=== PATIENT | female | born 1940 | race Caucasian/White ===

== ENCOUNTER → 2018-12-17 11:56 | Outpatient (CLI) | payer MEDICARE, BC, SELFPAY ==
--- NOTE | 2018-12-17 | DI.ECHO.S_ITS ---
[facility] +---------+ [facility] +---------+ : : [address] : : : : [place], [place] : : : : [id number] : : : : Phone: [phone] Echocardiogram Report + + :Name: OMID NINO Study Date: 12/17/2018 Height: 66 in : :[facility] Weight: 148 lb : : Gender: Female BSA: 1.8 m2 : :: 1940 Age: 78 yrs BP: 164/100 mmHg: :Reason For Study: Mitral Valve- Regurgitation : : Performed By: Eufemia Hobbs : :Referring: NIKOS OLSEN : + + Interpretation Summary The left ventricle is mildly dilated with normal left ventricular wall thickness and appears mildly larger compared to the previous study. Left ventricular systolic function is moderately reduced with the ejection fraction visually estimated to be 35-40% with a significant dyssynchronous contraction pattern due to the paced rhythm with moderate global hypokinesis that is significantly worse in the distal third of the left ventricle with some apical dyskinesis which is much more prominent compared to the previous study. Overall left ventricular systolic function has significantly decreased. The right ventricle grossly appears normal in size with probable normal systolic function and is unchanged compared to the previous study. The right ventricular systolic pressure is estimated to be at least 45 mmHg based on an estimated right atrial pressure of 8 mm Hg, and is likely similar compared to the previous study. Both atria are severely dilated and both atria have significantly increased in size since the prior echo exam. A small secundum type atrial septal defect is present and there is Doppler evidence that suggests a left to right interatrial shunt that is more prominent compared to the previous study. There is moderate, perhaps moderate??severe mitral regurgitation that is slightly more prominent compared to the previous study. There is moderate to severe tricuspid regurgitation that is more prominent compared to the previous study. The ascending aorta is mildly enlarged that measures slightly larger compared to the previous study. The patient has a paced rhythm with probable underlying atrial fibrillation which is new from the previous study Procedure: A two-dimensional transthoracic echocardiogram with color flow and Doppler was performed. The study quality was technically good. Comparison is made with the echocardiogram of 08-03-16. The patient has a paced rhythm. There is probable underlying atrial fibrillation which is new from the previous study. Left Ventricle: The left ventricle is mildly dilated. There is normal left ventricular wall thickness. This is mildly larger compared to the previous study. Left ventricular systolic function is moderately reduced. The ejection fraction is estimated to be 35-40%. There is a significant dyssynchronous contraction pattern due to the paced rhythm. There is moderate global hypokinesis of the left ventricle. That appears to be significantly worse in the distal third of the left ventricle with some apical dyskinesis which is much more prominent compared to the previous study. Overall left ventricular systolic function has significantly decreased. Diastolic function could not be accurately assessed due to paced rhythm. Right Ventricle: The right ventricle grossly appears normal in size with probable normal systolic function. There is a pacemaker lead in the right ventricle. This is unchanged compared to the previous study. Atria: Both atria are severely dilated. Both atria have significantly increased in size since the prior echo exam. There is a catheter/pacemaker lead seen in the right atrium. A secundum type atrial septal defect is present. The atrial septal defect is small. Doppler evidence suggests a left to right interatrial shunt. This is more prominent compared to the previous study. Mitral Valve: The mitral valve leaflets appear mildly thickened, but open well. There is moderate mitral regurgitation. This is slightly more prominent compared to the previous study. Aortic Valve: The aortic valve is trileaflet. The aortic valve is mildly calcified. Leaflet mobility is mildly reduced. There is no aortic valve stenosis. There is trace aortic regurgitation. Tricuspid Valve: The tricuspid valve leaflets are thin and pliable. There is moderate to severe tricuspid regurgitation. This is more prominent compared to the previous study. The right ventricular systolic pressure is estimated to be at least 45 mmHg based on an estimated right atrial pressure of 8 mm Hg. This is unchanged compared to the previous study. Pulmonic Valve: The pulmonic valve is not well seen, but is grossly normal. There is trace pulmonic regurgitation. Great Vessels: The aortic root is normal size. The ascending aorta is mildly enlarged. This is slightly larger compared to the previous study. The aortic arch is normal in size. The IVC is dilated (diameter is greater than 2.1 cm) yet it collapses greater than 50% with a sniff. This suggests a right atrial pressure of 8 mm Hg. Pericardium/ Pleura There is no pericardial effusion. There is no pleural effusion. MMode/2D Measurements & Calculations LVIDd: 5.5 cm Ao root diam: 3.3 cm LVIDs: 4.0 cm Aortic Jxn: 2.7 cm FS: 27.1 % asc Aorta Diam: 3.7 cm EPSS: 1.2 cm Ao Arch Diam (Prox Trans): 2.7 cm IVSd: 1.0 cm LVPWd: 0.89 cm LV isaac. diameter/BSA (cm/m^2): 3.1 LV sys. diameter/BSA (cm/m^2): 2.3 LA dimension: 5.1 cm RA long axis: 6.0 cm LA A2 area: 28.9 cm2 RA area: 28.4 cm2 LA A4 area: 27.9 cm2 RA vol: 113.3 ml LA length (vol): 6.3 cm RA : 64.4 ml/m2 LA vol: 108.5 ml IVC diam: 2.3 cm LA vol index: 61.6 ml/m2 RVDd major: 5.6 cm RVD1 (basal): 3.5 cm RVD2 (mid): 2.8 cm Doppler Measurements & Calculations Ao V2 max: 124.4 cm/sec Med Peak E' Collins: 2.2 cm/sec Ao V2 mean: 71.2 cm/sec Lat Peak E' Collins: 8.6 cm/sec Ao max P.2 mmHg MV P1/2t: 66.1 msec Ao mean P.6 mmHg Ao V2 VTI: 22.5 cm TR max collins: 298.5 cm/sec MV V2 mean: 52.3 cm/sec TR max P.6 mmHg MV mean P.5 mmHg PA V2 max: 63.6 cm/sec MV V2 VTI: 22.0 cm PA V2 mean: 36.9 cm/sec PA mean P.70 mmHg PA Accel Time: 0.11 sec MV P1/2t max collins: 111.4 cm/sec MVA(P1/2t): 3.3 cm2 Reading Physician:PM
== END ==
PROVIDERS: PCP Internal Medicine; Visit Provider Specialist
DX: I08.1 Rheumatic disorders of both mitral and tricuspid valves (principal)
CPT/HCPCS: 93306

== ENCOUNTER 2019-07-10 10:02 | Emergency (ER) | payer MEDICARE, BC, SELFPAY ==
[2019-07-10] VITALS (11 sets, daily range): BP systolic 113–154; BP diastolic 50–74; PULSE 65–73; RESP 16–23; TEMP 36.4–38.6; O2SAT 95–99; BMI 23.3
--- NOTE | 2019-07-10 10:33 | ED_ITS ---
HPI - Abdominal Pain General Chief Complaint: Abdominal Pain Stated Complaint: vomiting/passed out today Time Seen by Provider: 07/10/19 10:10 Source: patient Mode of arrival: Ambulatory Limitations: no limitations History of Present Illness HPI narrative: The patient is an 79-year-old female with history of atrial fibrillation on Coumadin presenting with diarrhea and vomiting. She says that last night she has had numerous episodes of dark red bloody stool and vomiting. She denies hematemesis. She has overall has diffuse abdominal pain. She feels weak and lethargic. She is noted to be febrile here in the ED. Related Data Home Medications Medication Instructions Recorded Confirmed bumetanide 0.5 mg PO DAILY 07/10/19 07/10/19 calcium carbonate [Tums Ultra] 800 mg PO DAILY 07/10/19 07/10/19 carvedilol 12.5 mg PO BID 07/10/19 07/10/19 cholecalciferol (vitamin D3) 1,000 unit PO DAILY 07/10/19 07/10/19 [Vitamin D3] losartan 25 mg PO QPM 07/10/19 07/10/19 warfarin 5 mg PO DAILY 07/10/19 07/10/19 Previous Rx's Medication Instructions Recorded ciprofloxacin HCl [Cipro] 500 mg PO BID #14 tab 07/10/19 metronidazole [Flagyl] 500 mg PO TID #21 tab 07/10/19 Allergies Allergy/AdvReac Type Severity Reaction Status Date / Time erythromycin base Allergy Severe SWELLING Verified 07/10/19 10:47 [ERYTHROMYCIN BASE] Penicillins [PENICILLINS] Allergy Severe SWELLING Verified 07/10/19 10:47 Sulfa (Sulfonamide Allergy Severe SWELLING Verified 07/10/19 10:47 Antibiotics) [SULFA (SULFONAMIDE ANTIBIOTICS)] tetracycline [TETRACYCLINE] Allergy Severe SWELLING Verified 07/10/19 10:47 Tetanus Vaccines and Toxoid Allergy Unknown SWELLING Verified 07/10/19 10:47 [TETANUS VACCINES & TOXOID] Review of Systems Review of Systems Narrative: GENERAL: Denies chills, fatigue, malaise, fever, sweats, travel HEENT: Denies sinus pain, ear pain, sore throat, difficulty swallowing, neck pain RESPIRATORY: Denies dyspnea, cough, wheezing, hemoptysis, sputum. CARDIOVASCULAR: Denies chest pain, palpitations, orthopnea, edema GASTROINTESTINAL: See HPI : Denies dysuria, frequency, incontinence, hematuria, urinary retention, flank pain. MUSCULOSKELETAL: Denies weakness, joint pain, or bony pain SKIN: No rash, no erythema, no pruritus NEUROLOGIC: Denies weakness, dizziness, headache, numbness, change in speech, confusion PSYCHIATRIC: No concerning psychosocial issues. 12 point review of systems is negative except for those stated above and HPI FORMERLY [facility], [facility]–1983 Medical History Hypertension (Acute) Pacemaker (Acute) Social History Smoking Status: Former smoker Social History Smoking Status: Former smoker Exam Initial Vital Signs Initial Vital Signs: Vital Signs Temperature 101.5 F H 07/10/19 10:16 Pulse Rate 68 07/10/19 10:16 Respiratory Rate 18 07/10/19 10:16 Blood Pressure 154/74 H 07/10/19 10:16 Pulse Oximetry 96 07/10/19 10:16 GENERAL: Pale week female and in no acute distress. HEENT: Head atraumatic,EOMI, pupils reactive, face symmetric, dry mucous membranes CARDIOVASCULAR: Regular rate and rhythm without murmurs, rubs or gallops. RESPIRATORY: Breath sounds equal bilaterally, no wheezes rales or rhonchi. ABDOMEN: Soft, diffusely tender nondistended EXTREMITIES: Normal range of motion, no clubbing or edema. Neurovascularly intact NEUROLOGICAL: Alert and oriented x4.Normal gait and speech. Cranial nerves II through XII grossly intact. SKIN: Warm, dry, no laceration, no petechiae, no rashes or lesions. Course Orders Ordered: ED Orders 07/10/19 10:14 EKG-12 Lead Stat 07/10/19 10:25 B Type Natriuretic Peptide Stat Complete Blood Count AUTO DIFF Stat Comprehensive Metabolic Panel Stat Lactate (Lactic Acid) Stat Lipase Stat Partial Thromboplastin Time Stat Procalcitonin Stat Prothrombin Time INR Stat Troponin & CK Cardiac Panel Stat Type and Screen Stat 07/10/19 10:54 Blood Culture Stat 07/10/19 11:06 CT abdomen pelvis w con Stat Discontinued Medications Acetaminophen (Tylenol) 975 mg PO NOW ONE Stop: 07/10/19 10:31 Last Admin: 07/10/19 11:03 Dose: 975 mg Documented by: MARILEE Sodium Chloride (Normal Saline 0.9%) 1,000 mls @ 150 mls/hr IV CONT MARIFER Last Infusion: 07/10/19 14:29 Dose: 0 mls/hr Documented by: Admin: 07/10/19 12:08 Dose: 150 mls/hr Documented by: BHAKTI Levofloxacin (Levaquin) 750 mg PO NOW ONE Stop: 07/10/19 12:50 Last Admin: 07/10/19 13:18 Dose: 750 mg Documented by: MARILEE Metronidazole (Metronidazole) 500 mg PO NOW ONE Stop: 07/10/19 12:50 Last Admin: 07/10/19 13:18 Dose: 500 mg Documented by: MARILEE Ondansetron HCl (Zofran) 4 mg IV NOW ONE Stop: 07/10/19 11:04 Last Admin: 07/10/19 12:08 Dose: 4 mg Documented by: BHAKTI Pantoprazole Sodium (Protonix) 40 mg IV NOW ONE Stop: 07/10/19 10:28 Last Admin: 07/10/19 11:02 Dose: 40 mg Documented by: MARILEE Vital Signs Vital signs: Vital Signs - 8 hr 07/10/19 11:03 07/10/19 11:32 07/10/19 12:00 Temperature 101.5 F H Pulse Rate 70 70 Respiratory Rate 23 20 Blood Pressure Blood Pressure [Left Arm] 131/55 L 113/50 L Pulse Oximetry 95 96 07/10/19 12:09 07/10/19 12:10 07/10/19 12:30 Temperature 98.2 F 98.2 F Pulse Rate 65 Respiratory Rate 16 Blood Pressure Blood Pressure [Left Arm] 116/55 L Pulse Oximetry 98 07/10/19 13:30 07/10/19 14:00 07/10/19 14:22 Temperature Pulse Rate 70 73 70 Respiratory Rate 20 18 18 Blood Pressure Blood Pressure [Left Arm] 113/70 113/55 L Pulse Oximetry 96 95 99 07/10/19 14:26 Temperature 97.6 F Pulse Rate 70 Respiratory Rate 18 Blood Pressure 113/55 L Blood Pressure [Left Arm] Pulse Oximetry 98 MDM - Abdominal Pain Lab Data Attestation: I reviewed the patient's lab results. Result diagrams: 07/10/19 10:25 07/10/19 10:25 Labs: Lab Results 10/01/2307/10/19 07/10/19 Range/Units 10:25 10:25 10:25 WBC 14.9 H (4.5-11.0) X10^3/uL RBC 4.89 (4.0-5.2) X10^6/uL Hgb 14.2 (12.0-16.0) g/dL Hct 44.5 (36-46) % MCV 91.1 (80-100) fL MCH 29.1 (26-34) PG MCHC 31.9 (30-36) % RDW 13.8 (11.6-14.8) % Plt Count 260 (150-400) X10^3/uL Neut % (Auto) 91.2 H (50-75) % Lymph % (Auto) 3.1 L (25-40) % [place] % (Auto) 5.4 (3-14) % Eos % (Auto) 0.1 L (2-4) % Baso % (Auto) 0.2 (0-2) % Neut # (Auto) 33087 H (4605-9809) /uL Lymph # (Auto) 500 L (5148-8059) /uL [place] # (Auto) 800 (0-900) /uL Eos # (Auto) 0 (0-450) /uL Baso # (Auto) 0 (0-100) /uL PT 25.5 H (10.1-12.7) SECONDS INR 2.2 H (0.9-1.3) APTT 41 H (26.4-36.2) SECONDS Sodium 141 (137-145) mmol/L Potassium 4.2 (3.4-5.1) mmol/L Chloride 101 (98-107) mmol/L Carbon Dioxide 29 (22-32) mmol/L BUN 33 H (7-17) mg/dL Creatinine 1.10 H (0.52-1.04) mg/dL Estimated GFR 47.7 L (>60) mL/min BUN/Creatinine Ratio 30.0 H (6-22) Glucose 146 H (80-110) mg/dL Lactate (0.7-2.1) mmol/L Calcium 10.2 (8.4-10.2) mg/dL Total Bilirubin 2.2 H (0.2-1.3) mg/dL AST 33 (14-36) IU/L ALT 18 (9-52) IU/L Alkaline Phosphatase 101 (38-126) U/L Total Creatine Kinase (30-135) U/L CK-MB (CK-2) CK-MB (CK-2) Rel Index Troponin I (0.01-0.034) ng/mL B-Natriuretic Peptide (<100) Total Protein 8.1 (6.3-8.2) g/dL Albumin 4.8 (3.5-5.0) g/dL Globulin 3.3 (1.7-4.1) g/dL Albumin/Globulin Ratio 1.5 (1.0-2.8) Lipase 69 (23-300) U/L Procalcitonin (<0.5) ng/mL Blood Type Antibody Screen 07/10/19 07/10/19 07/10/19 Range/Units 10:25 10:25 10:25 WBC (4.5-11.0) X10^3/uL RBC (4.0-5.2) X10^6/uL Hgb (12.0-16.0) g/dL Hct (36-46) % MCV (80-100) fL MCH (26-34) PG MCHC (30-36) % RDW (11.6-14.8) % Plt Count (150-400) X10^3/uL Neut % (Auto) (50-75) % Lymph % (Auto) (25-40) % [place] % (Auto) (3-14) % Eos % (Auto) (2-4) % Baso % (Auto) (0-2) % Neut # (Auto) (7880-1481) /uL Lymph # (Auto) (8653-0238) /uL [place] # (Auto) (0-900) /uL Eos # (Auto) (0-450) /uL Baso # (Auto) (0-100) /uL PT (10.1-12.7) SECONDS INR (0.9-1.3) APTT (26.4-36.2) SECONDS Sodium (137-145) mmol/L Potassium (3.4-5.1) mmol/L Chloride (98-107) mmol/L Carbon Dioxide (22-32) mmol/L BUN (7-17) mg/dL Creatinine (0.52-1.04) mg/dL Estimated GFR (>60) mL/min BUN/Creatinine Ratio (6-22) Glucose (80-110) mg/dL Lactate 1.7 (0.7-2.1) mmol/L Calcium (8.4-10.2) mg/dL Total Bilirubin (0.2-1.3) mg/dL AST (14-36) IU/L ALT (9-52) IU/L Alkaline Phosphatase (38-126) U/L Total Creatine Kinase 89 (30-135) U/L CK-MB (CK-2) TNP CK-MB (CK-2) Rel Index TNP Troponin I < 0.012 (0.01-0.034) ng/mL B-Natriuretic Peptide (<100) Total Protein (6.3-8.2) g/dL Albumin (3.5-5.0) g/dL Globulin (1.7-4.1) g/dL Albumin/Globulin Ratio (1.0-2.8) Lipase (23-300) U/L Procalcitonin < 0.05 (<0.5) ng/mL Blood Type Antibody Screen 07/10/19 07/10/19 Range/Units 10:25 10:25 WBC (4.5-11.0) X10^3/uL RBC (4.0-5.2) X10^6/uL Hgb (12.0-16.0) g/dL Hct (36-46) % MCV (80-100) fL MCH (26-34) PG MCHC (30-36) % RDW (11.6-14.8) % Plt Count (150-400) X10^3/uL Neut % (Auto) (50-75) % Lymph % (Auto) (25-40) % [place] % (Auto) (3-14) % Eos % (Auto) (2-4) % Baso % (Auto) (0-2) % Neut # (Auto) (4360-0716) /uL Lymph # (Auto) (6817-4790) /uL [place] # (Auto) (0-900) /uL Eos # (Auto) (0-450) /uL Baso # (Auto) (0-100) /uL PT (10.1-12.7) SECONDS INR (0.9-1.3) APTT (26.4-36.2) SECONDS Sodium (137-145) mmol/L Potassium (3.4-5.1) mmol/L Chloride (98-107) mmol/L Carbon Dioxide (22-32) mmol/L BUN (7-17) mg/dL Creatinine (0.52-1.04) mg/dL Estimated GFR (>60) mL/min BUN/Creatinine Ratio (6-22) Glucose (80-110) mg/dL Lactate (0.7-2.1) mmol/L Calcium (8.4-10.2) mg/dL Total Bilirubin (0.2-1.3) mg/dL AST (14-36) IU/L ALT (9-52) IU/L Alkaline Phosphatase (38-126) U/L Total Creatine Kinase (30-135) U/L CK-MB (CK-2) CK-MB (CK-2) Rel Index Troponin I (0.01-0.034) ng/mL B-Natriuretic Peptide 130 H (<100) Total Protein (6.3-8.2) g/dL Albumin (3.5-5.0) g/dL Globulin (1.7-4.1) g/dL Albumin/Globulin Ratio (1.0-2.8) Lipase (23-300) U/L Procalcitonin (<0.5) ng/mL Blood Type O Positive Antibody Screen Negative Imaging Data CT scan - abdomen: Radiologist's impression: PROCEDURE: CT ABDOMEN PELVIS W CON INDICATIONS: pain vomiting TECHNIQUE: After the administration of intravenous contrast, 5 mm thick sections acquired from the diaphragm to the symphysis. 5 mm coronal and sagittal reformats were acquired. For radiation dose reduction, the following was used: automated exposure control, adjustment of mA and/or kV according to patient size. COMPARISON: None. FINDINGS: Image quality: Excellent. ABDOMEN: Lung bases: Focal pneumonia, right middle lobe. Cardiomegaly with enlargement of the left ventricle, left atrium, and right atrium. Pacemaker small hiatal hernia. Solid organs: Liver is normal in size and enhancement. Gallbladder is unremarkable. Biliary system is non dilated. Pancreas enhances normally. Spleen is normal in size and enhancement. No adrenal nodules. Kidneys demonstrate normal size and enhancement, without hydronephrosis. Peritoneum and bowel: There is a lipoma present involving a loop of jejunum measuring 2.1 cm in diameter. It appears to be on a stalk. It does not appear to result in obstruction. Focal wall thickening of the ascending colon near the hepatic flexure. Question mild ileus pattern. No free fluid or air. Nodes and vessels: No retroperitoneal or mesenteric adenopathy by size criteria. Aorta and inferior vena cava are normal in size. Miscellaneous: No ventral hernias. PELVIS: Genitourinary: Bladder wall thickness is normal. Miscellaneous: Small right inguinal hernia containing fat.. Remote hysterectomy. Bones: No suspicious bony lesions. Numerous old compression fractures. No acute compression fractures. Remote percutaneous cement fixation of L3. IMPRESSION: 1. The ascending colon has focal wall thickening near the hepatic flexure. Question infectious versus inflammatory versus ischemic colitis. 2. Question ileus pattern. 3. 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 4. Numerous old compression fractures, status post remote percutaneous cement fixation of L3. 5. Small right inguinal hernia containing fat. 6. Remote hysterectomy. 7. Cardiomegaly. Dictated by: Robe Niño M.D. on 07/10/2019 at 11:32 Approved by: Robe Niño M.D. on 07/10/2019 at 11:42 ECG Data Attestation: I personally reviewed and interpreted this ECG as follows: Prior ECG tracings: available for review Interpretation: Paced rhythm rate 69 similar to previous EKG MDM Narrative Medical decision making narrative: The patient has not had diarrhea or vomiting in the ED. Overall feeling better after IV fluids. Hemoglobin hematocrit stable. CT does show some colitis. White count upon arrival likely infectious will start her on antibiotics. She is allergic to penicillin and is on Coumadin. She is given Levaquin but needs to recheck her INR next week with her PCP. She is tolerating fluids ambulatory without difficulty. At this time no need for admission. I discussed all findings with the patient , Education has been performed r egarding treatment plan, diagnosis, warning signs and symptoms and all concerns have been addressed. Verbally agree with and understood all of the above. Discharge Plan Departure Patient Disposition: Home Clinical Impression: Colitis Discharge Date/Time: 07/10/19 14:26 Instructions: Clear Liquid Diet, DI for Colitis Activity Restrictions/Additional Instructions: *You have been diagnosed with colitis *What to do: Recommend clear liquid diet for the next 24 -48hrs, may increase diet as tolerated THE ANTIBIOTICS WILL INCREASE HER INR AND MAKE HIM MORE PRONE TO BLEEDING. IT IS VERY IMPORTANT YOU GET YOUR INR BE CHECKED NEXT WEEK WITH DR. CHACKO *Continue to take medications as directed Cipro 500 mL 7 days Flagyl 500 mg 3 times a day for 7 days *Follow up with your primary care provider in 2-3 days *Return to ER if you should have increasing abdominal pain, passing out, inability tolerate fluids, worsening bloody stools or any new, worsening or concerning symptoms Prescriptions: New ciprofloxacin HCl [Cipro] 500 mg tablet 500 mg PO BID Qty: 14 RF: 0 metronidazole [Flagyl] 500 mg tablet 500 mg PO TID Qty: 21 RF: 0 No Action carvedilol 12.5 mg Tablet 12.5 mg PO BID RF: 0 bumetanide 0.5 mg Tablet 0.5 mg PO DAILY RF: 0 losartan 25 mg Tablet 25 mg PO QPM RF: 0 calcium carbonate [Tums Ultra] 400 mg calcium (1,000 mg) Tablet,Chewable 800 mg PO DAILY RF: 0 warfarin 5 mg Tablet 5 mg PO DAILY RF: 0 cholecalciferol (vitamin D3) [Vitamin D3] 1,000 unit Capsule 1,000 unit PO DAILY RF: 0 Referrals: Minor Chacko MD [Primary Care Provider] -
[2019-07-10 10:45] LABS: INR 2.2 (0.9-1.3); Prothrombin Time 25.5 SECONDS (10.1-12.7)
[2019-07-10 10:48] LABS: Add Manual Diff / Slide Review NO; Basophils Absolute Auto 0 /uL (0-100); Basophils Percent Auto 0.2 % (0-2); Eosinophils Absolute Auto 0 /uL (0-450); Eosinophils Percent Auto 0.1 % (2-4); Hematocrit 44.5 % (36-46); Hemoglobin 14.2 g/dL (12.0-16.0); Lymphocytes Absolute Auto 500 /uL (1100-4500); Lymphocytes Percent Auto 3.1 % (25-40); Mean Corpuscular HGB Conc 31.9 % (30-36); Mean Corpuscular Hemoglobin 29.1 PG (26-34); Mean Corpuscular Volume 91.1 fL (80-100); Monocytes Absolute Auto 800 /uL (0-900); Monocytes Percent Auto 5.4 % (3-14); Neutrophils Absolute Auto 13500 /uL (1500-7000); Neutrophils Percent Auto 91.2 % (50-75); PTT Partial Thromboplastin Tim 41 SECONDS (26.4-36.2); Platelet Count 260 X10^3/uL (150-400); Red Blood Cell Count 4.89 X10^6/uL (4.0-5.2); Red Cell Distribution Width 13.8 % (11.6-14.8); White Blood Cell Count 14.9 X10^3/uL (4.5-11.0)
[2019-07-10 10:54] LABS: Alanine Aminotransferase 18 IU/L (9-52); Albumin 4.8 g/dL (3.5-5.0); Albumin Globulin Ratio 1.5 (1.0-2.8); Alkaline Phosphatase 101 U/L (38-126); Aspartate Aminotransferase 33 IU/L (14-36); Bilirubin Total 2.2 mg/dL (0.2-1.3); Blood Urea Nitrogen 33 mg/dL (7-17); Calcium 10.2 mg/dL (8.4-10.2); Carbon Dioxide 29 mmol/L (22-32); Chloride 101 mmol/L (98-107); Estimated Glomerular Filt Rate 47.7 mL/min (>60); Globulin 3.3 g/dL (1.7-4.1); Glucose 146 mg/dL (80-110); HEMOLYSIS < 15 (0-50); Lipase 69 U/L (23-300); Potassium 4.2 mmol/L (3.4-5.1); Sodium 141 mmol/L (137-145); Total Protein 8.1 g/dL (6.3-8.2)
[2019-07-10 10:55] LABS: Lactate (Lactic Acid) 1.7 mmol/L (0.7-2.1)
[2019-07-10 10:58] LABS: Creatine Kinase 89 U/L (30-135)
[2019-07-10] MEDS: PANTOPRAZOLE 40 MG VIAL IV (11:02)
[2019-07-10] MEDS: ACETAMINOPHEN 325 MG TABLET 975 MG PO (11:03)
--- NOTE | 2019-07-10 11:06 | DI.CT.S_ITS ---
PROCEDURE: CT ABDOMEN PELVIS W CON INDICATIONS: pain vomiting TECHNIQUE: After the administration of intravenous contrast, 5 mm thick sections acquired from the diaphragm to the symphysis. 5 mm coronal and sagittal reformats were acquired. For radiation dose reduction, the following was used: automated exposure control, adjustment of mA and/or kV according to patient size. COMPARISON: None. FINDINGS: Image quality: Excellent. ABDOMEN: Lung bases: Focal pneumonia, right middle lobe. Cardiomegaly with enlargement of the left ventricle, left atrium, and right atrium. Pacemaker small hiatal hernia. Solid organs: Liver is normal in size and enhancement. Gallbladder is unremarkable. Biliary system is non dilated. Pancreas enhances normally. Spleen is normal in size and enhancement. No adrenal nodules. Kidneys demonstrate normal size and enhancement, without hydronephrosis. Peritoneum and bowel: There is a lipoma present involving a loop of jejunum measuring 2.1 cm in diameter. It appears to be on a stalk. It does not appear to result in obstruction. Focal wall thickening of the ascending colon near the hepatic flexure. Question mild ileus pattern. No free fluid or air. Nodes and vessels: No retroperitoneal or mesenteric adenopathy by size criteria. Aorta and inferior vena cava are normal in size. Miscellaneous: No ventral hernias. PELVIS: Genitourinary: Bladder wall thickness is normal. Miscellaneous: Small right inguinal hernia containing fat.. Remote hysterectomy. Bones: No suspicious bony lesions. Numerous old compression fractures. No acute compression fractures. Remote percutaneous cement fixation of L3. IMPRESSION: 1. The ascending colon has focal wall thickening near the hepatic flexure. Question infectious versus inflammatory versus ischemic colitis. 2. Question ileus pattern. 3. 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 4. Numerous old compression fractures, status post remote percutaneous cement fixation of L3. 5. Small right inguinal hernia containing fat. 6. Remote hysterectomy. 7. Cardiomegaly. Dictated by: Robe Niño M.D. on 07/10/2019 at 11:32 Approved by: Robe Niño M.D. on 07/10/2019 at 11:42
[2019-07-10 11:11] LABS: Troponin I < 0.012 ng/mL (0.01-0.034)
[2019-07-10 11:13] LABS: Procalcitonin < 0.05 ng/mL (<0.5)
[2019-07-10 11:44] LABS: B Type Natriuretic Peptide 130 (<100)
[2019-07-10] MEDS: SODIUM CHLORIDE 0.9% 1,000 ML 150 ML IV (12:08)
[2019-07-10] MEDS: ONDANSETRON 4 MG/2 ML INJ IV (12:08)
[2019-07-10] MEDS: metroNIDAZOLE 250 MG TABLET 500 MG PO (13:18)
[2019-07-10] MEDS: levoFLOXacin 250 MG TABLET 750 MG PO (13:18)
--- NOTE | 2019-07-10 14:23 | PC.NURSE ---
pt ambulated without incidence. steady gait. tolerated po fluid challenge. requesting to go home.
== END 2019-07-10 14:26 | disposition home or self-care (01) ==
PROVIDERS: Emergency Provider Emergency Medicine; PCP Internal Medicine
DX: K52.9 Noninfective gastroenteritis and colitis, unspecified (principal)
CPT/HCPCS: 36415; 74177; 80053; 82550; 83605; 83690; 83880; 84145; 84484; 85025; 85610; 85730; 86850; 86900; 86901; 87040; 93005; 96361; 96374; 96375; 99283; 99285; C9113; J2405; Q9967

== ENCOUNTER → 2019-09-24 09:07 | Outpatient (CLI) | payer MEDICARE, BC, SELFPAY ==
--- NOTE | 2019-09-24 | DI.US.S_ITS ---
PROCEDURE: US ABDOMEN COMPLETE INDICATIONS: ABNORMAL RESULTS OF LIVER FUNCTION STUDIES TECHNIQUE: Real-time scanning was performed of the abdominal and retroperitoneal organs, with image documentation. COMPARISON: [facility], CT, CT ABDOMEN PELVIS W CON, 07/10/2019, 11:06. FINDINGS: Liver: Liver is normal in size and homogeneous in echotexture. Gallbladder: 2 gallbladder polyps, largest measuring 2 mm. Biliary ducts: Intrahepatic bile ducts are non-dilated. Extrahepatic bile duct caliber measures 2.0 mm. Normal is 6-7 mm or less in diameter, or 10 mm or less post-cholecystectomy. Pancreas: Visualized portions of the pancreas are sonographically normal. Spleen: Spleen is normal in size and homogeneous in echotexture. Kidneys: Kidneys are normal in size and echotexture. Right kidney measures 10.3 cm long; left kidney measures 10.6 cm long. No hydronephrosis or nephrolithiasis. No solid masses. Aorta: Visualized aorta is normal in caliber at less than 3 cm. Iliacs: Proximal common iliac arteries are normal in caliber at less than 2.5 cm. IVC: Intrahepatic inferior vena cava is patent. Miscellaneous: No free abdominal fluid. IMPRESSION: 1. 2 small gallbladder polyps; otherwise normal gallbladder. Given the small size, no follow up is warranted. 2. No source for elevated LFTs identified. Dictated by: Jadon BHAT Interpreted: Vincent Arreola MD on 09/24/2019 at 10:28 Approved by: Vincent Arreola M.D. on 09/24/2019 at 10:34
== END ==
PROVIDERS: PCP Internal Medicine; Referring Provider Specialist; Visit Provider Internal Medicine
DX: R94.5 Abnormal results of liver function studies (principal); R10.9 Unspecified abdominal pain; K82.4 Cholesterolosis of gallbladder
CPT/HCPCS: 76700

== ENCOUNTER → 2020-02-15 13:14 | Outpatient (CLI) | payer MEDICARE, BC, SELFPAY ==
--- NOTE | 2020-02-15 | DI.ECHO.S_ITS ---
[place] [facility]---------+ [facility] +---------+ : : [address] : : : : [id number] : : : : Phone: [phone] Echocardiogram Report + + :Name: OMID NINO Study Date: 02/15/2020 Height: 66 in : :[facility] Weight: 143 lb : : Gender: Female BSA: 1.7 m2 : :: 1940 Age: 80 yrs BP: 130/78 mmHg: :Reason For Study: CARDIOMYOPATHY : :Ordering Physician: Vinny : :Ryan Performed By: Krissy Villafana : :Referring: Vinny Davis : + + Interpretation Summary Left ventricular systolic function is now only mildly reduced with an estimated ejection fraction of 45 to 50% with a significant dyssynchronous contraction pattern, particularly at the apex with mild apical hypokinesis extending into the distal inferior wall, likely due to pacemaker activation but the left ventricle appears smaller and more dynamic compared to the previous study, particularly apically. Left ventricular volumes are at the upper limits of normal now with an end-diastolic volume of 83 mL, down from 110 mL. The right ventricle appears normal and unchanged. Pulmonary artery pressure is estimated at 33 mmHg with a CVP of 8 mmHg, and is likely lower compared to the previous exam. There is moderate biatrial enlargement but significantly smaller compared to the previous study. A very small septum secundum type atrial septal defect may be present but is less prominent. There is mild to moderate mitral regurgitation and moderate tricuspid regurgitation, the latter with multiple regurgitant jets, but both appear to be less prominent compared to the previous study. The ascending aorta is mildly enlarged but unchanged. Procedure: A two-dimensional transthoracic echocardiogram with color flow and Doppler was performed. The study quality was technically adequate. Comparison is made with the echocardiogram of 12/17/2018. The patient has a paced rhythm. Left Ventricle: Left ventricular size is at the upper limits of normal. The estimated left ventricular end diastolic volume is 83 ml, down from 110 ml. Left ventricular wall thickness is normal. Left ventricular systolic function is mildly reduced. The ejection fraction is estimated to be 45-50%. There continues to be a significant dyssynchronous contraction pattern, particularly at the apex with mild apical hypokinesis extending into the distal inferior wall, consistent with pacemaker activation. The left ventricle appears smaller and more dynamic compared to the previous study, particularly apically. Diastolic function could not be accurately assessed due to atrial fibrillation. Right Ventricle: There is a pacemaker lead in the right ventricle. The right ventricle is normal in size and function. This is unchanged compared to the previous study. Atria: Both atria are moderately dilated. Both atria have significantly decreased in size since the prior echo exam. A secundum type atrial septal defect is present. A trivial jet is seen at the base of the interatrial septum that could reflect a minuscule atrial septal defect with [id number]-up-kfydp flow but is less apparent compared to the previous study. Mitral Valve: The mitral valve leaflets appear mildly thickened, but open well. There is slight calcification extending into the subvalvular apparatus. There is mild to moderate mitral regurgitation. This is less apparent compared to the previous study. Aortic Valve: The aortic valve is trileaflet. The aortic valve is mildly calcified. There is minimally reduced leaflet mobility. There is no aortic valve stenosis. There is trace aortic regurgitation. Tricuspid Valve: The tricuspid valve leaflets are thin and pliable. There is moderate tricuspid regurgitation. The right ventricular systolic pressure is estimated to be at least 33 mmHg based on an estimated right atrial pressure of 8 mm Hg. This is and is likely lower compared to the previous study. Pulmonic Valve: The pulmonic valve is not well seen, but is grossly normal. There is no pulmonic valvular regurgitation. Great Vessels: The aortic root is normal size. The ascending aorta is mildly enlarged. This is unchanged compared to the previous study. The IVC is dilated (diameter is greater than 2.1 cm) yet it collapses greater than 50% with a sniff. This suggests a right atrial pressure of 8 mm Hg. Pericardium/ Pleura There is no pericardial effusion. There is no pleural effusion. MMode/2D Measurements & Calculations LVIDd: 5.2 cm LVOT diam: 2.0 cm LVIDs: 3.4 cm Ao root diam: 3.1 cm FS: 34.6 % asc Aorta Diam: 3.6 cm EPSS: 0.92 cm Ao Arch Diam (Prox Trans): 2.8 cm IVSd: 0.76 cm LVPWd: 0.74 cm LV isaac. diameter/BSA (cm/m^2): 3.0 LV sys. diameter/BSA (cm/m^2): 2.0 LA A2 area: 24.8 cm2 RA long axis: 5.6 cm LA A4 area: 22.9 cm2 RA area: 21.7 cm2 LA length (vol): 5.9 cm RA vol: 72.2 ml LA vol: 81.6 ml RA : 41.6 ml/m2 LA vol index: 47.0 ml/m2 IVC diam: 2.3 cm RVD1 (basal): 3.2 cm TAPSE: 1.6 cm Doppler Measurements & Calculations Ao V2 max: 126.8 cm/sec LVOT Max Collins: 92.8 cm/sec Ao V2 mean: 92.2 cm/sec LV V1 max P.4 mmHg Ao max P.4 mmHg LV V1 VTI: 17.4 cm Ao mean P.7 mmHg CABRERA(I,D): 2.4 cm2 Ao V2 VTI: 23.2 cm CABRERA(V,D): 2.4 cm2 sev ratio: 0.75 CABRERA indexed to BSA (cm^2/m^2): 1.4 MV E max collins: 97.2 cm/sec TR max collins: 248.0 cm/sec MV A max collins: 1.4 cm/sec TR max P.6 mmHg MV E/A: 68.0 PA V2 max: 66.3 cm/sec Med Peak E' Collins: 6.4 cm/sec PA V2 mean: 46.0 cm/sec E/E' med: 15.2 PA mean P.91 mmHg Lat Peak E' Collins: 8.7 cm/sec E/E' lat: 11.1 E/e' average: 13.2 MV dec time: 0.20 sec SV(LVOT): 56.1 ml Reading Physician:RUDOLPH
== END ==
PROVIDERS: PCP Internal Medicine; Referring Provider Internal Medicine; Visit Provider Specialist
DX: I08.1 Rheumatic disorders of both mitral and tricuspid valves (principal); I42.9 Cardiomyopathy, unspecified; I77.89 Other specified disorders of arteries and arterioles; Z95.0 Presence of cardiac pacemaker
CPT/HCPCS: 93306

== ENCOUNTER → 2020-03-07 12:00 | Outpatient (CLI) | payer MEDICARE, BC, SELFPAY ==
[2020-03-07 13:07] LABS: Prothrombin Time 34.2 SECONDS (10.1-12.7)
== END ==
PROVIDERS: PCP Internal Medicine; Referring Provider Internal Medicine; Visit Provider Internal Medicine
DX: I48.91 Unspecified atrial fibrillation (principal)
CPT/HCPCS: 36415; 85610

== ENCOUNTER 2020-04-04 14:01 | Inpatient (IN) | payer MEDICARE, BC, SELFPAY ==
[2020-04-04] VITALS (27 sets, daily range): BP systolic 113–157; BP diastolic 56–94; PULSE 69–78; RESP 13–37; TEMP 36.2–37.1; O2SAT 83–100; BMI 22.6
--- NOTE | 2020-04-04 | PATH_ITS ---
[facility] Accession Number: [id number] . 01 Material submitted: . small bowel - SMALL BOWEL RESECTION . 02 Diagnosis: Small Bowel, Resection: 1. Intussuscepted small bowel with acute ischemia and vascular congestion. 2. Mature adipose tissue consistent with lipoma within intussuscepted segment. 3. Surgical margins viable. 4. Negative for atypia, epithelial dysplasia, and malignancy. [facility] 04/07/2020 1403 Local . 02 Electronically signed: . Kina Jeronimo MD, Pathologist NPI- [id number] . 01 Gross description: . Specimen A is received in formalin, labeled with patient identification and small bowel resection. It consists of an unoriented segment of small bowel, with a scant amount of attached adipose tissue measuring 20.4 cm in length and 3.6 cm in diameter. Two ends are stapled shut and are randomly designated as margin A and margin B. The serosa is pink to yellow-milan, smooth and glistening with a 0.9 x 0.5 cm transmural defect which is 3.0 cm to margin A and 16.3 cm to margin B. 1.5 cm distal to the transmural defect is an intussusception. Opening the specimen reveals an 8.1 cm in length intussusception which is 4.4 cm to margin A and 6.5 cm to margin B. The mucosa at the intussusception is dusky red and necrotic with diminished foldings. No perforations are grossly identified. A 3.2 x 2.0 x 1.8 cm pedunculated, black to red, necrotic and polypoid lesion is present at the intussusception, 7.2 cm to margin A and 11.0 cm to margin B. Sectioning the polypoid lesion reveals a 2.5 x 1.8 x 1.5 cm homogeneously yellow-milan and smooth compartment which is 80% of the lesion. The 20% of the lesion is a heterogeneously white to brown-milan and necrotic compartment which is covered around the yellow compartment. The uninvolved mucosa is yellow-milan and grossly unremarkable with normal foldings. Clean In Places Operator sections are submitted in eight cassettes. . Summary of sections: A1 - margin A, shave, one piece. A2 - margin B, shave, one piece. A3-A5 - abrasives sales representative sections of polypoid lesion, one piece each. A6 - abrasives sales representative sections of intussusception, two pieces. A7 - abrasives sales representative sections of transmural defect, one piece. A8 - abrasives sales representative uninvolved mucosa, two pieces. ([id number]) /MRV 04/07/2020 1403 Local . 02 Pathologist provided ICD-10: K56.1, D17.5 . 02 CPT . 608552 Performed at: 01 [facility] [address] [address], [place], [place] [id number] MD Calderon Sanders MD Phone: [phone] Performed at: 02 [facility] [place] [address] [place] [id number] MD Kina Jeronimo MD Phone: [phone]
--- NOTE | 2020-04-04 14:11 | ED_ITS ---
HPI - Abdominal Pain General Chief Complaint: Abdominal Pain Stated Complaint: Abd px Time Seen by Provider: 04/04/20 14:06 History of Present Illness HPI narrative: 80-year-old woman with a history of atrial fibrillation on warfarin with a pacemaker presents after 3 days of diarrhea which seems to be slowing this morning and now increasing nausea and upper abdominal pain. She describes no blood or black in the stool. She has not had any episodes of actual emesis. The belly pain she describes as distended but tender enough that she does not even want clothes touching her skin. She states that she has had no fevers, cough, chills, dysuria, chest pain, dyspnea, palpitations, near syncopal episodes. Related Data Home Medications Medication Instructions Recorded Confirmed bumetanide 0.5 mg PO DAILY 07/10/19 07/10/19 calcium carbonate [Tums Ultra] 800 mg PO DAILY 07/10/19 07/10/19 carvedilol 12.5 mg PO BID 07/10/19 07/10/19 cholecalciferol (vitamin D3) 1,000 unit PO DAILY 07/10/19 07/10/19 [Vitamin D3] losartan 25 mg PO QPM 07/10/19 07/10/19 warfarin 5 mg PO DAILY 07/10/19 07/10/19 Previous Rx's Medication Instructions Recorded ciprofloxacin HCl [Cipro] 500 mg PO BID #14 tab 07/10/19 metronidazole [Flagyl] 500 mg PO TID #21 tab 07/10/19 Allergies Allergy/AdvReac Type Severity Reaction Status Date / Time erythromycin base Allergy Severe SWELLING Verified 07/10/19 10:47 [ERYTHROMYCIN BASE] Penicillins [PENICILLINS] Allergy Severe SWELLING Verified 07/10/19 10:47 Sulfa (Sulfonamide Allergy Severe SWELLING Verified 07/10/19 10:47 Antibiotics) [SULFA (SULFONAMIDE ANTIBIOTICS)] tetracycline [TETRACYCLINE] Allergy Severe SWELLING Verified 07/10/19 10:47 Tetanus Vaccines and Toxoid Allergy Unknown SWELLING Verified 07/10/19 10:47 [TETANUS VACCINES & TOXOID] Review of Systems Review of Systems Narrative: Pertinent positive and negative findings as per HPI Remainder of review of systems is otherwise unremarkable for Constitutional: Fevers, chills, weakness ENT: No sore throat, neck pain, ear pain : Dysuria, hematuria, flank pain MS: Muscle weakness, numbness, joint swelling or warmth Skin: Rashes, nonhealing lesions Neuro: Syncope, dizziness, tingling Endocrine: Fatigue, heat or cold intolerance, very dry skin Patient History Medical History Atrial fibrillation (Acute) Hypertension (Acute) Pacemaker (Acute) Social History Smoking Status: Former smoker Smoking Status: Former smoker alcohol intake frequency: 0-2 drinks per day Substance Use Type: does not use Exam Narrative Exam Narrative: General: Healthy appearing, in no acute distress. Able to give a complete and coherent history. Well-nourished well-developed HEENT: Moist mucous membranes, normal sclera with reactive pupils, Neck: No JVD, supple Respiratory: Lungs are clear to auscultation, no wheezing no rales no rhonchi. Full and symmetrical air movement Cardiac: iregular rate and rhythm no murmurs no bruits Abdomen: Soft, epigastric tenderness without rebound or guarding mild diffuse tenderness in all quadrants without rebound or guarding. Good bowel tones, no flank pain Skin: Warm and dry, no rashes Neurologic: Grossly neurologically intact with no obvious asymmetries or abnormalities Extremities: No trauma, well perfused Psych: Cooperative, appropriate insight and affect Initial Vital Signs Initial Vital Signs: Vital Signs Temperature 97.1 F L 04/04/20 14:00 Pulse Rate 69 04/04/20 14:00 Respiratory Rate 18 04/04/20 14:00 Blood Pressure 113/57 L 04/04/20 14:00 Pulse Oximetry 99 04/04/20 14:00 Course Orders Ordered: ED Orders 04/04/20 14:05 EKG-12 Lead Stat 04/04/20 14:35 CT abdomen pelvis w con Stat Complete Blood Count AUTO DIFF Stat Comprehensive Metabolic Panel Stat Lipase Stat Partial Thromboplastin Time Stat Prothrombin Time INR Stat 04/04/20 14:45 Ictotest Urine Stat Urinalysis and Microscopic Stat Vital Signs Vital signs: Vital Signs - 8 hr 04/04/20 14:00 04/04/20 14:19 Temperature 97.1 F L Pulse Rate 69 69 Respiratory Rate 18 13 Blood Pressure 113/57 L 121/56 L Pulse Oximetry 99 97 MDM - Abdominal Pain Medical Records Attestation: I reviewed the patient's medical records. Lab Data Attestation: I reviewed the patient's lab results. Result diagrams: 04/04/20 14:35 04/04/20 14:35 Labs: Lab Results 04/04/20 04/04/20 04/04/20 Range/Units 14:35 14:35 14:35 WBC 12.4 H (4.5-11.0) X10^3/uL RBC 4.75 (4.0-5.2) X10^6/uL Hgb 14.3 (12.0-16.0) g/dL Hct 43.4 (36-46) % MCV 91.3 (80-100) fL MCH 30.2 (26-34) PG MCHC 33.0 (30-36) % RDW 13.6 (11.6-14.8) % Plt Count 237 (150-400) X10^3/uL Neut % (Auto) 84.7 H (50-75) % Lymph % (Auto) 7.3 L (25-40) % [place] % (Auto) 6.9 (3-14) % Eos % (Auto) 0.9 L (2-4) % Baso % (Auto) 0.2 (0-2) % Neut # (Auto) 77846 H (3362-5413) /uL Lymph # (Auto) 900 L (6456-1667) /uL [place] # (Auto) 900 (0-900) /uL Eos # (Auto) 100 (0-450) /uL Baso # (Auto) 0 (0-100) /uL PT 24.0 H (10.1-12.7) SECONDS INR 2.1 H (0.9-1.3) APTT 37 H D (26.4-36.2) SECONDS Sodium 136 L (137-145) mmol/L Potassium 4.7 (3.4-5.1) mmol/L Chloride 101 (98-107) mmol/L Carbon Dioxide 26 (22-32) mmol/L BUN 21 H (7-17) mg/dL Creatinine 1.10 H (0.52-1.04) mg/dL Estimated GFR 47.6 L (>60) mL/min BUN/Creatinine Ratio 19.1 (6-22) Glucose 108 (80-110) mg/dL Calcium 9.7 (8.4-10.2) mg/dL Total Bilirubin 3.2 H (0.2-1.3) mg/dL AST 28 (14-36) IU/L ALT 15 (<35) IU/L Alkaline Phosphatase 98 (38-126) U/L Total Protein 7.4 (6.3-8.2) g/dL Albumin 4.5 (3.5-5.0) g/dL Globulin 2.9 (1.7-4.1) g/dL Albumin/Globulin Ratio 1.6 (1.0-2.8) Lipase 37 (23-300) U/L Urine Color Urine Appearance Urine pH (4.5-8.0) Ur Specific [place] (1.000-1.035) Urine Protein (Negative) Urine Glucose (UA) (Negative) g/dL Urine Ketones (NEGATIVE) Urine Occult Blood (Negative) Urine Nitrate (Negative) Urine Bilirubin (NEGATIVE) Ur Bilirubin Confirm (Negative) Urine Urobilinogen (0.2) E.U./dL Ur Leukocyte Esterase (NEGATIVE) Urine RBC (0-5/HPF) Urine WBC (0-5/HPF) Urine Bacteria (None) Hyaline Casts (None) Ur Culture Indicated? 04/04/20 Range/Units 14:45 WBC (4.5-11.0) X10^3/uL RBC (4.0-5.2) X10^6/uL Hgb (12.0-16.0) g/dL Hct (36-46) % MCV (80-100) fL MCH (26-34) PG MCHC (30-36) % RDW (11.6-14.8) % Plt Count (150-400) X10^3/uL Neut % (Auto) (50-75) % Lymph % (Auto) (25-40) % [place] % (Auto) (3-14) % Eos % (Auto) (2-4) % Baso % (Auto) (0-2) % Neut # (Auto) (0269-4036) /uL Lymph # (Auto) (5464-8753) /uL [place] # (Auto) (0-900) /uL Eos # (Auto) (0-450) /uL Baso # (Auto) (0-100) /uL PT (10.1-12.7) SECONDS INR (0.9-1.3) APTT (26.4-36.2) SECONDS Sodium (137-145) mmol/L Potassium (3.4-5.1) mmol/L Chloride (98-107) mmol/L Carbon Dioxide (22-32) mmol/L BUN (7-17) mg/dL Creatinine (0.52-1.04) mg/dL Estimated GFR (>60) mL/min BUN/Creatinine Ratio (6-22) Glucose (80-110) mg/dL Calcium (8.4-10.2) mg/dL Total Bilirubin (0.2-1.3) mg/dL AST (14-36) IU/L ALT (<35) IU/L Alkaline Phosphatase (38-126) U/L Total Protein (6.3-8.2) g/dL Albumin (3.5-5.0) g/dL Globulin (1.7-4.1) g/dL Albumin/Globulin Ratio (1.0-2.8) Lipase (23-300) U/L Urine Color Yellow Urine Appearance Clear Urine pH 5.0 (4.5-8.0) Ur Specific [place] 1.025 (1.000-1.035) Urine Protein 1+ H (Negative) Urine Glucose (UA) Negative (Negative) g/dL Urine Ketones Trace H (NEGATIVE) Urine Occult Blood Negative (Negative) Urine Nitrate Negative (Negative) Urine Bilirubin 1+ H (NEGATIVE) Ur Bilirubin Confirm Negative (Negative) Urine Urobilinogen 0.2 (0.2) E.U./dL Ur Leukocyte Esterase Trace H (NEGATIVE) Urine RBC None seen (0-5/HPF) Urine WBC None seen (0-5/HPF) Urine Bacteria None seen (None) Hyaline Casts 10-30/lpf (None) Ur Culture Indicated? Cult not indicated MDM Narrative Medical decision making narrative: 80-year-old woman anticoagulated for chronic atrial fibrillation presents with increasing abdominal pain after her diarrhea has stopped. CT scan reveals a small bowel intussusception likely with lipoma as the bleeding point to begin the intussusception. There is no evidence of sepsis or bowel ischemia at this time. She is mildly nauseated and having mild pain. She does describe a fall yesterday with some pain in the low back CT scan does not suggest pelvic fracture nor new lumbar compression fractures Patient will be admitted to the hospitalist service for small-bowel obstruction. Care is reviewed with Dr. Rodgers, surgery, who will consult. Requests NPO after midnight and will hold Coumadin for the time being in case surgery is in fact required. Have reviewed care. Dr Fernandez will be admitting physician. Safe for transfer to the floor Discharge Plan Departure Patient Disposition: Admitted As Inpatient Clinical Impression: Complete small bowel obstruction, Pacemaker Atrial fibrillation Qualifiers: Atrial fibrillation type: longstanding persistent Qualified Code(s): I48.11 - Longstanding persistent atrial fibrillation Referrals: Minor Chacko MD [Primary Care Provider] -
--- NOTE | 2020-04-04 14:35 | DI.CT.S_ITS ---
PROCEDURE: CT ABDOMEN PELVIS W CON INDICATIONS: abdominal pain, leukocytois, elevated bili TECHNIQUE: After the administration of intravenous contrast, 5 mm thick sections acquired from the diaphragm to the symphysis. 5 mm coronal and sagittal reformats were acquired. For radiation dose reduction, the following was used: automated exposure control, adjustment of mA and/or kV according to patient size. COMPARISON: [facility], CR, L-SPINE 2-3 VIEWS, 01/04/2016, 12:46. [facility], CT, CT ABDOMEN PELVIS W CON, 07/10/2019, 11:06. FINDINGS: Image quality: Excellent. ABDOMEN: Lung bases: Lung bases are clear. Heart size is normal. Solid organs: Liver is normal in size and enhancement. Gallbladder is normal. Biliary system is non dilated. Pancreas enhances normally. Spleen is normal in size and enhancement. No adrenal nodules. Kidneys demonstrate normal size and enhancement, without hydronephrosis. Peritoneum and bowel: There is intussusception in a loop of small intestine in the pelvis. The lead point of intussusception may be a 2 cm lipoma. There is thickening of small intestine and in the area. Distally, the small intestine is decompressed. Proximal small intestine measures up to 3.2 cm in diameter. There are multiple air-fluid levels in small intestine. Colon loops are decompressed and demonstrate paucity of colonic gas. The findings are consistent with small bowel obstruction. No free air. There is a small amount of free fluid. There are scattered colonic diverticula. No findings to suggest acute diverticulitis. Nodes and vessels: No retroperitoneal or mesenteric adenopathy by size criteria. Aorta and inferior vena cava are normal in size. Miscellaneous: No ventral hernias. PELVIS: Genitourinary: Bladder wall thickness is normal. Miscellaneous: No inguinal hernias or adenopathy. Bones: No suspicious bony lesions. There is moderate vertebral body compression fracture of L3 with vertebroplasty. Mild non-acute L4 compression fracture. An old right L3 transverse process fracture is also noted. IMPRESSION: 1. Small bowel obstruction caused by intussusception. The lead point for intussusception is likely a 2 cm lipoma. 2. Diverticulosis without acute diverticulitis. 3. There is a small amount of free fluid. No free air. 4. Non-acute L3 and L4 vertebral body compression fractures and right L3 transverse process fracture. The result was discussed with Dr. Gregory. Dictated by: Germán Galvez M.D. on 04/04/2020 at 15:24 Approved by: Germán Galvez M.D. on 04/04/2020 at 15:47
[2020-04-04 14:45] LABS: Add Manual Diff / Slide Review NO; Basophils Absolute Auto 0 /uL (0-100); Basophils Percent Auto 0.2 % (0-2); Eosinophils Absolute Auto 100 /uL (0-450); Eosinophils Percent Auto 0.9 % (2-4); Hematocrit 43.4 % (36-46); Hemoglobin 14.3 g/dL (12.0-16.0); Lymphocytes Absolute Auto 900 /uL (1100-4500); Lymphocytes Percent Auto 7.3 % (25-40); Mean Corpuscular Hemoglobin 30.2 PG (26-34); Mean Corpuscular Volume 91.3 fL (80-100); Monocytes Absolute Auto 900 /uL (0-900); Monocytes Percent Auto 6.9 % (3-14); Neutrophils Absolute Auto 10500 /uL (1500-7000); Neutrophils Percent Auto 84.7 % (50-75); Platelet Count 237 X10^3/uL (150-400); Red Blood Cell Count 4.75 X10^6/uL (4.0-5.2); Red Cell Distribution Width 13.6 % (11.6-14.8); White Blood Cell Count 12.4 X10^3/uL (4.5-11.0)
[2020-04-04 14:50] LABS: INR 2.1 (0.9-1.3)
[2020-04-04 14:51] LABS: Bacteria Urine None Seen; RBC Urine None Seen (0-5/HPF); WBC Urine None Seen (0-5/HPF)
[2020-04-04 14:52] LABS: Appearance Urine UA CLEAR; Bilirubin Urine UA 1+ (NEGATIVE); Color Urine UA YELLOW; Glucose Urine UA NEGATIVE (Negative); Ketones Urine UA TRACE (NEGATIVE); Leukocyte Esterase Urine UA TRACE (NEGATIVE); Nitrite Urine UA NEGATIVE (Negative); Occult Blood Urine UA NEGATIVE (Negative); Protein Urine UA 1+ (Negative); Specific Gravity Urine UA 1.025 (1.000-1.035); Urobilinogen Urine UA 0.2 E.U./dL (0.2)
[2020-04-04 14:53] LABS: PTT Partial Thromboplastin Tim 37 SECONDS (26.4-36.2)
[2020-04-04 14:55] LABS: Alanine Aminotransferase 15 IU/L (<35); Albumin 4.5 g/dL (3.5-5.0); Albumin Globulin Ratio 1.6 (1.0-2.8); Alkaline Phosphatase 98 U/L (38-126); Aspartate Aminotransferase 28 IU/L (14-36); BUN Creatinine Ratio 19.1 (6-22); Bilirubin Total 3.2 mg/dL (0.2-1.3); Blood Urea Nitrogen 21 mg/dL (7-17); Calcium 9.7 mg/dL (8.4-10.2); Carbon Dioxide 26 mmol/L (22-32); Chloride 101 mmol/L (98-107); Estimated Glomerular Filt Rate 47.6 mL/min (>60); Globulin 2.9 g/dL (1.7-4.1); Glucose 108 mg/dL (80-110); HEMOLYSIS 33 (0-50); Lipase 37 U/L (23-300); Potassium 4.7 mmol/L (3.4-5.1); Sodium 136 mmol/L (137-145); Total Protein 7.4 g/dL (6.3-8.2)
[2020-04-04 14:56] LABS: Ictotest Urine Negative (Negative)
[2020-04-04 14:58] LABS: Culture Indicated Urine Cult Not Indicated; Hyaline Casts Urine 10-30/LPF
[2020-04-04] MEDS: PROTHROMBIN CPLX(PCC)4FACT 1,500 UNIT in ISOOSMOTIC VEHICLE 0 ML 457.222 ML IV (16:36)
--- NOTE | 2020-04-04 16:50 | P.HP_ITS ---
History of Present Illness History of Present Illness Date Patient Seen: 04/04/20 Time Patient Seen: 16:50 Chief complaint: Abd px Narrative: This is a 80 year woman presents to the emergency room with a small- bowel obstruction secondary to intussusception. For the past 2 days she has been developing progressive abdominal pain and distention associated with nausea and vomiting. No bloody bowel movements. In the emergency room she underwent a CT abdomen pelvis which demonstrates some intussusception with within the mid jejunum with a likely lipoma lead point. Hemodynamically stable afebrile white count 12. She says that over the past 4 years she has been having numerous episodes of intermittent abdominal pain distension which generally passes spontaneously occurring nearly every other month. No history of prior malignancy. Past medical history significant for atrial fibrillation for which she is anticoagulated on warfarin INR is 2.1 today and has a pacemaker. She has chronic kidney disease. Prior abdominal surgery includes hysterectomy and sherron endectomy. Patient History Medical History (Updated 04/04/20 @ 15:52 by Sujatha Gregory MD) Atrial fibrillation (Acute) Hypertension (Acute) Pacemaker (Acute) Surgical History (Updated 04/04/20 @ 16:56 by Yahir Rodgers MD) H/O: hysterectomy (Acute) History of appendectomy (Acute) Family & Social History Safety & Behavioral: Feels Safe in Current Yes Environment Been Physically Hurt or No Threatened By a Person Tobacco & Substance use: Smoking Status Former smoker alcohol intake frequency 0-2 drinks per day Substance Use Type does not use Meds Home Medications and Allergies Home Medications Medication Instructions Recorded Confirmed Type bumetanide 0.5 mg PO DAILY 07/10/19 07/10/19 History calcium carbonate [Tums Ultra] 800 mg PO DAILY 07/10/19 07/10/19 History carvedilol 12.5 mg PO BID 07/10/19 07/10/19 History cholecalciferol (vitamin D3) 1,000 unit PO DAILY 07/10/19 07/10/19 History [Vitamin D3] ciprofloxacin HCl [Cipro] 500 mg PO BID #14 tab 07/10/19 Rx losartan 25 mg PO QPM 07/10/19 07/10/19 History metronidazole [Flagyl] 500 mg PO TID #21 tab 07/10/19 Rx warfarin 5 mg PO DAILY 10/04/19 10/04/19 History Allergies Allergy/AdvReac Type Severity Reaction Status Date / Time erythromycin base Allergy Severe SWELLING Verified 07/10/19 10:47 [ERYTHROMYCIN BASE] Penicillins [PENICILLINS] Allergy Severe SWELLING Verified 07/10/19 10:47 Sulfa (Sulfonamide Allergy Severe SWELLING Verified 07/10/19 10:47 Antibiotics) [SULFA (SULFONAMIDE ANTIBIOTICS)] tetracycline [TETRACYCLINE] Allergy Severe SWELLING Verified 07/10/19 10:47 Tetanus Vaccines and Toxoid Allergy Unknown SWELLING Verified 07/10/19 10:47 [TETANUS VACCINES & TOXOID] Exam Vital Signs (past 8 hours): - 04/04/20 14:00 04/04/20 14:19 Temperature 97.1 F L Pulse Rate 69 69 Respiratory Rate 18 13 Blood Pressure 113/57 L 121/56 L Pulse Oximetry 99 97 Oxygen Delivery Method Room Air Narrative Exam Narrative: General-alert and female in acute pain, well nourished HEENT-moist mucous membranes, no scleral icterus Neck-supple, no lymphadenopathy Chest- non labored respirations, clear to auscultation bilaterally Cardiac-no peripheral edema Abdomen-diffusely distended and tender no peritonitis Extremities-warm, well perfused Neurological-alert and oriented, no focal deficits Objective Labs Result Diagrams: 04/04/20 14:35 04/04/20 14:35 Labs: Laboratory Results - last 24 hr 04/04/20 04/04/20 04/04/20 14:35 14:35 14:35 WBC 12.4 H RBC 4.75 Hgb 14.3 Hct 43.4 MCV 91.3 MCH 30.2 MCHC 33.0 RDW 13.6 Plt Count 237 Neut % (Auto) 84.7 H Lymph % (Auto) 7.3 L [place] % (Auto) 6.9 Eos % (Auto) 0.9 L Baso % (Auto) 0.2 Neut # (Auto) 95332 H Lymph # (Auto) 900 L [place] # (Auto) 900 Eos # (Auto) 100 Baso # (Auto) 0 PT 24.0 H INR 2.1 H APTT 37 H D Sodium 136 L Potassium 4.7 Chloride 101 Carbon Dioxide 26 BUN 21 H Creatinine 1.10 H Estimated GFR 47.6 L BUN/Creatinine Ratio 19.1 Glucose 108 Calcium 9.7 Total Bilirubin 3.2 H AST 28 ALT 15 Alkaline Phosphatase 98 Total Protein 7.4 Albumin 4.5 Globulin 2.9 Albumin/Globulin Ratio 1.6 Lipase 37 Urine Color Urine Appearance Urine pH Ur Specific [place] Urine Protein Urine Glucose (UA) Urine Ketones Urine Occult Blood Urine Nitrate Urine Bilirubin Ur Bilirubin Confirm Urine Urobilinogen Ur Leukocyte Esterase Urine RBC Urine WBC Urine Bacteria Hyaline Casts Ur Culture Indicated? 04/04/20 14:45 WBC RBC Hgb Hct MCV MCH MCHC RDW Plt Count Neut % (Auto) Lymph % (Auto) [place] % (Auto) Eos % (Auto) Baso % (Auto) Neut # (Auto) Lymph # (Auto) [place] # (Auto) Eos # (Auto) Baso # (Auto) PT INR APTT Sodium Potassium Chloride Carbon Dioxide BUN Creatinine Estimated GFR BUN/Creatinine Ratio Glucose Calcium Total Bilirubin AST ALT Alkaline Phosphatase Total Protein Albumin Globulin Albumin/Globulin Ratio Lipase Urine Color Yellow Urine Appearance Clear Urine pH 5.0 Ur Specific [place] 1.025 Urine Protein 1+ H Urine Glucose (UA) Negative Urine Ketones Trace H Urine Occult Blood Negative Urine Nitrate Negative Urine Bilirubin 1+ H Ur Bilirubin Confirm Negative Urine Urobilinogen 0.2 Ur Leukocyte Esterase Trace H Urine RBC None seen Urine WBC None seen Urine Bacteria None seen Hyaline Casts 10-30/lpf Ur Culture Indicated? Cult not indicated Assessment & Plan Assessment and plan (1) Complete small bowel obstruction: Status: Acute Assessment & Plan narrative: 80-year-old woman with a small-bowel obstruction secondary to intussusception. I reviewed her CT and it demonstrates small-bowel obstruction secondary to intussusception in the mid small bowel without free air. Radiology suspects there is a likely liopma lead point. I discussed with the patient that she needs exploratory laparotomy with resection of the intussusception. INR 2.1 on warfarin for chronic atrial fibrillation and she is receiving Kcentra now for reversal. I told her that the surgical risks include bleeding infection anastomotic leak damage to surrounding structures. Questions have been answered she is in agreement with this plan will proceed to the operating room. COVID-19 COVID-19 status: Result pending Time Spent With Patient Time with patient: 25 - 35 minutes
--- NOTE | 2020-04-04 17:31 | PC.NURSE ---
Anesthesia at bedside.
[2020-04-04 18:00] LABS: COVID19 -Nasal RAPID Negative (Negative)
[2020-04-04] MEDS: levoFLOXacin 500 MG/100 ML PIGGYBACK 100 MG IV (18:16)
[2020-04-04] MEDS: LACTATED RINGERS 1,000 ML 42 ML IV ×3 (18:17→20:43)
--- NOTE | 2020-04-04 18:17 | SUR.HOLD ---
Patient to OR in stable condition. Family with all belongings.
--- NOTE | 2020-04-04 18:43 | SUR.OPER ---
Supine on padded OR bed, head on pillow, arms secured on padded arm boards at <90 degrees abduction, legs uncrossed, safety belt at thigh, tape over blanket over lower legs.
--- NOTE | 2020-04-04 19:47 | P.OP_ITS ---
Operative Date/Time/Diagnoses Date of procedure: 04/04/20 Time of procedure: 19:47 Pre-op diagnosis: Small-bowel obstruction, intussusception Post-op diagnosis: same Procedure & Clinicians Procedure: Exploratory laparotomy, small-bowel resection Same procedure as scheduled: Yes Indications: This 80-year-old woman who presented with small-bowel obstruction secondary to a intussusception. She developed progressive abdominal pain distension CT demonstrates small-bowel obstruction with intussusception in the right lower quadrant. Surgeon: Yahir Rodgers Anesthesia Type: General Operative Notes Findings: 15 cm intussusception of small bowel. For free fluid within the abdomen no feculent peritonitis Specimen(s): other (Small-bowel resection) Procedure in detail: Patient was brought to the operating room placed on the table. Bilateral lower extremity compression devices were applied. General anesthesia was induced intubated with an endotracheal tube. She was prepped and draped in sterile fashion and a Milan catheter was inserted. Time-out was performed. She received 500 mg of Levaquin prior to skin incision. A midline incision was made and subcutaneous tissues were divided with electrocautery. The fascia was grasped elevated sharply incised the abdomen was entered atraumatically. Upon entry to the abdomen there was purulence of fluid but it was not feculent. The small bowel was eviscerated in its entirety. The small bowel was run from the ligament of Treitz towards the terminal ileum. In the distal jejunum/proximal ileum there was an obvious of approximately 15 cm intussusception. It was quite stuck and I did not attempt to forcibly reduce it. I chose a point proximal to the intussusception and made an enterotomy here and under controlled setting evacuated the contents of the small bowel which was extremely dilated. A window within the mesentery proximal and distal to the intussusception was made then the bowel was transected using the Endo-CULLEN stapler with a 75 mm blue load. The mesentery to the resected segment was then taken with the LigaSure. The specimen was passed off the field labeled small- bowel resection. Silk suture 3 0 was used to form a crotch stitch and a [id number] anastomosis was formed. An enterotomy was made on both the limbs of the bowel and then a Endo CULLEN stapler 75 mm blue load was used to create a common channel. The common channel was inspected and it was widely patent as well as hemostatic. Next the opening to the common channel was closed in a running fashion using 3 0 PDS suture and it was closed in a 2nd layer using imbricating 3 0 silk sutures in Lembert fashion. The anastomosis was tested for its integrity and there was no evidence of leak. The mesenteric defect to the anastomosis was closed in a running fashion using 3 0 silk. The anastomosis was returned to the abdomen and the abdomen was copiously irrigated with 3 L of sterile saline and came back clear. The fascia was then closed in a running fashion using 1. PDS suture the subcutaneous tissues reapproximated using 3 0 Vicryl in the skin closed with shelia. Patient emerged from anesthesia was extubated and returned to the recovery room in stable condition. Complications: none Post-operative Condition: stable Disposition: Acute Care
[2020-04-04] MEDS: fentaNYL 100 MCG/2 ML INJ IV ×2 (19:55→20:19)
[2020-04-04] MEDS: ONDANSETRON 4 MG/2 ML INJ IV (20:01)
[2020-04-04] MEDS: LACTATED RINGERS 1,000 ML 100 ML IV (21:05)
[2020-04-04] MEDS: HYDROMORPHONE 1 MG INJ 0.5 MG IV (22:18)
[2020-04-05] VITALS (17 sets, daily range): BP systolic 107–149; BP diastolic 54–83; PULSE 65–75; RESP 17–24; TEMP 36.4–37.4; O2SAT 92–97
[2020-04-05] MEDS: HYDROMORPHONE 1 MG INJ 0.5 MG IV (02:48)
--- NOTE | 2020-04-05 03:56 | PC.NURSE ---
Addendum entered by Shasha Kimble R.N. 04/05/20 06:57: UOP only 150cc so Dr Rodgers contacted and informed. Had 25cc out of NG. Order received for LR fluid bolus. RA sat 94% so oxygen removed. Original Note: Patient seen and assessed at 0300. Is alert and oriented. Breath sounds diminished but CTA; on oxygen at 1L/min per NC with sat of 97%. HRR. Denies nausea. NG to LIS with brown liquid in cannister. BT hypoactive but heard only in upper quadrants. Abdomen is tender and distended; has not passed any flatus. Complains of 4/10 abdominal pain so medicated with Dilaudid. Dressing to midline is CDI. Indwelling catheter is patent; urine is clear yellow. Needing assistance to reposition. HOB is elevated. Wearing bilateral calf SCD's. Reports recent fall; fall risk score is high and bed alarm is activated.
[2020-04-05 06:09] LABS: Add Manual Diff / Slide Review NO; Basophils Absolute Auto 0 /uL (0-100); Basophils Percent Auto 0.1 % (0-2); Eosinophils Absolute Auto 0 /uL (0-450); Hematocrit 40.3 % (36-46); Hemoglobin 13.5 g/dL (12.0-16.0); Lymphocytes Absolute Auto 500 /uL (1100-4500); Lymphocytes Percent Auto 4.9 % (25-40); Mean Corpuscular HGB Conc 33.6 % (30-36); Mean Corpuscular Hemoglobin 30.8 PG (26-34); Mean Corpuscular Volume 91.8 fL (80-100); Monocytes Absolute Auto 500 /uL (0-900); Monocytes Percent Auto 5.6 % (3-14); Neutrophils Absolute Auto 8600 /uL (1500-7000); Neutrophils Percent Auto 89.4 % (50-75); Platelet Count 196 X10^3/uL (150-400); Red Blood Cell Count 4.39 X10^6/uL (4.0-5.2); Red Cell Distribution Width 13.3 % (11.6-14.8); White Blood Cell Count 9.6 X10^3/uL (4.5-11.0)
[2020-04-05 06:15] LABS: BUN Creatinine Ratio 24.1 (6-22); Blood Urea Nitrogen 20 mg/dL (7-17); Calcium 8.8 mg/dL (8.4-10.2); Carbon Dioxide 22 mmol/L (22-32); Chloride 104 mmol/L (98-107); Estimated Glomerular Filt Rate > 60.0 mL/min (>60); Glucose 97 mg/dL (80-110); HEMOLYSIS < 15 (0-50); Magnesium 1.7 mg/dL (1.6-2.3); Phosphorous 4.2 mg/dL (2.8-4.1); Potassium 3.7 mmol/L (3.4-5.1); Sodium 137 mmol/L (137-145)
[2020-04-05] MEDS: LACTATED RINGERS 1,000 ML 100 ML IV ×3 (06:53→23:17)
--- NOTE | 2020-04-05 08:26 | PC.NURSE ---
Addendum entered by Lavinia Sesay R.N. 04/05/20 14:26: Patient feeling like she needs to void, montes catheter patent and draining, deflated montes balloon and readjusted. Bladder scanned for 25cc. Patients Bumex given and NG clamped at 2:15 for PO med. Montes output for this shift 225cc, Dr Rodgers aware, no new orders. Addendum entered by Lavinia Sesay R.N. 04/05/20 13:56: Patient stood at edge of bed and took a few steps in place, patient bathed and assisted back to bed. Alarm on. Original Note: Patient asleep, easily aroused to voice, alert, oriented rates abdominal pain 3/10. Denies nausea. BT hypoactive, NG to LIS with light brown drainage noted. SCD's on, oral care provided, alarm on. Patient repositioned to back.
[2020-04-05] MEDS: PANTOPRAZOLE 40 MG VIAL 20 MG IV (08:45)
[2020-04-05] MEDS: SODIUM CHLORIDE 0.9% FLUSH 10 ML IV (08:46)
--- NOTE | 2020-04-05 09:18 | P.PN_ITS ---
Subjective Subjective Date Patient Seen: 04/05/20 Time Patient Seen: 09:18 Interval history: No acute overnight events. Has incisional abdominal pain. Feels slightly bloated no flatus or bowel movement NG tube is in place. Exam Vital Signs (past 8 hours): - 04/05/20 03:00 04/05/20 06:01 04/05/20 07:50 Temperature 97.8 F 98.2 F Pulse Rate 65 70 Respiratory Rate 20 24 Blood Pressure 149/83 H 125/58 L Pulse Oximetry 97 94 97 04/05/20 08:07 Temperature Pulse Rate Respiratory Rate Blood Pressure Pulse Oximetry 97 Oxygen Delivery Method Room Air Oxygen Flow Rate 0 Narrative Exam Narrative: General elderly female alert following commands and answering questions appropriately Chest nonlabored respirations Abdomen appropriately tender to palpation mildly distended Objective Labs Result Diagrams: 04/05/20 05:46 04/05/20 05:46 Labs: Laboratory Results - last 24 hr 04/04/20 04/04/20 04/04/20 14:35 14:35 14:35 WBC 12.4 H RBC 4.75 Hgb 14.3 Hct 43.4 MCV 91.3 MCH 30.2 MCHC 33.0 RDW 13.6 Plt Count 237 Neut % (Auto) 84.7 H Lymph % (Auto) 7.3 L [place] % (Auto) 6.9 Eos % (Auto) 0.9 L Baso % (Auto) 0.2 Neut # (Auto) 96998 H Lymph # (Auto) 900 L [place] # (Auto) 900 Eos # (Auto) 100 Baso # (Auto) 0 PT 24.0 H INR 2.1 H APTT 37 H D Sodium 136 L Potassium 4.7 Chloride 101 Carbon Dioxide 26 BUN 21 H Creatinine 1.10 H Estimated GFR 47.6 L BUN/Creatinine Ratio 19.1 Glucose 108 Calcium 9.7 Phosphorus Magnesium Total Bilirubin 3.2 H AST 28 ALT 15 Alkaline Phosphatase 98 Total Protein 7.4 Albumin 4.5 Globulin 2.9 Albumin/Globulin Ratio 1.6 Lipase 37 Urine Color Urine Appearance Urine pH Ur Specific [place] Urine Protein Urine Glucose (UA) Urine Ketones Urine Occult Blood Urine Nitrate Urine Bilirubin Ur Bilirubin Confirm Urine Urobilinogen Ur Leukocyte Esterase Urine RBC Urine WBC Urine Bacteria Hyaline Casts Ur Culture Indicated? COVID-19 PCR 04/04/20 04/04/20 04/05/20 14:45 16:24 05:46 WBC 9.6 RBC 4.39 Hgb 13.5 Hct 40.3 MCV 91.8 MCH 30.8 MCHC 33.6 RDW 13.3 Plt Count 196 Neut % (Auto) 89.4 H Lymph % (Auto) 4.9 L [place] % (Auto) 5.6 Eos % (Auto) 0.0 L Baso % (Auto) 0.1 Neut # (Auto) 8600 H Lymph # (Auto) 500 L [place] # (Auto) 500 Eos # (Auto) 0 Baso # (Auto) 0 PT INR APTT Sodium Potassium Chloride Carbon Dioxide BUN Creatinine Estimated GFR BUN/Creatinine Ratio Glucose Calcium Phosphorus Magnesium Total Bilirubin AST ALT Alkaline Phosphatase Total Protein Albumin Globulin Albumin/Globulin Ratio Lipase Urine Color Yellow Urine Appearance Clear Urine pH 5.0 Ur Specific [place] 1.025 Urine Protein 1+ H Urine Glucose (UA) Negative Urine Ketones Trace H Urine Occult Blood Negative Urine Nitrate Negative Urine Bilirubin 1+ H Ur Bilirubin Confirm Negative Urine Urobilinogen 0.2 Ur Leukocyte Esterase Trace H Urine RBC None seen Urine WBC None seen Urine Bacteria None seen Hyaline Casts 10-30/lpf Ur Culture Indicated? Cult not indicated COVID-19 PCR Negative 04/05/20 05:46 WBC RBC Hgb Hct MCV MCH MCHC RDW Plt Count Neut % (Auto) Lymph % (Auto) [place] % (Auto) Eos % (Auto) Baso % (Auto) Neut # (Auto) Lymph # (Auto) [place] # (Auto) Eos # (Auto) Baso # (Auto) PT INR APTT Sodium 137 Potassium 3.7 Chloride 104 Carbon Dioxide 22 BUN 20 H Creatinine 0.83 Estimated GFR > 60.0 BUN/Creatinine Ratio 24.1 H Glucose 97 Calcium 8.8 Phosphorus 4.2 H Magnesium 1.7 Total Bilirubin AST ALT Alkaline Phosphatase Total Protein Albumin Globulin Albumin/Globulin Ratio Lipase Urine Color Urine Appearance Urine pH Ur Specific [place] Urine Protein Urine Glucose (UA) Urine Ketones Urine Occult Blood Urine Nitrate Urine Bilirubin Ur Bilirubin Confirm Urine Urobilinogen Ur Leukocyte Esterase Urine RBC Urine WBC Urine Bacteria Hyaline Casts Ur Culture Indicated? COVID-19 PCR Assessment & Plan Post-op Postoperative Procedures: Procedures Operation Date: 04/04/20 16:40 Actual Procedures Side Surgeon p Exploratory Laparotomy, small bowel resection Yahir Rodgers MD Postoperative plan narrative: 80-year-old female postoperative day 1 after an exploratory laparotomy with small-bowel resection for small-bowel obstruction secondary to intussusception. She is overall doing well and on track. # small-bowel obstruction-continue nasogastric tube to intermittent low wall suction. Okay for ice chips and sips of water p.o. meds await return of bowel function -PT consult -SCDs will restart full anticoagulation tomorrow if blood counts okay -continue Milan catheter until mobility improves Quality VTE Deep Vein Thrombosis/Pulmonary Embolism Present on Admission: No
--- NOTE | 2020-04-05 11:15 | CM.DANOTE ---
DCP: Case received, EMR reviewed and met with patient. Her daughter, Rebecca Jensen, was also at bedside. Was able to obtain information from patient and daughter regarding her baseline activity level prior to surgery, as well as living situation. DCP assessment completed with information currently available. Patient is an 80 year old female who admitted yesterday afternoon to the care of the hospitalist team. PCP: Dr. Minor Chacko. Payer: confirmed: [employer] Out of [facility]. Patient came to the hospital via ambulance secondary to abdominal pain She holds diagnosis of small bowel obstruction, and Dr. Rodgers peformed surgery. She currently has an NG tube. Met with patient in her room. She was laying in bed, alert and oriented. Her daughter, Rebecca Jensen, was at bedside and stated that she lives with patient. Patient indicated that she is independent at baseline, and drives. She lives here in [place]. P: DCP to continue to follow. She has P.T. orders as well. Will see how she does with therapy team as well. Alessia Cornejo RN/Solar Engineer
[2020-04-05] MEDS: TETRACAINE/BENZOCAINE/BUTAMBEN (CETACAINE) BOTTLE 1 SPRAY TOP (11:22)
[2020-04-05] MEDS: BUMETANIDE 1 MG TABLET 0.5 MG PO ×2 (14:14→14:19)
[2020-04-05] MEDS: OXYCODONE IR 5 MG TABLET PO (15:12)
--- NOTE | 2020-04-05 16:28 | PT.IIE ---
Current Diagnoses Unspecified intestinal obstruction, unspecified as to partial versus complete obstruction (04/04/20) Surgery Performed Operation Date: 04/04/20 16:40 Actual Procedures p Exploratory Laparotomy, small bowel resection - Yahir Rodgers MD Surgical History (Last Updated 04/04/20 @ 16:56 by Yahir Rodgers MD) H/O: hysterectomy (Acute) History of appendectomy (Acute) Medical History (Last Reviewed 04/04/20 @ 14:33 by Sujatha Gregory MD) Atrial fibrillation (Acute) Hypertension (Acute) Pacemaker (Acute) Physical Therapy Inpatient Evaluation/Re-Eval M1 PT/OT-IP Prior Functional Status Start: 04/05/20 15:26 Freq: NEEDED Status: Active Protocol: Document 04/05/20 16:05 AW (Rec: 04/05/20 16:28 AW [id number]) Medical Review Prior Functional Status Medical History Reviewed Yes Diet/Fluid Consistency NPO Communication WNL. Pt is able to make needs known. Mobility and Gait Pt is an active and independent community ambulator. 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 Social History Household Members children Living Arrangements House Number of Floors (Floors) Two Floors Number of Stairs To Enter/Railing? Pt lives on the order entry specialist and has no stairs to enter. Home Environment Standard Height Toilet,Walk in Shower,Built-In Shower Seat Home Equipment Front Wheel Walker,Straight Cane,Grab Bars In Shower Employment Status Retired Additional Social History Comment Pt 's daughter, Rebecca, lives upstairs. She volunteers and is active with her mandaeism. M2 PT-IP Current Condition Start: 04/05/20 15:26 Freq: NEEDED Status: Active Protocol: Document 04/05/20 16:05 AW (Rec: 04/05/20 16:28 AW [id number]) Physical Therapy Current Condition Current Condition Evaluation Date 04/05/20 Treatment Diagnosis SBO s/p resection, difficulty in walking Onset Date 04/04/20 Precautions Abdominal Surgery Precautions Log Roll,Lifting Restrictions, Gait Belt above Incisional Area Other Precautions Pacemaker with history of a fib. M3 PT-IP Subjective Start: 04/05/20 15:26 Freq: NEEDED Status: Active Protocol: Document 04/05/20 16:05 AW (Rec: 04/05/20 16:28 AW [id number]) Subjective Physical Therapy Visit Type Type Initial Evaluation Visit Start Time 15:33 Visit Stop Time 16:00 Total Visit Minutes 27 Physical Therapy Visit Comments Patient Comments Pt states she has been up walking in the room already and is tired but willing to work with PT. Patient Goals Pt hopes to return home where her daughter can provide assist as needed. Therapy Pain Assessment Pain When Pain Assessed During Mobility Pain Present Pain Present Pain Reported Location Abdomen Intensity 5 Scale Used 5/10 at rest; 6/10 during mobility Pain Behaviors Facial Grimacing,Guarding, Holding Area,Wincing Pain Management Techniques Re-positioning,Timing of Activity with Medications M4 PT-IP Mobility and Gait Start: 04/05/20 15:26 Freq: NEEDED Status: Active Protocol: Document 04/05/20 16:05 AW (Rec: 04/05/20 16:28 AW [id number]) PT-Bed Mobility Assessment Rolling Type of Rolling Log Rolling,Roll to Left Level of Assist Minimal Assistance,1 Person Assistance Supine to Sit Supine to Sit Minimal Assistance,1 Person Assistance Sit to Supine Sit to Supine Minimal Assistance,1 Person Assistance Scooting Scooting to Edge of Bed Contact Guard Assistance PT-Transfer Assessment Sit to and From Stand Sit to and from Stand Minimal Assistance,1 Person Assistance,Use of Upper Extremities Equipment Transfer Assistive Device Gait Belt,Front Wheeled Walker Orthotic/Prosthetic Devices or Brace: No Transfers Transfer Destination Bed Transfer Technique pt ambulated with FWW Transfer Ability Level of Assist Contact Guard Assistance,1 Person Assistance Comments Mobility Comments Pt willing to practice log roll after instruction. She was able to roll to her left side as she would at home with min A x 1 and verbal/tactile cues for sequencing. She also required min A x 1 for sidelying to sit transition as she used her arms to brace/ splint her abdomen with a folded up blanket. In sitting, she was able to scoot to EOB CGA. She stood using FWW min A x 1 and ambulated around the room with FWW CGA and assist with multiple lines. She ambulated around the foot of the bed and back before requesting return to bed. She completed sit to supine with log roll min A x 1 to guide her legs back to the bed surface. Pt was positioned in the bed with call light in reach, bilateral calf SCD's reapplied. BP remained steady 131/58, 135/66 before and after activity. Gait Assessment Gait Gait Assistance Required: Contact Guard Assist Distance (Feet) 30 Assistive Devices Assistive Device Gait Belt,Front Wheeled Walker Orthotic/Prosthetic Devices or Brace: No Gait Deviations General Gait Pattern Antalgic,Decreased Stride Length,Decreased Feet Clearance,Flexed Trunk Factors Limiting Gait Function Factors Limiting Gait Function Decreased Activity Tolerance, Decreased Strength,Limited Range of Motion,Pain,Poor Balance,Poor Safety Awareness Comments Gait Comments See mobility comments Stair Climbing Assessment Comments Stair Climbing Comments Not assessed. No stairs at home. PT-Balance Assessment Sitting Balance and Reactions Static Sitting Balance Ability Good Dynamic Sitting Balance Ability Good Standing Balance and Reactions Static Standing Balance Ability Good Dynamic Standing Balance Ability Good Device Used FWW M5 PT-IP Objective Assessments Start: 04/05/20 15:26 Freq: NEEDED Status: Active Protocol: Document 04/05/20 16:05 AW (Rec: 04/05/20 16:28 AW [id number]) Orientation Orientation/Cognition Level of Alertness Alert Orientation Name,Day of Week,Place, Situation Language Function Ability Hard of Hearing Safety Awareness Decreased Safety Awareness Memory Description No Deficits Noted Gross Range of Motion Upper Extremity ROM Assessment Within Functional Limits Lower Extremity ROM Assessment Within Functional Limits Strength Upper Extremity Strength Assessment Within Functional Limits Lower Extremity Strength Assessment Bilaterally Impaired Hip 4-/5 Knee 4/5 Ankle 4/5 Sensation Assessment Sensation Gross Sensation WNL Muscle Tone Muscle Tone WNL Yes M6 PT-IP Treatment Start: 04/05/20 15:26 Freq: NEEDED Status: Active Protocol: Document 04/05/20 16:05 AW (Rec: 04/05/20 16:28 AW [id number]) Physical Therapy Treatment Education Education Provided Precautions,Post-Op Packet, Safety Other Treatments Other Treatment Performed Provided education on role of PT, plan of care, safe mobility with FWW, and importance of early and continued mobility following abdominal surgery. M7 PT-IP Assessment and Plan Start: 04/05/20 15:26 Freq: NEEDED Status: Active Protocol: Document 04/05/20 16:05 AW (Rec: 04/05/20 16:28 AW [id number]) PT Summary Assessment and Plan Potential Rehabilitation Potential Good Status of Condition at Evaluation Evolving Summary Impairments Pain,ROM,Strength,Balance,Bed Mobility,Transfers,Gait, Activity Tolerance Assessment Summary Silvano is an 80 yo woman seen for PT evaluation on POD1 following laparotomy with small bowel resection due to small bowel obstruction. At baseline, she is fully independent and lives downstairs from her daughter who is able and available to provide assist at discharge as needed. On evaluation, pt required min assist for bed mobility and CGA for ambulation with FWW. She is unable to tolerate much activity at this time. Depending on pt progress, she will likely be safe to discharge home with family assist and/or with home health services in order to return to prior level of function. Goals Bed Mobility Goal Independent Transfer Goal Independent,Front Wheeled Walker Gait Goal Independent,Front Wheel Walker Gait Distance 200 Days to Meet Goals 5 Frequency of Treatment Frequency Of Treatment Once a Day Treatment Plan Physical Therapy Treatment Plan Bed Mobility Training,Transfer Training,Gait Training, Therapeutic Exercise,Balance Retraining,Post Op Education, Discharge Planning,Hot or Cold Pack Other Recommendations and Next Treatment review bed mob/log roll; Focus progress gait with FWW Recommendations To Nursing Amount of Assist Needed 1 Person Assist Discharge Recommendations PT Discharge Recommendations Home with Assistance,Home Health Transportation Needs at Discharge Private Vehicle
[2020-04-05] MEDS: levoFLOXacin 500 MG/100 ML PIGGYBACK 100 MG IV (17:26)
[2020-04-05] MEDS: LOSARTAN 25 MG TABLET PO (17:29)
[2020-04-05] MEDS: BENZOCAINE/MENTHOL 1 LOZ PKT 1 EACH PO (21:42)
--- NOTE | 2020-04-05 22:49 | PC.NURSE ---
pt feeling very weak and tired today. pt ambulated with PT. montes had 400cc out-clear rhonda. NG 75cc out. NG set to low intermittent suction. call light in reach. bed alarm active.
[2020-04-06] VITALS (8 sets, daily range): BP systolic 124–139; BP diastolic 58–81; PULSE 70–73; RESP 15–20; TEMP 36.4–37.4; O2SAT 94–95
--- NOTE | 2020-04-06 00:22 | PC.NURSE ---
Patient seen and assessed at 2339. Is alert and oriented. Breath sounds diminished but CTA with RA sat of 95%. HRR. Denies nausea. NG to LIS with no drainage since cannister changed on previous shift. BT present but hypoactive. Abdomen is distended and tender to palpation. Dressing to midline abdomen is CDI. Continues with indwelling catheter; patent. Needing assistance to reposition q2h as is still very weak. Denies pain except for sore throat but declines offer of Cepacol lozenge. Remains NPO except for ice chips. Wearing bilateral calf SCD's. Bruising on bilateral UE noted. Fall risk score is high and bed alarm is activated.
[2020-04-06] MEDS: HYDROMORPHONE 1 MG INJ 0.5 MG IV ×2 (03:24→23:22)
[2020-04-06 06:24] LABS: Add Manual Diff / Slide Review NO; Basophils Absolute Auto 0 /uL (0-100); Basophils Percent Auto 0.2 % (0-2); Eosinophils Absolute Auto 0 /uL (0-450); Eosinophils Percent Auto 0.3 % (2-4); Hematocrit 34.8 % (36-46); Hemoglobin 11.7 g/dL (12.0-16.0); Lymphocytes Absolute Auto 700 /uL (1100-4500); Lymphocytes Percent Auto 8.3 % (25-40); Mean Corpuscular HGB Conc 33.7 % (30-36); Mean Corpuscular Hemoglobin 30.8 PG (26-34); Mean Corpuscular Volume 91.3 fL (80-100); Monocytes Absolute Auto 700 /uL (0-900); Monocytes Percent Auto 8.3 % (3-14); Neutrophils Absolute Auto 6800 /uL (1500-7000); Neutrophils Percent Auto 82.9 % (50-75); Platelet Count 194 X10^3/uL (150-400); Red Blood Cell Count 3.81 X10^6/uL (4.0-5.2); Red Cell Distribution Width 13.6 % (11.6-14.8); White Blood Cell Count 8.2 X10^3/uL (4.5-11.0)
[2020-04-06 06:33] LABS: BUN Creatinine Ratio 21.7 (6-22); Blood Urea Nitrogen 23 mg/dL (7-17); Calcium 8.4 mg/dL (8.4-10.2); Carbon Dioxide 27 mmol/L (22-32); Chloride 103 mmol/L (98-107); Estimated Glomerular Filt Rate 49.6 mL/min (>60); Glucose 99 mg/dL (80-110); HEMOLYSIS < 15 (0-50); Magnesium 1.9 mg/dL (1.6-2.3); Phosphorous 2.6 mg/dL (2.8-4.1); Potassium 3.8 mmol/L (3.4-5.1); Sodium 136 mmol/L (137-145)
[2020-04-06] MEDS: OXYCODONE IR 5 MG TABLET PO (08:49)
[2020-04-06] MEDS: PANTOPRAZOLE 40 MG VIAL 20 MG IV (08:55)
[2020-04-06] MEDS: LACTATED RINGERS 1,000 ML 100 ML IV ×2 (08:56→23:26)
--- NOTE | 2020-04-06 10:17 | PC.NURSE ---
Addendum entered by Soniya Mustafa R.N. 04/06/20 14:06: Patient up with 1 person assist to chair with physical therapy. She is comfortable with head up about 45 degrees. NG tube suction on wall changed to new one as it was not working properly. Flushed NG tube and flushing well. Patient has had around 100cc of green bile out of ng tube. She has been sleeping for most of the shift. Oxycodone given this morning for 5/10 pain helpful for discomfort. We will be putting patient back to bed around 1430. Original Note: Patient complained of pain to her back. Given 1 oxycodone and she was able to swallow this with small drink of water. NG putting out small amount of green colored bile, held bp medication per . She is being repositioned every 2 hours and tolerating well. Her midline incision dressing is cdi. Patient is visiting with her daughter now.
--- NOTE | 2020-04-06 10:58 | PT.IPTN ---
Current Diagnoses Unspecified intestinal obstruction, unspecified as to partial versus complete obstruction (04/04/20) Surgery Performed Operation Date: 04/04/20 16:40 Actual Procedures p Exploratory Laparotomy, small bowel resection - Yahir Rodgers MD Physical Therapy Treatment Note M2 PT-IP Current Condition Start: 04/05/20 15:26 Freq: NEEDED Status: Active Protocol: Document 04/05/20 16:05 AW (Rec: 04/05/20 16:28 AW [id number]) Physical Therapy Current Condition Current Condition Evaluation Date 04/05/20 Treatment Diagnosis SBO s/p resection, difficulty in walking Onset Date 04/04/20 Precautions Abdominal Surgery Precautions Log Roll,Lifting Restrictions, Gait Belt above Incisional Area Other Precautions Pacemaker with history of a fib. M3 PT-IP Subjective Start: 04/05/20 15:26 Freq: NEEDED Status: Active Protocol: Document 04/06/20 10:20 SP (Rec: 04/06/20 13:51 SP [id number]) Subjective Physical Therapy Visit Type Type Treatment Note Visit Start Time 10:20 Visit Stop Time 10:58 Total Visit Minutes 38 Notes Daughter in room and completed caregiver training. Number of CELL PLASTERER Visits 1 Physical Therapy Visit Comments Patient Comments Pt agreeable to working with PT on second attempt mid am. Patient Goals Pt hopes to return home where her daughter can provide assist as needed. Therapy Pain Assessment Pain Present Pain Present Denied Pain M4 PT-IP Mobility and Gait Start: 04/05/20 15:26 Freq: NEEDED Status: Active Protocol: Document 04/06/20 10:20 SP (Rec: 04/06/20 13:51 SP [id number]) PT-Bed Mobility Assessment Rolling Type of Rolling Log Rolling,Roll to Left Level of Assist Contact Guard Assistance Supine to Sit Supine to Sit Minimal Assistance,1 Person Assistance Scooting Scooting to Edge of Bed Standby Assistance PT-Transfer Assessment Sit to and From Stand Sit to and from Stand Minimal Assistance,1 Person Assistance,Use of Upper Extremities Equipment Transfer Assistive Device Gait Belt,Front Wheeled Walker Orthotic/Prosthetic Devices or Brace: No Transfers Transfer Destination Bed,Chair Transfer Technique pt ambulated with FWW Transfer Ability Level of Assist Contact Guard Assistance,1 Person Assistance Comments Mobility Comments Pt completed log roll CGA provided by daughter to L with HOB flat. supine>sitting with cuing for pushing up from bed and support pulling from therapist's hand to right trunk, daughter wanted demonstration how to help but allow patient to do what could . Pt scooted to EOB herself SBA. Daughter donned gait belt upper chest/back and provided Min A during sit <> stand using 1 UE pushing from bed and FWW. Pt able to ambulate 15 ft using FWW CGA- Min A by daughter, therapist managed IV pole and tubing and cued for directioning of turns for safety tubing mgt. Pt sat on R side of bed requiring seated rest due to decreased strength and activity tolerance. I feel so weak, tired. Stand pivot transfer bed to chair using FWW, Min A from daughter with cuing from therapist for body positioning and reaching back prior to sitting for slow descent. Pt was reclined in chair with all needs in reach, daughter in room before left. Gait Assessment Gait Gait Assistance Required: Contact Guard Assist Distance (Feet) 15 Able to Maintain Weight Bearing Status Yes During Gait Assistive Devices Assistive Device Gait Belt,Front Wheeled Walker Orthotic/Prosthetic Devices or Brace: No Gait Deviations General Gait Pattern Antalgic,Decreased Stride Length,Decreased Feet Clearance,Flexed Trunk Factors Limiting Gait Function Factors Limiting Gait Function Decreased Activity Tolerance, Decreased Strength,Limited Range of Motion,Pain,Poor Balance,Poor Safety Awareness Comments Gait Comments See mobility comments. Stair Climbing Assessment Comments Stair Climbing Comments Not assessed. No stairs at home needing to do. PT-Balance Assessment Sitting Balance and Reactions Static Sitting Balance Ability Good Dynamic Sitting Balance Ability Good Standing Balance and Reactions Static Standing Balance Ability Good Dynamic Standing Balance Ability Good Device Used FWW M5 PT-IP Objective Assessments Start: 04/05/20 15:26 Freq: NEEDED Status: Active Protocol: Document 04/05/20 16:05 AW (Rec: 04/05/20 16:28 AW [id number]) Orientation Orientation/Cognition Level of Alertness Alert Orientation Name,Day of Week,Place, Situation Language Function Ability Hard of Hearing Safety Awareness Decreased Safety Awareness Memory Description No Deficits Noted Gross Range of Motion Upper Extremity ROM Assessment Within Functional Limits Lower Extremity ROM Assessment Within Functional Limits Strength Upper Extremity Strength Assessment Within Functional Limits Lower Extremity Strength Assessment Bilaterally Impaired Hip 4-/5 Knee 4/5 Ankle 4/5 Sensation Assessment Sensation Gross Sensation WNL Muscle Tone Muscle Tone WNL Yes M6 PT-IP Treatment Start: 04/05/20 15:26 Freq: NEEDED Status: Active Protocol: Document 04/06/20 10:20 SP (Rec: 04/06/20 13:51 SP [id number]) Physical Therapy Treatment Education Education Provided Precautions,Post-Op Packet, Safety Other Treatments Other Treatment Performed Provided education of use of rolled up blanket or throw pillow at home to brace against belly for coughing, sit to stand if not needing UE support, to give abdominal stability. M7 PT-IP Assessment and Plan Start: 04/05/20 15:26 Freq: NEEDED Status: Active Protocol: Document 04/06/20 10:20 SP (Rec: 04/06/20 13:51 SP [id number]) PT Summary Assessment and Plan Potential Rehabilitation Potential Good Status of Condition at Evaluation Evolving Summary Impairments Pain,ROM,Strength,Balance,Bed Mobility,Transfers,Gait, Activity Tolerance Assessment Summary See mobility comments. CGA during bed mobility, Min A sit to stand using FWW, gait GA- Min A using FWW provided by daughter during caregiver training. Pt's daughter stated patient doesn't need to be able to completed stairs at this time is on enterance level of her appt and will be available to assist her at home. She is unable to tolerate much activity at this time due to decreased strength. Pt welcoming and encouraged to stay up in chair even if reclined for about and hour if can to assist with out of bed tolerance. Depending on pt progress, she will likely be safe to discharge home with family assist and/or with home health services in order to return to prior level of function. Goals Bed Mobility Goal Independent Transfer Goal Independent,Front Wheeled Walker Gait Goal Independent,Front Wheel Walker Gait Distance 200 Days to Meet Goals 5 Frequency of Treatment Frequency Of Treatment Once a Day Treatment Plan Physical Therapy Treatment Plan Bed Mobility Training,Transfer Training,Gait Training, Therapeutic Exercise,Balance Retraining,Post Op Education, Discharge Planning,Hot or Cold Pack Other Recommendations and Next Treatment review bed mob/log roll; Focus progress gait with FWW Recommendations To Nursing Amount of Assist Needed 1 Person Assist Discharge Recommendations PT Discharge Recommendations Home with Assistance,Home Health Transportation Needs at Discharge Private Vehicle
[2020-04-06] MEDS: POTASSIUM PHOSPHATE 15 MMOL in DEXTROSE 5% IN WATER 250 ML 63.75 ML IV (12:54)
--- NOTE | 2020-04-06 15:59 | PM.PNPO.1 ---
Subjective Subjective Date Patient Seen: 04/06/20 Time Patient Seen: 15:59 Interval history: No acute overnight events. Pain has been well-controlled. No bowel movement no flatus feels mildly distended. Has complaint of throat pain from the NG and back pain from the hospital bed. Exam Vital Signs (past 8 hours): - 04/06/20 08:00 04/06/20 11:33 04/06/20 15:34 Temperature 98.2 F 99.3 F 98.5 F Pulse Rate 71 73 71 Respiratory Rate 16 15 17 Blood Pressure 135/63 124/61 137/81 Pulse Oximetry 95 94 Oxygen Delivery Method Room Air Oxygen Flow Rate 0 Narrative Exam Narrative: General elderly woman alert oriented no acute distress nasogastric tube in place with bilious output. Abdomen soft appropriately tender to palpation mildly distended. Objective Labs Result Diagrams: 04/06/20 06:06 04/06/20 06:06 Labs: Laboratory Results - last 24 hr 04/06/20 04/06/20 06:06 06:06 WBC 8.2 RBC 3.81 L Hgb 11.7 L Hct 34.8 L MCV 91.3 MCH 30.8 MCHC 33.7 RDW 13.6 Plt Count 194 Neut % (Auto) 82.9 H Lymph % (Auto) 8.3 L [place] % (Auto) 8.3 Eos % (Auto) 0.3 L Baso % (Auto) 0.2 Neut # (Auto) 6800 Lymph # (Auto) 700 L [place] # (Auto) 700 Eos # (Auto) 0 Baso # (Auto) 0 Sodium 136 L Potassium 3.8 Chloride 103 Carbon Dioxide 27 BUN 23 H Creatinine 1.06 H Estimated GFR 49.6 L BUN/Creatinine Ratio 21.7 Glucose 99 Calcium 8.4 Phosphorus 2.6 L D Magnesium 1.9 Assessment & Plan Post-op Postoperative Procedures: Procedures Operation Date: 04/04/20 16:40 Actual Procedures Side Surgeon p Exploratory Laparotomy, small bowel resection Yahir Rodgers MD Postoperative plan narrative: 80-year-old woman postoperative day 2 after an exploratory laparotomy with small-bowel resection for small-bowel obstruction secondary to intussusception. She is doing well and making an appropriate recovery. She has a postoperative ileus/small-bowel obstruction that is improving but not yet resolved. -continue nasogastric tube to intermittent low wall suction. Await return of bowel function -NPO okay for meds ice chips and sips of water. -continue Milan catheter -continue PT -SCDs for VT prophylaxis will likely resume full anticoagulation for her atrial fibrillation tomorrow pending review of her blood counts. Quality VTE Deep Vein Thrombosis/Pulmonary Embolism Present on Admission: No
[2020-04-06] MEDS: LOSARTAN 25 MG TABLET PO (17:20)
[2020-04-06] MEDS: levoFLOXacin 500 MG/100 ML PIGGYBACK 100 MG IV (17:21)
[2020-04-06] MEDS: TETRACAINE/BENZOCAINE/BUTAMBEN (CETACAINE) BOTTLE 1 SPRAY TOP (23:22)
[2020-04-07] VITALS (10 sets, daily range): BP systolic 105–182; BP diastolic 57–81; PULSE 69–74; RESP 15–20; TEMP 36.1–37.7; O2SAT 90–95
[2020-04-07 01:20] LABS: Glucose Urine UA NEGATIVE (Negative); Ketones Urine UA 1+ (NEGATIVE); Leukocyte Esterase Urine UA NEGATIVE (NEGATIVE); Nitrite Urine UA NEGATIVE (Negative); Occult Blood Urine UA 1+ (Negative); Protein Urine UA 1+ (Negative); Specific Gravity Urine UA >=1.030 (1.000-1.035); Urobilinogen Urine UA 0.2 E.U./dL (0.2)
[2020-04-07 01:22] LABS: Color Urine UA Dark Yellow
[2020-04-07 01:23] LABS: Appearance Urine UA Slightly Cloudy; Bilirubin Urine UA Negative (NEGATIVE); RBC Urine 10-30/HPF (0-5/HPF)
[2020-04-07 01:24] LABS: Bacteria Urine Many (>30); Culture Indicated Urine Cult Not Indicated; Granular Casts Urine 0-1/LPF; Hyaline Casts Urine 0-1/LPF; Mucus Urine 2+ (Negative); Squamous Epithelial Cell Urine 0-1 /HPF (0-5/HPF)
--- NOTE | 2020-04-07 01:28 | PC.NURSE ---
Addendum entered by Shasha Kimble R.N. 04/07/20 03:34: Again complaining of back pain severity of 4/10 so medicated with IV Dilaudid (patient request). Cetacaine spray used to sore throat. Original Note: Patient seen and assessed at 2333. Is alert and oriented. Breath sounds diminished in bilateral mid/lower lobes with RA sat of 92%. HRR. BP slightly elevated at 141/61; has not had Coreg in past 2 days. Denies nausea. NG to LIS; patent. BT present in all quadrants but still has not passed flatus. Lower abdomen is distended and is diffusely tender to touch. Midline dressing is CDI. Indwelling catheter is patent; urine is dark yellow and slightly cloudy. Remains weak so needs assistance to reposition q2h. Complaining of back pain not relieved with repositioning so medicated with Dilaudid as did not want to take po pain meds due to sore throat. Medicated with Cetacaine spray for sore throat; declined Cepacol lozenge. Wearing bilateral calf SCD's. Fall risk score is high and bed alarm is activated.
[2020-04-07] MEDS: HYDROMORPHONE 1 MG INJ 0.5 MG IV ×2 (03:29→17:25)
[2020-04-07] MEDS: TETRACAINE/BENZOCAINE/BUTAMBEN (CETACAINE) BOTTLE 1 SPRAY TOP ×3 (03:30→20:00)
[2020-04-07 07:06] LABS: Add Manual Diff / Slide Review NO; Basophils Absolute Auto 0 /uL (0-100); Basophils Percent Auto 0.2 % (0-2); Eosinophils Absolute Auto 100 /uL (0-450); Eosinophils Percent Auto 0.6 % (2-4); Hematocrit 35.6 % (36-46); Hemoglobin 11.9 g/dL (12.0-16.0); Lymphocytes Absolute Auto 600 /uL (1100-4500); Lymphocytes Percent Auto 5.7 % (25-40); Mean Corpuscular HGB Conc 33.5 % (30-36); Mean Corpuscular Hemoglobin 30.5 PG (26-34); Mean Corpuscular Volume 91.2 fL (80-100); Monocytes Absolute Auto 700 /uL (0-900); Monocytes Percent Auto 6.4 % (3-14); Neutrophils Absolute Auto 8900 /uL (1500-7000); Neutrophils Percent Auto 87.1 % (50-75); Platelet Count 221 X10^3/uL (150-400); Red Cell Distribution Width 13.7 % (11.6-14.8); White Blood Cell Count 10.3 X10^3/uL (4.5-11.0)
[2020-04-07 07:23] LABS: BUN Creatinine Ratio 25.3 (6-22); Blood Urea Nitrogen 21 mg/dL (7-17); Calcium 8.7 mg/dL (8.4-10.2); Carbon Dioxide 28 mmol/L (22-32); Chloride 103 mmol/L (98-107); Estimated Glomerular Filt Rate > 60.0 mL/min (>60); Glucose 110 mg/dL (80-110); HEMOLYSIS < 15 (0-50); Magnesium 2.1 mg/dL (1.6-2.3); Phosphorous 2.4 mg/dL (2.8-4.1); Potassium 4.2 mmol/L (3.4-5.1); Sodium 136 mmol/L (137-145)
[2020-04-07] MEDS: BUMETANIDE 1 MG TABLET 0.5 MG PO (08:32)
[2020-04-07] MEDS: PANTOPRAZOLE 40 MG VIAL 20 MG IV (08:32)
[2020-04-07] MEDS: carvediloL 12.5 MG TABLET PO ×2 (08:32→20:02)
--- NOTE | 2020-04-07 09:00 | PC.NURSE ---
Addendum entered by Soniya Mustafa R.N. 04/07/20 14:54: Patient's montes catheter taken out at 1300. No void at this time. Up in chair for about 30 minutes and back to bed, given bed bath by tube bender. Addendum entered by Soniya Mustafa R.N. 04/07/20 12:33: Patient with temp of 100 and then rechecked 30 minutes later and down to 99.0. NG tube taken out by , we will also take out her montes catheter a bit later. Patient is on clear liquids and tolerating well. She is going slowly to prevent nausea. Resting now. Original Note: Assess- Patient is more awake this morning. Attempted to give patient her po medication after giving her some cetacaine spray in her throat. Waited 10 minutes and patient to swallow one of her medications, but not the other. She did some coughing but was able to recover, ML incision is cdi, Montes putting out rhonda colored urine. Will get an order from to see if we can give patients medication down her ng tube and crush this. Her blood pressure is wnl but has started to go up a bit higher. She is having trouble swallowing her carvedilol, which is going to be needed. BT+x3 quadrants. Patient is able to burp but has not passed any gas as of yet.
[2020-04-07] MEDS: LACTATED RINGERS 1,000 ML 100 ML IV (09:09)
--- NOTE | 2020-04-07 10:52 | P.PN_ITS ---
Subjective Subjective Date Patient Seen: 04/07/20 Time Patient Seen: 10:52 Interval history: No acute overnight events. Abdomen less distended today passed flatus. Exam Vital Signs (past 8 hours): - 04/07/20 03:32 04/07/20 07:30 Temperature 97.3 F L 98.6 F Pulse Rate 69 72 Respiratory Rate 20 16 Blood Pressure 142/69 H 140/74 Pulse Oximetry 92 94 Oxygen Delivery Method Room Air Oxygen Flow Rate 0 Narrative Exam Narrative: General elderly female alert oriented no acute distress Abdomen soft nondistended incision clean dry intact with shelia in place Objective Labs Result Diagrams: 04/07/20 06:52 04/07/20 06:52 Labs: Laboratory Results - last 24 hr 04/07/20 04/07/20 04/07/20 01:16 06:52 06:52 WBC 10.3 RBC 3.90 L Hgb 11.9 L Hct 35.6 L MCV 91.2 MCH 30.5 MCHC 33.5 RDW 13.7 Plt Count 221 Neut % (Auto) 87.1 H Lymph % (Auto) 5.7 L [place] % (Auto) 6.4 Eos % (Auto) 0.6 L Baso % (Auto) 0.2 Neut # (Auto) 8900 H Lymph # (Auto) 600 L [place] # (Auto) 700 Eos # (Auto) 100 Baso # (Auto) 0 Sodium 136 L Potassium 4.2 Chloride 103 Carbon Dioxide 28 BUN 21 H Creatinine 0.83 Estimated GFR > 60.0 BUN/Creatinine Ratio 25.3 H Glucose 110 Calcium 8.7 Phosphorus 2.4 L Magnesium 2.1 Urine Color Dark yellow Urine Appearance Slightly cloudy Urine pH 5.0 Ur Specific [place] >=1.030 H Urine Protein 1+ H Urine Glucose (UA) Negative Urine Ketones 1+ H Urine Occult Blood 1+ H Urine Nitrate Negative Urine Bilirubin Negative Urine Urobilinogen 0.2 Ur Leukocyte Esterase Negative Urine RBC 10-30/hpf H Urine WBC Not Reportable Ur Squamous Epith Cells 0-1 /hpf Urine Bacteria Many (>30) H Hyaline Casts 0-1/lpf Granular Casts 0-1/lpf Urine Mucus 2+ H Ur Culture Indicated? Cult not indicated Assessment & Plan Post-op Postoperative Procedures: Procedures Operation Date: 04/04/20 16:40 Actual Procedures Side Surgeon p Exploratory Laparotomy, small bowel resection Yahir Rodgers MD Postoperative plan narrative: 80-year-old woman postoperative day 3 status post exploratory laparotomy small bowel resection for a small-bowel obstruction secon guillermo to intussusception. She is doing well she is recovering appropriately. She has return of bowel function the nasogastric tube is removed this morning. -clear liquid diet -decrease IV fluids to 50 mL/hr and discontinue when tolerating p.o. adequate p.o. -restart warfarin 5 mg daily -remove Milan catheter -SCDs for DVT prophylaxis -continue PT Quality VTE Deep Vein Thrombosis/Pulmonary Embolism Present on Admission: No
--- NOTE | 2020-04-07 16:26 | PT-IP ANOTE ---
Pt refused PT x2 today, reporting high level of fatigue
[2020-04-07] MEDS: LOSARTAN 25 MG TABLET PO (17:26)
[2020-04-07] MEDS: WARFARIN 5 MG TABLET PO (17:26)
--- NOTE | 2020-04-07 17:31 | PC.NURSE ---
Administered PO 1700 medications. per pt request, utilized apple sauce as a carrier. pt tolerated and swallowed well. No coughing. 0.5 Dilaudid IV for 4/10 pain.
[2020-04-07] MEDS: OXYCODONE IR 5 MG TABLET PO (20:04)
[2020-04-08] VITALS (12 sets, daily range): BP systolic 97–135; BP diastolic 56–80; PULSE 70–76; RESP 15–16; TEMP 36.1–36.7; O2SAT 92–96
[2020-04-08 05:52] LABS: INR 2.7 (0.9-1.3); Prothrombin Time 30.5 SECONDS (10.1-12.7)
[2020-04-08 09:21] LABS: Add Manual Diff / Slide Review NO; Basophils Absolute Auto 0 /uL (0-100); Basophils Percent Auto 0.4 % (0-2); Eosinophils Absolute Auto 100 /uL (0-450); Eosinophils Percent Auto 1.7 % (2-4); Hematocrit 38.1 % (36-46); Lymphocytes Absolute Auto 700 /uL (1100-4500); Lymphocytes Percent Auto 8.3 % (25-40); Mean Corpuscular Hemoglobin 30.9 PG (26-34); Mean Corpuscular Volume 90.8 fL (80-100); Monocytes Absolute Auto 900 /uL (0-900); Monocytes Percent Auto 9.9 % (3-14); Neutrophils Absolute Auto 7200 /uL (1500-7000); Neutrophils Percent Auto 79.7 % (50-75); Platelet Count 251 X10^3/uL (150-400); Red Blood Cell Count 4.19 X10^6/uL (4.0-5.2); Red Cell Distribution Width 13.5 % (11.6-14.8)
[2020-04-08 09:35] LABS: Blood Urea Nitrogen 20 mg/dL (7-17); Calcium 8.8 mg/dL (8.4-10.2); Carbon Dioxide 32 mmol/L (22-32); Chloride 101 mmol/L (98-107); Estimated Glomerular Filt Rate > 60.0 mL/min (>60); Glucose 149 mg/dL (80-110); HEMOLYSIS 18 (0-50); Magnesium 2.1 mg/dL (1.6-2.3); Phosphorous 2.6 mg/dL (2.8-4.1); Sodium 136 mmol/L (137-145)
--- NOTE | 2020-04-08 09:35 | PM.PN.1 ---
Subjective Subjective Date Patient Seen: 04/07/20 Time Patient Seen: 10:52 Interval history: No acute overnight events. Pt says she is not passing any more gas since yesterday, she is having some belching, and a bit of nausea. She does not feel like walking around. Exam Vital Signs (past 8 hours): - 04/08/20 02:00 04/08/20 04:50 04/08/20 05:50 Temperature 96.9 F L Pulse Rate 71 Respiratory Rate 16 Blood Pressure 97/56 L Pulse Oximetry 92 95 93 Oxygen Delivery Method Room Air Oxygen Flow Rate 0 Narrative Exam Narrative: GENERAL: Alert, mild distress due to discomfort sitting upright. Appears stated age. Answers questions promptly and appropriately. Vital signs noted. HENT: Normocephalic, atraumatic. Hearing intact. Oral mucosa is pink and moist. EYES: Conjunctiva pink, sclera white, no periorbital swelling. CARDIOVASCULAR: Regular rate. No pedal edema. RESPIRATORY: mildly tachypneic sitting upright, appears uncomfortable due to abdominal pressure sitting upright; re-examined lying down and pt is breathing normally without discomfort, accessory muscle use, or tachypnea GASTROINTESTINAL: Abdomen soft; mildly distended, incision c/d/i GENITALURINARY: No flank tenderness. MUSCULOSKELETAL: Equal tone and mass bilaterally. SKIN: Warm, dry, soft, appropriate color for ethnicity. No other lesions, rashes, or wounds. NEURO: Alert and Oriented X 3. No gross sensory deficits, or cognitive issues. PSYCH: Appropriate affect and mood. Objective Labs Result Diagrams: 04/08/20 09:14 04/07/20 06:52 Labs: Laboratory Results - last 24 hr 04/08/20 04/08/20 05:13 09:14 WBC 9.0 RBC 4.19 Hgb 13.0 Hct 38.1 MCV 90.8 MCH 30.9 MCHC 34.0 RDW 13.5 Plt Count 251 Neut % (Auto) 79.7 H Lymph % (Auto) 8.3 L [place] % (Auto) 9.9 Eos % (Auto) 1.7 L Baso % (Auto) 0.4 Neut # (Auto) 7200 H Lymph # (Auto) 700 L [place] # (Auto) 900 Eos # (Auto) 100 Baso # (Auto) 0 PT 30.5 H D INR 2.7 H Assessment & Plan Assessment and plan (1) Complete small bowel obstruction: Problem details: 80-year-old woman postop day 4 status post laparotomy and bowel resection for intussusception. She reported passing gas yesterday, but says she has not passed any more since then, and feels more distended, and is now belching. She took a little bit of her clears this morning, and has been taking her pills with applesauce. She was started back on her Coumadin yesterday. Some of her labs are still pending this morning, but her CBC looks okay. Plan: P.o. clears as tolerated, avoid advancing diet until she is passing more gas stool and is less distended Ambulate as much as possible, recommend 20 minutes t.i.d. at least Continue meds as ordered Use incentive spirometer Electrolyte repletion as appropriate Status: Acute COVID-19 COVID-19 status: Result pending Time Spent With Patient Time with patient: 25 - 35 minutes Quality VTE Deep Vein Thrombosis/Pulmonary Embolism Present on Admission: No
--- NOTE | 2020-04-08 10:53 | PC.NURSE ---
Addendum entered by Soniya Mustafa R.N. 04/08/20 14:47: Patient is passing gas and had a small stool. She has voided 450+, urine is straw colored encouraged patient to try and drink more. She is back to bed and resting. She really does not want to do anything and has to be encouraged to ambulate with physical therapy. Original Note: Assess- Patient is A&Ox3, she is not keen on ambulating this morning, but understands that she needs to so that she can get her bowels to start moving... She is distended and bt are hypoactive in 3 of the 4 quadrants. Voiding on the commode, she did state to Dr. Rodgers that she passed a small amount of gas yesterday, her NG tube was taken out and she has been started on clear liquids. into see patient and she told this surgeon that she has not passed any gas. She had a talk with the patient and has stressed as well, that she needs to walk. Physical therapy is going to go work with her soon. Patients midline incision is wnl and open to air..
[2020-04-08] MEDS: carvediloL 12.5 MG TABLET PO ×2 (11:31→20:02)
[2020-04-08] MEDS: BUMETANIDE 1 MG TABLET 0.5 MG PO (11:32)
--- NOTE | 2020-04-08 13:06 | PT.IPTN ---
Current Diagnoses Unspecified intestinal obstruction, unspecified as to partial versus complete obstruction (04/04/20) Surgery Performed Operation Date: 04/04/20 16:40 Actual Procedures p Exploratory Laparotomy, small bowel resection - Yahir Rodgers MD Physical Therapy Treatment Note M2 PT-IP Current Condition Start: 04/05/20 15:26 Freq: NEEDED Status: Active Protocol: Document 04/05/20 16:05 AW (Rec: 04/05/20 16:28 AW [id number]) Physical Therapy Current Condition Current Condition Evaluation Date 04/05/20 Treatment Diagnosis SBO s/p resection, difficulty in walking Onset Date 04/04/20 Precautions Abdominal Surgery Precautions Log Roll,Lifting Restrictions, Gait Belt above Incisional Area Other Precautions Pacemaker with history of a fib. M3 PT-IP Subjective Start: 04/05/20 15:26 Freq: NEEDED Status: Active Protocol: Document 04/08/20 12:37 KS (Rec: 04/08/20 13:56 KS [id number]) Subjective Physical Therapy Visit Type Type Treatment Note Visit Start Time 12:37 Visit Stop Time 13:06 Total Visit Minutes 29 Notes Daughter in room. Number of EHS MANAGER Visits 2 Physical Therapy Visit Comments Patient Goals Pt hopes to return home where her daughter can provide assist as needed. Therapy Pain Assessment Pain When Pain Assessed During Mobility Pain Present Pain Present Pain Reported Location Back Scale Used no number given Pain Behaviors Guarding,Holding Area,Moaning Pain Management Techniques Distraction,Modification of Treatment,Re-positioning M4 PT-IP Mobility and Gait Start: 04/05/20 15:26 Freq: NEEDED Status: Active Protocol: Document 04/08/20 12:37 KS (Rec: 04/08/20 13:56 KS [id number]) PT-Bed Mobility Assessment Rolling Type of Rolling Log Rolling,Roll to Left Level of Assist Minimal Assistance,1 Person Assistance Supine to Sit Supine to Sit Minimal Assistance,1 Person Assistance Sit to Supine Sit to Supine Minimal Assistance,1 Person Assistance Scooting Scooting to Edge of Bed Standby Assistance PT-Transfer Assessment Sit to and From Stand Sit to and from Stand Minimal Assistance,1 Person Assistance,Use of Upper Extremities Equipment Transfer Assistive Device Gait Belt,Front Wheeled Walker Orthotic/Prosthetic Devices or Brace: No Transfers Transfer Destination Bed,Toilet Transfer Technique pt ambulated with FWW Transfer Ability Level of Assist Minimal Assistance,1 Person Assistance Comments Mobility Comments Pt on toilet upon arrival from therapy. Pts daughter provided Min A and cues for pt sit<>stand and assistance w/ brief. Pt then ambulated to opposite side of bed ~20 ft from toilet w/ FWW and Min A ambulation provided by pts daughter/caregiver. Frequent verbal and tactile cues for FWW management. Upon returning to bed, pt sit<>sidelying 3 min rest break and then sidelying<>sit Min A from daughter. Pt then requested to go back to bathroom, she ambulated additional 20 ft to bathroom w/ FWW and Min A by daughter. Pt CGA stand<>sit on toilet, Min A sit<>stand from toilet and then ambulated Min Ax2 back to bed w/ max verbal and tactile cues for upright posture and FWW management. Pt returned to bed, Min A for logroll back into bed and repositioning provided by pts daughter. Gait Assessment Gait Gait Assistance Required: Contact Guard Assist Distance (Feet) 60 Able to Maintain Weight Bearing Status Yes During Gait Assistive Devices Assistive Device Gait Belt,Front Wheeled Walker Orthotic/Prosthetic Devices or Brace: No Gait Deviations General Gait Pattern Antalgic,Decreased Stride Length,Decreased Feet Clearance,Flexed Trunk Factors Limiting Gait Function Factors Limiting Gait Function Decreased Activity Tolerance, Decreased Strength,Limited Range of Motion,Pain,Poor Balance,Poor Safety Awareness Comments Gait Comments See mobility comments. Stair Climbing Assessment Comments Stair Climbing Comments Not assessed. No stairs at home needing to do. PT-Balance Assessment Sitting Balance and Reactions Static Sitting Balance Ability Good Dynamic Sitting Balance Ability Good Standing Balance and Reactions Static Standing Balance Ability Good Dynamic Standing Balance Ability Good Device Used FWW M5 PT-IP Objective Assessments Start: 04/05/20 15:26 Freq: NEEDED Status: Active Protocol: Document 04/05/20 16:05 AW (Rec: 04/05/20 16:28 AW [id number]) Orientation Orientation/Cognition Level of Alertness Alert Orientation Name,Day of Week,Place, Situation Language Function Ability Hard of Hearing Safety Awareness Decreased Safety Awareness Memory Description No Deficits Noted Gross Range of Motion Upper Extremity ROM Assessment Within Functional Limits Lower Extremity ROM Assessment Within Functional Limits Strength Upper Extremity Strength Assessment Within Functional Limits Lower Extremity Strength Assessment Bilaterally Impaired Hip 4-/5 Knee 4/5 Ankle 4/5 Sensation Assessment Sensation Gross Sensation WNL Muscle Tone Muscle Tone WNL Yes M6 PT-IP Treatment Start: 04/05/20 15:26 Freq: NEEDED Status: Active Protocol: Document 04/08/20 12:37 KS (Rec: 04/08/20 13:56 KS [id number]) Physical Therapy Treatment Education Education Provided Precautions,Post-Op Packet, Safety Other Treatments Other Treatment Performed Reviewed safe use of FWW and LE strengthening exercises, assessed daugthers carryover of caregiver training. M7 PT-IP Assessment and Plan Start: 04/05/20 15:26 Freq: NEEDED Status: Active Protocol: Document 04/08/20 12:37 KS (Rec: 04/08/20 13:56 KS [id number]) PT Summary Assessment and Plan Potential Rehabilitation Potential Good Status of Condition at Evaluation Evolving Summary Impairments Pain,ROM,Strength,Balance,Bed Mobility,Transfers,Gait, Activity Tolerance Assessment Summary Pt requires Min A x1-2 for bed mobility and ambulation and Max cues throughout ambulation for upright posture and FWW management. Pt also requiring lots of encouragement to work w/ therapy. Pts daughter demonstrated good carryover of caregiver training including gait belt application, assist in and out of bed and for transfers and ambulation. Pt still c/o weakness and nausea and has low tolerance for activity. Depending on if pt progresses, she may require SNF to improve tolerance for activity and functional mobility prior to returning home w/ daughter. Goals Bed Mobility Goal Independent Transfer Goal Independent,Front Wheeled Walker Gait Goal Independent,Front Wheel Walker Gait Distance 200 Days to Meet Goals 5 Frequency of Treatment Frequency Of Treatment Once a Day Treatment Plan Physical Therapy Treatment Plan Bed Mobility Training,Transfer Training,Gait Training, Therapeutic Exercise,Balance Retraining,Post Op Education, Discharge Planning,Hot or Cold Pack Other Recommendations and Next Treatment review bed mob/log roll; Focus progress gait with FWW Recommendations To Nursing Amount of Assist Needed 1 Person Assist Discharge Recommendations PT Discharge Recommendations Home with Assistance,Home Health,SNF Rehab Transportation Needs at Discharge Private Vehicle
--- NOTE | 2020-04-08 14:01 | CM.DPC ---
Addendum entered by Taylor Julio LPN 04/08/20 16:14: Rebecca just arrived in room. Her contact number is provided by the [employer]: [phone] Original Note: DCP: continued: Case received and discussed in Team Rounds. Pt is recovering from emergent exploratory laparotomy with bowel resection: 04/04: Dr. Rodgers: surgeon Pt is slow to progress. NGT is out today and pt is on clears. She is encouraged to walk by the surgeons but has been reluctant to do so. Midline incision is open to air and doing well, per WILNER Byrnes. PT has worked a bit with pt when she will allow it and also done some caregiver training with her daughter. They are requesting OT to help in the overall mobilization of pt/order is now obtained. Note that the plan at d/c was identified as home with her daughter Rebecca who lives now with pt. INPT admission status: as of 04/04. Medicare and BCBS out of [facility]. Met now with pt and found her lying in bed, dozing and very limited in her desire for conversation. Introduced self and role. Encouraged her to work with the therapists and to mobilize as much as she could in order to hasten healing. Said one option for her recovery would be a short detention home/rehab stay to help her recover if that would be needed but she did not react much to this. Did ask her if it would be best to discuss all this with Rebecca and she agrees. Spoke with WILNER Byrnes who reports Rebecca was here earlier and is frustrated by pt's lack of willingness to follow the surgeon's suggestions. Rebecca is expected back later today. Attempted then to call Rebecca at the numbers listed in the EMR. (WILNER Byrnes stated she did not have an updated numbers.) Called the 2 #s listed for pt: one says the vm is full and the one listed as home: [phone]: has generic vm only. Did leave a brief message on this asking for a call back. The contact number listed specifically for Rebecca: [phone] is not in service. Asked that WILNER Byrnes get a correct contact number for Rebecca once she arrives back at the hospital. P: at this point: would seem to be home with Rebecca and likely HH services vs a snf stay. DCP team will need to continue to follow.
[2020-04-08] MEDS: LOSARTAN 25 MG TABLET PO (18:21)
[2020-04-08] MEDS: WARFARIN 5 MG TABLET PO (18:21)
[2020-04-08] MEDS: ACETAMINOPHEN 325 MG TABLET 650 MG PO (20:02)
[2020-04-09] VITALS (11 sets, daily range): BP systolic 105–145; BP diastolic 59–82; PULSE 69–74; RESP 17–20; TEMP 36.3–36.6; O2SAT 94–96
[2020-04-09] MEDS: LACTATED RINGERS 1,000 ML 50 ML IV (00:24)
[2020-04-09 05:46] LABS: Add Manual Diff / Slide Review NO; Basophils Absolute Auto 0 /uL (0-100); Basophils Percent Auto 0.4 % (0-2); Eosinophils Absolute Auto 300 /uL (0-450); Eosinophils Percent Auto 3.6 % (2-4); Hematocrit 33.4 % (36-46); Lymphocytes Absolute Auto 800 /uL (1100-4500); Lymphocytes Percent Auto 11.2 % (25-40); Mean Corpuscular HGB Conc 32.9 % (30-36); Mean Corpuscular Volume 91.1 fL (80-100); Monocytes Absolute Auto 800 /uL (0-900); Monocytes Percent Auto 11.3 % (3-14); Neutrophils Absolute Auto 5200 /uL (1500-7000); Neutrophils Percent Auto 73.5 % (50-75); Platelet Count 234 X10^3/uL (150-400); Red Blood Cell Count 3.67 X10^6/uL (4.0-5.2); Red Cell Distribution Width 13.5 % (11.6-14.8)
[2020-04-09 05:49] LABS: INR 3.9 (0.9-1.3); Prothrombin Time 45.1 SECONDS (10.1-12.7)
[2020-04-09 05:54] LABS: BUN Creatinine Ratio 29.7 (6-22); Blood Urea Nitrogen 22 mg/dL (7-17); Calcium 8.2 mg/dL (8.4-10.2); Carbon Dioxide 34 mmol/L (22-32); Chloride 100 mmol/L (98-107); Estimated Glomerular Filt Rate > 60.0 mL/min (>60); Glucose 124 mg/dL (80-110); HEMOLYSIS < 15 (0-50); Magnesium 1.8 mg/dL (1.6-2.3); Phosphorous 2.6 mg/dL (2.8-4.1); Potassium 3.6 mmol/L (3.4-5.1); Sodium 136 mmol/L (137-145)
[2020-04-09] MEDS: BENZOCAINE/MENTHOL 1 LOZ PKT 1 EACH PO (06:39)
[2020-04-09] MEDS: MAGNESIUM SULFATE 2 GM/50 ML PIGGYBACK IV (06:39)
--- NOTE | 2020-04-09 08:07 | OT.IP.EVAL ---
Current Diagnoses Essential (primary) hypertension (04/04/20) Longstanding persistent atrial fibrillation (04/04/20) Unspecified intestinal obstruction, unspecified as to partial versus complete obstruction (04/04/20) Presence of cardiac pacemaker (04/04/20) Surgery Performed Operation Date: 04/04/20 16:40 Actual Procedures p Exploratory Laparotomy, small bowel resection - Yahir Rodgers MD Past Medical History (Last Reviewed 04/04/20 @ 14:33 by Sujatha Gregory MD) Atrial fibrillation (Acute) Hypertension (Acute) Pacemaker (Acute) Surgical History (Last Updated 04/04/20 @ 16:56 by Yahir Rodgers MD) H/O: hysterectomy (Acute) History of appendectomy (Acute) Occupational Therapy Inpatient Evaluation/Re-Eval M1 PT/OT-IP Prior Functional Status Start: 04/05/20 15:26 Freq: NEEDED Status: Active Protocol: Document 04/09/20 10:52 CGR (Rec: 04/09/20 11:05 CGR [id number]) Medical Review Prior Functional Status Medical History Reviewed Yes Diet/Fluid Consistency NPO Communication WNL. Pt is able to make needs known. Mobility and Gait Pt is an active and independent community ambulator. 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 Social History Household Members children Living Arrangements House Number of Floors (Floors) Two Floors Number of Stairs To Enter/Railing? 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 Home Environment Standard Height Toilet,Walk in Shower,Built-In Shower Seat Home Equipment Front Wheel Walker,Straight Cane,Grab Bars In Shower Employment Status Retired Additional Social History Comment Pt 's daughter, Rebecca, lives upstairs. She volunteers and is active with her druze. M2 OT-IP Current Condition Start: 04/09/20 10:52 Freq: Status: Active Protocol: Document 04/09/20 10:52 CGR (Rec: 04/09/20 11:05 CGR [email or web address]) Occupational Therapy Current Condition Current Condition Evaluation Date 04/09/20 Treatment Diagnosis SBO s/p exlap and small bowel resection. Diagnosis Onset Date 04/04/20 Post Operative Precautions Abdominal Surgery Precautions Log Roll,Lifting Restrictions, Gait Belt above Incisional Area M3 OT- IP Subjective and Pain Start: 04/09/20 10:52 Freq: Status: Active Protocol: Document 04/09/20 10:52 CGR (Rec: 04/09/20 11:05 CGR [email or web address]) OT- Subjective Occupational Therapy Visit Type Type Initial Evaluation Visit Start Time 07:48 Visit Stop Time 08:07 Total Visit Minutes 19 Occupational Therapy Visit Comments Patient Comments I just feel so tired and weak. OT Pain Assessment Pain When Pain Assessed At Rest Pain Present Pain Present Pain Reported Location Abdomen Intensity 4 Scale Used Numeric (0 - 10) Pain Behaviors Guarding,Holding Area Management Techniques Modification of Treatment,Re- positioning M4 OT- IP ADL's Start: 04/09/20 10:52 Freq: Status: Active Protocol: Document 04/09/20 10:52 CGR (Rec: 04/09/20 11:05 CGR [email or web address]) OT [id number] General Evaluation Self-Feeding Ability Independent Comments OT Self-Feeding Comments Pt was able to drink from cups . She is currently on a clear liquid diet. OT ADL-Grooming General Evaluation Grooming Ability Standby Assistance Areas Needing Assistance Face Washing Comments OT Grooming Comments standing at sink OT ADL-Oral Care General Eval Oral Care Ability Standby Assistance Areas of Assistance Brushing Teeth Comments Oral Care Comments standing at sink OT ADL-Dressing General Eval Lower Body Dressing Ability Independent Areas Needing Assistance Socks Comments OT Dressing Comments pt able to bring feet to knee for doffing and donning socks OT ADL-Toileting General Evaluation Toileting Ability Standby Assistance Devices Toileting Assistive Devices Grab Bars Comments OT Toileting Comments pt able to manage clothing and urinate seated OT ADL-Bathing Comments OT Bathing Comments not performed M5 OT- IP IADL's Start: 04/09/20 10:52 Freq: Status: Active Protocol: Document 04/09/20 10:52 CGR (Rec: 04/09/20 11:05 CGR [email or web address]) OT-Instrumental Activities of Daily Living Deficits IADL Deficits Identified No Deficits Home Safety Awareness Awareness of Need for Assistance at Home Good Awareness Ability to Problem Solve Emergency Able to Problem Solve Situations M6 OT- IP Functional Cognition Start: 04/09/20 10:52 Freq: Status: Active Protocol: Document 07/04/20 10:52 CGR (Rec: 04/09/20 11:05 CGR [email or web address]) Cognitive Factors Limiting Selfcare Function Cognitive Ability Level of Alertness Alert Patient Orientation Name,Age,Birthday,Month,Date, Year,Day of Week,Place, Situation Attention Span Ability Capable of Focused Attention, Capable of Sustained Attention Ability to Follow Commands Able to Follow Multi-Step Commands Memory Description No Deficits Noted OT- Vision and Hearing OT- Hearing Assessment OT- Hearing Assessment Hearing Impaired OT- Vision Assessment Visual Acuity Glasses All The Time Visual Attentiveness WFL Occular Pursuits Impaired Horizontal Visual Convergence WFL Vision Assessment Comments 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 Pt's R eye will track with the L eye to the pts L but does not track past midline to the R. M7 OT- IP Mobility and Balance Start: 04/09/20 10:52 Freq: Status: Active Protocol: Document 04/09/20 10:52 CGR (Rec: 04/09/20 11:05 R [email or web address]) OT-Transfer Assessment Sit to and From Stand Sit to and from Stand Contact Guard Assistance Transfers Transfer Ability Contact Guard Assistance, Minimal Assistance Technique Transfer Destination Chair,Toilet Transfer Technique Stand Step Pivot Devices Transfer Assistive Devices Gait Belt,4 Wheeled Walker Comments Mobility Comments Pt mobilized in the room to the bathroom and to the sink before returning to the chair for breakfast. Pt needs reminders for safety with walker. OT- Balance Assessment Sitting Balance and Reactions Static Sitting Balance Ability Good Dynamic Sitting Balance Ability Fair M8 OT- IP Objective Assessments Start: 04/09/20 10:52 Freq: Status: Active Protocol: Document 04/09/20 10:52 CGR (Rec: 04/09/20 11:05 R [email or web address]) OT Gross Range of Motion Upper Extremity Range of Motion Assessment Within Functional Limits OT Strength Upper Extremity Strength Assessment Within Functional Limits Comments Strength Comments 4/5 OT- Coordination Assessment Upper Extremity Finger to Nose Test Within Functional Limits Finger Tapping Test Within Functional Limits OT-Muscle Tone Assessment Muscle Tone WNL Yes OT Sensation Assessment Edema Edema Absent M9 OT- IP Assessment and Plan Start: 04/09/20 10:52 Freq: Status: Active Protocol: Document 04/09/20 10:52 CGR (Rec: 04/09/20 11:05 R [email or web address]) OT Summary Assessment and Plan Potential Rehabilitation Potential Good Analytic Complexity at Evaluation Low Summary OT Impairments Pain,Balance,Functional Mobility,Bathing,Shower Transfers,Activity Tolerance Progress Towards Goals Slow Progress due to Pain,Slow Progress due to Activity Tolerance Assessment Summary Pt presents as a low complexity evalution s/p SBO and small bowel resection. Pt is progressing slowly. Pt states extreme fatigue and states she is looking forward to eating real food. Encouraged pt to try to drink juice, etc for nutrients as pt feels that her poor energy level has to do with limited intake. Pt's mobility and ADLs are currently limited by her poor activity tolerance. Pt may benefit from OT serices for limited sessions to address activity tolerance and ADLs. Goals Dressing Goal Independent Bathing Goal Independent Shower Transfer Goal Independent Days to Meet Goals 3 Frequency of Treatment Frequency Of Treatment Once a Day Treatment Plan OT Treatment Plan ADL Training,Functional Mobility,Patient/Family Education,Discharge Planning Other Treatment Recommendations and Next shower and activity tolerance Treatment Focus education Discharge Recommendations OT Discharge Recommendations Home with Assistance Home Equipment Needs TBD Transportation Needs at Discharge Private Vehicle
[2020-04-09] MEDS: ACETAMINOPHEN 325 MG TABLET 650 MG PO (10:07)
[2020-04-09] MEDS: carvediloL 12.5 MG TABLET PO ×2 (10:07→21:18)
[2020-04-09] MEDS: BUMETANIDE 1 MG TABLET 0.5 MG PO (10:10)
--- NOTE | 2020-04-09 10:17 | CM.DPC ---
DCP Cont: Spoke to patient's daughter, Rebecca. Inquired with her if she felt that patient could go home, versus going to retirement. Daughter stated that she wants to see how her mom does with therapy this afternoon, for she seems to do better in the afternoon. Let daughter know that this patient case coordinator can reach out to her this afternoon. P: DCP to continue to follow. Patient's daughter is hopeful that she can go home with her. Can also look into home health, as well. Alessia Cornejo RN/Repair Mechanic
--- NOTE | 2020-04-09 10:24 | PM.PN.1 ---
Subjective Subjective Date Patient Seen: 04/09/20 Time Patient Seen: 10:24 Interval history: No acute events overnight. Pt passing gas and stool. Ambulating a little bit in the room. Exam Vital Signs (past 8 hours): - 04/09/20 05:30 04/09/20 06:00 Temperature 97.4 F L Pulse Rate 70 Respiratory Rate 18 Blood Pressure 137/69 Pulse Oximetry 95 95 Oxygen Delivery Method Room Air Oxygen Flow Rate 0 Narrative Exam Narrative: GENERAL: Alert, lying on right side. Appears stated age. Answers questions promptly and appropriately. Vital signs noted. HENT: Normocephalic, atraumatic. Hearing intact. Oral mucosa is pink and moist. EYES: Conjunctiva pink, sclera white, no periorbital swelling. CARDIOVASCULAR: Regular rate. No pedal edema. RESPIRATORY: non tachypneic; breathing comfortably on room air GASTROINTESTINAL: Abdomen soft; mildly distended, incision c/d/i GENITALURINARY: No flank tenderness. MUSCULOSKELETAL: Equal tone and mass bilaterally. SKIN: Warm, dry, soft, appropriate color for ethnicity. No other lesions, rashes, or wounds. NEURO: Alert and Oriented X 3. No gross sensory deficits, or cognitive issues. PSYCH: Appropriate affect and mood. Objective Labs Result Diagrams: 04/09/20 05:25 04/09/20 05:25 Labs: Laboratory Results - last 24 hr 04/09/20 04/09/20 04/09/20 05:25 05:25 05:25 WBC 7.0 RBC 3.67 L Hgb 11.0 L Hct 33.4 L MCV 91.1 MCH 30.0 MCHC 32.9 RDW 13.5 Plt Count 234 Neut % (Auto) 73.5 Lymph % (Auto) 11.2 L [place] % (Auto) 11.3 Eos % (Auto) 3.6 Baso % (Auto) 0.4 Neut # (Auto) 5200 Lymph # (Auto) 800 L [place] # (Auto) 800 Eos # (Auto) 300 Baso # (Auto) 0 PT 45.1 H D INR 3.9 H Sodium 136 L Potassium 3.6 Chloride 100 Carbon Dioxide 34 H BUN 22 H Creatinine 0.74 Estimated GFR > 60.0 BUN/Creatinine Ratio 29.7 H Glucose 124 H Calcium 8.2 L Phosphorus 2.6 L Magnesium 1.8 Assessment & Plan Assessment and plan (1) Complete small bowel obstruction: Problem details: 80-year-old woman postop day 5 status post laparotomy and bowel resection for intussusception. She reports passing gas and stool. Has been taking very little PO, but would like to try full liquid diet. Her INR is 3.9, likely due to poor nutritional intake. Holding Warfarin tonight, rechecking tomorrow. She has ambulated very little. Will need to ambulate well to be independent at home. Plan: Advance to full liquid diet Ambulate as much as possible, recommend 20 minutes t.i.d. at least Continue meds as ordered Use incentive spirometer Electrolyte repletion as appropriate Hold Warfarin tonight, recheck INR tomorrow Status: Acute (2) Atrial fibrillation: Problem details: Chronic, on warfarin Qualifiers: Atrial fibrillation type: longstanding persistent Qualified Code(s): I48.11 - Longstanding persistent atrial fibrillation Status: Acute (3) Pacemaker: Status: Acute (4) Hypertension: Status: Acute COVID-19 COVID-19 status: Result pending Time Spent With Patient Time with patient: 25 - 35 minutes Quality VTE Deep Vein Thrombosis/Pulmonary Embolism Present on Admission: No
--- NOTE | 2020-04-09 10:44 | PC.NURSE ---
Addendum entered by Antwon Turner R.N. 04/09/20 12:15: Patient ambulated again in [place] prior to lunch w/ physical therapy. She is sitting in her recliner eating lunch. Her grandtr is at bedside. Patient able to reach 900cc's x 3 w/ I.S. Original Note: Patient up to recliner for breakfast poor po intake. Then wanted back to bed to rest. Agreed to amb after she rested. After rest, Patient had intermitt cough prior to am med pass. She states it started during the night. Encouraged mobility to prevent pneumonia, expand her lungs and promote her bowels. At 1030 patient up to amb in [place], 1p sba w/ fww. Ambulated from her room 209 to rm 207 then turned back, passed her room to rm 211 and then reluctantly back to her recliner. She states she feels in general terribly. She appears glassy eyed and fatigued. Her sat is 94-96% on ra. Lungs are clear, but shallow. Provided I.S. with instructions for use. Patient needs re-inforcement. Poor quality, nearly reaches 500cc's, unable to float indicator. Able to perform 3 breaths then needed to rest.
--- NOTE | 2020-04-09 11:58 | PT.IPTN ---
Current Diagnoses Essential (primary) hypertension (04/04/20) Longstanding persistent atrial fibrillation (04/04/20) Unspecified intestinal obstruction, unspecified as to partial versus complete obstruction (04/04/20) Presence of cardiac pacemaker (04/04/20) Surgery Performed Operation Date: 04/04/20 16:40 Actual Procedures p Exploratory Laparotomy, small bowel resection - Yahir Rodgers MD Physical Therapy Treatment Note M2 PT-IP Current Condition Start: 04/05/20 15:26 Freq: NEEDED Status: Active Protocol: Document 04/05/20 16:05 AW (Rec: 04/05/20 16:28 AW [id number]) Physical Therapy Current Condition Current Condition Evaluation Date 04/05/20 Treatment Diagnosis SBO s/p resection, difficulty in walking Onset Date 04/04/20 Precautions Abdominal Surgery Precautions Log Roll,Lifting Restrictions, Gait Belt above Incisional Area Other Precautions Pacemaker with history of a fib. M3 PT-IP Subjective Start: 04/05/20 15:26 Freq: NEEDED Status: Active Protocol: Document 04/09/20 10:55 MB (Rec: 04/09/20 11:57 MB [id number]) Subjective Physical Therapy Visit Type Type Treatment Note Visit Start Time 10:55 Visit Stop Time 11:23 Total Visit Minutes 28 Number of LOAN ANALYST Visits 3 Physical Therapy Visit Comments Patient Comments Pt is agreeable to work with PT. Nsg reports that pt has been up with nsg today, O2 sats, HR and BP have been good . Therapy Pain Assessment Pain When Pain Assessed During Mobility Pain Present Pain Present Pain Reported Location Back Scale Used no number given Pain Behaviors Facial Grimacing Pain Management Techniques Re-positioning M4 PT-IP Mobility and Gait Start: 04/05/20 15:26 Freq: NEEDED Status: Active Protocol: Document 04/09/20 10:55 MB (Rec: 04/09/20 11:57 MB [id number]) PT-Bed Mobility Assessment Sit to Supine Sit to Supine Minimal Assistance,1 Person Assistance PT-Transfer Assessment Sit to and From Stand Sit to and from Stand Standby Assistance,1 Person Assistance,Use of Upper Extremities Equipment Transfer Assistive Device Gait Belt,Front Wheeled Walker Orthotic/Prosthetic Devices or Brace: No Comments Mobility Comments Pt requests gait belt under her arms d/t abdominal surgery . Pt improves with transfers today and gait. Gait Assessment Gait Gait Assistance Required: Contact Guard Assist Distance (Feet) 60 Assistive Devices Assistive Device Gait Belt,Front Wheeled Walker Orthotic/Prosthetic Devices or Brace: No Gait Deviations General Gait Pattern Decreased Stride Length, Decreased Feet Clearance, Flexed Trunk Factors Limiting Gait Function Factors Limiting Gait Function Decreased Activity Tolerance, Decreased Strength,Limited Range of Motion,Poor Balance, Poor Safety Awareness Comments Gait Comments 60'x2, pt gait training out into the [place] today with PT PT-Balance Assessment Sitting Balance and Reactions Static Sitting Balance Ability Good Dynamic Sitting Balance Ability Good Standing Balance and Reactions Static Standing Balance Ability Good Dynamic Standing Balance Ability Good Device Used FWW M5 PT-IP Objective Assessments Start: 04/05/20 15:26 Freq: NEEDED Status: Active Protocol: Document 04/05/20 16:05 AW (Rec: 04/05/20 16:28 AW [id number]) Orientation Orientation/Cognition Level of Alertness Alert Orientation Name,Day of Week,Place, Situation Language Function Ability Hard of Hearing Safety Awareness Decreased Safety Awareness Memory Description No Deficits Noted Gross Range of Motion Upper Extremity ROM Assessment Within Functional Limits Lower Extremity ROM Assessment Within Functional Limits Strength Upper Extremity Strength Assessment Within Functional Limits Lower Extremity Strength Assessment Bilaterally Impaired Hip 4-/5 Knee 4/5 Ankle 4/5 Sensation Assessment Sensation Gross Sensation WNL Muscle Tone Muscle Tone WNL Yes M6 PT-IP Treatment Start: 04/05/20 15:26 Freq: NEEDED Status: Active Protocol: Document 04/09/20 10:55 MB (Rec: 04/09/20 11:57 MB [id number]) Physical Therapy Treatment Education Education Provided Precautions,Safety Other Treatments Other Treatment Performed Education/self-care: Use of pillow to protect abdomen with coughing, Use of incentive spirometer, benefits of getting up to gait for lungs, abdomen, strength, benefits of gait, sitting up Ther-ex: incentive spirometer use M7 PT-IP Assessment and Plan Start: 04/05/20 15:26 Freq: NEEDED Status: Active Protocol: Document 04/09/20 10:55 MB (Rec: 04/09/20 11:57 MB [id number]) PT Summary Assessment and Plan Potential Rehabilitation Potential Good Status of Condition at Evaluation Evolving Summary Impairments Pain,ROM,Strength,Balance,Bed Mobility,Transfers,Gait, Activity Tolerance Progress Towards Goals Progressing Toward Goals Assessment Summary Pt improves with transfers and gait this date. Con't towards PT goals. Pain does not limit mobility today, though pt does guard with coughing. Goals Bed Mobility Goal Independent Transfer Goal Independent,Front Wheeled Walker Gait Goal Independent,Front Wheel Walker Gait Distance 200 Days to Meet Goals 10 Frequency of Treatment Frequency Of Treatment Once a Day Treatment Plan Physical Therapy Treatment Plan Bed Mobility Training,Transfer Training,Gait Training, Therapeutic Exercise,Balance Retraining,Neuromuscular Re-ed Other Recommendations and Next Treatment Progress gait, transfers, Focus balance, consider sit to stands Recommendations To Nursing Amount of Assist Needed 1 Person Assist Discharge Recommendations PT Discharge Recommendations Home,Home with Assistance Transportation Needs at Discharge Private Vehicle
--- NOTE | 2020-04-09 12:45 | CM.DPC ---
DCP Cont: Checked in with patient. Daughter, Rebecca, was in room with patient. She has improved with her mobility, according to nurse, Antwon, and P.T. Daughter stated that they have lived in their home in [place] for approximately 7 weeks. Prior, daughter had been living in [place], and patient in [place]. Patient and daughter are hopeful for home. Mentioned home health, daughter stated, will see if she needs it. She is on a full liquid diet today. She has had some encouragement to mobilize today, which she has done, more so than yesterday. Patient stated that she has her room down stairs of the home, but would need to come up for meals. P.T. will continue to work with her. P: DCP to continue to follow. At this time, plan is for home, possibly with home health. Alessia Cornejo RN/Tobacco Grower
[2020-04-09] MEDS: OXYCODONE IR 5 MG TABLET PO (13:09)
[2020-04-09] MEDS: LOSARTAN 25 MG TABLET PO (17:43)
--- NOTE | 2020-04-09 18:31 | PC.NURSE ---
PATIENT AMBULATED AROUND NURSES STATION SBA WITH WALKER AND HER DAUGHTER. STEADY ON FEET.BACK TO BED WITH WARM BLANKETS
[2020-04-09] MEDS: SODIUM CHLORIDE 0.9% FLUSH 10 ML IV (21:13)
[2020-04-10] VITALS (12 sets, daily range): BP systolic 143–155; BP diastolic 71–88; PULSE 69–88; RESP 17–18; TEMP 36.2–37.1; O2SAT 94–98
[2020-04-10] MEDS: LACTATED RINGERS 1,000 ML 50 ML IV ×2 (01:13→17:32)
[2020-04-10 05:12] LABS: Add Manual Diff / Slide Review NO; Basophils Absolute Auto 0 /uL (0-100); Basophils Percent Auto 0.3 % (0-2); Eosinophils Absolute Auto 200 /uL (0-450); Eosinophils Percent Auto 2.8 % (2-4); Hematocrit 33.9 % (36-46); Hemoglobin 11.1 g/dL (12.0-16.0); Lymphocytes Absolute Auto 800 /uL (1100-4500); Lymphocytes Percent Auto 9.6 % (25-40); Mean Corpuscular HGB Conc 32.9 % (30-36); Mean Corpuscular Hemoglobin 29.7 PG (26-34); Mean Corpuscular Volume 90.5 fL (80-100); Monocytes Absolute Auto 900 /uL (0-900); Monocytes Percent Auto 11.1 % (3-14); Neutrophils Absolute Auto 6000 /uL (1500-7000); Neutrophils Percent Auto 76.2 % (50-75); Platelet Count 258 X10^3/uL (150-400); Red Blood Cell Count 3.75 X10^6/uL (4.0-5.2); Red Cell Distribution Width 13.7 % (11.6-14.8); White Blood Cell Count 7.8 X10^3/uL (4.5-11.0)
[2020-04-10 05:15] LABS: INR 3.8 (0.9-1.3)
[2020-04-10 05:22] LABS: BUN Creatinine Ratio 23.2 (6-22); Blood Urea Nitrogen 16 mg/dL (7-17); Calcium 8.4 mg/dL (8.4-10.2); Carbon Dioxide 34 mmol/L (22-32); Chloride 99 mmol/L (98-107); Estimated Glomerular Filt Rate > 60.0 mL/min (>60); Glucose 123 mg/dL (80-110); HEMOLYSIS < 15 (0-50); Magnesium 1.8 mg/dL (1.6-2.3); Phosphorous 3.8 mg/dL (2.8-4.1); Potassium 3.7 mmol/L (3.4-5.1); Sodium 136 mmol/L (137-145)
[2020-04-10] MEDS: MAGNESIUM SULFATE 2 GM/50 ML PIGGYBACK IV (08:26)
[2020-04-10] MEDS: carvediloL 12.5 MG TABLET PO ×2 (08:27→20:24)
[2020-04-10] MEDS: BUMETANIDE 1 MG TABLET 0.5 MG PO (09:08)
--- NOTE | 2020-04-10 10:46 | PT.IPTN ---
Current Diagnoses Essential (primary) hypertension (04/04/20) Longstanding persistent atrial fibrillation (04/04/20) Unspecified intestinal obstruction, unspecified as to partial versus complete obstruction (04/04/20) Presence of cardiac pacemaker (04/04/20) Surgery Performed Operation Date: 04/04/20 16:40 Actual Procedures p Exploratory Laparotomy, small bowel resection - Yahir Rodgers MD Physical Therapy Treatment Note M2 PT-IP Current Condition Start: 04/05/20 15:26 Freq: NEEDED Status: Active Protocol: Document 04/05/20 16:05 AW (Rec: 04/05/20 16:28 AW [id number]) Physical Therapy Current Condition Current Condition Evaluation Date 04/05/20 Treatment Diagnosis SBO s/p resection, difficulty in walking Onset Date 04/04/20 Precautions Abdominal Surgery Precautions Log Roll,Lifting Restrictions, Gait Belt above Incisional Area Other Precautions Pacemaker with history of a fib. M3 PT-IP Subjective Start: 04/05/20 15:26 Freq: NEEDED Status: Active Protocol: Document 04/10/20 10:33 AW (Rec: 04/10/20 10:46 AW [id number]) Subjective Physical Therapy Visit Type Type Treatment Note Visit Start Time 09:49 Visit Stop Time 10:08 Total Visit Minutes 19 Number of OVERHEAD CLEANER MAINTAINER Visits 0 Physical Therapy Visit Comments Patient Comments Pt willing to participate with PT Therapy Pain Assessment Pain When Pain Assessed During Mobility Pain Present Pain Present Allowed to Sleep Location Back Scale Used no number given Pain Behaviors Facial Grimacing Pain Management Techniques Distraction,Re-positioning M4 PT-IP Mobility and Gait Start: 04/05/20 15:26 Freq: NEEDED Status: Active Protocol: Document 04/10/20 10:33 AW (Rec: 04/10/20 10:46 AW [id number]) PT-Bed Mobility Assessment Rolling Type of Rolling Log Rolling,Roll to Left Level of Assist Standby Assistance Supine to Sit Supine to Sit Standby Assistance Scooting Scooting to Edge of Bed Standby Assistance PT-Transfer Assessment Sit to and From Stand Sit to and from Stand Standby Assistance,1 Person Assistance,Use of Upper Extremities Equipment Transfer Assistive Device Gait Belt,Front Wheeled Walker Orthotic/Prosthetic Devices or Brace: No Transfers Transfer Destination Bed,Toilet Transfer Technique pt ambulated with FWW Transfer Ability Level of Assist Standby Assistance,Use of Upper Extremities Comments Mobility Comments Pt completed all bed mobility, transfers, and ambulation using FWW with SBA. She demonstrated good technique with log roll. She used the grab bar minimally for toilet transfer and states she has a similarly-positioned grab bar at home. She was able to stand and manage her clothing during toilet transfer with SBA. After she ambulated in the halls, she transferred to the chair SBA where she was positioned with call light and all needs in reach. Gait Assessment Gait Gait Assistance Required: Standby Assistance,Contact Guard Assist Distance (Feet) 220 Assistive Devices Assistive Device Gait Belt,Front Wheeled Walker Orthotic/Prosthetic Devices or Brace: No Gait Deviations General Gait Pattern Decreased Stride Length, Decreased Feet Clearance, Flexed Trunk Factors Limiting Gait Function Factors Limiting Gait Function Decreased Activity Tolerance, Decreased Strength,Limited Range of Motion,Poor Balance, Poor Safety Awareness Comments Gait Comments Pt participated in gait training for 220 feet in the halls with FWW. Gait speed was slow but steady and pt did not require a rest break. Stair Climbing Assessment Comments Stair Climbing Comments Pt states she will not need to manage the stairs at home. She has no kitchen on her living level, but her daughter will bring her meals so that she does not need to use the stairs. PT-Balance Assessment Sitting Balance and Reactions Static Sitting Balance Ability Good Dynamic Sitting Balance Ability Good Standing Balance and Reactions Static Standing Balance Ability Good Dynamic Standing Balance Ability Good Device Used FWW M5 PT-IP Objective Assessments Start: 04/05/20 15:26 Freq: NEEDED Status: Active Protocol: Document 04/05/20 16:05 AW (Rec: 04/05/20 16:28 AW [id number]) Orientation Orientation/Cognition Level of Alertness Alert Orientation Name,Day of Week,Place, Situation Language Function Ability Hard of Hearing Safety Awareness Decreased Safety Awareness Memory Description No Deficits Noted Gross Range of Motion Upper Extremity ROM Assessment Within Functional Limits Lower Extremity ROM Assessment Within Functional Limits Strength Upper Extremity Strength Assessment Within Functional Limits Lower Extremity Strength Assessment Bilaterally Impaired Hip 4-/5 Knee 4/5 Ankle 4/5 Sensation Assessment Sensation Gross Sensation WNL Muscle Tone Muscle Tone WNL Yes M6 PT-IP Treatment Start: 04/05/20 15:26 Freq: NEEDED Status: Active Protocol: Document 04/10/20 10:33 AW (Rec: 04/10/20 10:46 AW [id number]) Physical Therapy Treatment Education Education Provided Precautions,Safety Other Treatments Other Treatment Performed Provided education on role of HH PT and rationale for assessment and treatment at home. Pt has engaged HH before for her mother and had a good experience in that instance. M7 PT-IP Assessment and Plan Start: 04/05/20 15:26 Freq: NEEDED Status: Active Protocol: Document 04/10/20 10:33 AW (Rec: 04/10/20 10:46 AW [id number]) PT Summary Assessment and Plan Potential Rehabilitation Potential Good Status of Condition at Evaluation Stable Summary Impairments Pain,ROM,Strength,Balance,Bed Mobility,Transfers,Gait, Activity Tolerance Progress Towards Goals Progressing Toward Goals Assessment Summary Pt improved again with transfers, gait with FWW, and overall activity tolerance. She shows good effort with all activity but does acknowledge she is not at baseline strength nor does she have her regular capacity. Pt will benefit from HH therapy at discharge. Goals Bed Mobility Goal Independent Transfer Goal Independent,Front Wheeled Walker Gait Goal Independent,Front Wheel Walker Gait Distance 200 Days to Meet Goals 10 Frequency of Treatment Frequency Of Treatment Once a Day Treatment Plan Physical Therapy Treatment Plan Bed Mobility Training,Transfer Training,Gait Training, Therapeutic Exercise,Balance Retraining,Neuromuscular Re-ed Other Recommendations and Next Treatment Progress gait, transfers, Focus balance, consider sit to stands Recommendations To Nursing Amount of Assist Needed Standby Assistance Discharge Recommendations PT Discharge Recommendations Home,Home with Assistance Transportation Needs at Discharge Private Vehicle
--- NOTE | 2020-04-10 11:29 | P.PN_ITS ---
Subjective Subjective Date Patient Seen: 04/09/20 Time Patient Seen: 10:24 Interval history: No acute events overnight. Pt passing lots of gas and small amount of stool. Ambulating outside the room with a walker. Eating very little. Still on IV fluids bc not taking adequate PO. Exam Vital Signs (past 8 hours): - 04/10/20 04:30 04/10/20 05:00 04/10/20 07:30 Temperature 97.6 F Pulse Rate 70 Respiratory Rate 18 Blood Pressure 143/73 H Pulse Oximetry 95 95 96 04/10/20 08:12 Temperature 98.8 F Pulse Rate 88 Respiratory Rate 18 Blood Pressure 148/74 H Pulse Oximetry 95 Oxygen Delivery Method Room Air Oxygen Flow Rate 0 Narrative Exam Narrative: GENERAL: Alert, comfortable. Appears stated age. Answers questions promptly and appropriately. Vital signs noted. HENT: Normocephalic, atraumatic. Hearing intact. Oral mucosa is pink and moist. EYES: Conjunctiva pink, sclera white, no periorbital swelling. CARDIOVASCULAR: Regular rate. No pedal edema. RESPIRATORY: non tachypneic; breathing comfortably on room air GASTROINTESTINAL: Abdomen soft; moderately distended, nontender, incision c/d/i GENITALURINARY: No flank tenderness. MUSCULOSKELETAL: Equal tone and mass bilaterally. SKIN: Warm, dry, soft, appropriate color for ethnicity. No other lesions, rashes, or wounds. NEURO: Alert and Oriented X 3. No gross sensory deficits, or cognitive issues. PSYCH: Appropriate affect and mood. Objective Labs Result Diagrams: 04/10/20 04:55 04/10/20 04:55 Labs: Laboratory Results - last 24 hr 04/10/20 04/10/20 04/10/20 04:55 04:55 04:55 WBC 7.8 RBC 3.75 L Hgb 11.1 L Hct 33.9 L MCV 90.5 MCH 29.7 MCHC 32.9 RDW 13.7 Plt Count 258 Neut % (Auto) 76.2 H Lymph % (Auto) 9.6 L [place] % (Auto) 11.1 Eos % (Auto) 2.8 Baso % (Auto) 0.3 Neut # (Auto) 6000 Lymph # (Auto) 800 L [place] # (Auto) 900 Eos # (Auto) 200 Baso # (Auto) 0 PT 44.0 H INR 3.8 H Sodium 136 L Potassium 3.7 Chloride 99 Carbon Dioxide 34 H BUN 16 Creatinine 0.69 Estimated GFR > 60.0 BUN/Creatinine Ratio 23.2 H Glucose 123 H Calcium 8.4 Phosphorus 3.8 D Magnesium 1.8 Assessment & Plan Assessment and plan (1) Complete small bowel obstruction: Problem details: 80-year-old woman postop day 6 status post laparotomy and bowel resection for intussusception. She reports passing gas and stool. She is still taking very little PO. Her INR is 3.8, after holding last night's dose. We will hold jyoti ght's dose as well. She is ambulating fairly well. She is still on IV fluids because of poor PO intake. Plan: Advance to regular diet Ambulate as much as possible, recommend 20 minutes t.i.d. at least Continue meds as ordered Use incentive spirometer Electrolyte repletion as appropriate Hold Warfarin tonight, recheck INR tomorrow Dietitian to see Dispo pending taking adequate PO food and fluid Status: Acute (2) Atrial fibrillation: Problem details: Chronic, on warfarin Qualifiers: Atrial fibrillation type: longstanding persistent Qualified Code(s): I48.11 - Longstanding persistent atrial fibrillation Status: Acute (3) Pacemaker: Status: Acute (4) Hypertension: Status: Acute COVID-19 COVID-19 status: Result pending Time Spent With Patient Time with patient: 25 - 35 minutes Quality VTE Deep Vein Thrombosis/Pulmonary Embolism Present on Admission: No
[2020-04-10] MEDS: LOSARTAN 25 MG TABLET PO (17:01)
[2020-04-10] MEDS: OXYCODONE IR 5 MG TABLET PO (20:24)
[2020-04-11 00:06] VITALS: BP 131/94; PULSE 72; RESP 16; TEMP 36.7; O2SAT 94
--- NOTE | 2020-04-11 00:11 | PC.NURSE ---
Patient is alert and oriented; very soft spoken. Breath sounds diminished throughout but CTA with RA sat of 94%. HRR. Denies nausea. BT tympanic sounding; passing flatus. Abdomen still appears distended in lower quads. 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 States she has urinary urgency and dribbles/incontinent if she doesn't get to bathroom quickly. Able to turn herself in bed. Up with walker and 1 assist. Denies pain. Declines SCD's; instructed on prevention of DVT and reminded to ankle wave. Fall risk score is high and bed alarm is activated.
[2020-04-11 05:49] LABS: INR 2.6 (0.9-1.3); Prothrombin Time 29.3 SECONDS (10.1-12.7)
[2020-04-11 05:52] VITALS: BP 139/77; PULSE 70; RESP 16; TEMP 36.2; O2SAT 95
[2020-04-11 08:00] VITALS: BP 161/83; PULSE 78; RESP 18; TEMP 36.4; O2SAT 96
[2020-04-11] MEDS: carvediloL 12.5 MG TABLET PO (08:56)
[2020-04-11] MEDS: BUMETANIDE 1 MG TABLET 0.5 MG PO (08:56)
[2020-04-11] MEDS: MEGESTROL 20 MG TABLET PO (08:57)
--- NOTE | 2020-04-11 09:30 | OT.IP.TRT ---
Current Diagnoses Essential (primary) hypertension (04/04/20) Longstanding persistent atrial fibrillation (04/04/20) Unspecified intestinal obstruction, unspecified as to partial versus complete obstruction (04/04/20) Presence of cardiac pacemaker (04/04/20) Surgery Performed Operation Date: 04/04/20 16:40 Actual Procedures p Exploratory Laparotomy, small bowel resection - Yahir Rodgers MD Occupational Therapy Treatment Note M2 OT-IP Current Condition Start: 04/09/20 10:52 Freq: Status: Active Protocol: Document 04/09/20 10:52 CGR (Rec: 04/09/20 11:05 CGR [id number]) Occupational Therapy Current Condition Current Condition Evaluation Date 04/09/20 Treatment Diagnosis SBO s/p exlap and small bowel resection. Diagnosis Onset Date 04/04/20 Post Operative Precautions Abdominal Surgery Precautions Log Roll,Lifting Restrictions, Gait Belt above Incisional Area M3 OT- IP Subjective and Pain Start: 04/09/20 10:52 Freq: Status: Active Protocol: Document 04/11/20 11:53 CGR (Rec: 04/11/20 11:53 CGR [id number]) OT- Subjective Occupational Therapy Visit Type Type Administrative Note Notes Pt declined activity at this time. Pt states planned for d/ c home today and just wants to get home. No OT services rendered.
--- NOTE | 2020-04-11 10:38 | CM.DPC ---
DCP Discharge Home Per Surgeon, pt is medically stable to d/c home with Dtr today and no identified barriers to discharge. Per PT, recommending safe d/c home with Dtr assist and could benefit from HH. SW met bedside with pt and adult Dtr Rebecca ([phone]) while RN was getting pt ready for discharge and explained role and inquired about the HH option at d/c. Dtr and pt decline HH at this time but took HH brochure and acknowledge understanding that after d/c they can access HH through PCP Dr. Chacko. Pt and Dtr appreciative and agreeable with d/c home today. Plan: Patient to d/c home via Dtr POV and decline HH at this time. No further SW needs at this time. ROBINSON Short
--- NOTE | 2020-04-11 10:59 | DIET.PN ---
Dietary Progress Note Assessment: Ms. Merrill is an 80-year-old woman postop day 7 status post laparotomy and bowel resection for intussusception. Reports abdominal pain, distention, and N/V. She continues to take very little PO. HT: 167.64cm WT: 63.5kg BMI: 22.6 Labs: Na: 136 CO2: 34 MNA: 10 Kali: 18 Nutrition Diagnosis: Acute non-severe PCM r/t GI complications aeb energy intake <50% >5d, GI symptoms (abd pain, distention, N/V > 1 wk), mild/mod abdominal distention. Interventions: 1. Provided education on Fiber restricted (13g) MNT, small frequent meals, Ensure enlive BID w/ coupons. Diet Order: general (fiber restrict) EER: 2602-5230 (25-30cal/kg); Pro 75-88g (1.2-1.4) non-severe malnutrition Monitoring/Evaluations: PO's, weight
--- NOTE | 2020-04-11 13:05 | P.DS_ITS ---
History of Present Illness History of Present Illness Chief complaint: Abd px Narrative: This is a 80 year woman presents to the emergency room with a small- bowel obstruction secondary to intussusception. For the past 2 days she has been developing progressive abdominal pain and distention associated with nausea and vomiting. No bloody bowel movements. In the emergency room she underwent a CT abdomen pelvis which demonstrates some intussusception with within the mid jejunum with a likely lipoma lead point. Hemodynamically stable afebrile white count 12. She says that over the past 4 years she has been having numerous episodes of intermittent abdominal pain distension which generally passes spontaneously occurring nearly every other month. No history of prior malignancy. Past medical history significant for atrial fibrillation for which she is anticoagulated on warfarin INR is 2.1 today and has a pacemaker. She has chronic kidney disease. Prior abdominal surgery includes hysterectomy and appe ndectomy. Discharge Providers Provider Date of admission: 04/04/20 15:54 Discharge Date: 04/11/20 Primary care physician: Minor Chacko MD Consults: 04/05/20 09:16 Consult to Physical Therapy Evaluate & Treat Comment: Physician Instructions: Evaluate and Treat 04/06/20 17:10 Consult to COLOR MAKING SUPERVISOR - Therapeutic Recreation Assistant Routine Comment: discuss Home PT after discharge. 04/08/20 13:34 Consult to Occupational Therapy Evaluate & Treat Comment: Per PT recommendation Physician Instructions: Evaluate and treat 04/10/20 11:33 Consult to Dietitian, Adult Urgent Comment: Reason For Exam: pt not taking adequate PO for discharge home Discharge provider: Yahir Rodgers MD Summary Hospital Course Discharge Diagnosis: Small-bowel obstruction Intussusception Hospital Course: She underwent an exploratory laparotomy that demonstrated a small-bowel small-bowel intussusception. Resection of the intussusception was performed with a [id number] small bowel anastomosis for reconstruction. Nasogastric tube remained in place for several days and then upon return of bowel function her diet was gradually resumed. The remainder of her postoperative course was unremarkable. On the date of discharge 7 6 1020 patient is doing well she is tolerating a regular diet without nausea or vomiting having bowel movements and passing flatus. Her pain is well controlled on Tylenol without narcotic she is ambulatory and safe for discharge home at this time. Status at Discharge Cognitive/behavioral status at discharge: oriented Time Spent with Patient Time spent: Greater than 30 minutes Exam Vital Signs (past 8 hours): - 04/11/20 05:52 04/11/20 08:00 Temperature 97.2 F L 97.6 F Pulse Rate 70 78 Respiratory Rate 16 18 Blood Pressure 139/77 161/83 H Pulse Oximetry 95 96 Oxygen Delivery Method Room Air Oxygen Flow Rate 0 Narrative Exam Narrative: General elderly woman alert oriented no acute distress Chest nonlabored respirations Abdomen soft nontender midline incision clean dry intact with shelia place. Objective Labs Result Diagrams: 04/10/20 04:55 04/10/20 04:55 Labs: Laboratory Results - last 24 hr 04/11/20 05:15 PT 29.3 H D INR 2.6 H Discharge Plan Discharge Plan Patient Disposition: Home Discharge orders & Medications Prescriptions: New acetaminophen [Tylenol] 325 mg capsule 650 mg PO QID PRN (Reason: pain) Qty: 60 RF: 0 Continued carvedilol 12.5 mg Tablet 12.5 mg PO BID RF: 0 bumetanide 0.5 mg Tablet 0.5 mg PO DAILY RF: 0 losartan 25 mg Tablet 25 mg PO QPM RF: 0 calcium carbonate [Tums Ultra] 400 mg calcium (1,000 mg) Tablet,Chewable 800 mg PO DAILY RF: 0 warfarin 5 mg Tablet 5 mg PO DAILY RF: 0 cholecalciferol (vitamin D3) [Vitamin D3] 1,000 unit Capsule 1,000 unit PO DAILY RF: 0 Follow up/Referrals: Minor Chacko MD [Primary Care Provider] - Yahir Rodgers MD [Emergency Provider] - (Please call to make a follow up appointment to be seen one week after discharge from the hospital. ) Diet/Activity/Treatments Diet: Regular Activity: Avoid lifting, pushing, pulling more than 10 lbs. Avoid strenuous activity. Keep mobile with frequent walks and light activity around home. Skin/Wound/Dressing Care Report to your healthcare provider any signs of infection, such as:: chills, fever, night sweats, increased pain, unusual drainage and unusual redness Visit Report/Discharge Packet Instructions: Low-Fiber/Low-Residue Diet, DI Following Your Exploratory Laparotomy, DI for Small Bowel Resection, [facility]: Wound Care Stand Alone Forms: Surgery Discharge Visit Report Forms: Patient Portal/API, Stroke Signs & Symptoms Discharge Data Primary Care Provider: Minor Chacko Discharges patient from system. Discharge Date/Time: 04/11/20 11:00 Quality VTE Deep Vein Thrombosis/Pulmonary Embolism Present on Admission: No
== END 2020-04-11 11:00 | disposition home or self-care (01) | DRG 330 ==
LOC: ED 15:52 → AC 15:55
PROVIDERS: Emergency Medicine; Specialist; Surgery; Admitting Provider Surgery; Emergency Provider Surgery; PCP Internal Medicine; Referring Provider Surgery; Visit Provider Surgery
PROC: 0DBB0ZZ Excision of Ileum, Open Approach (ICD-10-PCS; CPT 49000; principal; 2020-04-04 16:40)
DX: K56.1 Intussusception (principal); I48.11 Longstanding persistent atrial fibrillation; Z79.01 Long term (current) use of anticoagulants; K56.7 Ileus, unspecified; I10 Essential (primary) hypertension; Z95.0 Presence of cardiac pacemaker; Z87.891 Personal history of nicotine dependence; Z11.59 Encounter for screening for other viral diseases
CPT/HCPCS: 36415; 74177; 80048; 80053; 81001; 83690; 83735; 84100; 85025; 85610; 85730; 87635; 93005; 96365; 97116; 97161; 97165; 97530; 97535; 99284; C9113; C9132; J0330; J1170; J1956; J2405; J2704; J3010; Q9967

== ENCOUNTER 2020-04-17 18:42 | Emergency (ER) | payer MEDICARE, BC, SELFPAY ==
[2020-04-04 21:13] VITALS: BMI 22.6
[2020-04-17] VITALS (11 sets, daily range): BP systolic 163–189; BP diastolic 76–88; PULSE 67–71; RESP 18–21; TEMP 36.4–36.7; O2SAT 95–100; BMI 22.7
--- NOTE | 2020-04-17 19:01 | ED.GENADULT ---
HPI - General Adult General Chief complaint: Abdominal Pain Stated complaint: abdominal surgery, lots of pain now and drainage Time Seen by Provider: 04/17/20 18:54 Source: patient and family Mode of arrival: Wheelchair Limitations: no limitations History of Present Illness HPI narrative: 80-year-old female who 2 weeks ago underwent a exploratory laparotomy with a small-bowel excision secondary to an obstruction most likely secondary to intussusception. Patient states she was doing well postoperative until approximately 24 hours ago when she started to have left-sided abdominal pain and then drainage from the abdominal wound. No fevers. No vomiting. Is having normal bowel movements. No urinary symptoms. Not currently on antibiotics per has not tried anything for the symptoms prior to arrival. Does have a follow-up with her operative surgeon later this week. Related Data Home Medications Medication Instructions Recorded Confirmed bumetanide 0.5 mg PO DAILY 07/10/19 04/05/20 calcium carbonate [Tums Ultra] 800 mg PO DAILY 07/10/19 04/05/20 carvedilol 12.5 mg PO BID 07/10/19 04/05/20 cholecalciferol (vitamin D3) 1,000 unit PO DAILY 07/10/19 04/05/20 [Vitamin D3] losartan 25 mg PO QPM 07/10/19 04/05/20 warfarin 5 mg PO DAILY 07/10/19 04/05/20 Previous Rx's Medication Instructions Recorded acetaminophen [Tylenol] 650 mg PO QID PRN #60 cap 04/11/20 clindamycin HCl 300 mg PO QID 7 Days #28 cap 04/17/20 Allergies Allergy/AdvReac Type Severity Reaction Status Date / Time erythromycin base Allergy Severe SWELLING Verified 04/17/20 19:00 [ERYTHROMYCIN BASE] Penicillins [PENICILLINS] Allergy Severe SWELLING Verified 04/17/20 19:00 Sulfa (Sulfonamide Allergy Severe SWELLING Verified 04/17/20 19:00 Antibiotics) [SULFA (SULFONAMIDE ANTIBIOTICS)] tetracycline [TETRACYCLINE] Allergy Severe SWELLING Verified 04/17/20 19:00 Tetanus Vaccines and Toxoid Allergy Unknown SWELLING Verified 04/17/20 19:00 [TETANUS VACCINES & TOXOID] zoledronic acid Allergy Unknown Verified 04/17/20 19:00 Review of Systems Constitutional Constitutional: Denies fever(s) Cardiovascular Cardiovascular: Denies chest pain and Denies dyspnea Respiratory Respiratory: Denies dyspnea Gastrointestinal Gastrointestinal: Reports abdominal pain, Denies change in bowel habits, Denies nausea and Denies vomiting Genitourinary Genitourinary: Denies dysuria Genitourinary: Denies dysuria Musculoskeletal Musculoskeletal: Denies arthralgias and Denies myalgias Integumentary/Breasts Comments: Drainage from the surgical incision with some surrounding erythema Neurologic Neurologic: Denies behavioral changes Psychiatric Psychiatric: Denies behavioral changes Hematologic/Lymphatic Comments: On Coumadin Allergic/Immunologic Allergic/Immunologic: Denies urticaria Patient History Medical History Atrial fibrillation (Acute) Hypertension (Acute) Pacemaker (Acute) Surgical History (Updated 04/04/20 @ 16:56 by Yahir Rodgers MD) H/O: hysterectomy (Acute) History of appendectomy (Acute) Social History household members: children Smoking Status: Former smoker Smoking Status: Former smoker alcohol intake frequency: holidays/special occasions only Substance Use Type: does not use Exam Initial Vital Signs Initial Vital Signs: Vital Signs Temperature 97.5 F L 04/17/20 18:50 Pulse Rate 70 04/17/20 18:50 Respiratory Rate 21 04/17/20 18:50 Blood Pressure 186/88 H 04/17/20 18:50 Pulse Oximetry 95 04/17/20 18:50 Const General: comfortable HENMT Head: normal to inspection and normocephalic Resp Effort & Inspection: normal respiratory effort Auscultation: clear to auscultation bilaterally Cardio Rate: regular rate Rhythm: regular rhythm GI Inspection: non-distended Palpation: soft and tender (Around the inferior portion of the surgical incision) Skin Other: Patient with a midline surgical incision consistent with her stated history of the surgery. The shelia are still in place. There is a area of erythema around the inferior half of this incision with induration that extends several inches past the incision site. There is a small amount of drainage from the most inferior portion of the wound. Neuro General: patient alert and patient awake Cognition: normal cognition Speech: speech normal Extrem General: normal to inspection and capillary refill normal Psych Appearance: grossly normal and well kempt Course Orders Ordered: ED Orders 04/17/20 19:02 CT abdomen pelvis w con Stat 04/17/20 19:20 Complete Blood Count AUTO DIFF Stat Lactate (Lactic Acid) Stat Lipase Stat 04/17/20 19:45 Prothrombin Time INR Stat 04/17/20 19:50 Blood Culture Stat 04/17/20 20:50 Wound Culture and Gram Stain Stat Discontinued Medications Hydrocodone Bitart/Acetaminophen (Vicodin 5/325 Prepack) 1 bottle MISC SEEINSTR ONE Stop: 04/17/20 20:51 Last Admin: 04/17/20 20:56 Dose: 1 bottle Documented by: DENNIS Ceftriaxone Sodium/Dextrose (Rocephin) 2 gm in 50 mls @ 100 mls/hr IV NOW ONE Stop: 04/17/20 21:07 Last Admin: 04/17/20 20:55 Dose: 100 mls/hr Documented by: DENNIS Morphine Sulfate (Morphine) 2 mg IV NOW ONE Stop: 04/17/20 19:53 Last Admin: 04/17/20 20:03 Dose: 2 mg Documented by: DENNIS Vital Signs Vital signs: Vital Signs - 8 hr 04/17/20 18:50 04/17/20 19:40 04/17/20 20:00 Temperature 97.5 F L Pulse Rate 70 69 70 Respiratory Rate 21 Blood Pressure 186/88 H Pulse Oximetry 95 100 98 04/17/20 20:10 04/17/20 20:11 04/17/20 20:30 Temperature Pulse Rate 70 70 70 Respiratory Rate 18 Blood Pressure 164/76 H 164/76 H 166/77 H Pulse Oximetry 98 96 97 04/17/20 21:00 04/17/20 21:01 04/17/20 21:25 Temperature Pulse Rate 71 67 70 Respiratory Rate Blood Pressure 189/85 H 189/85 H Pulse Oximetry 97 96 96 04/17/20 21:26 04/17/20 21:44 Temperature 98.1 F Pulse Rate Respiratory Rate Blood Pressure 163/79 H Pulse Oximetry Medical Decision Making Lab Data Result diagrams: 04/17/20 19:20 Labs: Lab Results 04/17/20 04/17/20 04/17/20 Range/Units 19:20 19:20 19:20 WBC 8.5 (4.5-11.0) X10^3/uL RBC 3.75 L (4.0-5.2) X10^6/uL Hgb 11.2 L (12.0-16.0) g/dL Hct 33.7 L (36-46) % MCV 90.0 (80-100) fL MCH 29.7 (26-34) PG MCHC 33.1 (30-36) % RDW 13.4 (11.6-14.8) % Plt Count 224 (150-400) X10^3/uL Neut % (Auto) 70.5 (50-75) % Lymph % (Auto) 16.8 L (25-40) % [place] % (Auto) 9.5 (3-14) % Eos % (Auto) 2.5 (2-4) % Baso % (Auto) 0.7 (0-2) % Neut # (Auto) 6000 (1770-5347) /uL Lymph # (Auto) 1400 (9891-5240) /uL [place] # (Auto) 800 (0-900) /uL Eos # (Auto) 200 (0-450) /uL Baso # (Auto) 100 (0-100) /uL Total Counted Cancelled Seg Neutrophils % Cancelled Band Neutrophils % Cancelled Lymphocytes % (Manual) Cancelled Atypical Lymphs % Cancelled Monocytes % (Manual) Cancelled Eosinophils % (Manual) Cancelled Basophils % (Manual) Cancelled Metamyelocytes % Cancelled Myelocytes % Cancelled Promyelocytes % Cancelled Blast Cells % Cancelled Neutrophils # (Manual) Cancelled Nucleated RBCs Cancelled Differential Comment Cancelled Hypersegmented Neuts Cancelled Hypogranular Neuts Cancelled Reactive Lymphocytes Cancelled Plasma Cells Cancelled Smudge Cells Cancelled Other Cell Type Cancelled Toxic Granulation Cancelled Toxic Vacuolation Cancelled Dohle Bodies Cancelled Billy Rods Cancelled WBC Morphology Comment Cancelled Platelet Estimate Cancelled Clumped Platelets Cancelled Plt Morphology Comment Cancelled RBC Morphology Cancelled Dimorphic RBCs Cancelled Polychromasia Cancelled Hypochromasia Cancelled Poikilocytosis Cancelled Basophilic Stippling Cancelled Anisocytosis Cancelled Microcytosis Cancelled Macrocytosis Cancelled Spherocytes Cancelled Pappenheimer Bodies Cancelled Sickle Cells Cancelled Target Cells Cancelled Tear Drop Cells Cancelled Ovalocytes Cancelled Stomatocytes Cancelled Helmet Cells Cancelled [place] Bodies Cancelled [place] Rings Cancelled Cee Cells Cancelled Acanthocytes (Spur) Cancelled Rouleaux Cancelled Schistocytes Cancelled PT (10.1-12.7) SECONDS INR (0.9-1.3) Lactate 1.0 (0.7-2.1) mmol/L Lipase 479 H (23-300) U/L 04/17/20 Range/Units 19:45 WBC (4.5-11.0) X10^3/uL RBC (4.0-5.2) X10^6/uL Hgb (12.0-16.0) g/dL Hct (36-46) % MCV (80-100) fL MCH (26-34) PG MCHC (30-36) % RDW (11.6-14.8) % Plt Count (150-400) X10^3/uL Neut % (Auto) (50-75) % Lymph % (Auto) (25-40) % [place] % (Auto) (3-14) % Eos % (Auto) (2-4) % Baso % (Auto) (0-2) % Neut # (Auto) (9019-0439) /uL Lymph # (Auto) (5282-7869) /uL [place] # (Auto) (0-900) /uL Eos # (Auto) (0-450) /uL Baso # (Auto) (0-100) /uL Total Counted Seg Neutrophils % Band Neutrophils % Lymphocytes % (Manual) Atypical Lymphs % Monocytes % (Manual) Eosinophils % (Manual) Basophils % (Manual) Metamyelocytes % Myelocytes % Promyelocytes % Blast Cells % Neutrophils # (Manual) Nucleated RBCs Differential Comment Hypersegmented Neuts Hypogranular Neuts Reactive Lymphocytes Plasma Cells Smudge Cells Other Cell Type Toxic Granulation Toxic Vacuolation Dohle Bodies Billy Rods WBC Morphology Comment Platelet Estimate Clumped Platelets Plt Morphology Comment RBC Morphology Dimorphic RBCs Polychromasia Hypochromasia Poikilocytosis Basophilic Stippling Anisocytosis Microcytosis Macrocytosis Spherocytes Pappenheimer Bodies Sickle Cells Target Cells Tear Drop Cells Ovalocytes Stomatocytes Helmet Cells [place] Bodies [place] Rings [place] Cells Acanthocytes (Spur) Rouleaux Schistocytes PT 20.7 H D (10.1-12.7) SECONDS INR 1.8 H (0.9-1.3) Lactate (0.7-2.1) mmol/L Lipase (23-300) U/L Imaging Data CT scan - abdomen/pelvis: Radiologist's Impression: Silvano Merrill 80 F [address] [address] [address] Scan Report Signed Patient: Silvano Merrill [facility]#: [id number] : 8Acct:[id number] Age/Sex: 80 / FDate of Service: 04/17/20 Loc: ED Accession Number: [id number] Procedure: CT abdomen pelvis w con Ordering Provider: Parvez Saavedra D.O. PROCEDURE: CT ABDOMEN PELVIS W CON INDICATIONS: Postop, pain, incision drainage, concern for abscess/obstruc TECHNIQUE: After the administration of intravenous contrast, 5 mm thick sections acquired from the diaphragm to the symphysis. 5 mm coronal and sagittal reformats were acquired. For radiation dose reduction, the following was used: automated exposure control, adjustment of mA and/or kV according to patient size. COMPARISON: [facility], CT, CT ABDOMEN PELVIS W CON, 04/04/2020, 14:53. FINDINGS: Image quality: Portions of the lower pelvis are suboptimally evaluated secondary to metallic streak artifact from hip arthroplasty. ABDOMEN: Lung bases: Minimal bilateral pleural effusions, right greater than left. Heart is enlarged. Solid organs: Liver is mildly enlarged with steatosis. Gallbladder is contracted and grossly unremarkable. . Biliary system is non dilated. Pancreas enhances normally. Spleen is normal in size and enhancement. No adrenal nodules. Kidneys demonstrate normal size and enhancement, without hydronephrosis. Peritoneum and bowel: Bowel loops demonstrate normal wall thickness and caliber. No free fluid or air. Nodes and vessels: No retroperitoneal or mesenteric adenopathy by size criteria. Aorta and inferior vena cava are normal in size. Miscellaneous: Ventral wall incision site is noted. There is a 3.4 centimeter AP x 3.8 centimeter transverse focus of fluid and air at the incision site within the subcutaneous fat. PELVIS: Genitourinary: Bladder wall thickness is normal. Miscellaneous: Fat containing right inguinal hernia is present. Bones: No suspicious bony lesions. Lumbar compression fractures without interval changes are noted at L3 with kypho/vertebroplasty as well as mild height loss at L4. IMPRESSION: 1. Fluid and air at the incision site of the ventral subcutaneous wall suggestive of abscess/phlegmon. 2. No intestinal obstruction. Dictated by: Juliet Chavez M.D. on 04/17/2020 at 20:24 Approved by: Juliet Chavez M.D. on 04/17/2020 at 20:28 [facility] Narrative Medical decision making narrative: Patient is afebrile. Does not have leukocytosis. The CT scan does show what appears to be a subcutaneous wound infection. There is no intra-abdominal pathology noted on the CT scan. There is a small amount of drainage from the most inferior portion of the wound. I did discuss the case with with general surgery who after discussion of the case and the CT scan recommended that the patient be given IV antibiotics here in the ER. She was given 2 g of Rocephin. Will send home with oral antibiotics. He also recommended that several of the shelia be removed to allow for drainage. This was performed. The wound did not dehisce during this time and did appear to be well. There was some drainage from several of the staple sites. Patient does have a follow-up later this week with her general surgeon however I did inform her that she needed to contact the surgeon's office tomorrow to discuss this to see if they would like to see her sooner than her scheduled appointment. Patient expressed understanding and agreement. Discharge Plan Departure Patient Disposition: Home Clinical Impression: Postoperative wound infection Discharge Date/Time: 04/17/20 21:44 Activity Restrictions/Additional Instructions: Use the pain medication as needed. Consider the medicine that you were given here a regular strength Tylenol and factor that in to the Tylenol that you are currently taking. Recommend that tomorrow you contact Dr. Rodgers's office to see if they want to see you sooner than Saturday. Expect some drainage from the surgical wound. Start taking the antibiotics tomorrow morning. Return to the emergency department for any new or worsening symptoms Prescriptions: New clindamycin HCl 300 mg capsule 300 mg PO QID 7 Days Qty: 28 RF: 0 No Action acetaminophen [Tylenol] 325 mg capsule 650 mg PO QID PRN (Reason: pain) Qty: 60 RF: 0 carvedilol 12.5 mg Tablet 12.5 mg PO BID RF: 0 bumetanide 0.5 mg Tablet 0.5 mg PO DAILY RF: 0 losartan 25 mg Tablet 25 mg PO QPM RF: 0 calcium carbonate [Tums Ultra] 400 mg calcium (1,000 mg) Tablet,Chewable 800 mg PO DAILY RF: 0 warfarin 5 mg Tablet 5 mg PO DAILY RF: 0 cholecalciferol (vitamin D3) [Vitamin D3] 1,000 unit Capsule 1,000 unit PO DAILY RF: 0 Referrals: Minor Chacko MD [Primary Care Provider] -
[2020-04-17 19:31] LABS: Add Manual Diff / Slide Review NO; Basophils Absolute Auto 100 /uL (0-100); Basophils Percent Auto 0.7 % (0-2); Eosinophils Absolute Auto 200 /uL (0-450); Eosinophils Percent Auto 2.5 % (2-4); Hematocrit 33.7 % (36-46); Hemoglobin 11.2 g/dL (12.0-16.0); Lymphocytes Absolute Auto 1400 /uL (1100-4500); Lymphocytes Percent Auto 16.8 % (25-40); Mean Corpuscular HGB Conc 33.1 % (30-36); Mean Corpuscular Hemoglobin 29.7 PG (26-34); Monocytes Absolute Auto 800 /uL (0-900); Monocytes Percent Auto 9.5 % (3-14); Neutrophils Absolute Auto 6000 /uL (1500-7000); Neutrophils Percent Auto 70.5 % (50-75); Platelet Count 224 X10^3/uL (150-400); Red Blood Cell Count 3.75 X10^6/uL (4.0-5.2); Red Cell Distribution Width 13.4 % (11.6-14.8); White Blood Cell Count 8.5 X10^3/uL (4.5-11.0)
[2020-04-17 19:43] LABS: Lipase 479 U/L (23-300)
[2020-04-17] MEDS: MORPHINE 2 MG/ML INJ IV (20:03)
[2020-04-17 20:04] LABS: INR 1.8 (0.9-1.3); Prothrombin Time 20.7 SECONDS (10.1-12.7)
[2020-04-17] MEDS: CEFTRIAXONE 2 GM/50 ML FROZ.PIGGY IV (20:55)
[2020-04-17] MEDS: HYDROCODONE/ACET 5/325 PREPACK 1 BOTTLE MISC (20:56)
--- NOTE | 2020-05-24 00:15 | PC.NURSE ---
Rocephin 2gm in 50ml D\C'ed at 2140.
== END 2020-04-17 21:44 | disposition home or self-care (01) ==
PROVIDERS: Emergency Provider Emergency Medicine; PCP Internal Medicine; Referring Provider Surgery
DX: T81.49XA Infection following a procedure, other surgical site, initial encounter (principal); I48.91 Unspecified atrial fibrillation; Z79.01 Long term (current) use of anticoagulants; Z95.0 Presence of cardiac pacemaker
CPT/HCPCS: 36415; 74177; 83605; 83690; 85025; 85610; 87040; 87070; 87075; 87147; 87205; 96365; 96375; 99284; J0696; J2270; Q9967

== ENCOUNTER → 2020-09-15 07:59 | Outpatient (CLI) | payer MEDICARE, BC, SELFPAY ==
[2020-04-04 21:13] VITALS: BMI 22.6
[2020-09-15 08:34] LABS: Add Manual Diff / Slide Review NO; Basophils Absolute Auto 0 /uL (0-100); Basophils Percent Auto 0.9 % (0-2); Eosinophils Absolute Auto 200 /uL (0-450); Eosinophils Percent Auto 3.3 % (2-4); Hematocrit 42.9 % (36-46); Hemoglobin 13.9 g/dL (12.0-16.0); Lymphocytes Absolute Auto 1600 /uL (1100-4500); Lymphocytes Percent Auto 30.5 % (25-40); Mean Corpuscular HGB Conc 32.5 % (30-36); Mean Corpuscular Hemoglobin 29.1 PG (26-34); Mean Corpuscular Volume 89.6 fL (80-100); Monocytes Absolute Auto 400 /uL (0-900); Monocytes Percent Auto 8.4 % (3-14); Neutrophils Absolute Auto 2900 /uL (1500-7000); Neutrophils Percent Auto 56.9 % (50-75); Platelet Count 211 X10^3/uL (150-400); Red Blood Cell Count 4.79 X10^6/uL (4.0-5.2); Red Cell Distribution Width 14.1 % (11.6-14.8); White Blood Cell Count 5.1 X10^3/uL (4.5-11.0)
[2020-09-15 09:03] LABS: Alanine Aminotransferase 20 IU/L (<35); Albumin 4.3 g/dL (3.5-5.0); Albumin Globulin Ratio 1.4 (1.0-2.8); Alkaline Phosphatase 80 U/L (38-126); Aspartate Aminotransferase 29 IU/L (14-36); BUN Creatinine Ratio 22.9 (6-22); Bilirubin Total 2.4 mg/dL (0.2-1.3); Blood Urea Nitrogen 19 mg/dL (7-17); Calcium 9.6 mg/dL (8.4-10.2); Carbon Dioxide 35 mmol/L (22-32); Chloride 102 mmol/L (98-107); Cholesterol 200 mg/dL (140-199); Estimated Glomerular Filt Rate > 60.0 mL/min (>60); Glucose 107 mg/dL (80-110); HDL Cholesterol 78 mg/dL (40-60); HEMOLYSIS < 15 (0-50); LDL Cholesterol Calculated 105 mg/dL (<100); Potassium 4.3 mmol/L (3.4-5.1); Sodium 139 mmol/L (137-145); Total Protein 7.3 g/dL (6.3-8.2); Triglycerides 83 mg/dL (35-150)
== END ==
PROVIDERS: PCP Family Medicine; Referring Provider Specialist; Visit Provider Specialist
DX: I42.8 Other cardiomyopathies (principal); I10 Essential (primary) hypertension; I48.11 Longstanding persistent atrial fibrillation
CPT/HCPCS: 36415; 80053; 80061; 83735; 85025

== ENCOUNTER → 2020-10-12 07:28 | Outpatient (CLI) | payer MEDICARE, BC, SELFPAY ==
[2020-04-04 21:13] VITALS: BMI 22.6
[2020-10-12 09:03] LABS: Alanine Aminotransferase 15 IU/L (<35); Albumin 4.2 g/dL (3.5-5.0); Albumin Globulin Ratio 1.4 (1.0-2.8); Alkaline Phosphatase 78 U/L (38-126); Aspartate Aminotransferase 29 IU/L (14-36); BUN Creatinine Ratio 21.1 (6-22); Bilirubin Total 2.2 mg/dL (0.2-1.3); Blood Urea Nitrogen 19 mg/dL (7-17); Calcium 9.4 mg/dL (8.4-10.2); Carbon Dioxide 34 mmol/L (22-32); Chloride 103 mmol/L (98-107); Estimated Glomerular Filt Rate 59.9 mL/min (>60); Globulin 2.9 g/dL (1.7-4.1); Glucose 103 mg/dL (80-110); HEMOLYSIS < 15 (0-50); Magnesium 1.9 mg/dL (1.6-2.3); Potassium 4.9 mmol/L (3.4-5.1); Sodium 138 mmol/L (137-145); Total Protein 7.1 g/dL (6.3-8.2)
== END ==
PROVIDERS: PCP Family Medicine; Referring Provider Family Medicine; Visit Provider Specialist
DX: I48.19 Other persistent atrial fibrillation (principal); E78.00 Pure hypercholesterolemia, unspecified
CPT/HCPCS: 36415; 80053; 80061; 83704; 83735

== ENCOUNTER → 2020-12-06 13:20 | Outpatient (CLI) | payer MEDICARE, BC, SELFPAY ==
[2020-04-04 21:13] VITALS: BMI 22.6
--- NOTE | 2020-12-06 13:21 | DI.ECHO.S_ITS ---
[place] +---------+ Hospital +---------+ : : [address] : : : : [id number] : : : : Phone: [phone]+ Echocardiogram Report + + :Name: OMID NINO Study Date: 12/06/2020 Height: 65 in : :[facility] ReadingLocation: Weight: 145 lb : : Gender: Female BSA: 1.7 m2 : :: 1940 Age: 80 yrs BP: 168/99 mmHg: :Reason For Study: DYSPNEA : :Ordering Physician: ARIA, : :BRENDA Kincaid Performed By: Krissy Villafana : :Referring: BRENDA KNAPP : + + Interpretation Summary 1) Normal left ventricular size with mildly to moderately reduced systolic function (EF 40-45%). 2) The right ventricle is normal size. Right ventricular systolic function is mildly reduced. There is a pacemaker lead in the right ventricle. 3) The left atrium is severely dilated. The right atrium is moderately dilated. 4) There is mild to moderate mitral regurgitation. 5) There is mild to moderate tricuspid regurgitation. 6) The right ventricular systolic pressure is estimated to be at least 57 mmHg based on an estimated right atrial pressure of 15 mm Hg. 7) Compared to the Echo done 02/15/2020, right sided hypervolemia and worse pulmonary hypertension are present on this study. Procedure: A two-dimensional transthoracic echocardiogram with color flow and Doppler was performed. The study quality was technically adequate. Comparison is made with the echocardiogram of 02/15/2020. The patient has a paced rhythm. The heart rate ranged between 70-71 bpm during the study. Left Ventricle: The left ventricle is normal in size and wall thickness. The ejection fraction is estimated to be 40-45%. Diastolic function could not be accurately assessed due to paced rhythm. Right Ventricle: The right ventricle is normal size. There is a pacemaker lead in the right ventricle. Right ventricular systolic function is mildly reduced. Atria: The left atrium is severely dilated. The right atrium is moderately dilated. Doppler evidence suggests a left to right interatrial shunt. Mitral Valve: The mitral valve leaflets appear mildly thickened, but open well. There is slight calcification extending into the subvalvular apparatus. There is mild to moderate mitral regurgitation. Aortic Valve: The aortic valve is trileaflet. The aortic valve is mildly calcified. There is minimally reduced leaflet mobility. There is no aortic valve stenosis. There is mild aortic regurgitation. Tricuspid Valve: The tricuspid valve leaflets are thin and pliable. The right ventricular systolic pressure is estimated to be at least 57 mmHg based on an estimated right atrial pressure of 15 mm Hg. There is mild to moderate tricuspid regurgitation. Pulmonic Valve: The pulmonic valve leaflets are thin and pliable; valve motion is normal. There is no pulmonic valvular regurgitation. Great Vessels: The aortic root is normal size. The ascending aorta is at the upper limits of normal in size. The IVC is dilated (diameter is greater than 2.1 cm) and it collapses less than 50% with a sniff. This suggests a high right atrial pressure of 15 mm Hg. Pericardium/ Pleura There is no pericardial effusion. There is no pleural effusion. MMode/2D Measurements & Calculations LVIDd: 5.2 cm LVOT diam: 1.9 cm LVIDs: 3.4 cm Ao root diam: 3.1 cm FS: 34.0 % asc Aorta Diam: 3.4 cm EPSS: 0.98 cm Ao Arch Diam (Prox Trans): 2.4 cm IVSd: 0.88 cm LVPWd: 0.88 cm LV isaac. diameter/BSA (cm/m^2): 3.0 LV sys. diameter/BSA (cm/m^2): 2.0 LA A2 area: 28.3 cm2 RA long axis: 6.0 cm LA A4 area: 23.5 cm2 RA area: 22.4 cm2 LA length (vol): 5.7 cm RA vol: 71.6 ml LA vol: 98.2 ml RA : 41.5 ml/m2 LA vol index: 56.9 ml/m2 IVC diam: 2.2 cm RVD1 (basal): 2.2 cm TAPSE: 1.5 cm Doppler Measurements & Calculations Ao V2 max: 114.4 cm/sec LVOT Max Collins: 84.4 cm/sec Ao V2 mean: 81.0 cm/sec LV V1 max P.9 mmHg Ao max P.2 mmHg LV V1 VTI: 15.4 cm Ao mean P.9 mmHg CABRERA(I,D): 2.3 cm2 Ao V2 VTI: 20.0 cm CABRERA(V,D): 2.2 cm2 sev ratio: 0.77 CABRERA indexed to BSA (cm^2/m^2): 1.3 MV E max collins: 101.3 cm/sec TR max collins: 326.5 cm/sec MV A max collins: 1.1 cm/sec TR max P.6 mmHg MV E/A: 89.5 PA V2 max: 42.8 cm/sec Med Peak E' Collins: 5.0 cm/sec PA V2 mean: 26.2 cm/sec E/E' med: 20.4 PA mean P.33 mmHg Lat Peak E' Collins: 9.4 cm/sec PA pr(Accel): 27.6 mmHg E/E' lat: 10.7 E/e' average: 15.6 MV dec time: 0.22 sec MR ERO: 0.28 cm2 MR PISA: 3.6 cm2 SV(LVOT): 45.8 ml MR flow rate: 154.9 cm3/sec MR PISA radius: 0.76 cm Reading Physician:05:33 PM
== END ==
PROVIDERS: PCP Family Medicine; Referring Provider Nurse Practitioner; Visit Provider Nurse Practitioner
DX: R06.00 Dyspnea, unspecified (principal); I08.3 Combined rheumatic disorders of mitral, aortic and tricuspid valves; Z95.0 Presence of cardiac pacemaker
CPT/HCPCS: 93306

== ENCOUNTER → 2020-12-16 09:33 | Outpatient (CLI) | payer MEDICARE, BC, SELFPAY ==
[2020-04-04 21:13] VITALS: BMI 22.6
--- NOTE | 2020-12-16 10:42 | DIET.PN ---
Dietary Progress Note Assessment: 80y F referred to nutrition for help c complications after her small bowel resection 03/2020. Pt reports pain that comes and goes especially before a bowel movement, has gas and burping, has gained weight, especially around abdomen, and wants clarity on the SBO and its side effects nutritionally. Pt had small bowel intessuption c removal of 20cm proximal jejunum and terminal ileum. After pts she sold her house and belongings and moved into a house c son and daughter in law. She lives downstairs and their relationship is extremely strained so much so that they are likely to part ways in the near future. Pt has microwave, refrigerator, very small sink, and coffee pot downstairs, daughter inlaw and son do cooking but intermittently invite pt. Pt doesn't get along very well c them so often eats cuppa noodles or cheap fast foods Her pots and pans got donated and the all-clad upstairs are too heavy Pt food hx includes cooking large elaborate meals c her spouse in the [employer] club. She now buys bulk ultraprocessed foods to eat in her basement. Pt was doing yoga class precovid but stopped due to restrictions and difficulty c weight bearing on arms secondary to pacemaker placement. Usual Day: Breakfast 1.5 c coffee c creamers, granola bar, banana, sometimes oatmeal Lunch: leftover pizza, cuppa noodles, sandwich-turkey and cheese Dinners: rice, salmon, salad; whatever is in cabinet sn: potato chips, mixed nuts, apple sauce, cottage cheese feels she doesn't drink enough water (1 or 2c/d) BM every other day, sometimes 3-4x/d Interventions: 1. Using handout, discussed pts small bowel surgery, amount of and location removed c nutrition implications. Pt has 97% of small intestine remaining and has absorptive capacity in all segments remaining. Encouraged pt to avoid eating simple sugars by themselves as they often move quickly through the GI system and with her resection could lead to malabsorption causing bloating in lower tract. Enouraged pt to eat them in conjunction c healthy fats and protein to slow transit time. 2. Encouraged pt to focus on increasing fluid needs to ensure healthy BMs with less pain. 3. Collaborated c pt on problem solving meal prep c supplies she currently can manage. Discussed balanced plate encouraging pt to stock up on cottage cheese, yogurt, steamer bag veggies, canned tuna. 4. Printed [facility] Newsletter and encouraged her to sign up for chair yoga class. Pt is currently attending [employer] virtually and has good ability to navigate the computer. Pt is very excited for this opportunity to exercise safely and socialize with others. Monitoring/Evaluations: pt has RD card for further assistance as needed.
== END ==
PROVIDERS: PCP Family Medicine; Referring Provider Family Medicine; Visit Provider Family Medicine
DX: R06.00 Dyspnea, unspecified (principal); Z90.49 Acquired absence of other specified parts of digestive tract; Z71.3 Dietary counseling and surveillance
CPT/HCPCS: 97802

== ENCOUNTER → 2020-12-16 12:37 | Outpatient (CLI) | payer MEDICARE, BC, SELFPAY ==
[2020-04-04 21:13] VITALS: BMI 22.6
[2020-12-16 10:19] LABS: Add Manual Diff / Slide Review NO; Basophils Absolute Auto 0 /uL (0-100); Basophils Percent Auto 0.7 % (0-2); Eosinophils Absolute Auto 200 /uL (0-450); Eosinophils Percent Auto 3.6 % (2-4); Hematocrit 41.6 % (36-46); Hemoglobin 13.3 g/dL (12.0-16.0); Lymphocytes Absolute Auto 1100 /uL (1100-4500); Lymphocytes Percent Auto 21.4 % (25-40); Mean Corpuscular Hemoglobin 29.4 PG (26-34); Monocytes Absolute Auto 400 /uL (0-900); Monocytes Percent Auto 8.2 % (3-14); Neutrophils Absolute Auto 3300 /uL (1500-7000); Neutrophils Percent Auto 66.1 % (50-75); Platelet Count 211 X10^3/uL (150-400); Red Blood Cell Count 4.52 X10^6/uL (4.0-5.2); Red Cell Distribution Width 13.9 % (11.6-14.8); White Blood Cell Count 5.1 X10^3/uL (4.5-11.0)
[2020-12-16 10:31] LABS: Alanine Aminotransferase 23 IU/L (<35); Albumin 4.6 g/dL (3.5-5.0); Albumin Globulin Ratio 1.6 (1.0-2.8); Alkaline Phosphatase 77 U/L (38-126); Aspartate Aminotransferase 30 IU/L (14-36); BUN Creatinine Ratio 18.1 (6-22); Bilirubin Total 3.1 mg/dL (0.2-1.3); Blood Urea Nitrogen 15 mg/dL (7-17); Calcium 9.4 mg/dL (8.4-10.2); Carbon Dioxide 32 mmol/L (22-32); Chloride 103 mmol/L (98-107); Estimated Glomerular Filt Rate > 60.0 mL/min (>60); Globulin 2.9 g/dL (1.7-4.1); Glucose 96 mg/dL (80-110); HEMOLYSIS < 15 (0-50); Potassium 4.1 mmol/L (3.4-5.1); Sodium 139 mmol/L (137-145); Total Protein 7.5 g/dL (6.3-8.2)
[2020-12-16 11:05] LABS: Free T4, Direct Thyroxine 1.27 ng/dL (0.78-2.19); T4 Total Thyroxine 7.99 ug/dL (5.5-11.0)
[2020-12-16 11:18] LABS: Thyroid Stimulating Hormone 1.91 uIU/mL (0.47-4.68)
== END ==
PROVIDERS: PCP Family Medicine; Referring Provider Nurse Practitioner; Visit Provider Nurse Practitioner
DX: R06.00 Dyspnea, unspecified (principal)
CPT/HCPCS: 36415; 80053; 84436; 84439; 84443; 85025

== ENCOUNTER → 2021-04-25 10:56 | Outpatient (CLI) | payer MEDICARE, BC, SELFPAY ==
[2020-04-04 21:13] VITALS: BMI 22.6
[2021-04-25 13:00] LABS: Add Manual Diff / Slide Review NO; Basophils Absolute Auto 0 /uL (0-100); Basophils Percent Auto 1.1 % (0-2); Eosinophils Absolute Auto 100 /uL (0-450); Eosinophils Percent Auto 3.3 % (2-4); Hematocrit 39.2 % (36-46); Hemoglobin 12.9 g/dL (12.0-16.0); Lymphocytes Absolute Auto 1100 /uL (1100-4500); Lymphocytes Percent Auto 25.4 % (25-40); Mean Corpuscular HGB Conc 32.9 % (30-36); Mean Corpuscular Hemoglobin 29.7 PG (26-34); Mean Corpuscular Volume 90.3 fL (80-100); Monocytes Absolute Auto 400 /uL (0-900); Monocytes Percent Auto 9.1 % (3-14); Neutrophils Absolute Auto 2600 /uL (1500-7000); Neutrophils Percent Auto 61.1 % (50-75); Platelet Count 198 X10^3/uL (150-400); Red Blood Cell Count 4.35 X10^6/uL (4.0-5.2); Red Cell Distribution Width 13.8 % (11.6-14.8); White Blood Cell Count 4.3 X10^3/uL (4.5-11.0)
[2021-04-25 14:23] LABS: Alanine Aminotransferase 20 IU/L (<35); Albumin 4.2 g/dL (3.5-5.0); Albumin Globulin Ratio 1.5 (1.0-2.8); Alkaline Phosphatase 82 U/L (38-126); Aspartate Aminotransferase 31 IU/L (14-36); BUN Creatinine Ratio 21.9 (6-22); Blood Urea Nitrogen 16 mg/dL (7-17); Calcium 9.5 mg/dL (8.4-10.2); Carbon Dioxide 29 mmol/L (22-32); Chloride 105 mmol/L (98-107); Estimated Glomerular Filt Rate > 60.0 mL/min (>60); Globulin 2.8 g/dL (1.7-4.1); Glucose 76 mg/dL (80-110); HEMOLYSIS < 15 (0-50); Lipase 79 U/L (23-300); Potassium 4.7 mmol/L (3.4-5.1); Sodium 140 mmol/L (137-145)
== END ==
PROVIDERS: PCP Family Medicine; Referring Provider Registered Nurse; Visit Provider Registered Nurse
DX: R10.9 Unspecified abdominal pain (principal)
CPT/HCPCS: 36415; 80053; 83690; 85025

== ENCOUNTER → 2021-04-27 12:07 | Outpatient (CLI) | payer MEDICARE, BC, SELFPAY ==
[2020-04-04 21:13] VITALS: BMI 22.6
--- NOTE | 2021-04-27 12:08 | DI.US.S_ITS ---
PROCEDURE: US ABDOMEN COMPLETE INDICATIONS: ABDOMINAL PAIN TECHNIQUE: Real-time scanning was performed of the abdominal and retroperitoneal organs, with image documentation. COMPARISON: [facility], US, US ABDOMEN COMPLETE, 09/24/2019, 9:37. [facility], CT, CT ABDOMEN PELVIS W CON, 04/17/2020, 19:16. FINDINGS: Liver: Liver is normal in size and homogeneous in echotexture. Gallbladder: 3 mm gallbladder polyp; otherwise normal gallbladder. Biliary ducts: Intrahepatic bile ducts are non-dilated. Extrahepatic bile duct caliber measures 3.7 mm. Normal is 6-7 mm or less in diameter, or 10 mm or less post-cholecystectomy. Pancreas: Visualized portions of the pancreas are sonographically normal. Spleen: Spleen is normal in size and homogeneous in echotexture. Kidneys: Kidneys are normal in size and echotexture. Right kidney measures 11.5 cm long; left kidney measures 11 cm long. No hydronephrosis or nephrolithiasis. No solid masses. Aorta: Visualized aorta is normal in caliber at less than 3 cm. Iliacs: Proximal common iliac arteries are normal in caliber at less than 2.5 cm. IVC: Intrahepatic inferior vena cava is patent. Miscellaneous: No free abdominal fluid. IMPRESSION: 1. 3 mm gallbladder polyp. Given the small size, no additional follow-up is warranted. 2. No source for abdominal pain identified. Dictated by: Jadon BHAT Interpreted: Juliet Chavez MD on 04/27/2021 at 13:45 Transcribed by: RAFIQ on 04/27/2021 at 13:46 Approved by: Juliet Chavez M.D. on 04/27/2021 at 18:58
== END ==
PROVIDERS: PCP Family Medicine; Referring Provider Registered Nurse; Visit Provider Registered Nurse
DX: R10.9 Unspecified abdominal pain (principal); K82.4 Cholesterolosis of gallbladder
CPT/HCPCS: 76700

== ENCOUNTER → 2021-05-16 09:30 | Outpatient (CLI) | payer MEDICARE, BC, SELFPAY ==
[2020-04-04 21:13] VITALS: BMI 22.6
[2021-05-17 08:57] LABS: Fecal Immunochemical Test Negative (Negative)
== END ==
PROVIDERS: PCP Family Medicine; Referring Provider Registered Nurse; Visit Provider Registered Nurse
DX: Z12.11 Encounter for screening for malignant neoplasm of colon (principal)
CPT/HCPCS: 82274

== ENCOUNTER → 2021-05-18 11:08 | Outpatient (CLI) | payer MEDICARE, BC, SELFPAY ==
[2020-04-04 21:13] VITALS: BMI 22.6
--- NOTE | 2021-05-18 11:11 | DI.CT.S_ITS ---
PROCEDURE: CT ABDOMEN PELVIS W CON INDICATIONS: abdominal pain TECHNIQUE: After the administration of oral and intravenous contrast, axial sections were acquired from the lung bases to the pubic symphysis. Coronal and sagittal reformats were performed. For radiation dose reduction, the following was used: automated exposure control, adjustment of mA and/or kV according to patient size. COMPARISON:[facility], CT, CT ABDOMEN PELVIS W CON, 04/17/2020, 19:16. [facility], CT, CT ABDOMEN PELVIS W CON, 04/04/2020, 14:53. FINDINGS: Image quality: Excellent. Lung bases: Trace bilateral pleural effusions and bibasilar atelectasis. Heart: The heart is moderately enlarged. ABDOMEN: Liver: Diffusely attenuating liver is compatible with fatty infiltration. Reflux of contrast material is seen into the hepatic veins. Gallbladder: Unremarkable. Biliary ducts: Unremarkable. Pancreas: Unremarkable. Spleen: Unremarkable. Adrenal Glands: Unremarkable. Kidneys and Ureters: Unremarkable. Stomach and Bowel: Small hiatal hernia. Postsurgical changes are seen with colonic anastomosis in the left lower quadrant. Multiple diverticula are seen without signs of acute diverticulitis. A large amount of stool is seen in the transverse colon. There is thickening and pericolonic fat stranding at the cecum and terminal ileum. Peritoneum: No abnormal intraperitoneal fluid. No free air. Ventral Wall: The previously seen subcutaneous edema and incisional fluid has resolved.. Abdominal Nodes: No retroperitoneal or mesenteric adenopathy by size criteria. Vessels: Aorta and inferior vena cava are normal in size. Aortic atherosclerotic calcifications are present. PELVIS: Pelvic Organs: Unremarkable. Bladder: Unremarkable. Pelvic Nodes: No enlarged lymph nodes. Miscellaneous: No inguinal hernias are seen. Bones: Postsurgical changes from left hip arthroplasty with associated metallic artifact. Degenerative changes are seen in the pubic symphysis and included spine. Chronic L3 compression fracture with vertebroplasty changes again seen and unchanged mild L4 compression fracture. IMPRESSION: 1. Bowel wall thickening in the cecum and distal ileum with mild pericolonic fat stranding is suspicious for a nonspecific colitis. 2. Colonic diverticulosis without signs of acute diverticulitis. Small hiatal hernia. 3. Cardiomegaly. Trace bilateral pleural effusions. 4. Diffuse hepatic steatosis. Dictated by: Avery Mark M.D. on 05/18/2021 at 15:57 Approved by: Avery Mark M.D. on 05/18/2021 at 16:05
[2021-05-18 11:40] LABS: BUN Creatinine Ratio 19.2 (6-22); Blood Urea Nitrogen 15 mg/dL (7-17); Calcium 9.6 mg/dL (8.4-10.2); Carbon Dioxide 30 mmol/L (22-32); Chloride 105 mmol/L (98-107); Estimated Glomerular Filt Rate > 60.0 mL/min (>60); Glucose 99 mg/dL (80-110); HEMOLYSIS < 15 (0-50); Potassium 4.5 mmol/L (3.4-5.1); Sodium 140 mmol/L (137-145)
== END ==
PROVIDERS: PCP Family Medicine; Referring Provider Registered Nurse; Visit Provider Registered Nurse
DX: R10.9 Unspecified abdominal pain (principal); K57.90 Diverticulosis of intestine, part unspecified, without perforation or abscess without bleeding; K44.9 Diaphragmatic hernia without obstruction or gangrene; K76.0 Fatty (change of) liver, not elsewhere classified; I51.7 Cardiomegaly; Z98.0 Intestinal bypass and anastomosis status
CPT/HCPCS: 36415; 74177; 80048; Q9967

== ENCOUNTER → 2021-06-13 11:49 | Outpatient (CLI) | payer MEDICARE, BC, SELFPAY ==
[2020-04-04 21:13] VITALS: BMI 22.6
[2021-06-13 13:09] LABS: Alanine Aminotransferase 18 IU/L (<35); Albumin 4.5 g/dL (3.5-5.0); Albumin Globulin Ratio 1.7 (1.0-2.8); Alkaline Phosphatase 80 U/L (38-126); Aspartate Aminotransferase 30 IU/L (14-36); BUN Creatinine Ratio 26.3 (6-22); Blood Urea Nitrogen 20 mg/dL (7-17); Calcium 9.6 mg/dL (8.4-10.2); Carbon Dioxide 30 mmol/L (22-32); Chloride 106 mmol/L (98-107); Estimated Glomerular Filt Rate > 60.0 mL/min (>60); Globulin 2.6 g/dL (1.7-4.1); Glucose 86 mg/dL (80-110); HEMOLYSIS < 15 (0-50); Potassium 4.9 mmol/L (3.4-5.1); Sodium 141 mmol/L (137-145); Total Protein 7.1 g/dL (6.3-8.2)
[2021-06-15 09:34] LABS: Cholesterol, Total 198 mg/dL (100-199); HDL-Cholesterol 67 mg/dL (>39); HDL-Particle (Total) 31.6 umol/L (>=30.5); LDL Particle 1098 nmol/L (<1000); LDL Size 21.3 nm (>20.5); LDL-Cholsterol 112 mg/dL (0-99); LP-IR Score <25 (<=45); Small LDL- Particle <90 nmol/L (<=527); Triglycerides 109 mg/dL (0-149)
== END ==
PROVIDERS: PCP Family Medicine; Referring Provider Specialist; Visit Provider Specialist
DX: E78.00 Pure hypercholesterolemia, unspecified (principal); I48.19 Other persistent atrial fibrillation
CPT/HCPCS: 36415; 80053; 80061; 83704; 83735

== ENCOUNTER → 2021-08-23 09:04 | Outpatient (CLI) | payer MEDICARE, BC, SELFPAY ==
[2020-04-04 21:13] VITALS: BMI 22.6
--- NOTE | 2021-08-23 09:06 | DI.ECHO.S_ITS ---
[place] +---------+ Hospital +---------+ : : [address] : [address] : : : : [id number] : : : : Phone: [phone]+ Echocardiogram Report + + :Name: OMID NINO Study Date: 08/23/2021 Height: 65 in : :[facility] ReadingLocation: Weight: 145 lb : : Gender: Female BSA: 1.7 m2 : :: 1940 Age: 81 yrs BP: 152/92 mmHg: :Reason For Study: PULMONARY HYPERTENSION : :Ordering Physician: RAÚL, : :NIKOS Performed By: Krissy Villafana : :Referring: NIKOS OLSEN : + + Interpretation Summary Left ventricular systolic function remains moderately reduced with an estimated ejection fraction of 35 to 40% with mild to moderate global hypokinesis and a significant dyssynchronous contraction pattern due to the paced rhythm and appears worse apically but is unchanged from the previous exam. Diastolic function could not be accurately assessed but is likely similar to the previous study. The right ventricle appears normal in size with borderline reduced systolic function but appears unchanged from the previous exam. Right ventricular systolic pressure is estimated at 49 mmHg with a CVP of 15 mmHg, and is likely slightly lower compared to the previous study. There is severe biatrial enlargement with slight progression in size of both atria. There is moderate mitral and moderate tricuspid regurgitation that appears unchanged from the previous exam. There continues to be mild aortic valve sclerosis without stenosis. The ascending aorta is mildly enlarged and measures slightly larger compared to the previous study. Procedure: A two-dimensional transthoracic echocardiogram with color flow and Doppler was performed. The study quality was technically adequate. Comparison is made with the echocardiogram of 12/06/2020. The patient has a paced rhythm. The heart rate ranged between 70-76 bpm during the study. Left Ventricle: The left ventricle is normal in size and wall thickness. The estimated left ventricular end diastolic volume is 98 ml. Left ventricular systolic function is moderately reduced. The ejection fraction is estimated to be 35-40%. There is mild to moderate global hypokinesis of the left ventricle. There is a significant dyssynchronous contraction pattern due to the paced rhythm. This is worse apically. This is unchanged compared to the previous study. Diastolic function could not be accurately assessed due to paced rhythm. Right Ventricle: There is a pacemaker lead in the right ventricle. The right ventricle is normal size. Right ventricular systolic function is borderline reduced. This is unchanged compared to the previous study. Atria: Both atria are severely dilated. Both atria have mildly increased in size since the prior echo exam. A patent foramen ovale is suspected. Doppler evidence suggests a left to right interatrial shunt. Mitral Valve: The mitral valve leaflets are slightly calcified. The mitral valve leaflets appear mildly thickened, but open well. There is moderate mitral regurgitation. This is unchanged compared to the previous study. Aortic Valve: The aortic valve is trileaflet. The aortic valve is mildly calcified. There is discrete nodular thickening of the non- coronary cusp. There is minimally reduced leaflet mobility. There is no aortic valve stenosis. There is trace aortic regurgitation. Tricuspid Valve: The tricuspid valve leaflets are thin and pliable. There is moderate tricuspid regurgitation. Multiple jets. The right ventricular systolic pressure is estimated to be at least 49 mmHg based on an estimated right atrial pressure of 15 mm Hg. This is slightly lower compared to the previous study. Pulmonic Valve: The pulmonic valve leaflets are thin and pliable; valve motion is normal. There is no pulmonic valvular regurgitation. Great Vessels: The aortic root is normal size. The ascending aorta is mildly enlarged. This is slightly larger compared to the previous study. The IVC is dilated (diameter is greater than 2.1 cm) and it collapses less than 50% with a sniff. This suggests a high right atrial pressure of 15 mm Hg. Pericardium/ Pleura There is no pericardial effusion. There is no pleural effusion. MMode/2D Measurements & Calculations LVIDd: 5.0 cm LVOT diam: 2.0 cm LVIDs: 3.9 cm Ao root diam: 3.0 cm FS: 22.4 % asc Aorta Diam: 3.6 cm IVSd: 0.80 cm Ao Arch Diam (Prox Trans): 2.5 cm LVPWd: 0.77 cm LV isaac. diameter/BSA (cm/m^2): 2.9 LV sys. diameter/BSA (cm/m^2): 2.3 LA A2 area: 30.4 cm2 RA long axis: 6.7 cm LA A4 area: 28.7 cm2 RA area: 29.5 cm2 LA length (vol): 6.6 cm RA vol: 110.1 ml LA vol: 112.1 ml RA : 63.8 ml/m2 LA vol index: 64.9 ml/m2 IVC diam: 2.5 cm RVD1 (basal): 3.9 cm TAPSE: 1.7 cm Doppler Measurements & Calculations Ao V2 max: 103.3 cm/sec LVOT Max Collins: 76.7 cm/sec Ao V2 mean: 67.9 cm/sec LV V1 max P.4 mmHg Ao max P.3 mmHg LV V1 VTI: 13.5 cm Ao mean P.1 mmHg CABRERA(I,D): 2.3 cm2 Ao V2 VTI: 18.1 cm CABRERA(V,D): 2.3 cm2 sev ratio: 0.75 CABRERA indexed to BSA (cm^2/m^2): 1.3 MV E max collins: 100.5 cm/sec TR max ocllins: 293.1 cm/sec MV A max collins: 1.8 cm/sec TR max P.4 mmHg MV E/A: 55.4 PA pr(Accel): 46.5 mmHg Med Peak E' Collins: 3.3 cm/sec E/E' med: 30.5 Lat Peak E' Collins: 9.3 cm/sec E/E' lat: 10.8 E/e' average: 20.7 MV dec time: 0.24 sec MR ERO: 0.21 cm2 MR PISA: 3.1 cm2 SV(LVOT): 41.8 ml MR flow rate: 112.6 cm3/sec MR PISA radius: 0.70 cm Reading Physician:12:40 PM
== END ==
PROVIDERS: PCP Family Medicine; Referring Provider Specialist; Visit Provider Physician Assistant Medical
DX: I08.3 Combined rheumatic disorders of mitral, aortic and tricuspid valves (principal); I27.20 Pulmonary hypertension, unspecified; I77.89 Other specified disorders of arteries and arterioles
CPT/HCPCS: 93306

== ENCOUNTER 2021-09-06 12:06 | Emergency (ER) | payer MEDICARE, BC, SELFPAY ==
[2020-04-04 21:13] VITALS: BMI 22.6
[2021-09-06 12:16] VITALS: BP 183/99; PULSE 79; RESP 15; TEMP 36.3; O2SAT 98; BMI 25.0
--- NOTE | 2021-09-06 15:52 | ED_ITS ---
HPI - Skin/Abscess/Foreign Bdy General Chief complaint: Skin/Abscess/Foreign Body Stated complaint: Left foot pain x4 days Time Seen by Provider: 09/06/21 15:52 Source: patient Mode of arrival: Ambulatory Limitations: no limitations History of Present Illness HPI narrative: This is an 81-year-old female comes to the emergency department with complaint of left foot pain she has redness and pain in her left 5th toe. Patient states it has been there for 4 days. It has become increasingly painful she is adamant she did not have any trauma or injuries. Patient very politely refuses an x- ray. Patient states that it is very localized. She does not recall any cuts or injuries. She is on warfarin for atrial fibrillation. Patient states she had her INR checked yesterday and was 2.4. She does not wish to have rechecked again today. Patient has taking clindamycin the past and tolerates it well. She takes it for dental prophylaxis. She states it has not affected her warfarin level in the past. She denies any other symptoms. Related Data Home Medications Medication Instructions Recorded Confirmed bumetanide 0.5 mg tablet 0.5 mg PO DAILY 07/10/19 06/07/21 calcium carbonate 400 mg calcium 800 mg PO DAILY 07/10/19 06/07/21 (1,000 mg) chewable tablet (Tums Ultra) carvedilol 12.5 mg tablet 12.5 mg PO BID 07/10/19 06/07/21 cholecalciferol (vitamin D3) 25 1,000 unit PO DAILY 07/10/19 06/07/21 mcg (1,000 unit) capsule (Vitamin D3) losartan 25 mg tablet 25 mg PO BID tab 10/26/20 06/07/21 tadalafil (pulm. hypertension) 20 10 mg PO tab 06/07/21 06/07/21 mg tablet (pulmonary hypertension) Previous Rx's Medication Instructions Recorded acetaminophen 325 mg capsule 650 mg PO QID PRN #60 cap 04/11/20 (Tylenol) warfarin 5 mg tablet 5 mg PO DAILY #90 tab 06/07/21 clindamycin HCl 300 mg capsule 300 mg PO QID #20 cap 09/06/21 Allergies Allergy/AdvReac Type Severity Reaction Status Date / Time erythromycin base Allergy Severe SWELLING Verified 09/06/21 12:18 [ERYTHROMYCIN BASE] Penicillins [PENICILLINS] Allergy Severe SWELLING Verified 09/06/21 12:18 Sulfa (Sulfonamide Allergy Severe SWELLING Verified 09/06/21 12:18 Antibiotics) [SULFA (SULFONAMIDE ANTIBIOTICS)] tetracycline [TETRACYCLINE] Allergy Severe SWELLING Verified 09/06/21 12:18 Tetanus Vaccines and Toxoid Allergy Unknown SWELLING Verified 09/06/21 12:18 [TETANUS VACCINES & TOXOID] zoledronic acid Allergy Unknown Verified 09/06/21 12:18 tadalafil AdvReac Severe extreme Verified 09/06/21 12:18 pain, stomach problems Review of Systems Review of Systems ROS Unobtainable: All systems reviewed & are unremarkable except as noted in HPI and below Patient History Medical History Abdominal pain Atrial fibrillation (~2005) Change in stool Chicken pox (~194) Chronic generalized abdominal pain Chronic intermittent post-traumatic headache Diverticular disease (~2007) Hearing loss Hypertension (~2003) Left temporomandibular joint disorder, unspecified Osteoporosis (~2004) Pacemaker (~2005) Partial blindness (~1982) Rheumatic fever (~1939) Screening for malignant neoplasm of colon Varicose vein of leg Vision disorder Surgical History Anesthesia H/O: hysterectomy (~1997) History of appendectomy (~1949) History of back surgery (~2015) History of eye surgery (~1982) History of pacemaker S/P small bowel resection Status post small bowel resection Family History Father Hypertension Stroke Mother History of heart disease Grandmother Stroke Social History household members: children Smoking Status: Former smoker Smoking Status: Former smoker alcohol intake frequency: 0-2 drinks per day Substance Use Type: does not use Exam Narrative Exam Narrative: GENERAL: Alert and oriented x three, female in mild distress. HEENT: Head normocephalic, atraumatic, EOMI, pupils reactive, face symmetric, moist mucous membranes EXTREMITIES: Normal range of motion, no clubbing. Patient has some erythema of the 5th digit on her left foot, some mild tenderness. No obvious deformity. She has some mild swelling. There is no obvious cuts or lesions. Her toenail does not appear to be ingrown. Neurovascularly intact. Cap refill less than 2 seconds. There is some slight warmth. She has 2+ dorsalis pedis. NEUROLOGICAL: Cranial nerves II through XII grossly intact. Moving all extremities SKIN: Warm, dry, no petechiae, no rashes or lesions otherwise noted. Initial Vital Signs Initial Vital Signs: Vital Signs Temperature 97.3 F L 09/06/21 12:16 Pulse Rate 79 09/06/21 12:16 Respiratory Rate 15 09/06/21 12:16 Blood Pressure 183/99 H 09/06/21 12:16 Pulse Oximetry 98 09/06/21 12:16 Course Vital Signs Vital signs: Vital Signs - 8 hr 09/06/21 12:16 09/06/21 16:09 Temperature 97.3 F L Pulse Rate 79 85 Respiratory Rate 15 17 Blood Pressure 183/99 H 170/90 H Pulse Oximetry 98 97 MDM - Skin/Abscess/Foreign Bdy MDM Narrative Medical decision making narrative: This is an 81-year-old female comes emergency department with complaint of pain her pinky toe on her left foot for 4 days. She denies any injury. She is adamant she is not broken it or had any dislocation or fracture and defers x-ray imaging. She also defers INR evaluation she had 1 yesterday and was 2.4. I suspect she has some cellulitis there is no obvious ingrown toenail. She has some dry skin but no obvious injury or source of infection but does appear to have a localized cellulitis. Plan for antibiotics. Patient has tolerated clindamycin while in the past in terms of her warfarin and her multiple antibiotic allergies. Discharge Plan Departure Patient Disposition: Home Clinical Impression: Cellulitis of fifth toe Instructions: DI for Cellulitis -- Adult Activity Restrictions/Additional Instructions: You appear to have a cellulitis on toe. Take clindamycin as prescribed until gone. This medication is less likely to cause major changes to your warfarin but it should be rechecked. [facility] [place] Return for new or worsening redness, swelling, increasing pain, color such as blueness, pallor or other new or concerning symptoms. Prescriptions: New clindamycin HCl 300 mg capsule 300 mg PO QID Qty: 20 0RF No Action tadalafil (pulm. hypertension) 20 mg tablet 10 mg PO 0RF warfarin 5 mg tablet 5 mg PO DAILY Qty: 90 3RF acetaminophen [Tylenol] 325 mg capsule 650 mg PO QID PRN (Reason: pain) Qty: 60 0RF carvedilol 12.5 mg Tablet 12.5 mg PO BID 0RF bumetanide 0.5 mg Tablet 0.5 mg PO DAILY 0RF calcium carbonate [Tums Ultra] 400 mg calcium (1,000 mg) Tablet,Chewable 800 mg PO DAILY 0RF cholecalciferol (vitamin D3) [Vitamin D3] 1,000 unit Capsule 1,000 unit PO DAILY 0RF losartan 25 mg tablet 25 mg PO BID 0RF Referrals: Mark Story DO [Primary Care Provider] -
[2021-09-06 16:09] VITALS: BP 170/90; PULSE 85; RESP 17; O2SAT 97
== END 2021-09-06 16:09 | disposition home or self-care (01) ==
PROVIDERS: Emergency Provider Emergency Medicine; PCP Family Medicine
DX: L03.032 Cellulitis of left toe (principal); Z79.01 Long term (current) use of anticoagulants; Z87.891 Personal history of nicotine dependence; Z88.0 Allergy status to penicillin; Z88.2 Allergy status to sulfonamides; Z88.1 Allergy status to other antibiotic agents
CPT/HCPCS: 99281

== ENCOUNTER → 2021-09-21 10:09 | Outpatient (CLI) | payer MEDICARE, BC, SELFPAY ==
[2020-04-04 21:13] VITALS: BMI 22.6
--- NOTE | 2021-09-21 | DI.RAD.S_ITS ---
PROCEDURE: XR FOOT LT MIN 3V INDICATIONS: LEFT FOOT PAIN TECHNIQUE: 3 views of the foot were acquired. COMPARISON: None. FINDINGS: Bones: No acute fractures or dislocations. Benign appearing periosteal reaction involving the 2nd, 3rd and 4th metatarsal shaft, likely secondary to old stress fracture. No suspicious bony lesions. Gdrm-ay-vjwbqhfo joint disease at the tailor navicular joint, tarsometatarsal joint, 1st metatarsophalangeal joint and multiple interphalangeal joints. Soft tissues: No tibiotalar joint effusion. Achilles tendon appears normal. IMPRESSION: 1. Old stress fracture of the 2nd, 3rd, and 4th metatarsals. No acute fracture. 2. Sfzq-qe-vxkbzegx degenerative joint disease. Dictated by: Germán Galvez M.D. on 09/21/2021 at 12:47 Approved by: Germán Galvez M.D. on 09/21/2021 at 12:50
== END ==
PROVIDERS: PCP Family Medicine; Referring Provider Family Medicine; Visit Provider Family Medicine
DX: M19.072 Primary osteoarthritis, left ankle and foot (principal); M84.375S Stress fracture, left foot, sequela; M79.672 Pain in left foot
CPT/HCPCS: 73630

== ENCOUNTER → 2021-10-16 11:28 | Outpatient (CLI) | payer MEDICARE, BC, SELFPAY ==
[2020-04-04 21:13] VITALS: BMI 22.6
[2021-10-16 14:07] LABS: BUN Creatinine Ratio 18.8 (6-22); Blood Urea Nitrogen 16 mg/dL (7-17); Calcium 9.3 mg/dL (8.4-10.2); Carbon Dioxide 32 mmol/L (22-32); Chloride 104 mmol/L (98-107); Estimated Glomerular Filt Rate > 60.0 mL/min (>60); Glucose 89 mg/dL (80-110); HEMOLYSIS < 15 (0-50); Magnesium 2.2 mg/dL (1.6-2.3); Potassium 4.5 mmol/L (3.4-5.1); Sodium 140 mmol/L (137-145)
== END ==
PROVIDERS: PCP Family Medicine; Visit Provider Specialist
DX: I10 Essential (primary) hypertension (principal); I27.20 Pulmonary hypertension, unspecified
CPT/HCPCS: 36415; 80048; 83735

== ENCOUNTER → 2021-12-29 09:48 | Outpatient (CLI) | payer MEDICARE, BC, SELFPAY ==
[2020-04-04 21:13] VITALS: BMI 22.6
[2021-12-29 11:14] LABS: COVID19 -Nasal RAPID Negative (Negative)
== END ==
PROVIDERS: PCP Family Medicine; Visit Provider Family Medicine Sleep Medicine
DX: Z20.822 Contact with and (suspected) exposure to COVID-19 (principal)
CPT/HCPCS: 87635; C9803

== ENCOUNTER 2022-01-01 08:36 | Day surgery (SDC) | payer MEDICARE, BC, SELFPAY ==
[2020-04-04 21:13] VITALS: BMI 22.6
[2022-01-01] VITALS (7 sets, daily range): BP systolic 97–157; BP diastolic 52–95; PULSE 70–80; RESP 13–20; TEMP 36.4–36.8; O2SAT 97–98; BMI 23.3
--- NOTE | 2022-01-01 | PATH_ITS ---
[facility] Accession Number: [id number] . 01 Material submitted: . PART A: ileum - TERMINAL ILEUM PART B: colon - RANDOM COLON BIOPSIES . 02 Diagnosis: A. Terminal Ileum: Active ileitis. No granulomas, regions of dysplasia, or malignancy identified. . B. Random Colon Biopsies: Colonic mucosa with no diagnostic abnormality. Negative for active, chronic, and microscopic colitis. Negative for dysplasia and malignancy. MRV 01/03/2022 1000 Local . 02 Electronically signed: . Donita Shipman MD, Pathologist NPI- [id number] . 01 Gross description: . Part A: TERMINAL ILEUM: Received in formalin are 3 fragment(s) of milan, soft tissue measuring 0.1 x 0.1 x 0.1 cm to 0.3 x 0.2 x 0.2 cm submitted entirely in 1 cassette(s) Part B: RANDOM COLON BIOPSIES: Received in formalin is 1 fragment(s) of milan, soft tissue measuring 0.5 x 0.2 x 0.2 cm submitted entirely in 1 cassette(s) /SHERLYN 01/02/2022 2246 Local . 02 Pathologist provided ICD-10: Z86.010, R14.0, R19.4, R93.9 . 02 CPT . 258265, 078182 Specimen Comment: A courtesy copy of this report has been sent to [phone], [phone] Specimen Comment: 2055 Performed at: 01 [facility] [address] [id number] MD Calderon Sanders MD Phone: [phone] Performed at: 02 [facility] [place] [address] [place], [place] [id number] MD Kina Jeronimo MD Phone: [phone]
[2022-01-01] MEDS: SODIUM CHLORIDE 0.9% 1,000 ML 84 ML IV (09:12)
--- NOTE | 2022-01-01 09:48 | P.HP_ITS ---
History of Present Illness History of Present Illness Date Patient Seen: 01/01/22 Time Patient Seen: 09:48 Chief complaint: DX COLONOSCOPY Narrative: I reviewed my recent office note from October 16, 2021. No significant changes. Patient is still struggling with both diarrhea and constipation but more so on the diarrhea side of the spectrum. She had an abnormal CT scan historically. She is off her Coumadin for 5 days. Patient History Medical History Abdominal pain Atrial fibrillation (~2005) Change in stool Chicken pox (~194) Chronic generalized abdominal pain Chronic intermittent post-traumatic headache Diverticular disease (~2007) Hearing loss Hypertension (~2003) Left temporomandibular joint disorder, unspecified Osteoporosis (~2004) Pacemaker (~2005) Partial blindness (~1982) Rheumatic fever (~1939) Screening for malignant neoplasm of colon Swelling of knee joint, left Toe pain, left Varicose vein of leg Vision disorder Surgical History Anesthesia H/O: hysterectomy (~1997) History of appendectomy (~1949) History of back surgery (~2015) History of eye surgery (~1982) History of pacemaker S/P small bowel resection Status post small bowel resection Family & Social History Family History Father Hypertension Stroke Mother History of heart disease Grandmother Stroke Social History: household members none,other Tobacco & Substance use: Smoking Status Former smoker alcohol intake frequency 0-2 drinks per day Substance Use Type does not use Meds Home Medications and Allergies Home Medications Medication Instructions Recorded Confirmed Type bumetanide 0.5 mg tablet 0.5 mg PO DAILY 07/10/19 01/01/22 History calcium carbonate 400 mg calcium 800 mg PO DAILY 07/10/19 11/09/21 History (1,000 mg) chewable tablet (Tums Ultra) carvedilol 12.5 mg tablet 12.5 mg PO BID 07/10/19 01/01/22 History cholecalciferol (vitamin D3) 25 1,000 unit PO DAILY 07/10/19 11/09/21 History mcg (1,000 unit) capsule (Vitamin D3) acetaminophen 325 mg capsule 650 mg PO QID PRN #60 cap 04/11/20 11/09/21 Rx (Tylenol) losartan 25 mg tablet 25 mg PO BID tab 10/26/20 01/01/22 History tadalafil (pulm. hypertension) 20 10 mg PO tab 06/07/21 11/09/21 History mg tablet (pulmonary hypertension) warfarin 5 mg tablet 5 mg PO DAILY #90 tab 06/07/21 11/09/21 Rx clindamycin HCl 300 mg capsule 300 mg PO QID #20 cap 09/06/21 11/09/21 Rx bumetanide 0.5 mg tablet mg 01/01/22 History Allergies Allergy/AdvReac Type Severity Reaction Status Date / Time erythromycin base Allergy Severe SWELLING Verified 01/01/22 08:19 [ERYTHROMYCIN BASE] Penicillins [PENICILLINS] Allergy Severe SWELLING Verified 01/01/22 08:19 Sulfa (Sulfonamide Allergy Severe SWELLING Verified 01/01/22 08:19 Antibiotics) [SULFA (SULFONAMIDE ANTIBIOTICS)] tetracycline [TETRACYCLINE] Allergy Severe SWELLING Verified 01/01/22 08:19 Tetanus Vaccines and Toxoid Allergy Unknown SWELLING Verified 01/01/22 08:19 [TETANUS VACCINES & TOXOID] zoledronic acid Allergy Unknown Verified 01/01/22 08:19 tadalafil AdvReac Severe extreme Verified 01/01/22 08:19 pain, stomach problems Review of Systems Review of Systems ROS: Yes All systems reviewed with the patient and are negative except as otherwise documented Exam Vital Signs (past 8 hours): - 01/01/22 08:56 Temperature 98.2 F Pulse Rate 80 Respiratory Rate 16 Blood Pressure 157/91 H Pulse Oximetry 98 Oxygen Delivery Method Room Air Const General: cooperative and comfortable Orientation: alert [facility] Head: normocephalic Ears: external ears normal Nose: external nose normal Face and sinus: normal facial exam Mouth: oral mucosae normal Eyes General: appearance normal, both eyes and all related structures Neck Neck: normal visual inspection Chest Chest: normal inspection of the chest Resp Effort & Inspection: normal respiratory effort Cardio Rate: regular rate GI Inspection: normal to inspection Skin General: no rashes or lesions noted and No jaundice Neuro General: patient alert and moves all extremities Cognition: normal cognition Speech: speech normal Extrem General: no pedal edema Psych Appearance: grossly normal Assessment & Plan Assessment & Plan narrative: 81-year-old female with abnormal imaging altered bowel habit. Colonoscopy is pursued today. Time Spent With Patient Critical Care time: I spent a total of [] minutes of critical care time on this patient's care today; this time is exclusive of procedural time.
--- NOTE | 2022-01-01 09:50 | PM.PREOP ---
Pre-operative Note COVID-19 COVID-19 status: Negative Result date/Date tested (Pos, Neg/Pending): 12/29/21 Criteria for continued procedure: Possibility delay results in more complex future surgery or treatment Interval Note History & Physical reviewed/Exam performed by Physician: Yes Changes to H&P: No ASA Class (for procedural sedation): III
--- NOTE | 2022-01-01 10:50 | PM.OP.COLON ---
Operative Date/Time/Diagnoses Date of procedure: 01/01/22 Time of procedure: 10:50 Pre-op diagnosis: Abnormal CT imaging and altered bowel habits Post-op diagnosis: same Procedure & Clinicians Study performed: Colonoscopy with biopsies Same procedure as scheduled: Yes Indications: Abnormal CT imaging with altered bowel habit Surgeon: Jaspreet Nieto Procedure Notes SCOAP/Timeout: Done Procedure in detail: After the risks and benefits were explained, written and verbal informed consent was obtained. The patient was brought into the procedure room and placed into the left lateral decubitus position. Please see nurse coal tower operator notes for sedation details. Digital rectal examination was accomplished. The scope was introduced into the patient and advanced under direct visualization to the cecum as identified by the appendiceal orifice and ileocecal valve. The scope was slowly withdrawn to carefully examine the mucosa for any defects or lesions. Comprehensive imaging was accomplished throughout the rectum including the dentate line. The colon was decompressed, the scope was then removed from the patient who tolerated the procedure well. Scope withdrawal time: 15 minutes Sedation minutes: 23 Complications: none Impression: Patient had moderate diverticulosis in the left colon. There were some smaller tics that even extended into the right colon. No macroscopic colitis was identified throughout. Random colon biopsies were taken for exclusion of microscopic disease. No significant polyps or mass lesions throughout. Patient had grade 3 and grade 4 nonthrombosed nonbleeding hemorrhoids and an element of rectal prolapse that was evident during the case. The terminal ileum was interrogated and demonstrated some scattered superficial punctate ulcerations. These were targeted for biopsy and submitted for histopathology. Endoscopic diagnosis 1. Mild terminal ileitis 2. Diverticulosis 3. Grade 3 and grade 4 hemorrhoids 4. Rectal prolapse Post-procedure Plan for aftercare: 1. Await histopathology. 2. Consider a course of budesonide if diarrhea symptoms persist. 3. Follow up GI clinic. Disposition: PACU
== END 2022-01-01 11:40 | disposition home or self-care (01) ==
PROVIDERS: PCP Family Medicine; Referring Provider Internal Medicine Gastroenterology; Visit Provider Internal Medicine Gastroenterology
PROC: 0DJD8ZZ Inspection of Lower Intestinal Tract, Via Natural or Artificial Opening Endoscopic (ICD-10-PCS; CPT 45378; principal; 2022-01-01 10:00)
DX: K52.9 Noninfective gastroenteritis and colitis, unspecified (principal); K64.2 Third degree hemorrhoids; K64.3 Fourth degree hemorrhoids; K62.3 Rectal prolapse; K57.30 Diverticulosis of large intestine without perforation or abscess without bleeding
CPT/HCPCS: 45380; 85610; J2704

== ENCOUNTER → 2022-02-09 12:15 | Outpatient (CLI) | payer MEDICARE, BC, SELFPAY ==
[2020-04-04 21:13] VITALS: BMI 22.6
[2022-02-09 13:20] LABS: Alanine Aminotransferase 19 IU/L (<35); Albumin 4.4 g/dL (3.5-5.0); Albumin Globulin Ratio 1.5 (1.0-2.8); Alkaline Phosphatase 87 U/L (38-126); Aspartate Aminotransferase 34 IU/L (14-36); BUN Creatinine Ratio 20.7 (6-22); Blood Urea Nitrogen 18 mg/dL (7-17); Calcium 9.1 mg/dL (8.4-10.2); Carbon Dioxide 31 mmol/L (22-32); Chloride 105 mmol/L (98-107); Estimated Glomerular Filt Rate > 60 mL/min (>60); Globulin 2.9 g/dL (1.7-4.1); Glucose 100 mg/dL (80-110); HEMOLYSIS < 15 (0-50); Magnesium 2.1 mg/dL (1.6-2.3); Potassium 4.5 mmol/L (3.4-5.1); Sodium 140 mmol/L (137-145); Total Protein 7.3 g/dL (6.3-8.2)
== END ==
PROVIDERS: PCP Family Medicine; Referring Provider Specialist; Visit Provider Specialist
DX: I48.19 Other persistent atrial fibrillation (principal); I42.0 Dilated cardiomyopathy
CPT/HCPCS: 36415; 80053; 83735

== ENCOUNTER → 2022-03-19 13:17 | Outpatient (CLI) | payer MEDICARE, BC, SELFPAY ==
[2020-04-04 21:13] VITALS: BMI 22.6
--- NOTE | 2022-03-19 | DI.ECHO.S_ITS ---
[facility] +[facility]+ : : [address] : : : : [id number] : : : : Phone: [phone] Echocardiogram Report + + :Name: OMID NINO Study Date: 03/19/2022 Height: 56 in : :[facility] ReadingLocation: Weight: 141 lb : : Gender: Female BSA: 1.5 m2 : :: 1940 Age: 82 yrs BP: 169/109 mmHg: :Reason For Study: Cardiomyopathy : :Ordering Physician: RAÚL, : :NIKOS Performed By: Zak Anguiano : :Referring: NIKOS OLSEN : + + Interpretation Summary Left ventricular systolic function is moderate to severely reduced with an estimated ejection fraction of 30 to 35% with a significant dyssynchronous contraction pattern and moderate global hypokinesis that is worse in the inferior wall, inferior septum, and apex, likely due to pacemaker activation, but is more prominent compared to the previous study. Global contractility has mildly reduced from the previous exam. Diastolic function could not be accurately assessed. Left ventricular size and wall thickness remain normal. The right ventricle remains normal and unchanged compared to the previous study. Right ventricular systolic pressure is estimated at 57 mmHg with a CVP of 15 mmHg, and is likely slightly higher compared to the previous study. There is severe biatrial enlargement with both atria measuring slightly larger compared to the previous study. A small patent foramen ovale is again suspected. There is moderate mitral and moderate tricuspid regurgitation that grossly appear unchanged from the previous exam. There is aortic valve sclerosis without stenosis. The ascending aorta is borderline enlarged but unchanged from the previous study. Procedure: A two-dimensional transthoracic echocardiogram with color flow and Doppler was performed. The study quality was technically adequate. Comparison is made with the echocardiogram of 08/23/2021. Left Ventricle: The left ventricle is normal in size and wall thickness. The estimated left ventricular end diastolic volume is 86 ml. Left ventricular systolic function is moderate to severely reduced. The ejection fraction is estimated to be 30-35%. There is a significant dyssynchronous contraction pattern with moderate global hypokinesis that is worse in the inferior wall, inferior septum, and apex, likely consistent with pacemaker activation but is more prominent compared to the previous study. Global contractility appears to be mildly reduced from the previous exam. Diastolic function could not be accurately assessed due to paced rhythm. Right Ventricle: There is a pacemaker lead in the right ventricle. The right ventricle is normal in size and function. This is unchanged compared to the previous study. Atria: Both atria are severely dilated. Right atrial volume index is 71 mL/mA?. Both atria measure mildly larger compared to the previous study. A patent foramen ovale is suspected. This is unchanged compared to the previous study. Mitral Valve: There is mild mitral annular calcification. There is moderate mitral regurgitation. This is unchanged compared to the previous study. Aortic Valve: The aortic valve is trileaflet. There is mild aortic valve sclerosis. The aortic valve is mildly calcified. The aortic valve opens well. There is trace aortic regurgitation. Tricuspid Valve: The tricuspid valve leaflets are thin and pliable. There is moderate tricuspid regurgitation. This is unchanged compared to the previous study. The right ventricular systolic pressure is estimated to be at least 57 mmHg based on an estimated right atrial pressure of 15 mm Hg. This is slightly higher compared to the previous study. Pulmonic Valve: The pulmonic valve is normal in structure and function. There is no pulmonic valvular regurgitation. Great Vessels: The aortic root is normal size. The ascending aorta is at the upper limits of normal in size. This is unchanged compared to the previous study. The IVC is dilated (diameter is greater than 2.1 cm) and it collapses less than 50% with a sniff. This suggests a high right atrial pressure of 15 mm Hg. Pericardium/ Pleura There is no pericardial effusion. There is no pleural effusion. MMode/2D Measurements & Calculations LVIDd: 5.2 cm LVOT diam: 2.1 cm LVIDs: 4.2 cm Ao root diam: 2.9 cm FS: 19.2 % asc Aorta Diam: 3.4 cm IVSd: 1.0 cm LVPWd: 0.90 cm LV isaac. diameter/BSA (cm/m^2): 3.4 LV sys. diameter/BSA (cm/m^2): 2.7 LA dimension: 4.1 cm RA long axis: 6.2 cm LA A2 area: 31.5 cm2 LA A4 area: 29.0 cm2 LA length (vol): 6.6 cm LA vol: 117.3 ml LA vol index: 76.7 ml/m2 LVLs ap4: 7.6 cm LVLd ap2: 8.3 cm LVLs ap2: 8.3 cm TAPSE_phl: 1.6 cm Doppler Measurements & Calculations Ao V2 max: 132.0 cm/sec LVOT Max Collins: 79.0 cm/sec Ao V2 mean: 88.9 cm/sec LV V1 max P.5 mmHg Ao max P.0 mmHg LV V1 VTI: 15.2 cm Ao mean P.0 mmHg CABRERA(I,D): 2.1 cm2 Ao V2 VTI: 25.3 cm CABRERA(V,D): 2.1 cm2 sev ratio: 0.60 CABRERA indexed to BSA (cm^2/m^2): 1.4 TR max collins: 324.0 cm/sec MR VTI: 205.0 cm TR max P.0 mmHg SV(LVOT): 52.6 ml AV VR_phl: 0.60 Reading Physician:08:08 AM
== END ==
PROVIDERS: PCP Family Medicine; Visit Provider Specialist
DX: I42.8 Other cardiomyopathies (principal); Q21.1 Atrial septal defect; I08.3 Combined rheumatic disorders of mitral, aortic and tricuspid valves
CPT/HCPCS: 93306

== ENCOUNTER → 2022-04-20 12:23 | Outpatient (CLI) | payer MEDICARE, BC, SELFPAY ==
[2020-04-04 21:13] VITALS: BMI 22.6
[2022-04-20 13:46] LABS: BUN Creatinine Ratio 26.4 (6-22); Blood Urea Nitrogen 24 mg/dL (7-17); Calcium 8.9 mg/dL (8.4-10.2); Carbon Dioxide 33 mmol/L (22-32); Chloride 102 mmol/L (98-107); Estimated Glomerular Filt Rate > 60 mL/min (>60); Glucose 95 mg/dL (80-110); HEMOLYSIS < 15 (0-50); Magnesium 2.1 mg/dL (1.6-2.3); Potassium 4.2 mmol/L (3.4-5.1); Sodium 138 mmol/L (137-145)
== END ==
PROVIDERS: PCP Family Medicine; Referring Provider Specialist; Visit Provider Specialist
DX: I11.0 Hypertensive heart disease with heart failure (principal); I50.22 Chronic systolic (congestive) heart failure; I48.19 Other persistent atrial fibrillation
CPT/HCPCS: 36415; 80048; 83735

== ENCOUNTER 2022-05-03 12:53 | Emergency (ER) | payer MEDICARE, BC, SELFPAY ==
[2020-04-04 21:13] VITALS: BMI 22.6
--- NOTE | 2022-05-03 13:04 | DI.RAD.S_ITS ---
PROCEDURE: XR CHEST 1V INDICATIONS: chest pain TECHNIQUE: One view of the chest was acquired. COMPARISON: None. FINDINGS: Surgical changes and devices: Left-sided pacer. Lungs and pleura: Lungs are clear. No pleural effusions or pneumothorax. Mediastinum: Mediastinal contours appear normal. Heart size is normal. Bones and chest wall: No suspicious bony lesions. Overlying soft tissues appear unremarkable. IMPRESSION: No acute process. Dictated by: Raul Lyon M.D. on 05/03/2022 at 14:57 Approved by: Raul Lyon M.D. on 05/03/2022 at 14:57
[2022-05-03 13:05] VITALS: BP 158/76; PULSE 71; RESP 17; TEMP 36.7; O2SAT 99; BMI 23.6
[2022-05-03 13:28] LABS: Add Manual Diff / Slide Review NO; Basophils Absolute Auto 0 /uL (0-100); Basophils Percent Auto 0.8 % (0-2); Eosinophils Absolute Auto 200 /uL (0-450); Eosinophils Percent Auto 4.5 % (2-4); Hematocrit 35.8 % (36-46); Hemoglobin 12.1 g/dL (12.0-16.0); Lymphocytes Absolute Auto 900 /uL (1100-4500); Lymphocytes Percent Auto 26.6 % (25-40); Mean Corpuscular HGB Conc 33.9 % (30-36); Mean Corpuscular Hemoglobin 30.2 PG (26-34); Mean Corpuscular Volume 89.1 fL (80-100); Monocytes Absolute Auto 600 /uL (0-900); Monocytes Percent Auto 17.4 % (3-14); Neutrophils Absolute Auto 1700 /uL (1500-7000); Neutrophils Percent Auto 50.7 % (50-75); Platelet Count 160 X10^3/uL (150-400); Red Blood Cell Count 4.02 X10^6/uL (4.0-5.2); Red Cell Distribution Width 12.9 % (11.6-14.8); White Blood Cell Count 3.4 X10^3/uL (4.5-11.0)
[2022-05-03 13:33] LABS: INR 2.3 (0.9-1.3); Prothrombin Time 26.1 SECONDS (10.1-12.7)
[2022-05-03 13:36] LABS: PTT Partial Thromboplastin Tim 43 SECONDS (26.4-36.2)
[2022-05-03 13:40] LABS: Alanine Aminotransferase 17 IU/L (<35); Albumin 4.1 g/dL (3.5-5.0); Albumin Globulin Ratio 1.5 (1.0-2.8); Alkaline Phosphatase 79 U/L (38-126); Aspartate Aminotransferase 36 IU/L (14-36); BUN Creatinine Ratio 14.5 (6-22); Bilirubin Total 2.1 mg/dL (0.2-1.3); Blood Urea Nitrogen 11 mg/dL (7-17); Calcium 8.6 mg/dL (8.4-10.2); Carbon Dioxide 27 mmol/L (22-32); Chloride 103 mmol/L (98-107); Creatine Kinase 111 U/L (30-135); Estimated Glomerular Filt Rate > 60 mL/min (>60); Globulin 2.7 g/dL (1.7-4.1); Glucose 120 mg/dL (80-110); HEMOLYSIS < 15 (0-50); Lipase 79 U/L (23-300); Magnesium 1.9 mg/dL (1.6-2.3); Potassium 3.9 mmol/L (3.4-5.1); Sodium 137 mmol/L (137-145); Total Protein 6.8 g/dL (6.3-8.2)
[2022-05-03 13:50] LABS: Troponin I < 0.012 ng/mL (0.01-0.034)
[2022-05-03 13:55] LABS: Creatine Kinase MB 1.11 ng/mL (<2.37)
--- NOTE | 2022-05-03 14:10 | ED.CHESTPAIN ---
HPI - Chest Pain <ADILENE Luna - Last Filed: 05/03/22 15:25> General Chief Complaint: Chest Pain Stated Complaint: Covid Positive, Low 02, Sent by [facility] Time Seen by Provider: 05/03/22 13:58 Source: patient Mode of arrival: Ambulatory Limitations: no limitations History of Present Illness HPI narrative: This is an 82-year-old female presents to the emergency department being sent over from the walk-in clinic for O2 sats on pulse oximetry at 93% while waiting to be seen for known COVID illness. She is a history of atrial fibrillation and chronic anticoagulation on warfarin. She states that her symptoms started five days ago, states that she feels exertional shortness of breath, denies any nausea vomiting, denies any significant shortness of breath or extreme fatigue. She denies having headaches, fever, diarrhea, chest pain, abdominal pain, states that she feels fatigued after going upstairs but otherwise has been staying hydrated and tolerating her illness. Patient reports that her son is living with her in offering support, she denies any significant symptom but was sent over from the walk-in clinic, she is COVID vaccinated, she denies being on any statin medications, denies any history of asthma, COPD, she is not a smoker. Related Data Home Medications Medication Instructions Recorded Confirmed bumetanide 0.5 mg tablet 0.5 mg PO DAILY 07/10/19 01/01/22 calcium carbonate 400 mg calcium 800 mg PO DAILY 07/10/19 11/09/21 (1,000 mg) chewable tablet (Tums Ultra) carvedilol 12.5 mg tablet 12.5 mg PO BID 07/10/19 01/01/22 cholecalciferol (vitamin D3) 25 1,000 unit PO DAILY 07/10/19 11/09/21 mcg (1,000 unit) capsule (Vitamin D3) losartan 25 mg tablet 25 mg PO BID 10/26/20 01/01/22 tadalafil (pulm. hypertension) 20 10 mg PO 06/07/21 11/09/21 mg tablet (pulmonary hypertension) bumetanide 0.5 mg tablet mg 01/01/22 Previous Rx's Medication Instructions Recorded acetaminophen 325 mg capsule 650 mg PO QID PRN pain #60 caps 04/11/20 (Tylenol) clindamycin HCl 300 mg capsule 300 mg PO QID #20 caps 09/06/21 warfarin 5 mg tablet 5 mg PO DAILY #90 tabs 04/19/22 guaifenesin 600 mg tablet, 600 mg PO BID PRN congestion #14 05/03/22 extended release 12 hr (Mucinex) tabs nirmatrelvir 300 mg (150 mg x See Rx Instructions PO .COMPLEX 05/03/22 2)-ritonavir 100 mg tablet (EUA) #30 tabs (Paxlovid 300 mg () Allergies Allergy/AdvReac Type Severity Reaction Status Date / Time erythromycin base Allergy Severe SWELLING Verified 05/03/22 13:05 [ERYTHROMYCIN BASE] Penicillins [PENICILLINS] Allergy Severe SWELLING Verified 05/03/22 13:05 Sulfa (Sulfonamide Allergy Severe SWELLING Verified 05/03/22 13:05 Antibiotics) [SULFA (SULFONAMIDE ANTIBIOTICS)] tetracycline [TETRACYCLINE] Allergy Severe SWELLING Verified 05/03/22 13:05 Tetanus Vaccines and Toxoid Allergy Unknown SWELLING Verified 05/03/22 13:05 [TETANUS VACCINES & TOXOID] zoledronic acid Allergy Unknown Verified 05/03/22 13:05 tadalafil AdvReac Severe extreme Verified 05/03/22 13:05 pain, stomach problems Review of Systems <ADILENE Luna - Last Filed: 05/03/22 15:25> Review of Systems Narrative: General: denies fever, chills, malaise, sweats, fatigue Head/Neck: denies headache, neck pain, dizziness Eyes: denies visual changes, eye pain Cardio: denies chest pain, palpitations, edema Respiratory: denies dyspnea, + cough, states exertional dyspnea after going upstairs, denies orthopnea GI: denies abdominal pain, nausea, vomiting, or diarrhea : denies dysuria, hematuria, urinary retention, frequency or incontinence MSK: denies joint pain, muscle weakness Skin: denies rash, itching, skin lesions or other Neuro: denies numbness, tingling Patient History <ADILENE Luna - Last Filed: 05/03/22 15:25> Medical History Abdominal pain Atrial fibrillation (~2005) Change in stool Chicken pox (~1945) Chronic generalized abdominal pain Chronic intermittent post-traumatic headache Diverticular disease (~2007) Hearing loss Hypertension (~2003) Left temporomandibular joint disorder, unspecified Osteoporosis (~2004) Pacemaker (~2005) Partial blindness (~1982) Rheumatic fever (~1939) Screening for malignant neoplasm of colon Swelling of knee joint, left Toe pain, left Varicose vein of leg Vision disorder Surgical History Anesthesia H/O: hysterectomy (~1997) History of appendectomy (~1949) History of back surgery (~2015) History of eye surgery (~1982) History of pacemaker S/P small bowel resection Status post small bowel resection Family History Father Hypertension Stroke Mother History of heart disease Grandmother Stroke Social History household members: none and other Smoking Status: Former smoker Smoking Status: Former smoker alcohol intake frequency: 0-2 drinks per day Substance Use Type: does not use Exam <ADILENE Luna - Last Filed: 05/03/22 15:25> Narrative Exam Narrative: Independently reviewed vitals signs and nursing notes. General: cooperative, comfortable, in no acute distress, well groomed Head: atraumatic, symmetrical facial expressions Neck: supple Eyes: equal round and reactive, EOMI, conjunctiva normal Nose: nares patent, no rhinorrhea Mouth/Throat: moist mucus membranes Cardiovascular: regular ventricular rate and rhythm, no peripheral edema, warm extremities Respiratory: normal effort, able to speak in complete sentences, no audible wheezing, stridor, or rales. No retractions, tachypnea, or hypoxia.. Breath sounds are mildly diminished in bases without rhonchi, without hypoxia patient's O2 sat while on monitor in the emergency department has ranged from 94% to 99% on room air while wearing a mask. GI: abdomen soft, nontender to palpation, nondistended, no masses, no exquisite tenderness with exam, without guarding or rebound. MSK: moves all extremities, neurovascularly intact, no weakness, normal tone Skin: brisk capillary refill, no rash, no erythema, without pallor Neuro: normal speech and cognition, A&O x3 Psych: mental status is grossly normal, congruent mood, normal affect, pleasant and cooperative Initial Vital Signs Initial Vital Signs: Vital Signs Temperature 98.0 F 05/03/22 13:05 Pulse Rate 71 05/03/22 13:05 Respiratory Rate 17 05/03/22 13:05 Blood Pressure 158/76 H 05/03/22 13:05 Pulse Oximetry 99 05/03/22 13:05 Oxygen Delivery Method 05/03/22 13:05 <Maite Alfaro DO - Last Filed: 05/10/22 21:26> Initial Vital Signs Initial Vital Signs: Vital Signs Temperature 98.0 F 05/03/22 13:05 Pulse Rate 71 05/03/22 13:05 Respiratory Rate 17 05/03/22 13:05 Blood Pressure 158/76 H 05/03/22 13:05 Pulse Oximetry 99 05/03/22 13:05 Oxygen Delivery Method 05/03/22 13:05 Course <ADILENE Luna - Last Filed: 05/03/22 15:25> Orders Ordered: Discontinued Medications Acetaminophen (Acetaminophen 325 Mg Tablet) 650 mg PO NOW ONE Stop: 05/03/22 14:11 Last Admin: 05/03/22 14:47 Dose: 650 mg Documented By: AT Guaifenesin (Guaifenesin Er 600 Mg Tab) 600 mg PO NOW ONE Stop: 05/03/22 14:11 Last Admin: 05/03/22 14:47 Dose: 600 mg Documented By: AT Vital Signs Vital signs: Vital Signs - 8 hr 05/03/22 13:05 05/03/22 14:47 Temperature 98.0 F Pulse Rate 71 69 Respiratory Rate 17 16 Blood Pressure 158/76 H 147/70 H Pulse Oximetry 99 96 Oxygen Delivery Method Room Air Room Air <Maite Alfaro DO - Last Filed: 05/10/22 21:26> Orders Ordered: Discontinued Medications Acetaminophen (Acetaminophen 325 Mg Tablet) 650 mg PO NOW ONE Stop: 05/03/22 14:11 Last Admin: 05/03/22 14:47 Dose: 650 mg Documented By: AT Guaifenesin (Guaifenesin Er 600 Mg Tab) 600 mg PO NOW ONE Stop: 05/03/22 14:11 Last Admin: 07/28/22 14:47 Dose: 600 mg Documented By: AT Vital Signs Vital signs: Vital Signs - 8 hr 05/03/22 13:05 05/03/22 14:47 Temperature 98.0 F Pulse Rate 71 69 Respiratory Rate 17 16 Blood Pressure 158/76 H 147/70 H Pulse Oximetry 99 96 Oxygen Delivery Method Room Air Room Air MDM - Chest Pain <Kina Hill, FINISHING PAN OPERATOR - Last Filed: 05/03/22 15:25> Lab Data Result diagrams: 05/03/22 13:15 05/03/22 13:15 Labs: Lab Results 05/03/22 05/03/22 05/03/22 Range/Units 13:15 13:15 13:15 WBC 3.4 L (4.5-11.0) X10^3/uL RBC 4.02 (4.0-5.2) X10^6/uL Hgb 12.1 (12.0-16.0) g/dL Hct 35.8 L (36-46) % MCV 89.1 (80-100) fL MCH 30.2 (26-34) PG MCHC 33.9 (30-36) % RDW 12.9 (11.6-14.8) % Plt Count 160 (150-400) X10^3/uL Neut % (Auto) 50.7 (50-75) % Lymph % (Auto) 26.6 (25-40) % [place] % (Auto) 17.4 H (3-14) % Eos % (Auto) 4.5 H (2-4) % Baso % (Auto) 0.8 (0-2) % Neut # (Auto) 1700 (3516-8575) /uL Lymph # (Auto) 900 L (5049-2901) /uL [place] # (Auto) 600 (0-900) /uL Eos # (Auto) 200 (0-450) /uL Baso # (Auto) 0 (0-100) /uL PT 26.1 H (10.1-12.7) SECONDS INR 2.3 H (0.9-1.3) APTT 43 H D (26.4-36.2) SECONDS D-Dimer (<230) ng/mL Sodium 137 (137-145) mmol/L Potassium 3.9 (3.4-5.1) mmol/L Chloride 103 (98-107) mmol/L Carbon Dioxide 27 (22-32) mmol/L BUN 11 (7-17) mg/dL Creatinine 0.76 (0.52-1.04) mg/dL Estimated GFR > 60 (>60) mL/min BUN/Creatinine Ratio 14.5 (6-22) Glucose 120 H (80-110) mg/dL Calcium 8.6 (8.4-10.2) mg/dL Magnesium 1.9 (1.6-2.3) mg/dL Total Bilirubin 2.1 H (0.2-1.3) mg/dL AST 36 (14-36) IU/L ALT 17 (<35) IU/L Alkaline Phosphatase 79 (38-126) U/L Total Creatine Kinase 111 (30-135) U/L CK-MB (CK-2) 1.11 (<2.37) ng/mL CK-MB (CK-2) Rel Index 1.0 L (1.5-5.0) % Troponin I < 0.012 (0.01-0.034) ng/mL NT-Pro-B Natriuret Pep (<450) pg/mL Total Protein 6.8 (6.3-8.2) g/dL Albumin 4.1 (3.5-5.0) g/dL Globulin 2.7 (1.7-4.1) g/dL Albumin/Globulin Ratio 1.5 (1.0-2.8) Lipase 79 (23-300) U/L 05/03/22 05/03/22 Range/Units 13:15 13:15 WBC (4.5-11.0) X10^3/uL RBC (4.0-5.2) X10^6/uL Hgb (12.0-16.0) g/dL Hct (36-46) % MCV (80-100) fL MCH (26-34) PG MCHC (30-36) % RDW (11.6-14.8) % Plt Count (150-400) X10^3/uL Neut % (Auto) (50-75) % Lymph % (Auto) (25-40) % [place] % (Auto) (3-14) % Eos % (Auto) (2-4) % Baso % (Auto) (0-2) % Neut # (Auto) (9105-0595) /uL Lymph # (Auto) (2808-4880) /uL [place] # (Auto) (0-900) /uL Eos # (Auto) (0-450) /uL Baso # (Auto) (0-100) /uL PT (10.1-12.7) SECONDS INR (0.9-1.3) APTT (26.4-36.2) SECONDS D-Dimer < 200 (<230) ng/mL Sodium (137-145) mmol/L Potassium (3.4-5.1) mmol/L Chloride (98-107) mmol/L Carbon Dioxide (22-32) mmol/L BUN (7-17) mg/dL Creatinine (0.52-1.04) mg/dL Estimated GFR (>60) mL/min BUN/Creatinine Ratio (6-22) Glucose (80-110) mg/dL Calcium (8.4-10.2) mg/dL Magnesium (1.6-2.3) mg/dL Total Bilirubin (0.2-1.3) mg/dL AST (14-36) IU/L ALT (<35) IU/L Alkaline Phosphatase (38-126) U/L Total Creatine Kinase (30-135) U/L CK-MB (CK-2) (<2.37) ng/mL CK-MB (CK-2) Rel Index (1.5-5.0) % Troponin I (0.01-0.034) ng/mL NT-Pro-B Natriuret Pep 1900 H (<450) pg/mL Total Protein (6.3-8.2) g/dL Albumin (3.5-5.0) g/dL Globulin (1.7-4.1) g/dL Albumin/Globulin Ratio (1.0-2.8) Lipase (23-300) U/L Imaging Data Chest x-ray: Radiologist's Impression: PROCEDURE:? XR CHEST 1V ? INDICATIONS:? chest pain ? TECHNIQUE:? One view of the chest was acquired.? ? COMPARISON:? None. ? FINDINGS:? ? Surgical changes and devices:? Left-sided pacer. ? Lungs and pleura:? Lungs are clear.? No pleural effusions or pneumothorax.? ? Mediastinum:? Mediastinal contours appear normal.? Heart size is normal.? ? Bones and chest wall:? No suspicious bony lesions.? Overlying soft tissues appear unremarkable.? ? IMPRESSION:? No acute process. ? ? Dictated by: Raul Lyon M.D. on 05/03/2022 at 14:57 ? ? Approved by: Rual Lyon M.D. on 05/03/2022 at 14:57 ? ECG Data Interpretation: EKG independently reviewed by Dr. Alfaro and reveals a ventricular paced rhythm at 70 bpm with regular axis and intervals. No STEMI, ST segment changes, arrhythmia, or acute ischemic changes. MDM Narrative Medical decision making narrative: This is an 82-year-old female with history of atrial fibrillation, pulmonary hypertension, chronic anticoagulation on warfarin and a ventricular paced rhythm with a pacemaker who went to the walk-in clinic for evaluation this of her cough, COVID illness, and concern for pneumonia. While in the waiting room, her pulse oximeter read 93% and she was sent over to the emergency department for evaluation due to her chronic conditions. Patient's EKG shows a ventricular paced rhythm at 70 beats per minute, she does not have any murmurs, rubs or gallops, she is without shortness of breath, hypoxia in the emergency department, wheezing, or abnormal breath sounds. Her chest x-ray does not show any significant consolidation or patchy opacity. Her lab work is significant for a WBC of 3.4, INR of 2.3 on warfarin, no electrolyte abnormalities, total bilirubin is 2.1 which is stable per her priors, troponin is 0.012, BNP is 1900 without any priors to compare to. She tested positive for COVID and is on day five of her symptoms. Patient did not have any hypoxia in the emergency department, chest x-ray does not show any patchy infiltrates or opacities, no acute abnormalities, pacemaker is present and is functioning appropriately. Patient reports that she takes bumetanide. Encouraged her to follow-up with Dr. Story within one week. [place] decision making after discussing risk and benefits and decision to Prescribe patient Paxlovid for her COVID infection. Discussed that it may decrease the serum concentration of her warfarin, encouraged her to test her INR at home at least 2 times over the next five days and to call her doctor if she is at two core less than two to ask for increasing the dose. Her INR today is 2.3. Her goal is to stay between two and three. Patient was given a prescription for Mucinex as well, states that the syrup gave her diarrhea. I presume this is likely related to the red food coloring. Her D-dimer is less than 200. This is most likely COVID infection, could also be COVID pneumonia without abnormal breath sounds or abnormal chest x-ray. Patient was given strict return precautions, encouraged to stay hydrated, take her other medications as prescribed, follow-up with her primary doctor within one week and return to the ER for any worsening. Patient is appropriate and amenable to discharge home. Vital signs are stable on repeat examination is unremarkable. Patient has been informed of results. Patient has been given strict return to ER precautions for any new or worsening symptoms. Patient understands to follow up closely with outpatient providers as instructed. Patient understands plan and agrees to discharge home. All questions and concerns answered at this time. <Maite Alfaro, DO - Last Filed: 05/10/22 21:26> Lab Data Labs: Lab Results 05/03/22 05/03/22 05/03/22 Range/Units 13:15 13:15 13:15 WBC 3.4 L (4.5-11.0) X10^3/uL RBC 4.02 (4.0-5.2) X10^6/uL Hgb 12.1 (12.0-16.0) g/dL Hct 35.8 L (36-46) % MCV 89.1 (80-100) fL MCH 30.2 (26-34) PG MCHC 33.9 (30-36) % RDW 12.9 (11.6-14.8) % Plt Count 160 (150-400) X10^3/uL Neut % (Auto) 50.7 (50-75) % Lymph % (Auto) 26.6 (25-40) % [place] % (Auto) 17.4 H (3-14) % Eos % (Auto) 4.5 H (2-4) % Baso % (Auto) 0.8 (0-2) % Neut # (Auto) 1700 (8536-8450) /uL Lymph # (Auto) 900 L (1370-0823) /uL [place] # (Auto) 600 (0-900) /uL Eos # (Auto) 200 (0-450) /uL Baso # (Auto) 0 (0-100) /uL PT 26.1 H (10.1-12.7) SECONDS INR 2.3 H (0.9-1.3) APTT 43 H D (26.4-36.2) SECONDS D-Dimer (<230) ng/mL Sodium 137 (137-145) mmol/L Potassium 3.9 (3.4-5.1) mmol/L Chloride 103 (98-107) mmol/L Carbon Dioxide 27 (22-32) mmol/L BUN 11 (7-17) mg/dL Creatinine 0.76 (0.52-1.04) mg/dL Estimated GFR > 60 (>60) mL/min BUN/Creatinine Ratio 14.5 (6-22) Glucose 120 H (80-110) mg/dL Calcium 8.6 (8.4-10.2) mg/dL Magnesium 1.9 (1.6-2.3) mg/dL Total Bilirubin 2.1 H (0.2-1.3) mg/dL AST 36 (14-36) IU/L ALT 17 (<35) IU/L Alkaline Phosphatase 79 (38-126) U/L Total Creatine Kinase 111 (30-135) U/L CK-MB (CK-2) 1.11 (<2.37) ng/mL CK-MB (CK-2) Rel Index 1.0 L (1.5-5.0) % Troponin I < 0.012 (0.01-0.034) ng/mL NT-Pro-B Natriuret Pep (<450) pg/mL Total Protein 6.8 (6.3-8.2) g/dL Albumin 4.1 (3.5-5.0) g/dL Globulin 2.7 (1.7-4.1) g/dL Albumin/Globulin Ratio 1.5 (1.0-2.8) Lipase 79 (23-300) U/L 05/03/22 05/03/22 Range/Units 13:15 13:15 WBC (4.5-11.0) X10^3/uL RBC (4.0-5.2) X10^6/uL Hgb (12.0-16.0) g/dL Hct (36-46) % MCV (80-100) fL MCH (26-34) PG MCHC (30-36) % RDW (11.6-14.8) % Plt Count (150-400) X10^3/uL Neut % (Auto) (50-75) % Lymph % (Auto) (25-40) % [place] % (Auto) (3-14) % Eos % (Auto) (2-4) % Baso % (Auto) (0-2) % Neut # (Auto) (6088-2236) /uL Lymph # (Auto) (4549-6423) /uL [place] # (Auto) (0-900) /uL Eos # (Auto) (0-450) /uL Baso # (Auto) (0-100) /uL PT (10.1-12.7) SECONDS INR (0.9-1.3) APTT (26.4-36.2) SECONDS D-Dimer < 200 (<230) ng/mL Sodium (137-145) mmol/L Potassium (3.4-5.1) mmol/L Chloride (98-107) mmol/L Carbon Dioxide (22-32) mmol/L BUN (7-17) mg/dL Creatinine (0.52-1.04) mg/dL Estimated GFR (>60) mL/min BUN/Creatinine Ratio (6-22) Glucose (80-110) mg/dL Calcium (8.4-10.2) mg/dL Magnesium (1.6-2.3) mg/dL Total Bilirubin (0.2-1.3) mg/dL AST (14-36) IU/L ALT (<35) IU/L Alkaline Phosphatase (38-126) U/L Total Creatine Kinase (30-135) U/L CK-MB (CK-2) (<2.37) ng/mL CK-MB (CK-2) Rel Index (1.5-5.0) % Troponin I (0.01-0.034) ng/mL NT-Pro-B Natriuret Pep 1900 H (<450) pg/mL Total Protein (6.3-8.2) g/dL Albumin (3.5-5.0) g/dL Globulin (1.7-4.1) g/dL Albumin/Globulin Ratio (1.0-2.8) Lipase (23-300) U/L Discharge Plan Departure Patient Disposition: Home Clinical Impression: COVID-19, Anticoagulant long-term use, Elevated brain natriuretic peptide (BNP) level Instructions: DI for COVID-19 (Suspected or Confirmed ) Activity Restrictions/Additional Instructions: *You have been diagnosed with COVID-19. Please use tylenol, mucinex, and throat losenges as you need them. Please stay hydrated, continue taking your regularly scheduled medications as they are and recheck your INR at least 2 times while taking Paxlovid. This medication can reduce the serum concentration of warfarin in your blood causing your level to drop. Please ensure that your INR stays between two and three and come back to the emergency department or call your primary care provider as needed to establish this. The Robitussin syrup likely gave you diarrhea due to the red food coloring, or it is another symptom of COVID. It was a pleasure to meet you, please come back for any new or worsening conditions, all of your lab work is reassuring although your BNP is slightly elevated, I imagine since you are a water pill it is always slightly elevated. Please follow-up with your doctor about this as well. *What to do: *Please continue to take your regular medications as directed. [x ] New medication prescriptions sent to your pharmacy: [ [facility] [ ] New medication written as a paper prescription [ ] No new medications given *Please follow up with your primary care provider in 2-3 days, call for an appointment. Let them know you were seen in the Emergency Department and that we asked that you be seen for follow-up. We will electronically transmit a record of today's note if your PCP is in our system *If you do not have a primary care provider please contact [phone] to establish care with one of the [facility] primary care providers. *Return to Emergency Department if you should have any new, worsening or concerning symptoms, such as [fever greater than 101F, chills, worsening pain, persistent vomiting or other bothersome symptoms] Prescriptions: New Paxlovid (EUA) 150 mg x 2- 100 mg tablet See Rx Instructions .ROUTE .COMPLEX Qty: 30 0RF Rx Instructions: take TWO 150 mg tablets of nirmatrelvir with ONE 100 mg tablet of ritonavir twice daily for 5 days guaifenesin [Mucinex] 600 mg tablet extended release 12hr 600 mg PO BID PRN (Reason: congestion) Qty: 14 0RF No Action warfarin 5 mg tablet 5 mg PO DAILY Qty: 90 3RF tadalafil (pulm. hypertension) 20 mg tablet 10 mg PO acetaminophen [Tylenol] 325 mg capsule 650 mg PO QID PRN (Reason: pain) Qty: 60 0RF carvedilol 12.5 mg Tablet 12.5 mg PO BID bumetanide 0.5 mg Tablet 0.5 mg PO DAILY calcium carbonate [Tums Ultra] 400 mg calcium (1,000 mg) Tablet,Chewable 800 mg PO DAILY cholecalciferol (vitamin D3) [Vitamin D3] 1,000 unit Capsule 1,000 unit PO DAILY losartan 25 mg tablet 25 mg PO BID clindamycin HCl 300 mg capsule 300 mg PO QID Qty: 20 0RF bumetanide 0.5 mg tablet Referrals: Mark Story DO [Primary Care Provider] - Visit Report Forms: Patient Portal/API <Maite Alfaro DO - Last Filed: 05/10/22 21:26> Cosign ED Attending Cosandriaature Attestation: I was immediately available in the department for consultation. Documentation has been reviewed.
[2022-05-03 14:34] LABS: NT-proBNP (BNP-Adult 18+) 1900 pg/mL (<450)
[2022-05-03 14:47] VITALS: BP 147/70; PULSE 69; RESP 16; O2SAT 96
[2022-05-03] MEDS: ACETAMINOPHEN 325 MG TABLET 650 MG PO (14:47)
[2022-05-03] MEDS: guaiFENesin ER 600 MG TAB PO (14:47)
[2022-05-03 15:04] LABS: D Dimer < 200 ng/mL (<230)
== END 2022-05-03 15:35 | disposition home or self-care (01) ==
PROVIDERS: Emergency Medicine; Emergency Provider Nurse Practitioner Critical Care Medicine; PCP Family Medicine
DX: U07.1 COVID-19 (principal); Z79.01 Long term (current) use of anticoagulants; R79.89 Other specified abnormal findings of blood chemistry
CPT/HCPCS: 36415; 71045; 80053; 82550; 82553; 83690; 83735; 83880; 84484; 85025; 85379; 85610; 85730; 93005; 99284

== ENCOUNTER → 2022-05-14 09:22 | Outpatient (CLI) | payer MEDICARE, BC, SELFPAY ==
[2020-04-04 21:13] VITALS: BMI 22.6
[2022-05-14 11:35] LABS: BUN Creatinine Ratio 17.3 (6-22); Blood Urea Nitrogen 17 mg/dL (7-17); Calcium 9.1 mg/dL (8.4-10.2); Carbon Dioxide 33 mmol/L (22-32); Chloride 105 mmol/L (98-107); Estimated Glomerular Filt Rate 57 mL/min (>60); Glucose 74 mg/dL (80-110); HEMOLYSIS < 15 (0-50); Potassium 4.3 mmol/L (3.4-5.1); Sodium 142 mmol/L (137-145)
== END ==
PROVIDERS: PCP Family Medicine; Referring Provider Nurse Practitioner; Visit Provider Nurse Practitioner
DX: I50.22 Chronic systolic (congestive) heart failure (principal)
CPT/HCPCS: 36415; 80048

== ENCOUNTER → 2023-01-21 11:48 | Outpatient (CLI) | payer MEDICARE, BC, SELFPAY ==
[2020-04-04 21:13] VITALS: BMI 22.6
[2023-01-21 12:57] LABS: BUN Creatinine Ratio 23.2 (6-22); Blood Urea Nitrogen 19 mg/dL (7-17); Carbon Dioxide 32 mmol/L (22-32); Chloride 102 mmol/L (98-107); Estimated Glomerular Filt Rate > 60 mL/min (>60); Glucose 76 mg/dL (80-110); HEMOLYSIS < 15 (0-50); Potassium 4.5 mmol/L (3.4-5.1); Sodium 139 mmol/L (137-145)
== END ==
PROVIDERS: PCP Family Medicine; Referring Provider Specialist; Visit Provider Specialist
DX: I48.19 Other persistent atrial fibrillation (principal)
CPT/HCPCS: 36415; 80048

== ENCOUNTER → 2023-02-11 10:02 | Outpatient (CLI) | payer MEDICARE, BC, SELFPAY ==
[2023-02-05 14:35] VITALS: BMI 22.6
[2023-02-11 11:12] LABS: Alanine Aminotransferase 20 IU/L (<35); Albumin 4.2 g/dL (3.5-5.0); Albumin Globulin Ratio 1.5 (1.0-2.8); Alkaline Phosphatase 77 U/L (38-126); Aspartate Aminotransferase 27 IU/L (14-36); BUN Creatinine Ratio 17.9 (6-22); Bilirubin Total 1.8 mg/dL (0.2-1.3); Blood Urea Nitrogen 15 mg/dL (7-17); Calcium 9.2 mg/dL (8.4-10.2); Carbon Dioxide 32 mmol/L (22-32); Chloride 101 mmol/L (98-107); Estimated Glomerular Filt Rate > 60 mL/min (>60); Globulin 2.8 g/dL (1.7-4.1); Glucose 97 mg/dL (80-110); HEMOLYSIS < 15 (0-50); Magnesium 2.1 mg/dL (1.6-2.3); Sodium 139 mmol/L (137-145)
== END ==
PROVIDERS: PCP Family Medicine; Referring Provider Specialist; Visit Provider Specialist
DX: I10 Essential (primary) hypertension (principal); I48.19 Other persistent atrial fibrillation
CPT/HCPCS: 36415; 80053; 83735

== ENCOUNTER → 2023-02-26 10:21 | Outpatient (CLI) | payer MEDICARE, BC, SELFPAY ==
[2023-02-05 14:35] VITALS: BMI 22.6
[2023-02-26 12:04] LABS: BUN Creatinine Ratio 17.8 (6-22); Blood Urea Nitrogen 16 mg/dL (7-17); Calcium 8.9 mg/dL (8.4-10.2); Carbon Dioxide 34 mmol/L (22-32); Chloride 101 mmol/L (98-107); Estimated Glomerular Filt Rate > 60 mL/min (>60); Glucose 88 mg/dL (80-110); HEMOLYSIS < 15 (0-50); Sodium 140 mmol/L (137-145)
== END ==
PROVIDERS: PCP Family Medicine; Referring Provider Specialist; Visit Provider Specialist
DX: I48.19 Other persistent atrial fibrillation (principal); I42.0 Dilated cardiomyopathy
CPT/HCPCS: 36415; 80048; 83735

== ENCOUNTER → 2023-05-23 10:10 | Outpatient (CLI) | payer MEDICARE, BC, SELFPAY ==
[2023-02-05 14:35] VITALS: BMI 22.6
== END ==
PROVIDERS: PCP Family Medicine; Visit Provider Physician Assistant
DX: R30.0 Dysuria (principal)
CPT/HCPCS: 87077; 87086; 87186

== ENCOUNTER → 2023-06-07 09:31 | Outpatient (CLI) | payer MEDICARE, BC, SELFPAY ==
[2023-02-05 14:35] VITALS: BMI 22.6
[2023-06-07 11:32] LABS: Alanine Aminotransferase 15 IU/L (<35); Albumin Globulin Ratio 1.5 (1.0-2.8); Alkaline Phosphatase 53 U/L (38-126); Aspartate Aminotransferase 24 IU/L (14-36); BUN Creatinine Ratio 19.5 (6-22); Bilirubin Total 2.1 mg/dL (0.2-1.3); Blood Urea Nitrogen 15 mg/dL (7-17); Calcium 8.6 mg/dL (8.4-10.2); Carbon Dioxide 31 mmol/L (22-32); Chloride 100 mmol/L (98-107); Estimated Glomerular Filt Rate > 60 mL/min (>60); Globulin 2.7 g/dL (1.7-4.1); Glucose 92 mg/dL (80-110); HEMOLYSIS < 15 (0-50); Magnesium 2.1 mg/dL (1.6-2.3); Potassium 4.4 mmol/L (3.4-5.1); Sodium 139 mmol/L (137-145); Total Protein 6.7 g/dL (6.3-8.2)
== END ==
PROVIDERS: PCP Family Medicine; Referring Provider Specialist; Visit Provider Specialist
DX: I48.19 Other persistent atrial fibrillation (principal)
CPT/HCPCS: 36415; 80053; 83735

== ENCOUNTER → 2023-07-02 09:38 | Outpatient (CLI) | payer MEDICARE, BC, SELFPAY ==
[2023-02-05 14:35] VITALS: BMI 22.6
[2023-07-02 11:10] LABS: Alanine Aminotransferase 21 IU/L (<35); Albumin 4.1 g/dL (3.5-5.0); Albumin Globulin Ratio 1.3 (1.0-2.8); Alkaline Phosphatase 97 U/L (38-126); Aspartate Aminotransferase 25 IU/L (14-36); BUN Creatinine Ratio 17.7 (6-22); Bilirubin Total 1.7 mg/dL (0.2-1.3); Blood Urea Nitrogen 14 mg/dL (7-17); Calcium 9.2 mg/dL (8.4-10.2); Carbon Dioxide 31 mmol/L (22-32); Chloride 99 mmol/L (98-107); Estimated Glomerular Filt Rate > 60 mL/min (>60); Globulin 3.1 g/dL (1.7-4.1); Glucose 87 mg/dL (80-110); HEMOLYSIS < 15 (0-50); Magnesium 2.1 mg/dL (1.6-2.3); Potassium 4.2 mmol/L (3.4-5.1); Sodium 139 mmol/L (137-145); Total Protein 7.2 g/dL (6.3-8.2)
[2023-07-02 11:11] LABS: Add Manual Diff / Slide Review NO; Basophils Absolute Auto 100 /uL (0-100); Basophils Percent Auto 1.1 % (0-2); Eosinophils Absolute Auto 300 /uL (0-450); Eosinophils Percent Auto 5.5 % (2-4); Hematocrit 38.6 % (36-46); Hemoglobin 12.8 g/dL (12.0-16.0); Lymphocytes Absolute Auto 1000 /uL (1100-4500); Lymphocytes Percent Auto 18.5 % (25-40); Mean Corpuscular HGB Conc 33.2 % (30-36); Mean Corpuscular Hemoglobin 29.9 PG (26-34); Mean Corpuscular Volume 89.9 fL (80-100); Monocytes Absolute Auto 400 /uL (0-900); Monocytes Percent Auto 7.8 % (3-14); Neutrophils Absolute Auto 3500 /uL (1500-7000); Neutrophils Percent Auto 67.1 % (50-75); Platelet Count 247 X10^3/uL (150-400); Red Blood Cell Count 4.29 X10^6/uL (4.0-5.2); Red Cell Distribution Width 13.4 % (11.6-14.8); White Blood Cell Count 5.2 X10^3/uL (4.5-11.0)
[2023-07-02 11:36] LABS: Thyroid Stimulating Hormone 1.58 uIU/mL (0.47-4.68)
== END ==
PROVIDERS: PCP Family Medicine; Referring Provider Specialist; Visit Provider Specialist
DX: R06.02 Shortness of breath (principal); I10 Essential (primary) hypertension; I42.0 Dilated cardiomyopathy; I48.19 Other persistent atrial fibrillation
CPT/HCPCS: 80053; 83735; 84443; 85025

== ENCOUNTER → 2023-10-18 11:27 | Outpatient (CLI) | payer MEDICARE, BC, SELFPAY ==
[2023-02-05 14:35] VITALS: BMI 22.6
[2023-10-18 12:33] LABS: Influenza A - CEPHEID Flu A NEGATIVE (NEGATIVE); Influenza B - CEPHEID Flu B NEGATIVE (NEGATIVE); Respiratory Syncytial Virus Negative (Negative)
[2023-10-18 12:45] LABS: COVID-19 CEPHEID 4-PLEX PCR Negative (Negative)
== END ==
PROVIDERS: PCP Family Medicine; Visit Provider Family Medicine
DX: R05.9 Cough, unspecified (principal); R09.81 Nasal congestion
CPT/HCPCS: 0241U

== ENCOUNTER → 2023-12-03 10:50 | Outpatient (CLI) | payer MEDICARE, BC, SELFPAY ==
[2023-02-05 14:35] VITALS: BMI 22.6
[2023-12-03 11:50] LABS: Add Manual Diff / Slide Review NO; Basophils Absolute Auto 0 /uL (0-100); Basophils Percent Auto 0.6 % (0-2); Eosinophils Absolute Auto 100 /uL (0-450); Eosinophils Percent Auto 2.8 % (2-4); Hemoglobin 12.2 g/dL (12.0-16.0); Lymphocytes Absolute Auto 900 /uL (1100-4500); Lymphocytes Percent Auto 18.7 % (25-40); Mean Corpuscular HGB Conc 32.8 % (30-36); Mean Corpuscular Hemoglobin 29.1 PG (26-34); Mean Corpuscular Volume 88.7 fL (80-100); Monocytes Absolute Auto 400 /uL (0-900); Monocytes Percent Auto 8.6 % (3-14); Neutrophils Absolute Auto 3400 /uL (1500-7000); Neutrophils Percent Auto 69.3 % (50-75); Platelet Count 194 X10^3/uL (150-400); Red Blood Cell Count 4.18 X10^6/uL (4.0-5.2); Red Cell Distribution Width 13.7 % (11.6-14.8); White Blood Cell Count 4.9 X10^3/uL (4.5-11.0)
[2023-12-03 12:25] LABS: Alanine Aminotransferase 15 IU/L (<35); Albumin 3.8 g/dL (3.5-5.0); Albumin Globulin Ratio 1.5 (1.0-2.8); Alkaline Phosphatase 78 U/L (38-126); Aspartate Aminotransferase 24 IU/L (14-36); BUN Creatinine Ratio 19.6 (6-22); Bilirubin Total 1.6 mg/dL (0.2-1.3); Blood Urea Nitrogen 18 mg/dL (7-17); Calcium 9.1 mg/dL (8.4-10.2); Carbon Dioxide 33 mmol/L (22-32); Chloride 105 mmol/L (98-107); Estimated Glomerular Filt Rate > 60 mL/min (>60); Globulin 2.6 g/dL (1.7-4.1); Glucose 84 mg/dL (80-110); HEMOLYSIS < 15 (0-50); Magnesium 1.9 mg/dL (1.6-2.3); Potassium 4.5 mmol/L (3.4-5.1); Sodium 140 mmol/L (137-145); Total Protein 6.4 g/dL (6.3-8.2)
[2023-12-03 12:49] LABS: Thyroid Stimulating Hormone 1.87 uIU/mL (0.47-4.68)
== END ==
PROVIDERS: PCP Family Medicine; Referring Provider Specialist; Visit Provider Specialist
DX: I42.0 Dilated cardiomyopathy (principal); I48.19 Other persistent atrial fibrillation; I10 Essential (primary) hypertension; R06.02 Shortness of breath
CPT/HCPCS: 36415; 80053; 83735; 84443; 85025

== ENCOUNTER → 2024-03-31 14:57 | Outpatient (CLI) | payer MEDICARE, BC, SELFPAY ==
[2024-03-27 15:44] VITALS: BMI 22.6
--- NOTE | 2024-03-31 14:58 | DI.RAD.S_ITS ---
PROCEDURE: XR CHEST 2V INDICATIONS: SOB with exertion x 2 months TECHNIQUE: 2 views of the chest were acquired. COMPARISON: [facility], CR, XR CHEST 1V, 05/03/2022, 13:17. FINDINGS: Surgical changes and devices: Left chest wall generator with cardiac leads. Lungs and pleura: Lungs are clear. No pleural effusions or pneumothorax. Mediastinum: Mediastinal contours are normal. Heart size is normal. Bones and chest wall: No suspicious bony abnormalities. Soft tissues appear unremarkable. Similar T7 compression deformity. IMPRESSION: No acute cardiopulmonary abnormality is seen. Dictated by: Chirag Flores M.D. on 03/31/2024 at 15:44 Approved by: Chirag Flores M.D. on 03/31/2024 at 15:45
== END ==
PROVIDERS: PCP Family Medicine; Referring Provider Physician Assistant; Visit Provider Physician Assistant
DX: R06.02 Shortness of breath (principal)
CPT/HCPCS: 71046

== ENCOUNTER → 2024-04-08 12:54 | Outpatient (CLI) | payer MEDICARE, BC, SELFPAY ==
[2024-03-27 15:44] VITALS: BMI 22.6
--- NOTE | 2024-04-08 12:56 | DI.RAD.S_ITS ---
PROCEDURE: XR LUMBAR SPINE 2-3V INDICATIONS: pain,hx degeneration/compression fx, started after bneding TECHNIQUE: 3 views of the lumbar spine were acquired. COMPARISON: [facility], CR, XR CHEST 2 VIEWS, 10/26/2022, 18:06. [facility], CR, L-SPINE 2-3 VIEWS, 01/04/2016, 12:46. FINDINGS: Bones: 5 [id number] vertebrae are present. There is multilevel trace retrolisthesis. Kyphoplasty cement is present within compression deformity at L3. Multilevel degenerative disc and foraminal narrowing are present. Foraminal narrowing is most severe at L3-4, L5-S1.. No vertebral body compression fractures. No suspicious bony lesions. Soft tissues: Overlying bowel gas pattern is normal. No suspicious soft tissue calcifications. IMPRESSION: Treated compression deformity at L3. No new changes suggestive of acute fracture. Dictated by: Juliet Chavez M.D. on 04/08/2024 at 15:08 Approved by: Juliet Chavez M.D. on 04/08/2024 at 15:09
--- NOTE | 2024-04-08 12:56 | DI.RAD.S_ITS ---
PROCEDURE: XR HIP W PEL IF DONE [place] MIN 4V INDICATIONS: pain R>L, hx degeneration TECHNIQUE: AP pelvis with lateral view(s) of the bilateral hip(s). COMPARISON: [facility], CR, XR LUMBAR SPINE 2-3V, 04/08/2024, 12:55. CT, CT ABDOMEN PELVIS W CON, 04/17/2020, 19:16. FINDINGS: Bones: No fractures or dislocations. Pelvic ring appears intact. No suspicious bony lesions. Left hip arthroplasty. Hardware is intact without hardware fracture or periprosthetic lucency to suggest loosening. Alignment is stable. Moderate right hip arthritic change. Degenerative changes are present within the lower lumbar spine. Partially visualized cement is noted at L3. Soft tissues: The visualized bowel gas pattern is normal. No suspicious soft tissue calcifications. IMPRESSION: Multilevel degenerative hip joint space narrowing as above. Dictated by: Juliet Chavez M.D. on 04/08/2024 at 15:07 Approved by: Juliet Chavez M.D. on 04/08/2024 at 15:08
== END ==
PROVIDERS: PCP Family Medicine; Referring Provider Physician Assistant; Visit Provider Physician Assistant
DX: M81.0 Age-related osteoporosis without current pathological fracture (principal); M47.816 Spondylosis without myelopathy or radiculopathy, lumbar region; M48.061 Spinal stenosis, lumbar region without neurogenic claudication; M48.07 Spinal stenosis, lumbosacral region; M25.559 Pain in unspecified hip; M54.50 Low back pain, unspecified; Z96.642 Presence of left artificial hip joint
CPT/HCPCS: 72100; 73522

== ENCOUNTER → 2024-05-07 11:59 | Outpatient (CLI) | payer MEDICARE, BC, SELFPAY ==
[2024-03-27 15:44] VITALS: BMI 22.6
--- NOTE | 2024-05-07 12:00 | DI.ECHO.S_ITS ---
[facility] : : [address] : : [place] : : [id number] : : Phone: [phone] Echocardiogram Report + + :Name: OMID NINO Study Date: 05/07/2024 Height: 65 in : :Hospital ReadingLocation: Weight: 140 lb : : Gender: Female BSA: 1.7 m2 : :: 1940 Age: 84 yrs BP: 166/95 mmHg: :Reason For Study: PULMONARY HYPERTENSION : :Ordering Physician: RAÚL, : :NIKOS Performed By: Krissy Villafana : :Referring: NIKOS OLSEN : + + Interpretation Summary Left ventricular size and systolic function remains normal and unchanged from the previous study with an estimated ejection fraction of 55 to 60% without any focal wall motion abnormality. While filling pressures are challenging to assess, they are likely mildly elevated, yet unchanged from the previous study. The right ventricle remains normal in size with low normal systolic function but appears unchanged from the previous study. Right ventricular systolic pressure is likely around 42 mmHg with a CVP of 8 mmHg and is unchanged from the previous study. There is severe biatrial enlargement with a small patent foramen ovale with [id number] flow but there has been no significant change from the previous exam. There is mild to moderate mitral and tricuspid regurgitation that are likely unchanged from the previous study. There is mild aortic valve sclerosis with trace aortic regurgitation that appears similar to the previous exam. There has been no significant change from the previous study. Procedure: A two-dimensional transthoracic echocardiogram with color flow and Doppler was performed. The study quality was technically adequate. Comparison is made with the echocardiogram of 02/05/2023. The patient has a paced rhythm. The heart rate ranged between 70 bpm during the study. Left Ventricle: The left ventricle is normal in size and wall thickness. The estimated left ventricular end diastolic volume is 74 ml. Left ventricular systolic function appears normal without focal wall motion abnormalities. The ejection fraction is estimated to be 55-60%. This is unchanged compared to the previous study. Diastolic function could not be accurately assessed due to atrial fibrillation. There is some evidence for mildly increased filling pressures but unchanged from the previous study. Right Ventricle: There is a pacemaker lead in the right ventricle. The right ventricle is normal size. Right ventricular systolic function is at the lower limits of normal. This is unchanged compared to the previous study. Atria: Both atria are severely dilated. This is unchanged compared to the previous study. A patent foramen ovale is present. Doppler evidence suggests a left to right interatrial shunt. This is unchanged compared to the previous study. Mitral Valve: There is mild mitral annular calcification. The mitral valve leaflets appear mildly thickened, but open well. There is slight calcification extending into the subvalvular apparatus. There is mild to moderate mitral regurgitation. This is unchanged compared to the previous study. Aortic Valve: The aortic valve is trileaflet. The aortic valve is mildly calcified. There is mild aortic valve sclerosis. There is mildly reduced leaflet mobility. There is no hemodynamically significant valvular aortic stenosis. There is trace aortic regurgitation. This is unchanged compared to the previous study. Tricuspid Valve: The tricuspid valve is normal in structure and function. There is mild to moderate tricuspid regurgitation. The right ventricular systolic pressure is estimated to be at least 42 mmHg based on an estimated right atrial pressure of 8 mm Hg. This is unchanged compared to the previous study. Pulmonic Valve: The pulmonic valve leaflets are thin and pliable; valve motion is normal. There is no pulmonic valvular regurgitation. Great Vessels: The aortic root is normal size. The dimensions of the ascending aorta are normal. The IVC is dilated (diameter is greater than 2.1 cm) yet it collapses greater than 50% with a sniff. This suggests a right atrial pressure of 8 mm Hg. Pericardium/ Pleura There is no pericardial effusion. There is no pleural effusion. MMode/2D Measurements & Calculations LVIDd: 5.0 cm LVOT diam: 2.0 cm LVIDs: 3.6 cm Ao root diam: 3.1 cm FS: 27.9 % asc Aorta Diam: 3.2 cm IVSd: 0.83 cm Ao Arch Diam (Prox Trans): 2.5 cm LVPWd: 0.84 cm LV isaac. diameter/BSA (cm/m^2): 3.0 LV sys. diameter/BSA (cm/m^2): 2.1 LA A2 area: 30.2 cm2 RA long axis: 6.6 cm LA A4 area: 30.7 cm2 RA area: 26.5 cm2 LA length (vol): 6.9 cm RA vol: 89.8 ml LA vol: 114.7 ml RA : 52.8 ml/m2 LA vol index: 67.5 ml/m2 IVC diam: 2.4 cm RVD1 (basal): 3.1 cm RVD2 (mid): 1.9 cm TAPSE: 1.5 cm Doppler Measurements & Calculations Ao V2 max: 179.6 cm/sec LVOT Max Collins: 108.5 cm/sec Ao V2 mean: 128.5 cm/sec LV V1 max P.7 mmHg Ao max P.9 mmHg LV V1 VTI: 19.5 cm Ao mean P.3 mmHg CABRERA(I,D): 1.8 cm2 Ao V2 VTI: 34.9 cm CABRERA(V,D): 2.0 cm2 sev ratio: 0.56 CABRERA indexed to BSA (cm^2/m^2): 1.1 MV E max collins: 93.2 cm/sec TR max collins: 289.8 cm/sec MV A max collins: 1.3 cm/sec TR max P.6 mmHg MV E/A: 70.4 PA V2 max: 66.0 cm/sec Med Peak E' Collins: 5.9 cm/sec PA V2 mean: 48.1 cm/sec E/E' med: 15.9 PA mean P.0 mmHg Lat Peak E' Collins: 8.0 cm/sec PA pr(Accel): 60.2 mmHg E/E' lat: 11.6 E/e' average: 13.8 MV dec time: 0.14 sec MR ERO: 0.10 cm2 MR PISA: 1.9 cm2 SV(LVOT): 63.2 ml MR flow rate: 58.0 cm3/sec MR PISA radius: 0.54 cm Reading Physician:11:07 AM
== END ==
PROVIDERS: Family Provider Family Medicine; PCP Family Medicine; Referring Provider Specialist; Visit Provider Specialist
DX: I08.3 Combined rheumatic disorders of mitral, aortic and tricuspid valves (principal); I27.20 Pulmonary hypertension, unspecified; I42.0 Dilated cardiomyopathy
CPT/HCPCS: 93306

== ENCOUNTER → 2024-05-22 13:57 | Outpatient (CLI) | payer MEDICARE, BC, SELFPAY ==
[2024-03-27 15:44] VITALS: BMI 22.6
[2024-05-22 14:41] LABS: Hematocrit 38.8 % (36-46); Hemoglobin 12.8 g/dL (12.0-16.0); Mean Corpuscular HGB Conc 32.9 % (30-36); Mean Corpuscular Hemoglobin 29.4 PG (26-34); Mean Corpuscular Volume 89.4 fL (80-100); Platelet Count 241 X10^3/uL (150-400); Red Blood Cell Count 4.35 X10^6/uL (4.0-5.2); Red Cell Distribution Width 14.2 % (11.6-14.8); White Blood Cell Count 5.4 X10^3/uL (4.5-11.0)
[2024-05-22 15:01] LABS: Alanine Aminotransferase 16 IU/L (<35); Albumin 4.3 g/dL (3.5-5.0); Albumin Globulin Ratio 1.8 (1.0-2.8); Alkaline Phosphatase 86 U/L (38-126); Aspartate Aminotransferase 26 IU/L (14-36); BUN Creatinine Ratio 15.1 (6-22); Bilirubin Total 1.8 mg/dL (0.2-1.3); Blood Urea Nitrogen 13 mg/dL (7-17); Calcium 9.2 mg/dL (8.4-10.2); Carbon Dioxide 32 mmol/L (22-32); Chloride 100 mmol/L (98-107); Estimated Glomerular Filt Rate > 60 mL/min (>60); Globulin 2.4 g/dL (1.7-4.1); Glucose 122 mg/dL (80-110); HEMOLYSIS < 15 (0-50); Magnesium 2.2 mg/dL (1.6-2.3); Potassium 4.1 mmol/L (3.4-5.1); Sodium 140 mmol/L (137-145); Total Protein 6.7 g/dL (6.3-8.2)
== END ==
PROVIDERS: Family Provider Family Medicine; PCP Family Medicine; Referring Provider Specialist; Visit Provider Specialist
DX: R06.09 Other forms of dyspnea (principal); I50.22 Chronic systolic (congestive) heart failure; Z79.01 Long term (current) use of anticoagulants; I48.19 Other persistent atrial fibrillation
CPT/HCPCS: 36415; 80053; 83735; 85027

== ENCOUNTER 2024-06-03 10:30 | Outpatient (RCR) | payer MEDICARE, BC, SELFPAY ==
[2024-03-27 15:44] VITALS: BMI 22.6
--- NOTE | 2024-05-07 16:00 | PT.OIE ---
Current Diagnoses Pain in unspecified hip (05/07/24) Low back pain, unspecified (05/07/24) Age-related osteoporosis without current pathological fracture (05/07/24) Weakness (05/07/24) Past Medical History (Last Updated 10/18/23 @ 11:50 by Aguilar Story DO) Abdominal pain Abdominal pain in female Anxiety about health Atrial fibrillation (~2005) Atypical mole of neck Change in stool Chicken pox (~194) Chronic generalized abdominal pain Chronic intermittent post-traumatic headache Constipation Diverticular disease (~2007) Hearing loss Hypertension (~2003) Insomnia disorder with non-sleep disorder mental comorbidity Intermittent diarrhea Intermittent lightheadedness Left temporomandibular joint disorder, unspecified Osteoporosis (~2004) Pacemaker (~2005) Partial blindness (~1982) Post-traumatic headache, not intractable Presence of artificial right eye Rheumatic fever (~1939) Right sided facial pain Scalp pruritus Screening for malignant neoplasm of colon Swelling of knee joint, left Toe pain, left Urinary tract infection Varicose vein of leg Viral URI with cough Vision disorder Past Surgical History (Last Reviewed 05/23/23 @ 10:37 by Krytsle Prince PA-C) Anesthesia H/O: hysterectomy (~1997) History of appendectomy (~1949) History of back surgery (~2015) History of eye surgery (~1982) History of pacemaker S/P small bowel resection Status post small bowel resection Visit Care Team Role Provider Type Aguilar Story DO Family Provider Physician Primary Care Provider Specialty: Family Practice Address: [address] [place] [address] Email: Ree Rg PA-C Attending Provider Advanced Genetic Supervisor Referring Provider Specialty: Medical Wound Care Address: [address] [place] [address] Email: [email or web address] Physical Therapy Initial Evaluation PT-OP-A Visit Information Start: 05/06/24 15:49 Freq: Status: Active Protocol: Document 05/07/24 15:19 [facility] (Rec: 05/07/24 16:02 SAK [id number]) Out-Patient Physical Therapy Visit Information Visit Information Visit Type Initial Evaluation Visit Start Time 15:20 Visit Stop Time 16:15 Visit Number 1 Evaluation Information Evaluation Date 05/07/24 Precautions Precautions history spinal compression fracture, blind right eye, cardiac and dizziness history. PT-OP-B Current Condition Start: 05/06/24 15:49 Freq: Status: Active Protocol: Document 05/07/24 15:19 [facility] (Rec: 05/07/24 16:02 [facility] [id number]) Current Condition History of Current Condition Onset Date 2 months ago Current Complaints right lateral hip pain History of Current Condition Decided to try exercise she read about to decrease her blood pressure: wall squats. States the pain started when she started to do the wall squats and has now stopped. Pain persists. Now can't sleep on her right side. Tries to walk 1/2mile per day, limited by pain as well as dizziness, recently started using a cane, mostly due to dizziness. Uses it on her right side. Steps in and out of her car instead of sitting and swiveling. Lives alone. 14 stairs inside, 16 stairs outside. Has raised toilet seat, walk in shower, no grab bars. States has to hold onto furniture to steady herself. Also reports bowel resection 3 years ago, hasn't been able to get abdominals in shape since then. HIstory left DE, history right foot fracture. History of compression fracture L3 8 years ago, , HTN , pacemaker, dizziness, bowel resection, RC tear, left DE . x 8 years. Prior Treatments and Tests x-rays: moderate arthritis right hip, cement L3 Future Testing and Treatments Planned seeing Dr. Davis next month, Treatment Goals Patient/Caregiver Goals Decrease her pain, improve her walking, be able to get up off of the floor when washing the floor or picking things up . Prior Functional Status Baseline Function- ADL's Independent Baseline Function- Mobility Independent Baseline Function- Gait indep, no device Current Functional Impairments (Reported) Functional Limitations- ADL's no pain Functional Limitations- Mobility/Gait limited and painful Personal Factors Other Personal Factors That May Effect Patient is a widowl, can't Therapy/Recovery identify any enjoyable activities. PT-OP-C Subjective Start: 05/06/24 15:49 Freq: Status: Active Protocol: Document 05/07/24 15:19 [facility] (Rec: 05/07/24 16:02 [facility] [id number]) Patient Questionnaires Lower Extremity Functional Scale LEFS Score 70 Oswestry Low Back Index Oswestry Score 12 OP-PT Pain Assessment Pain Assessment Grid Paper Pain Assessment Grid Completed Yes Location right hip Intensity 4 Description Aching,Chronic Frequency Intermittent Pain Aggravating Factors Position,Changing Position,ADL 's,Activity,Standing,Walking Other Pain Aggravating Factors getting up from floor Pain Alleviating Factors None Home Pain Medication Use Home Pain Medication Frequency occasional Tylenol PT-OP-D Balance Start: 05/06/24 15:49 Freq: Status: Active Protocol: Document 05/07/24 15:19 [facility] (Rec: 05/07/24 17:05 [facility] [id number]) OP-PT Balance Assessment Sitting Balance Static Sitting Balance Ability Good Dynamic Sitting Balance Ability Good Standing Balance Static Standing Balance Ability Fair Dynamic Standing Balance Ability Poor Simmons Fall Scale Copyright Permission PT-OP-G Mobility & Gait Start: 05/06/24 15:49 Freq: Status: Active Protocol: Document 05/07/24 15:19 [facility] (Rec: 05/07/24 17:05 [facility] [id number]) OP Gait Assessment Gait Gait Assistance Required: Independent Assistive Devices Assistive Device None Gait Deviations General Gait Pattern Antalgic,Decreased Stride Length,Decreased Feet Clearance,Flexed Trunk,Narrow Based Gait Comments Gait Comments Reports she uses a cane at times on the right side but didn't bring to PT Stair Climbing Evaluation Evaluation Level of Assist On Stairs Independent Devices Stair Climbing Assistive Devices Left Railing,Right Railing Technique/Endurance Stair Climbing Direction Ascend and Descend Stair Climbing Technique Step Over Step PT-OP-H Neuro Start: 05/06/24 15:49 Freq: Status: Active Protocol: Document 05/07/24 15:19 [facility] (Rec: 05/07/24 17:05 [facility] [id number]) Sensation Evaluation Gross Sensation Gross Sensation WNL PT-OP-J Posture/Palpation/Skin Start: 05/06/24 15:49 Freq: Status: Active Protocol: Document 05/07/24 15:19 [facility] (Rec: 05/07/24 16:02 [facility] [id number]) Posture Evaluation Position Standing Head/C-Spine Posture Forward Head T-Spine Posture Increased Kyphosis L-Spine Posture Increased Lordosis Weight Distribution Weight Shifted Left Hip Posture (L) Externally Rotated,(R) Externally Rotated Knee Posture (L) Genu Valgus,(R) Genu Valgus Ankle/Foot Posture (L) Pronated,(R) Pronated Palpation Assessment Location right hip Palpation Location gr Trochanter Palpation Findings Tenderness Skin Assessment Other Assessments Skin Assessment Comments skin intact, no signs or symptoms of infection PT-OP-K Range of Motion Start: 05/06/24 15:49 Freq: Status: Active Protocol: Document 05/07/24 15:19 [facility] (Rec: 05/07/24 17:05 [facility] [id number]) Lumbar Spine Range of Motion Lumbar Spine Active ROM Limitations Soft Tissue Tightness,Bony Restriction Comments mod decrease all motions, denied pain Hip Goniometric Range of Motion Hip Right Flexion w/Knee Flexed 100 Straight Leg Raise 60 Extension 0 Abduction 30 Internal Rotation 20 External Rotation 65 Left Flexion w/Knee Flexed 105 Straight Leg Raise 65 Extension 0 Abduction 30 Internal Rotation 20 External Rotation 60 Hip ROM Limitations Hip ROM Limitations Soft Tissue Tightness Knee Goniometric Range of Motion Knee libby Knee ROM WFL Yes Ankle and Foot Goniometric Range of Motion Ankle and Foot libby Ankle/Foot ROM WFL Yes PT-OP-M Strength Start: 05/06/24 15:49 Freq: Status: Active Protocol: Document 05/07/24 15:19 [facility] (Rec: 05/07/24 17:05 [facility] [id number]) Trunk Strength Trunk Manual Muscle Testing Testing Position Supine Core Stabilization poor, extensive abdominal scar vertical central from bowel resection and hysterectomy, 1 finger diastasis recti Hip Strength Hip Manual Muscle Testing Right Flexion (L2) 4- Good- Extension (S1) 3 Fair Abduction 3+ Fair+ Adduction 3 Fair External Rotation 3+ Fair+ Left Flexion (L2) 4 Good Extension (S1) 3 Fair Abduction 3+ Fair+ Adduction 3+ Fair+ External Rotation 4- Good- Knee Strength Knee Manual Muscle Testing Right Flexion (S2) 4 Good Extension (L3) 4 Good Left Flexion (S2) 5 Normal Extension (L3) 5 Normal Ankle/Foot Strength Ankle and Foot Manual Muscle Testing libby Dorsiflexion (L4) 4+ Good+ Plantarflexion (S1) 4+ Good+ PT-OP-Q Treatments Start: 05/06/24 15:49 Freq: Status: Active Protocol: Document 05/07/24 15:19 [facility] (Rec: 05/07/24 17:05 [facility] [id number]) Self-Care/Home Management Treatment Education Patient Education Home Exercise Program Activities Self-Care/Home Management Activities use of ice and heat at home. PT-OP-R Modalities Start: 05/06/24 15:49 Freq: Status: Active Protocol: Document 05/07/24 15:19 [facility] (Rec: 05/07/24 17:05 [facility] [id number]) Hot Pack/Cold Pack Treatment right hip Patient Position Hooklying Patient Tolerance Good Comments during HEP instruction PT-OP-T Assessment and Plan Start: 05/06/24 15:49 Freq: Status: Active Protocol: Document 05/07/24 15:19 [facility] (Rec: 05/07/24 17:05 [facility] [id number]) Physical Therapy Assessment Rehab Potential Rehabilitation Potential Good Evaluation Complexity Number of Personal Factors/Comorbidities 1-2 Number of Body Systems Impaired 3 Clinical Presentation at Evaluation Evolving Impairments Impairments Activity Tolerance,Pain,Soft Tissue Mobility,Strength Goals Three Impairment impairments in right hip flexibility and strength and core strength Short Term Goal (STG) Patient to be instructed in individualized, progressive HEP focused on hip and core flexibility and strengthening STG Duration 06/07/24 Sql Programmer Analyst Goal (LTG) Patient to be independent and compliant with HEP and demonstrate improvements in ROM to WNL and strength to at least 4+/5 all muscle groups LTG Duration 07/07/24 Two Impairment Lower extremity functional scale 70% Short Term Goal (STG) Improve LEFS score to at least 80% as measure of improved activity tolerance and function STG Duration 06/07/24 Halfway Goal (LTG) Improve LEFS score to at least 90% as measure of improved activity tolerance and function LTG Duration 07/07/24 One Impairment unable to lay on right hip to sleep due to pain Short Term Goal (STG) Patient will be able to lay on her right side for at least 1 hour without an increase in pain STG Duration 06/07/24 Halfway Goal (LTG) Patient will be able to return to normal sleep pattern of sleeping on right side about 50% of the night consistently LTG Duration 07/07/24 Assessment Summary Assessment Patient presents to PT with function limiting right lateral hip pain which started after trying wall squats. Signs and symptoms consistent with hip bursitis. Objective testing revealed pain to palpation right greater trochanter, positive Brittnee's, weakness and decreased flexibility right hip and core , negative Scour test. FEel patient would benefit from PT to help her decrease her pain, and improve her strength and flexibility sufficient to allow her to return to her prior level of function including tolerating laying on her right side and the ability to get up from the floor without an increase in pain. She is highly motivated . POC was discussed and she was in agreement. Physical Therapy Plan Frequency and Duration Frequency of Treatment 2x/Week Duration of treatment (weeks) 8 Plan of Care Start Date 05/07/24 Plan of Care End Date 07/07/24 Therapeutic Interventions Therapeutic Interventions Home Exercise Program,Manual Therapy,Patient/Caregiver Education,Self-Care/Home Management,Soft Tissue Mobilization,Taping, Therapeutic Activities, Therapeutic Exercises Modalities Cold Pack/Ice Massage,Electric Stimulation,Hot Packs, Infrared Therapy,Iontophoresis ,Ultrasound Next Visit Focus/Plan Next Note Type Treatment Note Next Visit Plan Start on recumbant elliptical, review HEP, add standing hip abduction, shallow squats, bridge, SLR as tolerated. Consider iontophoresis.
--- NOTE | 2024-05-07 16:00 | PT.OPPOC ---
Physical, Occupational & Speech Therapy At [facility] Current Diagnoses Pain in unspecified hip (05/07/24) Low back pain, unspecified (05/07/24) Age-related osteoporosis without current pathological fracture (05/07/24) Weakness (05/07/24) Visit Care Team Role Provider Type Aguilar Story DO Family Provider Physician Primary Care Provider Specialty: Family Practice Address: [address] [place] [address], [id number] Email: Ree Rg PA-C Attending Provider Advanced Pairer Odds Referring Provider Specialty: Medical Wound Care Address: [address] [place] [address], [id number] Email: [email or web address] Plan Of Care PT-OP-B Current Condition Start: 05/06/24 15:49 Freq: Status: Active Protocol: Document 05/07/24 15:19 [facility] (Rec: 05/07/24 16:02 [facility] [id number]) Current Condition History of Current Condition Onset Date 2 months ago Current Complaints right lateral hip pain History of Current Condition Decided to try exercise she read about to decrease her blood pressure: wall squats. States the pain started when she started to do the wall squats and has now stopped. Pain persists. Now can't sleep on her right side. Tries to walk 1/2mile per day, limited by pain as well as dizziness, recently started using a cane, mostly due to dizziness. Uses it on her right side. Steps in and out of her car instead of sitting and swiveling. Lives alone. 14 stairs inside, 16 stairs outside. Has raised toilet seat, walk in shower, no grab bars. States has to hold onto furniture to steady herself. Also reports bowel resection 3 years ago, hasn't been able to get abdominals in shape since then. HIstory left DE, history right foot fracture. History of compression fracture L3 8 years ago, , HTN , pacemaker, dizziness, bowel resection, RC tear, left DE . x 8 years. Prior Treatments and Tests x-rays: moderate arthritis right hip, cement L3 Future Testing and Treatments Planned seeing Dr. Davis next month, Treatment Goals Patient/Caregiver Goals Decrease her pain, improve her walking, be able to get up off of the floor when washing the floor or picking things up . Prior Functional Status Baseline Function- ADL's Independent Baseline Function- Mobility Independent Baseline Function- Gait indep, no device Current Functional Impairments (Reported) Functional Limitations- ADL's no pain Functional Limitations- Mobility/Gait limited and painful Personal Factors Other Personal Factors That May Effect Patient is a widowl, can't Therapy/Recovery identify any enjoyable activities. PT-OP-T Assessment and Plan Start: 05/06/24 15:49 Freq: Status: Active Protocol: Document 05/07/24 15:19 [facility] (Rec: 05/07/24 17:05 [facility] [id number]) Physical Therapy Assessment Rehab Potential Rehabilitation Potential Good Evaluation Complexity Number of Personal Factors/Comorbidities 1-2 Number of Body Systems Impaired 3 Clinical Presentation at Evaluation Evolving Impairments Impairments Activity Tolerance,Pain,Soft Tissue Mobility,Strength Goals Three Impairment impairments in right hip flexibility and strength and core strength Short Term Goal (STG) Patient to be instructed in individualized, progressive HEP focused on hip and core flexibility and strengthening STG Duration 06/07/24 Coin Machine Collector Goal (LTG) Patient to be independent and compliant with HEP and demonstrate improvements in ROM to WNL and strength to at least 4+/5 all muscle groups LTG Duration 07/07/24 Two Impairment Lower extremity functional scale 70% Short Term Goal (STG) Improve LEFS score to at least 80% as measure of improved activity tolerance and function STG Duration 06/07/24 Coin Machine Collector Goal (LTG) Improve LEFS score to at least 90% as measure of improved activity tolerance and function LTG Duration 07/07/24 One Impairment unable to lay on right hip to sleep due to pain Short Term Goal (STG) Patient will be able to lay on her right side for at least 1 hour without an increase in pain STG Duration 06/07/24 Coin Machine Collector Goal (LTG) Patient will be able to return to normal sleep pattern of sleeping on right side about 50% of the night consistently LTG Duration 07/07/24 Assessment Summary Assessment Patient presents to PT with function limiting right lateral hip pain which started after trying wall squats. Signs and symptoms consistent with hip bursitis. Objective testing revealed pain to palpation right greater trochanter, positive Brittnee's, weakness and decreased flexibility right hip and core , negative Scour test. FEel patient would benefit from PT to help her decrease her pain, and improve her strength and flexibility sufficient to allow her to return to her prior level of function including tolerating laying on her right side and the ability to get up from the floor without an increase in pain. She is highly motivated . POC was discussed and she was in agreement. Physical Therapy Plan Frequency and Duration Frequency of Treatment 2x/Week Duration of treatment (weeks) 8 Plan of Care Start Date 05/07/24 Plan of Care End Date 07/07/24 Therapeutic Interventions Therapeutic Interventions Home Exercise Program,Manual Therapy,Patient/Caregiver Education,Self-Care/Home Management,Soft Tissue Mobilization,Taping, Therapeutic Activities, Therapeutic Exercises Modalities Cold Pack/Ice Massage,Electric Stimulation,Hot Packs, Infrared Therapy,Iontophoresis ,Ultrasound Next Visit Focus/Plan Next Note Type Treatment Note Next Visit Plan Start on recumbant elliptical, review HEP, add standing hip abduction, shallow squats, bridge, SLR as tolerated. Consider iontophoresis. Plan of Care Dates Plan of Care Start Date 05/07/24 Plan of Care End Date 07/07/24 Electronically Signed by: Vibha Mills, PT 05/11/24 [id number] If you are in agreement with this Plan of Care, please return a signed and dated copy. I have reviewed this Plan of Care and certify that the skilled therapy services above are required to meet the patient?s needs. Physician Signature Date Printed Name and Credentials Clinical Instructor Signature Printed Name and Credentials
--- NOTE | 2024-05-13 16:45 | PT.OTN ---
Current Diagnoses Pain in unspecified hip (05/12/24) Low back pain, unspecified (05/12/24) Age-related osteoporosis without current pathological fracture (05/12/24) Weakness (05/12/24) Physical Therapy Treatment Note PT-OP-A Visit Information Start: 05/06/24 15:49 Freq: Status: Active Protocol: Document 05/12/24 13:47 [facility] (Rec: 05/12/24 14:24 [facility] [id number]) Out-Patient Physical Therapy Visit Information Visit Information Visit Type Initial Evaluation Visit Start Time 13:45 Visit Stop Time 14:30 Visit Number 1 Evaluation Information Evaluation Date 05/07/24 Precautions Precautions history spinal compression fracture, blind right eye, cardiac and dizziness history. PT-OP-B Current Condition Start: 05/06/24 15:49 Freq: Status: Active Protocol: Document 05/12/24 13:47 [facility] (Rec: 05/12/24 14:24 [facility] [id number]) Current Condition History of Current Condition Onset Date 2 months ago Current Complaints right lateral hip pain History of Current Condition Decided to try exercise she read about to decrease her blood pressure: wall squats. States the pain started when she started to do the wall squats and has now stopped. Pain persists. Now can't sleep on her right side. Tries to walk 1/2mile per day, limited by pain as well as dizziness, recently started using a cane, mostly due to dizziness. Uses it on her right side. Steps in and out of her car instead of sitting and swiveling. Lives alone. 14 stairs inside, 16 stairs outside. Has raised toilet seat, walk in shower, no grab bars. States has to hold onto furniture to steady herself. Also reports bowel resection 3 years ago, hasn't been able to get abdominals in shape since then. HIstory left DE, history right foot fracture. History of compression fracture L3 8 years ago, , HTN , pacemaker, dizziness, bowel resection, RC tear, left [place] . x 8 years. Prior Treatments and Tests x-rays: moderate arthritis right hip, cement L3 Future Testing and Treatments Planned seeing Dr. Davis next month, Treatment Goals Patient/Caregiver Goals Decrease her pain, improve her walking, be able to get up off of the floor when washing the floor or picking things up . Prior Functional Status Baseline Function- ADL's Independent Baseline Function- Mobility Independent Baseline Function- Gait indep, no device PT-OP-C Subjective Start: 05/06/24 15:49 Freq: Status: Active Protocol: Document 05/12/24 13:47 [facility] (Rec: 05/12/24 14:24 [facility] [id number]) OP-PT Subjective Patient Comments Patient Comments Has done exercises except ones with band (doesn't have band) and is trying to increase her walking. PT-OP-D Balance Start: 05/06/24 15:49 Freq: Status: Active Protocol: Document 05/07/24 15:19 [facility] (Rec: 05/07/24 17:05 [facility] [id number]) OP-PT Balance Assessment Sitting Balance Static Sitting Balance Ability Good Dynamic Sitting Balance Ability Good Standing Balance Static Standing Balance Ability Fair Dynamic Standing Balance Ability Poor Simmons Fall Scale Copyright Permission PT-OP-G Mobility & Gait Start: 05/06/24 15:49 Freq: Status: Active Protocol: Document 05/07/24 15:19 [facility] (Rec: 05/07/24 17:05 [facility] [id number]) OP Gait Assessment Gait Gait Assistance Required: Independent Assistive Devices Assistive Device None Gait Deviations General Gait Pattern Antalgic,Decreased Stride Length,Decreased Feet Clearance,Flexed Trunk,Narrow Based Gait Comments Gait Comments Reports she uses a cane at times on the right side but didn't bring to PT Stair Climbing Evaluation Evaluation Level of Assist On Stairs Independent Devices Stair Climbing Assistive Devices Left Railing,Right Railing Technique/Endurance Stair Climbing Direction Ascend and Descend Stair Climbing Technique Step Over Step PT-OP-H Neuro Start: 05/06/24 15:49 Freq: Status: Active Protocol: Document 05/07/24 15:19 [facility] (Rec: 05/07/24 17:05 [facility] [id number]) Sensation Evaluation Gross Sensation Gross Sensation WNL PT-OP-J Posture/Palpation/Skin Start: 05/06/24 15:49 Freq: Status: Active Protocol: Document 05/07/24 15:19 [facility] (Rec: 05/07/24 16:02 [facility] [id number]) Posture Evaluation Position Standing Head/C-Spine Posture Forward Head T-Spine Posture Increased Kyphosis L-Spine Posture Increased Lordosis Weight Distribution Weight Shifted Left Hip Posture (L) Externally Rotated,(R) Externally Rotated Knee Posture (L) Genu Valgus,(R) Genu Valgus Ankle/Foot Posture (L) Pronated,(R) Pronated Palpation Assessment Location right hip Palpation Location gr Trochanter Palpation Findings Tenderness Skin Assessment Other Assessments Skin Assessment Comments skin intact, no signs or symptoms of infection PT-OP-K Range of Motion Start: 05/06/24 15:49 Freq: Status: Active Protocol: Document 05/07/24 15:19 [facility] (Rec: 05/07/24 17:05 [facility] [id number]) Lumbar Spine Range of Motion Lumbar Spine Active ROM Limitations Soft Tissue Tightness,Bony Restriction Comments mod decrease all motions, denied pain Hip Goniometric Range of Motion Hip Right Flexion w/Knee Flexed 100 Straight Leg Raise 60 Extension 0 Abduction 30 Internal Rotation 20 External Rotation 65 Left Flexion w/Knee Flexed 105 Straight Leg Raise 65 Extension 0 Abduction 30 Internal Rotation 20 External Rotation 60 Hip ROM Limitations Hip ROM Limitations Soft Tissue Tightness Knee Goniometric Range of Motion Knee libby Knee ROM WFL Yes Ankle and Foot Goniometric Range of Motion Ankle and Foot libby Ankle/Foot ROM WFL Yes PT-OP-M Strength Start: 05/06/24 15:49 Freq: Status: Active Protocol: Document 05/07/24 15:19 [facility] (Rec: 05/07/24 17:05 [facility] [id number]) Trunk Strength Trunk Manual Muscle Testing Testing Position Supine Core Stabilization poor, extensive abdominal scar vertical central from bowel resection and hysterectomy, 1 finger diastasis recti Hip Strength Hip Manual Muscle Testing Right Flexion (L2) 4- Good- Extension (S1) 3 Fair Abduction 3+ Fair+ Adduction 3 Fair External Rotation 3+ Fair+ Left Flexion (L2) 4 Good Extension (S1) 3 Fair Abduction 3+ Fair+ Adduction 3+ Fair+ External Rotation 4- Good- Knee Strength Knee Manual Muscle Testing Right Flexion (S2) 4 Good Extension (L3) 4 Good Left Flexion (S2) 5 Normal Extension (L3) 5 Normal Ankle/Foot Strength Ankle and Foot Manual Muscle Testing libby Dorsiflexion (L4) 4+ Good+ Plantarflexion (S1) 4+ Good+ PT-OP-Q Treatments Start: 05/06/24 15:49 Freq: Status: Active Protocol: Document 05/12/24 13:47 [facility] (Rec: 05/12/24 14:24 [facility] [id number]) Cardio Equipment Recumbent Stepper (Sci-Fit) Duration (Minutes) 5 Resistance 1 Seat Position 10 Other cues for neutral LE alignment Gym Equipment Shuttle Recovery Unilateral Squats Reps/Time next session Bilateral Squats Reps/Time next session Therapeutic Exercises Supine Exercises SLR Comments next session supine clam Resistance L2 TB Reps/Minutes 10x pelvic tilt Reps/Minutes 10 ball squeeze Reps/Minutes 10x bridge Reps/Minutes 10x Comments small lift gluteal set Reps/Minutes 10x Sitting Exercises LAQ Equipment Used L2 TB Reps/Minutes 10x Standing Exercises hip abd Reps/Minutes 10x Comments cues for upright posture, small movement shallow squat Reps/Minutes 10x Comments cues for hip hinge and gluteal activation on return to stand hamstring curl Reps/Minutes 10x Manual Therapy Treatment Soft Tissue Mobilization right IT band Comments next session Self-Care/Home Management Treatment Education Patient Education Home Exercise Program,Joint Protection,Pain Management, Posture PT-OP-R Modalities Start: 05/06/24 15:49 Freq: Status: Active Protocol: Document 05/07/24 15:19 [facility] (Rec: 05/07/24 17:05 [facility] [id number]) Hot Pack/Cold Pack Treatment right hip Patient Position Hooklying Patient Tolerance Good Comments during HEP instruction PT-OP-T Assessment and Plan Start: 05/06/24 15:49 Freq: Status: Active Protocol: Document 05/12/24 13:47 [facility] (Rec: 05/12/24 14:24 [facility] [id number]) Physical Therapy Assessment Impairments Impairments Activity Tolerance,Pain,Soft Tissue Mobility,Strength Goals Three Impairment impairments in right hip flexibility and strength and core strength Short Term Goal (STG) Patient to be instructed in individualized, progressive HEP focused on hip and core flexibility and strengthening STG Duration 06/07/24 Supervisor Inspection Department Goal (LTG) Patient to be independent and compliant with HEP and demonstrate improvements in ROM to WNL and strength to at least 4+/5 all muscle groups LTG Duration 07/07/24 Two Impairment Lower extremity functional scale 70% Short Term Goal (STG) Improve LEFS score to at least 80% as measure of improved activity tolerance and function STG Duration 06/07/24 Supervisor Inspection Department Goal (LTG) Improve LEFS score to at least 90% as measure of improved activity tolerance and function LTG Duration 07/07/24 One Impairment unable to lay on right hip to sleep due to pain Short Term Goal (STG) Patient will be able to lay on her right side for at least 1 hour without an increase in pain STG Duration 06/07/24 Supervisor [employer]pection Department Goal (LTG) Patient will be able to return to normal sleep pattern of sleeping on right side about 50% of the night consistently LTG Duration 07/07/24 Assessment Summary Assessment Patient demonstrated improved understanding of HEP after review. Good tolerance for recumbant elliptical and HEP today. Added standing squat, hip abd, and hamstring curl to HEP. Trial iontophoresis right trochanteric bursa. Physical Therapy Plan Frequency and Duration Frequency of Treatment 2x/Week Duration of treatment (weeks) 8 Plan of Care Start Date 05/07/24 Plan of Care End Date 07/07/24 Next Visit Focus/Plan Next Note Type Treatment Note Next Visit Plan assess response iontophoresis and new exercises for HEP, adjust and progress as indicated. Consider soft tissue mobilization right IT band. Stretch quads.
--- NOTE | 2024-05-14 15:44 | PT.OTN ---
Current Diagnoses Pain in unspecified hip (05/14/24) Low back pain, unspecified (05/14/24) Age-related osteoporosis without current pathological fracture (05/14/24) Weakness (05/14/24) Physical Therapy Treatment Note PT-OP-A Visit Information Start: 05/06/24 15:49 Freq: Status: Active Protocol: Document 05/14/24 13:53 SAK (Rec: 05/14/24 14:29 [facility] [id number]) Out-Patient Physical Therapy Visit Information Visit Information Visit Type Initial Evaluation Visit Start Time 01:47 Visit Stop Time 14:30 Visit Number 3 Evaluation Information Evaluation Date 05/07/24 Precautions Precautions history spinal compression fracture, blind right eye, cardiac and dizziness history. PT-OP-B Current Condition Start: 05/06/24 15:49 Freq: Status: Active Protocol: Document 05/14/24 13:53 SAK (Rec: 05/14/24 14:29 [facility] [id number]) Current Condition History of Current Condition Onset Date 2 months ago Current Complaints right lateral hip pain History of Current Condition Decided to try exercise she read about to decrease her blood pressure: wall squats. States the pain started when she started to do the wall squats and has now stopped. Pain persists. Now can't sleep on her right side. Tries to walk 1/2mile per day, limited by pain as well as dizziness, recently started using a cane, mostly due to dizziness. Uses it on her right side. Steps in and out of her car instead of sitting and swiveling. Lives alone. 14 stairs inside, 16 stairs outside. Has raised toilet seat, walk in shower, no grab bars. States has to hold onto furniture to steady herself. Also reports bowel resection 3 years ago, hasn't been able to get abdominals in shape since then. HIstory left [place], history right foot fracture. History of compression fracture L3 8 years ago, , HTN , pacemaker, dizziness, bowel resection, RC tear, left [place] . x 8 years. Prior Treatments and Tests x-rays: moderate arthritis right hip, cement L3 Future Testing and Treatments Planned seeing Dr. Davis next month, Treatment Goals Patient/Caregiver Goals Went for 1/2 mile walk PT-OP-C Subjective Start: 05/06/24 15:49 Freq: Status: Active Protocol: Document 05/14/24 13:53 [facility] (Rec: 05/14/24 14:29 [facility] [id number]) OP-PT Subjective Patient Comments Patient Comments No change noticed, didn't think iontophoresis patch was helpful. PT-OP-D Balance Start: 05/06/24 15:49 Freq: Status: Active Protocol: Document 05/07/24 15:19 [facility] (Rec: 05/07/24 17:05 [facility] [id number]) OP-PT Balance Assessment Sitting Balance Static Sitting Balance Ability Good Dynamic Sitting Balance Ability Good Standing Balance Static Standing Balance Ability Fair Dynamic Standing Balance Ability Poor Simmons Fall Scale Copyright Permission PT-OP-G Mobility & Gait Start: 05/06/24 15:49 Freq: Status: Active Protocol: Document 05/07/24 15:19 [facility] (Rec: 05/07/24 17:05 [facility] [id number]) OP Gait Assessment Gait Gait Assistance Required: Independent Assistive Devices Assistive Device None Gait Deviations General Gait Pattern Antalgic,Decreased Stride Length,Decreased Feet Clearance,Flexed Trunk,Narrow Based Gait Comments Gait Comments Reports she uses a cane at times on the right side but didn't bring to PT Stair Climbing Evaluation Evaluation Level of Assist On Stairs Independent Devices Stair Climbing Assistive Devices Left Railing,Right Railing Technique/Endurance Stair Climbing Direction Ascend and Descend Stair Climbing Technique Step Over Step PT-OP-H Neuro Start: 05/06/24 15:49 Freq: Status: Active Protocol: Document 05/07/24 15:19 [facility] (Rec: 05/07/24 17:05 [facility] [id number]) Sensation Evaluation Gross Sensation Gross Sensation WNL PT-OP-J Posture/Palpation/Skin Start: 05/06/24 15:49 Freq: Status: Active Protocol: Document 05/07/24 15:19 [facility] (Rec: 05/07/24 16:02 [facility] [id number]) Posture Evaluation Position Standing Head/C-Spine Posture Forward Head T-Spine Posture Increased Kyphosis L-Spine Posture Increased Lordosis Weight Distribution Weight Shifted Left Hip Posture (L) Externally Rotated,(R) Externally Rotated Knee Posture (L) Genu Valgus,(R) Genu Valgus Ankle/Foot Posture (L) Pronated,(R) Pronated Palpation Assessment Location right hip Palpation Location gr Trochanter Palpation Findings Tenderness Skin Assessment Other Assessments Skin Assessment Comments skin intact, no signs or symptoms of infection PT-OP-K Range of Motion Start: 05/06/24 15:49 Freq: Status: Active Protocol: Document 05/07/24 15:19 [facility] (Rec: 05/07/24 17:05 [facility] [id number]) Lumbar Spine Range of Motion Lumbar Spine Active ROM Limitations Soft Tissue Tightness,Bony Restriction Comments mod decrease all motions, denied pain Hip Goniometric Range of Motion Hip Right Flexion w/Knee Flexed 100 Straight Leg Raise 60 Extension 0 Abduction 30 Internal Rotation 20 External Rotation 65 Left Flexion w/Knee Flexed 105 Straight Leg Raise 65 Extension 0 Abduction 30 Internal Rotation 20 External Rotation 60 Hip ROM Limitations Hip ROM Limitations Soft Tissue Tightness Knee Goniometric Range of Motion Knee libby Knee ROM WFL Yes Ankle and Foot Goniometric Range of Motion Ankle and Foot libby Ankle/Foot ROM WFL Yes PT-OP-M Strength Start: 05/06/24 15:49 Freq: Status: Active Protocol: Document 05/07/24 15:19 [facility] (Rec: 05/07/24 17:05 [facility] [id number]) Trunk Strength Trunk Manual Muscle Testing Testing Position Supine Core Stabilization poor, extensive abdominal scar vertical central from bowel resection and hysterectomy, 1 finger diastasis recti Hip Strength Hip Manual Muscle Testing Right Flexion (L2) 4- Good- Extension (S1) 3 Fair Abduction 3+ Fair+ Adduction 3 Fair External Rotation 3+ Fair+ Left Flexion (L2) 4 Good Extension (S1) 3 Fair Abduction 3+ Fair+ Adduction 3+ Fair+ External Rotation 4- Good- Knee Strength Knee Manual Muscle Testing Right Flexion (S2) 4 Good Extension (L3) 4 Good Left Flexion (S2) 5 Normal Extension (L3) 5 Normal Ankle/Foot Strength Ankle and Foot Manual Muscle Testing libby Dorsiflexion (L4) 4+ Good+ Plantarflexion (S1) 4+ Good+ PT-OP-Q Treatments Start: 05/06/24 15:49 Freq: Status: Active Protocol: Document 05/14/24 13:53 [facility] (Rec: 05/14/24 14:29 [facility] [id number]) Cardio Equipment Recumbent Stepper (Sci-Fit) Duration (Minutes) 6 Resistance 1 Seat Position 11 Other cues for neutral LE alignment Gym Equipment Shuttle Recovery Unilateral Squats Resistance 25 Reps/Time 10x ea Bilateral Squats Resistance 37 Reps/Time 10x Therapeutic Exercises Supine Exercises SLR Reps/Minutes 10x Comments opp knee bent, cues for core activation supine clam Supine Exercise Name HEP pelvic tilt Reps/Minutes 10 ball squeeze Supine Exercise Name HEP bridge Reps/Minutes 10x gluteal set Supine Exercise Name HEP Standing Exercises hip abd Reps/Minutes 10x Comments cues for upright posture, small movement, toes forward shallow squat Reps/Minutes 10x Comments cues for hip hinge and gluteal activation on return to stand hamstring curl Reps/Minutes 10x Comments add 1# next session Manual Therapy Treatment Soft Tissue Mobilization right IT band Mobilization Type Instrument Assisted Intensity/Depth Moderate Comments rolling pin, instrsucted for home use Self-Care/Home Management Treatment Education Patient Education Home Exercise Program,Joint Protection,Pain Management, Posture PT-OP-R Modalities Start: 05/06/24 15:49 Freq: Status: Active Protocol: Document 05/14/24 13:53 SAK (Rec: 05/14/24 15:44 SAK [id number]) Hot Pack/Cold Pack Treatment right hip Location right hip and IT band Patient Position Sidelying Patient Tolerance Good PT-OP-T Assessment and Plan Start: 05/06/24 15:49 Freq: Status: Active Protocol: Document 05/14/24 13:53 SAK (Rec: 05/14/24 14:29 SAK [id number]) Physical Therapy Assessment Goals Three Impairment impairments in right hip flexibility and strength and core strength Short Term Goal (STG) Patient to be instructed in individualized, progressive HEP focused on hip and core flexibility and strengthening STG Duration 06/07/24 Skilled Nursing Goal (LTG) Patient to be independent and compliant with HEP and demonstrate improvements in ROM to WNL and strength to at least 4+/5 all muscle groups LTG Duration 07/07/24 Two Impairment Lower extremity functional scale 70% Short Term Goal (STG) Improve LEFS score to at least 80% as measure of improved activity tolerance and function STG Duration 06/07/24 Technical Aid Goal (LTG) Improve LEFS score to at least 90% as measure of improved activity tolerance and function LTG Duration 07/07/24 One Impairment unable to lay on right hip to sleep due to pain Short Term Goal (STG) Patient will be able to lay on her right side for at least 1 hour without an increase in pain STG Duration 06/07/24 Technical Aid Goal (LTG) Patient will be able to return to normal sleep pattern of sleeping on right side about 50% of the night consistently LTG Duration 07/07/24 Assessment Summary Assessment Patient compliant to HEP. Needs cues for neutral alignment and feel will benefit from use of theraband distal thighs next session with squats and shuttle recovery. Demonstrated good understanding use of rolling pin. Physical Therapy Plan Frequency and Duration Frequency of Treatment 2x/Week Duration of treatment (weeks) 8 Plan of Care Start Date 05/07/24 Plan of Care End Date 07/07/24 Therapeutic Interventions Therapeutic Interventions Home Exercise Program,Manual Therapy,Patient/Caregiver Education,Self-Care/Home Management,Soft Tissue Mobilization,Taping, Therapeutic Activities, Therapeutic Exercises Modalities Cold Pack/Ice Massage,Electric Stimulation,Hot Packs, Infrared Therapy,Iontophoresis ,Ultrasound Next Visit Focus/Plan Next Note Type Treatment Note Next Visit Plan Assess response to today's treatment including addition of IT band massage. Add gentle hip flexor and quad stretch. Continue to work on squat mechanics, add theraband around distal thighs on shuttle recovery and squats. Add clamshell, reverse clam.
--- NOTE | 2024-05-18 16:15 | PT.OTN ---
Current Diagnoses Pain in unspecified hip (05/18/24) Low back pain, unspecified (05/18/24) Age-related osteoporosis without current pathological fracture (05/18/24) Weakness (05/18/24) Physical Therapy Treatment Note PT-OP-A Visit Information Start: 05/06/24 15:49 Freq: Status: Active Protocol: Document 05/18/24 13:05 AB (Rec: 05/18/24 16:15 AB [id number]) Out-Patient Physical Therapy Visit Information Visit Information Visit Type Treatment Note Visit Start Time 14:31 Visit Stop Time 15:12 Visit Number 4 Number of MACHINE COMPOSITOR Visits 1 Evaluation Information Evaluation Date 05/07/24 Precautions Precautions history spinal compression fracture, blind right eye, cardiac and dizziness history. PT-OP-B Current Condition Start: 05/06/24 15:49 Freq: Status: Active Protocol: Document 05/14/24 13:53 SAK (Rec: 05/14/24 14:29 SAK [id number]) Current Condition History of Current Condition Onset Date 2 months ago Current Complaints right lateral hip pain History of Current Condition Decided to try exercise she read about to decrease her blood pressure: wall squats. States the pain started when she started to do the wall squats and has now stopped. Pain persists. Now can't sleep on her right side. Tries to walk 1/2mile per day, limited by pain as well as dizziness, recently started using a cane, mostly due to dizziness. Uses it on her right side. Steps in and out of her car instead of sitting and swiveling. Lives alone. 14 stairs inside, 16 stairs outside. Has raised toilet seat, walk in shower, no grab bars. States has to hold onto furniture to steady herself. Also reports bowel resection 3 years ago, hasn't been able to get abdominals in shape since then. HIstory left [place], history right foot fracture. History of compression fracture L3 8 years ago, , HTN , pacemaker, dizziness, bowel resection, RC tear, left [place] . x 8 years. Prior Treatments and Tests x-rays: moderate arthritis right hip, cement L3 Future Testing and Treatments Planned seeing Dr. Davis next month, Treatment Goals Patient/Caregiver Goals Went for 1/2 mile walk PT-OP-C Subjective Start: 05/06/24 15:49 Freq: Status: Active Protocol: Document 05/18/24 13:05 AB (Rec: 05/18/24 16:15 AB [id number]) OP-PT Subjective Patient Comments Patient Comments Patient reports she has been hurting since she left here. Patient gestures to buttocks area. Patient reports it is less today, but still hurt when your got up this morning. PT-OP-D Balance Start: 05/06/24 15:49 Freq: Status: Active Protocol: Document 05/07/24 15:19 SAK (Rec: 05/07/24 17:05 [facility] [id number]) OP-PT Balance Assessment Sitting Balance Static Sitting Balance Ability Good Dynamic Sitting Balance Ability Good Standing Balance Static Standing Balance Ability Fair Dynamic Standing Balance Ability Poor Simmons Fall Scale Copyright Permission PT-OP-G Mobility & Gait Start: 05/06/24 15:49 Freq: Status: Active Protocol: Document 05/07/24 15:19 SAK (Rec: 05/07/24 17:05 [facility] [id number]) OP Gait Assessment Gait Gait Assistance Required: Independent Assistive Devices Assistive Device None Gait Deviations General Gait Pattern Antalgic,Decreased Stride Length,Decreased Feet Clearance,Flexed Trunk,Narrow Based Gait Comments Gait Comments Reports she uses a cane at times on the right side but didn't bring to PT Stair Climbing Evaluation Evaluation Level of Assist On Stairs Independent Devices Stair Climbing Assistive Devices Left Railing,Right Railing Technique/Endurance Stair Climbing Direction Ascend and Descend Stair Climbing Technique Step Over Step PT-OP-H Neuro Start: 05/06/24 15:49 Freq: Status: Active Protocol: Document 05/07/24 15:19 SAK (Rec: 05/07/24 17:05 [facility] [id number]) Sensation Evaluation Gross Sensation Gross Sensation WNL PT-OP-J Posture/Palpation/Skin Start: 05/06/24 15:49 Freq: Status: Active Protocol: Document 05/07/24 15:19 SAK (Rec: 05/07/24 16:02 SAK [id number]) Posture Evaluation Position Standing Head/C-Spine Posture Forward Head T-Spine Posture Increased Kyphosis L-Spine Posture Increased Lordosis Weight Distribution Weight Shifted Left Hip Posture (L) Externally Rotated,(R) Externally Rotated Knee Posture (L) Genu Valgus,(R) Genu Valgus Ankle/Foot Posture (L) Pronated,(R) Pronated Palpation Assessment Location right hip Palpation Location gr Trochanter Palpation Findings Tenderness Skin Assessment Other Assessments Skin Assessment Comments skin intact, no signs or symptoms of infection PT-OP-K Range of Motion Start: 05/06/24 15:49 Freq: Status: Active Protocol: Document 05/07/24 15:19 [facility] (Rec: 05/07/24 17:05 [facility] [id number]) Lumbar Spine Range of Motion Lumbar Spine Active ROM Limitations Soft Tissue Tightness,Bony Restriction Comments mod decrease all motions, denied pain Hip Goniometric Range of Motion Hip Right Flexion w/Knee Flexed 100 Straight Leg Raise 60 Extension 0 Abduction 30 Internal Rotation 20 External Rotation 65 Left Flexion w/Knee Flexed 105 Straight Leg Raise 65 Extension 0 Abduction 30 Internal Rotation 20 External Rotation 60 Hip ROM Limitations Hip ROM Limitations Soft Tissue Tightness Knee Goniometric Range of Motion Knee libby Knee ROM WFL Yes Ankle and Foot Goniometric Range of Motion Ankle and Foot libby Ankle/Foot ROM WFL Yes PT-OP-M Strength Start: 05/06/24 15:49 Freq: Status: Active Protocol: Document 05/07/24 15:19 [facility] (Rec: 05/07/24 17:05 [facility] [id number]) Trunk Strength Trunk Manual Muscle Testing Testing Position Supine Core Stabilization poor, extensive abdominal scar vertical central from bowel resection and hysterectomy, 1 finger diastasis recti Hip Strength Hip Manual Muscle Testing Right Flexion (L2) 4- Good- Extension (S1) 3 Fair Abduction 3+ Fair+ Adduction 3 Fair External Rotation 3+ Fair+ Left Flexion (L2) 4 Good Extension (S1) 3 Fair Abduction 3+ Fair+ Adduction 3+ Fair+ External Rotation 4- Good- Knee Strength Knee Manual Muscle Testing Right Flexion (S2) 4 Good Extension (L3) 4 Good Left Flexion (S2) 5 Normal Extension (L3) 5 Normal Ankle/Foot Strength Ankle and Foot Manual Muscle Testing libby Dorsiflexion (L4) 4+ Good+ Plantarflexion (S1) 4+ Good+ PT-OP-Q Treatments Start: 05/06/24 15:49 Freq: Status: Active Protocol: Document 05/18/24 13:05 AB (Rec: 05/18/24 16:15 AB [id number]) Therapeutic Exercises Supine Exercises Modified Peña stretch Side bilateral Reps/Minutes 60 sec X 1 each LE Comments with AROM knee flexion X 10 piriformis/figure 4 Supine Exercise Name 1.figure 4 2. piriformis Side bilateral Reps/Minutes 60 seconds each ex each LE Comments from hooklying, verbal and tactile cues supine clam Supine Exercise Name HEP Side bilateral Resistance L2 TB Reps/Minutes X10 without hold and one one minute hold pelvic tilt Reps/Minutes 10 ball squeeze Supine Exercise Name HEP Reps/Minutes X10 bridge Reps/Minutes 10x Comments Verbal cues to push into heels , avoid holding breath and minimal lift Standing Exercises sit to stand Standing Exercise Name 1. sit to stand 2. sit to stand with band *raised seat height Side bilateral Resistance level 2 band Reps/Minutes 1. X 2 2. X 10 Comments Pt ed use of self tactile cues for hip hinge Manual Therapy Treatment Consent Patient gave verbal consent for manual Yes treatment Soft Tissue Mobilization glute/piriformis Body Location bilateral Mobilization Type Cross-Friction,Rolling Intensity/Depth Moderate Body Position Sidelying Comments monitored for pain. PT-OP-R Modalities Start: 05/06/24 15:49 Freq: Status: Active Protocol: Document 05/14/24 13:53 SAK (Rec: 05/14/24 15:44 SAK [id number]) Hot Pack/Cold Pack Treatment right hip Location right hip and IT band Patient Position Sidelying Patient Tolerance Good PT-OP-T Assessment and Plan Start: 05/06/24 15:49 Freq: Status: Active Protocol: Document 05/18/24 13:05 AB (Rec: 05/18/24 16:15 AB [id number]) Physical Therapy Assessment Goals Three Impairment impairments in right hip flexibility and strength and core strength Short Term Goal (STG) Patient to be instructed in individualized, progressive HEP focused on hip and core flexibility and strengthening STG Duration 06/07/24 Volunteer Services Director Goal (LTG) Patient to be independent and compliant with HEP and demonstrate improvements in ROM to WNL and strength to at least 4+/5 all muscle groups LTG Duration 07/07/24 Two Impairment Lower extremity functional scale 70% Short Term Goal (STG) Improve LEFS score to at least 80% as measure of improved activity tolerance and function STG Duration 06/07/24 Usp Goal (LTG) Improve LEFS score to at least 90% as measure of improved activity tolerance and function LTG Duration 07/07/24 One Impairment unable to lay on right hip to sleep due to pain Short Term Goal (STG) Patient will be able to lay on her right side for at least 1 hour without an increase in pain STG Duration 06/07/24 Usp Goal (LTG) Patient will be able to return to normal sleep pattern of sleeping on right side about 50% of the night consistently LTG Duration 07/07/24 Assessment Summary Assessment Silvano reports feeling fine, good post manual therapy and exercise and end of session ambulating without device. Physical Therapy Plan Frequency and Duration Frequency of Treatment 2x/Week Duration of treatment (weeks) 8 Plan of Care Start Date 05/07/24 Plan of Care End Date 07/07/24 Next Visit Focus/Plan Next Note Type Treatment Note Next Visit Plan Assess response to today's treatment. review/possibly add to HEP gentle hip flexor and quad stretch. Continue to work on squat mechanics, add theraband around distal thighs on shuttle recovery and squats/possibly add mini squat with band to HEP. Add clamshell, reverse clam.
--- NOTE | 2024-05-25 11:19 | PT.OTN ---
Current Diagnoses Pain in unspecified hip (05/25/24) Low back pain, unspecified (05/25/24) Age-related osteoporosis without current pathological fracture (05/25/24) Weakness (05/25/24) Physical Therapy Treatment Note PT-OP-A Visit Information Start: 05/06/24 15:49 Freq: Status: Active Protocol: Document 05/25/24 10:35 SP (Rec: 05/25/24 10:42 SP [id number]) Out-Patient Physical Therapy Visit Information Visit Information Visit Type Treatment Note Visit Start Time 10:35 Visit Stop Time 11:19 Visit Number 5 Number of ORDER DISPATCHER CHIEF Visits 2 Evaluation Information Evaluation Date 05/07/24 Precautions Precautions history spinal compression fracture, blind right eye, cardiac and dizziness history. PT-OP-B Current Condition Start: 05/06/24 15:49 Freq: Status: Active Protocol: Document 05/14/24 13:53 SAK (Rec: 05/14/24 14:29 SAK [id number]) Current Condition History of Current Condition Onset Date 2 months ago Current Complaints right lateral hip pain History of Current Condition Decided to try exercise she read about to decrease her blood pressure: wall squats. States the pain started when she started to do the wall squats and has now stopped. Pain persists. Now can't sleep on her right side. Tries to walk 1/2mile per day, limited by pain as well as dizziness, recently started using a cane, mostly due to dizziness. Uses it on her right side. Steps in and out of her car instead of sitting and swiveling. Lives alone. 14 stairs inside, 16 stairs outside. Has raised toilet seat, walk in shower, no grab bars. States has to hold onto furniture to steady herself. Also reports bowel resection 3 years ago, hasn't been able to get abdominals in shape since then. HIstory left [place], history right foot fracture. History of compression fracture L3 8 years ago, , HTN , pacemaker, dizziness, bowel resection, RC tear, left [place] . x 8 years. Prior Treatments and Tests x-rays: moderate arthritis right hip, cement L3 Future Testing and Treatments Planned seeing Dr. Davis next month, Treatment Goals Patient/Caregiver Goals Went for 1/2 mile walk PT-OP-C Subjective Start: 05/06/24 15:49 Freq: Status: Active Protocol: Document 05/25/24 10:35 SP (Rec: 05/25/24 10:42 SP [id number]) OP-PT Subjective Patient Comments Patient Comments Pt reports 6/10 across low back, forgot do exercies yesterday but pretty regular performance. REports the exercise kickign out to side hurts her hips. PT-OP-D Balance Start: 05/06/24 15:49 Freq: Status: Active Protocol: Document 05/07/24 15:19 SAK (Rec: 05/07/24 17:05 [facility] [id number]) OP-PT Balance Assessment Sitting Balance Static Sitting Balance Ability Good Dynamic Sitting Balance Ability Good Standing Balance Static Standing Balance Ability Fair Dynamic Standing Balance Ability Poor Simmons Fall Scale Copyright Permission PT-OP-G Mobility & Gait Start: 05/06/24 15:49 Freq: Status: Active Protocol: Document 05/07/24 15:19 SAK (Rec: 05/07/24 17:05 [facility] [id number]) OP Gait Assessment Gait Gait Assistance Required: Independent Assistive Devices Assistive Device None Gait Deviations General Gait Pattern Antalgic,Decreased Stride Length,Decreased Feet Clearance,Flexed Trunk,Narrow Based Gait Comments Gait Comments Reports she uses a cane at times on the right side but didn't bring to PT Stair Climbing Evaluation Evaluation Level of Assist On Stairs Independent Devices Stair Climbing Assistive Devices Left Railing,Right Railing Technique/Endurance Stair Climbing Direction Ascend and Descend Stair Climbing Technique Step Over Step PT-OP-H Neuro Start: 05/06/24 15:49 Freq: Status: Active Protocol: Document 05/07/24 15:19 SAK (Rec: 05/07/24 17:05 [facility] [id number]) Sensation Evaluation Gross Sensation Gross Sensation WNL PT-OP-J Posture/Palpation/Skin Start: 05/06/24 15:49 Freq: Status: Active Protocol: Document 05/07/24 15:19 SAK (Rec: 05/07/24 16:02 SAK [id number]) Posture Evaluation Position Standing Head/C-Spine Posture Forward Head T-Spine Posture Increased Kyphosis L-Spine Posture Increased Lordosis Weight Distribution Weight Shifted Left Hip Posture (L) Externally Rotated,(R) Externally Rotated Knee Posture (L) Genu Valgus,(R) Genu Valgus Ankle/Foot Posture (L) Pronated,(R) Pronated Palpation Assessment Location right hip Palpation Location gr Trochanter Palpation Findings Tenderness Skin Assessment Other Assessments Skin Assessment Comments skin intact, no signs or symptoms of infection PT-OP-K Range of Motion Start: 05/06/24 15:49 Freq: Status: Active Protocol: Document 05/07/24 15:19 [facility] (Rec: 05/07/24 17:05 [facility] [id number]) Lumbar Spine Range of Motion Lumbar Spine Active ROM Limitations Soft Tissue Tightness,Bony Restriction Comments mod decrease all motions, denied pain Hip Goniometric Range of Motion Hip Right Flexion w/Knee Flexed 100 Straight Leg Raise 60 Extension 0 Abduction 30 Internal Rotation 20 External Rotation 65 Left Flexion w/Knee Flexed 105 Straight Leg Raise 65 Extension 0 Abduction 30 Internal Rotation 20 External Rotation 60 Hip ROM Limitations Hip ROM Limitations Soft Tissue Tightness Knee Goniometric Range of Motion Knee libby Knee ROM WFL Yes Ankle and Foot Goniometric Range of Motion Ankle and Foot libby Ankle/Foot ROM WFL Yes PT-OP-M Strength Start: 05/06/24 15:49 Freq: Status: Active Protocol: Document 05/07/24 15:19 [facility] (Rec: 05/07/24 17:05 [facility] [id number]) Trunk Strength Trunk Manual Muscle Testing Testing Position Supine Core Stabilization poor, extensive abdominal scar vertical central from bowel resection and hysterectomy, 1 finger diastasis recti Hip Strength Hip Manual Muscle Testing Right Flexion (L2) 4- Good- Extension (S1) 3 Fair Abduction 3+ Fair+ Adduction 3 Fair External Rotation 3+ Fair+ Left Flexion (L2) 4 Good Extension (S1) 3 Fair Abduction 3+ Fair+ Adduction 3+ Fair+ External Rotation 4- Good- Knee Strength Knee Manual Muscle Testing Right Flexion (S2) 4 Good Extension (L3) 4 Good Left Flexion (S2) 5 Normal Extension (L3) 5 Normal Ankle/Foot Strength Ankle and Foot Manual Muscle Testing libby Dorsiflexion (L4) 4+ Good+ Plantarflexion (S1) 4+ Good+ PT-OP-Q Treatments Start: 05/06/24 15:49 Freq: Status: Active Protocol: Document 05/25/24 10:35 SP (Rec: 05/25/24 10:42 SP [id number]) Therapeutic Exercises Supine Exercises piriformis/figure 4 Supine Exercise Name 1.figure 4 2. piriformis- provided HO for HEP Side bilateral Equipment Used 1. opp leg straight 2. ankle across knee knee to opp chest /c BUE support Reps/Minutes 30 x2 seconds each ex each LE Comments from hooklying, verbal and tactile cues- improved less hip tension supine clam Supine Exercise Name HEP Side bilateral Resistance L2 TB Reps/Minutes X10 without hold and one one minute hold Standing Exercises sit to stand Standing Exercise Name sit to stand Side bilateral Resistance level 2> 3 tonto apache green band- provided for home Equipment Used no use BUEs, 19 table height Reps/Minutes X 10 Comments VCs for hip hinge, TA draw in and scoot front seat, slow descend- no LB rec Manual Therapy Treatment Soft Tissue Mobilization glute/piriformis Body Location bilateral Mobilization Type Cross-Friction,Rolling Intensity/Depth Moderate Body Position B Sidelying Comments monitored for pain and pressure tolerance Joint Mobilizations B hip Comments MWM hip IR/ ER /c strap- improved LTR performance, increase range and lessened hip muscular tension Self-Care/Home Management Treatment Education Patient Education Home Exercise Program,Joint Protection,Pain Management, Posture Other Education 2 min spent education use pillows between knees adn behind back for spinal support sidelying sleeping. Added piriformis and fig 4 stretching and increased resistance hip ab STS for mobility support B hips. PT-OP-R Modalities Start: 05/06/24 15:49 Freq: Status: Active Protocol: Document 05/14/24 13:53 SAK (Rec: 05/14/24 15:44 SAK [id number]) Hot Pack/Cold Pack Treatment right hip Location right hip and IT band Patient Position Sidelying Patient Tolerance Good PT-OP-T Assessment and Plan Start: 05/06/24 15:49 Freq: Status: Active Protocol: Document 05/25/24 10:35 SP (Rec: 05/25/24 10:42 SP [id number]) Physical Therapy Assessment Goals Three Impairment impairments in right hip flexibility and strength and core strength Short Term Goal (STG) Patient to be instructed in individualized, progressive HEP focused on hip and core flexibility and strengthening 05/25/24: added piriformis and fig 4 stretch to HEP /c HO, increased TB #3 at thighs to STS, hip hinge no UEs. STG Duration 06/07/24 progressing 05/25/24 House Worker Goal (LTG) Patient to be independent and compliant with HEP and demonstrate improvements in ROM to WNL and strength to at least 4+/5 all muscle groups LTG Duration 07/07/24 Two Impairment Lower extremity functional scale 70% Short Term Goal (STG) Improve LEFS score to at least 80% as measure of improved activity tolerance and function STG Duration 06/07/24 Shelter Goal (LTG) Improve LEFS score to at least 90% as measure of improved activity tolerance and function LTG Duration 07/07/24 One Impairment unable to lay on right hip to sleep due to pain Short Term Goal (STG) Patient will be able to lay on her right side for at least 1 hour without an increase in pain 05/25/24: R hip hurts after 10 min laying on that side before needs to turn over on L where mainly sleeps at night, better than when started PT. STG Duration 06/07/24 progressing 05/25/24 Shelter Goal (LTG) Patient will be able to return to normal sleep pattern of sleeping on right side about 50% of the night consistently LTG Duration 07/07/24 Assessment Summary Assessment Pt reports less tension and discomfort in low back and moving hips better after manual and AROM supine. Improved tolerance to increased resistance during sit<> stands and able to progress perform without UE support 19 table, cues for proper positioning and hip hinge slower pacing allow core and LE strength. Education TA draw in when feels her back recruiting ADLs, improved no LBP sit/standing end tx. Physical Therapy Plan Frequency and Duration Frequency of Treatment 2x/Week Duration of treatment (weeks) 8 Plan of Care Start Date 05/07/24 Plan of Care End Date 07/07/24 Therapeutic Interventions Therapeutic Interventions Home Exercise Program,Manual Therapy,Patient/Caregiver Education,Self-Care/Home Management,Soft Tissue Mobilization,Taping, Therapeutic Activities, Therapeutic Exercises Modalities Cold Pack/Ice Massage,Electric Stimulation,Hot Packs, Infrared Therapy,Iontophoresis ,Ultrasound Next Visit Focus/Plan Next Note Type Treatment Note Next Visit Plan Assess response to increased resistance to seated hip abd, recheck resisted clamshell HEP . Next tx add to HEP gentle hip flexor and quad stretch. Continue to work on squat mechanics, add theraband around distal thighs on shuttle recovery and squats/ possibly add mini squat with band to HEP.
--- NOTE | 2024-05-27 17:01 | PT.OTN ---
Current Diagnoses Pain in unspecified hip (05/27/24) Low back pain, unspecified (05/27/24) Age-related osteoporosis without current pathological fracture (05/27/24) Weakness (05/27/24) Physical Therapy Treatment Note PT-OP-A Visit Information Start: 05/06/24 15:49 Freq: Status: Active Protocol: Document 05/27/24 10:29 SAK (Rec: 05/27/24 11:18 [facility] [id number]) Out-Patient Physical Therapy Visit Information Visit Information Visit Type Treatment Note Visit Start Time 10:30 Visit Stop Time 11:25 Visit Number 6 Number of E LEARNING MANAGER Visits 0 Evaluation Information Evaluation Date 05/07/24 Precautions Precautions history spinal compression fracture, blind right eye, cardiac and dizziness history. PT-OP-B Current Condition Start: 05/06/24 15:49 Freq: Status: Active Protocol: Document 05/27/24 10:29 SAK (Rec: 05/27/24 11:18 [facility] [id number]) Current Condition History of Current Condition Onset Date 2 months ago Current Complaints right lateral hip pain History of Current Condition Decided to try exercise she read about to decrease her blood pressure: wall squats. States the pain started when she started to do the wall squats and has now stopped. Pain persists. Now can't sleep on her right side. Tries to walk 1/2mile per day, limited by pain as well as dizziness, recently started using a cane, mostly due to dizziness. Uses it on her right side. Steps in and out of her car instead of sitting and swiveling. Lives alone. 14 stairs inside, 16 stairs outside. Has raised toilet seat, walk in shower, no grab bars. States has to hold onto furniture to steady herself. Also reports bowel resection 3 years ago, hasn't been able to get abdominals in shape since then. HIstory left [place], history right foot fracture. History of compression fracture L3 8 years ago, , HTN , pacemaker, dizziness, bowel resection, RC tear, left [place] . x 8 years. Prior Treatments and Tests x-rays: moderate arthritis right hip, cement L3 Future Testing and Treatments Planned seeing Dr. Davis next month, PT-OP-C Subjective Start: 05/06/24 15:49 Freq: Status: Active Protocol: Document 05/27/24 10:29 SAK (Rec: 05/27/24 11:18 [facility] [id number]) OP-PT Subjective Patient Comments Patient Comments Was able to lay on her right side for 10 minutes before started to hurt. States last session E LEARNING MANAGER did something bringing her leg out to the side that changed the structure and it felt better for awhile. Overall feels PT helping. Forgot about using rolling pin for self massage. PT-OP-D Balance Start: 05/06/24 15:49 Freq: Status: Active Protocol: Document 05/07/24 15:19 [facility] (Rec: 05/07/24 17:05 [facility] [id number]) OP-PT Balance Assessment Sitting Balance Static Sitting Balance Ability Good Dynamic Sitting Balance Ability Good Standing Balance Static Standing Balance Ability Fair Dynamic Standing Balance Ability Poor Simmons Fall Scale Copyright Permission PT-OP-G Mobility & Gait Start: 05/06/24 15:49 Freq: Status: Active Protocol: Document 05/07/24 15:19 [facility] (Rec: 05/07/24 17:05 [facility] [id number]) OP Gait Assessment Gait Gait Assistance Required: Independent Assistive Devices Assistive Device None Gait Deviations General Gait Pattern Antalgic,Decreased Stride Length,Decreased Feet Clearance,Flexed Trunk,Narrow Based Gait Comments Gait Comments Reports she uses a cane at times on the right side but didn't bring to PT Stair Climbing Evaluation Evaluation Level of Assist On Stairs Independent Devices Stair Climbing Assistive Devices Left Railing,Right Railing Technique/Endurance Stair Climbing Direction Ascend and Descend Stair Climbing Technique Step Over Step PT-OP-H Neuro Start: 05/06/24 15:49 Freq: Status: Active Protocol: Document 05/07/24 15:19 [facility] (Rec: 05/07/24 17:05 [facility] [id number]) Sensation Evaluation Gross Sensation Gross Sensation WNL PT-OP-J Posture/Palpation/Skin Start: 05/06/24 15:49 Freq: Status: Active Protocol: Document 05/07/24 15:19 [facility] (Rec: 05/07/24 16:02 [facility] [id number]) Posture Evaluation Position Standing Head/C-Spine Posture Forward Head T-Spine Posture Increased Kyphosis L-Spine Posture Increased Lordosis Weight Distribution Weight Shifted Left Hip Posture (L) Externally Rotated,(R) Externally Rotated Knee Posture (L) Genu Valgus,(R) Genu Valgus Ankle/Foot Posture (L) Pronated,(R) Pronated Palpation Assessment Location right hip Palpation Location gr Trochanter Palpation Findings Tenderness Skin Assessment Other Assessments Skin Assessment Comments skin intact, no signs or symptoms of infection PT-OP-K Range of Motion Start: 05/06/24 15:49 Freq: Status: Active Protocol: Document 05/07/24 15:19 [facility] (Rec: 05/07/24 17:05 [facility] [id number]) Lumbar Spine Range of Motion Lumbar Spine Active ROM Limitations Soft Tissue Tightness,Bony Restriction Comments mod decrease all motions, denied pain Hip Goniometric Range of Motion Hip Right Flexion w/Knee Flexed 100 Straight Leg Raise 60 Extension 0 Abduction 30 Internal Rotation 20 External Rotation 65 Left Flexion w/Knee Flexed 105 Straight Leg Raise 65 Extension 0 Abduction 30 Internal Rotation 20 External Rotation 60 Hip ROM Limitations Hip ROM Limitations Soft Tissue Tightness Knee Goniometric Range of Motion Knee libby Knee ROM WFL Yes Ankle and Foot Goniometric Range of Motion Ankle and Foot libby Ankle/Foot ROM WFL Yes PT-OP-M Strength Start: 05/06/24 15:49 Freq: Status: Active Protocol: Document 05/07/24 15:19 [facility] (Rec: 05/07/24 17:05 [facility] [id number]) Trunk Strength Trunk Manual Muscle Testing Testing Position Supine Core Stabilization poor, extensive abdominal scar vertical central from bowel resection and hysterectomy, 1 finger diastasis recti Hip Strength Hip Manual Muscle Testing Right Flexion (L2) 4- Good- Extension (S1) 3 Fair Abduction 3+ Fair+ Adduction 3 Fair External Rotation 3+ Fair+ Left Flexion (L2) 4 Good Extension (S1) 3 Fair Abduction 3+ Fair+ Adduction 3+ Fair+ External Rotation 4- Good- Knee Strength Knee Manual Muscle Testing Right Flexion (S2) 4 Good Extension (L3) 4 Good Left Flexion (S2) 5 Normal Extension (L3) 5 Normal Ankle/Foot Strength Ankle and Foot Manual Muscle Testing libby Dorsiflexion (L4) 4+ Good+ Plantarflexion (S1) 4+ Good+ PT-OP-Q Treatments Start: 05/06/24 15:49 Freq: Status: Active Protocol: Document 05/27/24 10:29 [facility] (Rec: 05/27/24 11:18 [facility] [id number]) Cardio Equipment Recumbent Stepper (Sci-Fit) Duration (Minutes) 6 Resistance 2 Seat Position 11 Other cues for neutral LE alignment, LE's only second 3 min Therapeutic Exercises Supine Exercises quad set Reps/Minutes 10x5 Modified Peña stretch Side bilateral Reps/Minutes 60 sec X 1 each LE Comments with AROM knee flexion X 10 piriformis/figure 4 Supine Exercise Name seated instead today bridge Reps/Minutes 10x Comments Verbal cues to push into heels , avoid holding breath and minimal lift Sidelying Exercises clamshell Comments next session Standing Exercises sit to stand Standing Exercise Name sit to stand Side bilateral Resistance level 3 paimiut green band- provided for home Equipment Used no use BUEs, 19 table height Reps/Minutes 2 X 10 Comments cues for neutral LE alignment, mirror for visual feedback, vc hip abd Comments held due to c/o pain hamstring curl Standing Exercise Name HEP Manual Therapy Treatment Soft Tissue Mobilization glute/piriformis Body Location bilateral Mobilization Type Cross-Friction,Rolling Intensity/Depth Moderate Body Position B Sidelying Comments monitored for pain and pressure tolerance right IT band Mobilization Type Instrument Assisted Intensity/Depth Moderate Comments rolling pin, reviewed for home use Joint Mobilizations B hip Comments MWM hip IR/ ER /c strap- improved LTR performance, increase range and lessened hip muscular tension Self-Care/Home Management Treatment Education Patient Education Home Exercise Program,Joint Protection,Pain Management, Posture Other Education review use of rolling pin for self massage PT-OP-R Modalities Start: 05/06/24 15:49 Freq: Status: Active Protocol: Document 05/27/24 10:29 [facility] (Rec: 05/27/24 11:19 [facility] [id number]) Hot Pack/Cold Pack Treatment right hip Location MH, gluts, ITB Patient Position Sidelying Patient Tolerance Good Comments 2 pillows between knees PT-OP-T Assessment and Plan Start: 05/06/24 15:49 Freq: Status: Active Protocol: Document 05/27/24 10:29 [facility] (Rec: 05/27/24 11:18 [facility] [id number]) Physical Therapy Assessment Goals Three Impairment impairments in right hip flexibility and strength and core strength Short Term Goal (STG) Patient to be instructed in individualized, progressive HEP focused on hip and core flexibility and strengthening 05/25/24: added piriformis and fig 4 stretch to HEP /c HO, increased TB #3 at thighs to STS, hip hinge no UEs. STG Duration 06/07/24 progressing 05/25/24 Eight Arm Operator Goal (LTG) Patient to be independent and compliant with HEP and demonstrate improvements in ROM to WNL and strength to at least 4+/5 all muscle groups LTG Duration 07/07/24 Two Impairment Lower extremity functional scale 70% Short Term Goal (STG) Improve LEFS score to at least 80% as measure of improved activity tolerance and function STG Duration 06/07/24 Residential Goal (LTG) Improve LEFS score to at least 90% as measure of improved activity tolerance and function LTG Duration 07/07/24 One Impairment unable to lay on right hip to sleep due to pain Short Term Goal (STG) Patient will be able to lay on her right side for at least 1 hour without an increase in pain 05/25/24: R hip hurts after 10 min laying on that side before needs to turn over on L where mainly sleeps at night, better than when started PT. STG Duration 06/07/24 progressing 05/25/24 Eight Arm Operator Goal (LTG) Patient will be able to return to normal sleep pattern of sleeping on right side about 50% of the night consistently LTG Duration 07/07/24 Assessment Summary Assessment Patient reporting some improvement with PT, improved LE alignment with sit to stand after use of mirror and extensive verbal and tactile cues. Patient hasn't been doing self massage with roling pin; reviewd today with patient demnstrating good understanding. Cont cues for core activation with all activities. Physical Therapy Plan Frequency and Duration Frequency of Treatment 2x/Week Duration of treatment (weeks) 8 Plan of Care Start Date 05/07/24 Plan of Care End Date 07/07/24 Therapeutic Interventions Therapeutic Interventions Home Exercise Program,Manual Therapy,Patient/Caregiver Education,Self-Care/Home Management,Soft Tissue Mobilization,Taping, Therapeutic Activities, Therapeutic Exercises Modalities Cold Pack/Ice Massage,Electric Stimulation,Hot Packs, Infrared Therapy,Iontophoresis ,Ultrasound Next Visit Focus/Plan Next Note Type Treatment Note Next Visit Plan add sidelying clam, supine march, bent knee leg lowering, marching for core stab.
--- NOTE | 2024-06-03 16:42 | PT.OTN ---
Current Diagnoses Pain in unspecified hip (06/03/24) Low back pain, unspecified (06/03/24) Age-related osteoporosis without current pathological fracture (06/03/24) Weakness (06/03/24) Physical Therapy Treatment Note PT-OP-A Visit Information Start: 05/06/24 15:49 Freq: Status: Active Protocol: Document 06/03/24 10:27 SAK (Rec: 06/03/24 11:16 SAK [id number]) Out-Patient Physical Therapy Visit Information Visit Information Visit Type Treatment Note Visit Start Time 10:30 Visit Stop Time 11:15 Visit Number 7 Evaluation Information Evaluation Date 05/07/24 Precautions Precautions history spinal compression fracture, blind right eye, cardiac and dizziness history. PT-OP-B Current Condition Start: 05/06/24 15:49 Freq: Status: Active Protocol: Document 06/03/24 10:27 SAK (Rec: 06/03/24 11:16 SAK [id number]) Current Condition History of Current Condition Onset Date 2 months ago Current Complaints right lateral hip pain History of Current Condition Decided to try exercise she read about to decrease her blood pressure: wall squats. States the pain started when she started to do the wall squats and has now stopped. Pain persists. Now can't sleep on her right side. Tries to walk 1/2mile per day, limited by pain as well as dizziness, recently started using a cane, mostly due to dizziness. Uses it on her right side. Steps in and out of her car instead of sitting and swiveling. Lives alone. 14 stairs inside, 16 stairs outside. Has raised toilet seat, walk in shower, no grab bars. States has to hold onto furniture to steady herself. Also reports bowel resection 3 years ago, hasn't been able to get abdominals in shape since then. HIstory left DE, history right foot fracture. History of compression fracture L3 8 years ago, , HTN , pacemaker, dizziness, bowel resection, RC tear, left DE . x 8 years. Prior Treatments and Tests x-rays: moderate arthritis right hip, cement L3 Future Testing and Treatments Planned seeing Dr. Davis next month, PT-OP-C Subjective Start: 05/06/24 15:49 Freq: Status: Active Protocol: Document 06/03/24 10:27 SAK (Rec: 06/03/24 11:16 SAK [id number]) OP-PT Subjective Patient Comments Patient Comments Now can lay on right side for 15 min. Doing HEP as much as she can depending on how she has been feeling; intestinal issues past week. States she has increased her walking up to 1/2 mile. PT-OP-D Balance Start: 05/06/24 15:49 Freq: Status: Active Protocol: Document 05/07/24 15:19 [facility] (Rec: 05/07/24 17:05 [facility] [id number]) OP-PT Balance Assessment Sitting Balance Static Sitting Balance Ability Good Dynamic Sitting Balance Ability Good Standing Balance Static Standing Balance Ability Fair Dynamic Standing Balance Ability Poor Simmons Fall Scale Copyright Permission PT-OP-G Mobility & Gait Start: 05/06/24 15:49 Freq: Status: Active Protocol: Document 05/07/24 15:19 [facility] (Rec: 05/07/24 17:05 [facility] [id number]) OP Gait Assessment Gait Gait Assistance Required: Independent Assistive Devices Assistive Device None Gait Deviations General Gait Pattern Antalgic,Decreased Stride Length,Decreased Feet Clearance,Flexed Trunk,Narrow Based Gait Comments Gait Comments Reports she uses a cane at times on the right side but didn't bring to PT Stair Climbing Evaluation Evaluation Level of Assist On Stairs Independent Devices Stair Climbing Assistive Devices Left Railing,Right Railing Technique/Endurance Stair Climbing Direction Ascend and Descend Stair Climbing Technique Step Over Step PT-OP-H Neuro Start: 05/06/24 15:49 Freq: Status: Active Protocol: Document 05/07/24 15:19 [facility] (Rec: 05/07/24 17:05 [facility] [id number]) Sensation Evaluation Gross Sensation Gross Sensation WNL PT-OP-J Posture/Palpation/Skin Start: 05/06/24 15:49 Freq: Status: Active Protocol: Document 05/07/24 15:19 [facility] (Rec: 05/07/24 16:02 [facility] [id number]) Posture Evaluation Position Standing Head/C-Spine Posture Forward Head T-Spine Posture Increased Kyphosis L-Spine Posture Increased Lordosis Weight Distribution Weight Shifted Left Hip Posture (L) Externally Rotated,(R) Externally Rotated Knee Posture (L) Genu Valgus,(R) Genu Valgus Ankle/Foot Posture (L) Pronated,(R) Pronated Palpation Assessment Location right hip Palpation Location gr Trochanter Palpation Findings Tenderness Skin Assessment Other Assessments Skin Assessment Comments skin intact, no signs or symptoms of infection PT-OP-K Range of Motion Start: 05/06/24 15:49 Freq: Status: Active Protocol: Document 05/07/24 15:19 [facility] (Rec: 05/07/24 17:05 [facility] [id number]) Lumbar Spine Range of Motion Lumbar Spine Active ROM Limitations Soft Tissue Tightness,Bony Restriction Comments mod decrease all motions, denied pain Hip Goniometric Range of Motion Hip Right Flexion w/Knee Flexed 100 Straight Leg Raise 60 Extension 0 Abduction 30 Internal Rotation 20 External Rotation 65 Left Flexion w/Knee Flexed 105 Straight Leg Raise 65 Extension 0 Abduction 30 Internal Rotation 20 External Rotation 60 Hip ROM Limitations Hip ROM Limitations Soft Tissue Tightness Knee Goniometric Range of Motion Knee libby Knee ROM WFL Yes Ankle and Foot Goniometric Range of Motion Ankle and Foot libby Ankle/Foot ROM WFL Yes PT-OP-M Strength Start: 05/06/24 15:49 Freq: Status: Active Protocol: Document 05/07/24 15:19 [facility] (Rec: 05/07/24 17:05 [facility] [id number]) Trunk Strength Trunk Manual Muscle Testing Testing Position Supine Core Stabilization poor, extensive abdominal scar vertical central from bowel resection and hysterectomy, 1 finger diastasis recti Hip Strength Hip Manual Muscle Testing Right Flexion (L2) 4- Good- Extension (S1) 3 Fair Abduction 3+ Fair+ Adduction 3 Fair External Rotation 3+ Fair+ Left Flexion (L2) 4 Good Extension (S1) 3 Fair Abduction 3+ Fair+ Adduction 3+ Fair+ External Rotation 4- Good- Knee Strength Knee Manual Muscle Testing Right Flexion (S2) 4 Good Extension (L3) 4 Good Left Flexion (S2) 5 Normal Extension (L3) 5 Normal Ankle/Foot Strength Ankle and Foot Manual Muscle Testing libby Dorsiflexion (L4) 4+ Good+ Plantarflexion (S1) 4+ Good+ PT-OP-Q Treatments Start: 05/06/24 15:49 Freq: Status: Active Protocol: Document 06/03/24 10:27 [facility] (Rec: 06/03/24 11:16 [facility] [id number]) Cardio Equipment Recumbent Stepper (Sci-Fit) Duration (Minutes) 8 Resistance 2 Seat Position 11 Other cues for neutral LE alignment, LE's only second 3 min Therapeutic Exercises Supine Exercises quad set Reps/Minutes 10x5 piriformis/figure 4 Supine Exercise Name seated instead today SLR Reps/Minutes 5x bridge Reps/Minutes 10x Comments Verbal cues to push into heels , avoid holding breath and minimal lift Sidelying Exercises clamshell Reps/Minutes 10x Standing Exercises sit to stand Standing Exercise Name sit to stand Side bilateral Resistance level 3 [place] green band- provided for home Equipment Used no use BUEs, 19 table height Reps/Minutes 2 X 10 Comments cues for neutral LE alignment, mirror for visual feedback, vc shallow squat Reps/Minutes 10x Comments cues for hip hinge and gluteal activation on return to stand Manual Therapy Treatment Soft Tissue Mobilization glute/piriformis Body Location bilateral Mobilization Type Cross-Friction,Rolling Intensity/Depth Moderate Body Position B Sidelying Comments monitored for pain and pressure tolerance right IT band Mobilization Type Instrument Assisted Intensity/Depth Moderate Comments rolling pin, reviewed for home use Joint Mobilizations B hip Comments MWM hip IR/ ER /c strap- improved LTR performance, increase range and lessened hip muscular tension Self-Care/Home Management Treatment Education Other Education self massage with tennis ball PT-OP-R Modalities Start: 05/06/24 15:49 Freq: Status: Active Protocol: Document 05/27/24 10:29 [facility] (Rec: 05/27/24 11:19 [facility] [id number]) Hot Pack/Cold Pack Treatment right hip Location MH, gluts, ITB Patient Position Sidelying Patient Tolerance Good Comments 2 pillows between knees PT-OP-T Assessment and Plan Start: 05/06/24 15:49 Freq: Status: Active Protocol: Document 06/03/24 10:27 [facility] (Rec: 06/03/24 11:16 [facility] [id number]) Physical Therapy Assessment Goals Three Impairment impairments in right hip flexibility and strength and core strength Short Term Goal (STG) Patient to be instructed in individualized, progressive HEP focused on hip and core flexibility and strengthening 05/25/24: added piriformis and fig 4 stretch to HEP /c HO, increased TB #3 at thighs to STS, hip hinge no UEs. STG Duration 06/07/24 progressing 05/25/24 Scuba Instructor Goal (LTG) Patient to be independent and compliant with HEP and demonstrate improvements in ROM to WNL and strength to at least 4+/5 all muscle groups LTG Duration 07/07/24 Two Impairment Lower extremity functional scale 70% Short Term Goal (STG) Improve LEFS score to at least 80% as measure of improved activity tolerance and function STG Duration 06/07/24 Scuba Instructor Goal (LTG) Improve LEFS score to at least 90% as measure of improved activity tolerance and function LTG Duration 07/07/24 One Impairment unable to lay on right hip to sleep due to pain Short Term Goal (STG) Patient will be able to lay on her right side for at least 1 hour without an increase in pain 05/25/24: R hip hurts after 10 min laying on that side before needs to turn over on L where mainly sleeps at night, better than when started PT. STG Duration 06/07/24 progressing 05/25/24 Scuba Instructor Goal (LTG) Patient will be able to return to normal sleep pattern of sleeping on right side about 50% of the night consistently LTG Duration 07/07/24 Progress Towards Goals Progress Towards Goals Progressing Toward Goals Assessment Summary Assessment Patient reporting further improvement in tolerance for sidelying right side. Demonstrated good understanding of self massage with tennis ball and was issued sritten instructions as well as updated written HO. At this time she reports she would like to be discharged so she can continue with her HEP and self massage and deal with other medical issues including her intestinal issues. Physical Therapy Plan Frequency and Duration Frequency of Treatment 2x/Week Duration of treatment (weeks) 8 Plan of Care Start Date 05/07/24 Plan of Care End Date 07/07/24 Discharge Physical Therapy Discharge Reasons Patient Request
== END 2024-06-09 13:51 | disposition home or self-care (01) ==
LOC: PHYS 10:30
PROVIDERS: Family Provider Family Medicine; PCP Family Medicine; Referring Provider Physician Assistant; Visit Provider Physician Assistant
DX: M54.50 Low back pain, unspecified (principal); M25.559 Pain in unspecified hip; M81.0 Age-related osteoporosis without current pathological fracture; R53.1 Weakness
CPT/HCPCS: 97110; 97140; 97162; 97535

== ENCOUNTER → 2024-07-07 08:50 | Outpatient (CLI) | payer MEDICARE, BC, SELFPAY ==
[2024-03-27 15:44] VITALS: BMI 22.6
== END ==
PROVIDERS: Family Provider Family Medicine; PCP Family Medicine; Visit Provider Family Medicine
DX: R35.0 Frequency of micturition (principal)
CPT/HCPCS: 87086

== ENCOUNTER → 2024-11-05 10:18 | Outpatient (CLI) | payer MEDICARE, BC, SELFPAY ==
[2024-07-14 10:30] VITALS: BMI 22.6
[2024-11-05 11:04] LABS: Add Manual Diff / Slide Review NO; Basophils Absolute Auto 0 /uL (0-100); Basophils Percent Auto 0.9 % (0-2); Eosinophils Absolute Auto 100 /uL (0-450); Hematocrit 40.2 % (36-46); Lymphocytes Absolute Auto 1000 /uL (1100-4500); Lymphocytes Percent Auto 20.3 % (25-40); Mean Corpuscular HGB Conc 32.5 % (30-36); Mean Corpuscular Hemoglobin 29.2 PG (26-34); Monocytes Absolute Auto 400 /uL (0-900); Monocytes Percent Auto 8.7 % (3-14); Neutrophils Absolute Auto 3200 /uL (1500-7000); Neutrophils Percent Auto 67.1 % (50-75); Platelet Count 235 X10^3/uL (150-400); Red Blood Cell Count 4.46 X10^6/uL (4.0-5.2); Red Cell Distribution Width 14.1 % (11.6-14.8); White Blood Cell Count 4.8 X10^3/uL (4.5-11.0)
[2024-11-05 11:20] LABS: Alanine Aminotransferase 21 IU/L (<35); Albumin 4.4 g/dL (3.5-5.0); Albumin Globulin Ratio 1.8 (1.0-2.8); Alkaline Phosphatase 71 U/L (38-126); Aspartate Aminotransferase 31 IU/L (14-36); BUN Creatinine Ratio 20.2 (6-22); Blood Urea Nitrogen 17 mg/dL (7-17); Calcium 9.4 mg/dL (8.4-10.2); Carbon Dioxide 32 mmol/L (22-32); Chloride 101 mmol/L (98-107); Estimated Glomerular Filt Rate > 60 mL/min (>60); Globulin 2.5 g/dL (1.7-4.1); Glucose 81 mg/dL (80-110); HEMOLYSIS < 15 (0-50); Magnesium 2.1 mg/dL (1.6-2.3); Potassium 4.6 mmol/L (3.4-5.1); Sodium 138 mmol/L (137-145); Total Protein 6.9 g/dL (6.3-8.2)
[2024-11-05 11:27] LABS: NT-proBNP (BNP-Adult 18+) 1800 pg/mL (<450)
== END ==
PROVIDERS: Family Provider Family Medicine; PCP Family Medicine; Referring Provider Family Medicine; Visit Provider Family Medicine
DX: R06.09 Other forms of dyspnea (principal); I48.19 Other persistent atrial fibrillation; I27.20 Pulmonary hypertension, unspecified
CPT/HCPCS: 36415; 80053; 83735; 83880; 85025

== ENCOUNTER 2024-11-05 13:22 | Emergency (ER) | payer MEDICARE, BC, SELFPAY ==
[2024-07-14 10:30] VITALS: BMI 22.6
[2024-11-05 13:28] VITALS: BP 176/92; PULSE 71; RESP 12; TEMP 35.9; O2SAT 93; BMI 23.3
--- NOTE | 2024-11-05 14:20 | PC.NURSE ---
patient had eye dilated at eye doctors. vision is blurry but no vision loss
--- NOTE | 2024-11-05 14:37 | ED_ITS ---
HPI - Eye Problem General Chief complaint: Eye Problems Stated complaint: sent by r/o stroke Time Seen by Provider: 11/05/24 14:34 Source: patient Mode of arrival: Ambulatory History of Present Illness HPI Narrative: Patient is a 83-year-old female history of hypertension atrial fibrillation pacemaker on warfarin presenting today request of Ophthalmology for rule out stroke. Patient reports that yesterday over her left eye she felt like there was here in front of her eye. She went kept going to wipe it away but it there was never any hair there. She maybe had a little bit of blurry vision it came and went throughout half the day but has absolutely no symptoms today. She at no time had any headache nausea vomiting numbness tingling weakness speech difficulty facial droop or any other focal deficits. She actually saw her [facility] care provider today who sent her to Ophthalmology. She had a full evaluation of Ophthalmology who then sent her to the ED for stroke rule out. 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 Related Data Home Medications Medication Instructions Recorded Confirmed cholecalciferol (vitamin D3) 25 1,000 unit PO DAILY 07/10/19 11/05/24 mcg (1,000 unit) capsule (Vitamin D3) bumetanide 0.5 mg tablet 0.25 mg PO DAILY 09/03/23 11/05/24 carvedilol 12.5 mg tablet 12.5 mg PO BID 09/03/23 11/05/24 losartan 25 mg tablet 50 mg PO BID 10/18/23 11/05/24 clindamycin HCl 300 mg capsule mg PO 03/31/24 11/05/24 isosorbide mononitrate 30 mg 15 mg PO DAILY 03/31/24 11/05/24 tablet,extended release 24 hr Previous Rx's Medication Instructions Recorded acetaminophen 325 mg capsule 650 mg (2 x 325 mg) PO QID PRN 04/11/20 (Tylenol) pain #60 caps fluticasone propionate 50 2 spray intranasal DAILY PRN nasal 07/23/23 mcg/actuation nasal congestion #16 grams spray,suspension (Flonase Allergy Relief) Parking Permit... #1 ea 06/26/24 oxybutynin chloride 5 mg tablet 5 mg PO DAILY #90 tabs 09/24/24 warfarin 5 mg tablet 5 mg PO DAILY #90 tabs 10/08/24 Allergies Allergy/AdvReac Type Severity Reaction Status Date / Time erythromycin base Allergy Severe SWELLING Verified 11/05/24 13:30 [ERYTHROMYCIN BASE] Penicillins [PENICILLINS] Allergy Severe SWELLING Verified 11/05/24 13:30 Sulfa (Sulfonamide Allergy Severe SWELLING Verified 11/05/24 13:30 Antibiotics) [SULFA (SULFONAMIDE ANTIBIOTICS)] tetracycline [TETRACYCLINE] Allergy Severe SWELLING Verified 11/05/24 13:30 Tetanus Vaccines and Toxoid Allergy Unknown SWELLING Verified 11/05/24 13:30 [TETANUS VACCINES & TOXOID] zoledronic acid Allergy Unknown Verified 11/05/24 13:30 tadalafil AdvReac Severe extreme Verified 11/05/24 13:30 pain, stomach problems Patient History Medical History Blurry vision, left eye Urinary urgency Abdominal bloating Cranial somatic dysfunction Orthostatic lightheadedness Complete small bowel obstruction Dry eyes Viral URI with cough Insomnia disorder with non-sleep disorder mental comorbidity Constipation Abdominal pain in female Anxiety about health Urinary tract infection Atypical mole of neck Post-traumatic headache, not intractable Intermittent lightheadedness Scalp pruritus Intermittent diarrhea Presence of artificial right eye Right sided facial pain Swelling of knee joint, left Toe pain, left Change in stool Left temporomandibular joint disorder, unspecified Screening for malignant neoplasm of colon Abdominal pain Chronic generalized abdominal pain Varicose 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 Vision disorder Osteoporosis (~2004) Rheumatic fever (~194) Chicken pox (~194) Hearing loss Partial blindness (~1982) Diverticular disease (~2007) Atrial fibrillation (~2005) Pacemaker (~2005) Hypertension (~2004) Surgical History Status post small bowel resection S/P small bowel resection Anesthesia History of back surgery (~2015) History of pacemaker History of eye surgery (~1982) H/O: hysterectomy (~1997) History of appendectomy (~1949) Family History Father Hypertension Stroke Mother History of heart disease Grandmother Stroke Social History household members: none and other Smoking Status: Former smoker Smoking Status: Former smoker alcohol intake frequency: 0-2 drinks per day Alcohol type: wine Exam Initial Vital Signs Initial Vital Signs: Vital Signs Temperature 96.7 F L 11/05/24 13:28 Pulse Rate 71 11/05/24 13:28 Respiratory Rate 12 11/05/24 13:28 Blood Pressure 176/92 H 11/05/24 13:28 Pulse Oximetry 93 11/05/24 13:28 Oxygen Delivery Method Room Air 11/05/24 13:28 GENERAL: Alert very pleasant 84-year-old female HEENT: Head atraumatic,EOMI, pupils reactive right eye is prosthetic left eye pupil dilated, face symmetric, moist mucous membranes CARDIOVASCULAR: Regular rate and rhythm without murmurs, rubs or gallops. RESPIRATORY: Breath sounds equal bilaterally, no wheezes rales or rhonchi. ABDOMEN: Soft, nontender. Normoactive bowel sounds all 4 quadrants. No guarding or rebound. EXTREMITIES: Normal range of motion, no clubbing or edema. Neurovascularly intact NEUROLOGICAL: Alert and oriented x4.Normal gait and speech. Cranial nerves II through XII grossly intact. Good glntxy-dn-teya, good vlbm-eu-mpub, strength equal bilaterally, no dysarthria or aphasia, sensation in tact to soft touch bilaterally, no visual changes, no facial droop SKIN: Warm, dry, no laceration, no petechiae, no rashes or lesions. Scores NIH Stroke Scale Level of Conciousness: Alert, keenly responsive Ask month/age: Answers both questions correctly. Open/close eyes, close hand: Performs both tasks correctly Best gaze horizontal: Normal Visual wynne: No visual loss Facial palsy: Normal symetrical movement Left arm drift: No drift for full 10 sec Right arm drift: No drift for full 10 sec Left leg drift: No drift for full 5 sec Right leg drift: No drift for full 5 sec Limb ataxia: Absent Sensory on face/arms/legs: Normal, no sensory loss Best language: No aphasia, normal Dysarthria: Normal Extinction or inattention: No abnormality Total NIH Stroke scale score: 0 Course Vital Signs Vital signs: Vital Signs - 8 hr 11/05/24 13:28 11/05/24 15:09 Temperature 96.7 F L Pulse Rate 71 70 Respiratory Rate 12 18 Blood Pressure 176/92 H 174/77 H Pulse Oximetry 93 95 Oxygen Delivery Method Room Air Room Air MDM - Eye Problem MDM Narrative Medical decision making narrative: Patient 84-year-old female presenting to day with left eye blurry vision that lasted yesterday off and on but completely resolved today. And it really sounds like she felt like there was hair in front of her face. Really consistent with CVA. She had no other focal deficits. She has no headache nausea or vomiting. She was on warfarin she reports her INR is 2.7 she was very good about checking it at home. She has not having any sort of headache she was mild elevation of blood pressure now in the ED but says that her blood pressure was 122/68 this morning at her PCP office. At this time I have very low suspicion for CVA or intracranial hemorrhage. She does not have any other symptoms symptoms also completely resolved. We talked with patient and her son about workup but both feel comfortable going home and I feel like this is appropriate. NIH of 0 Discharge Plan Departure Patient Disposition: Home Clinical Impression: Blurred vision, left eye Activity Restrictions/Additional Instructions: *You have been diagnosed with blurry vision *What to do: At this time you do not having other sign or symptom of stroke. Please continue to monitor for headache nausea vomiting weakness facial droop difficulty speaking or other symptoms *Continue to take medications as directed *Follow up with your primary care provider in 2-3 days or call [phone] *Return to ER if you should have above symptoms or any new, worsening or concerning symptoms Prescriptions: No Action warfarin 5 mg tablet 5 mg PO DAILY Qty: 90 3RF Protocol: Dose Management Condition: Saturday Dose/Route: 5 mg Instruction: 1 x 5 mg tablet Condition: Saturday Dose/Route: 5 mg Instruction: 1 x 5 mg tablet Condition: Saturday Dose/Route: 5 mg Instruction: 1 x 5 mg tablet Condition: Saturday Dose/Route: 5 mg Instruction: 1 x 5 mg tablet Condition: Dose/Route: 5 mg Instruction: 1 x 5 mg tablet Condition: Saturday Dose/Route: 5 mg Instruction: 1 x 5 mg tablet Condition: Saturday Dose/Route: 5 mg Instruction: 1 x 5 mg tablet Protocol Text: Adjustment Start Date: Saturday10/19/24 INR Value: 3.0 INR Date: 10/19/24 Recheck Date: 11/02/24 bumetanide 0.5 mg tablet 0.25 mg PO DAILY (DME) Parking Permit... See Rx Instructions .Route .MEDSUPPLY Qty: 1 0RF Rx Instructions: I find this patient to medically qualify for handicap placard. Valid for 5 years. oxybutynin chloride 5 mg tablet 5 mg PO DAILY Qty: 90 1RF Rx Instructions: add another 5mg daily every week up to max of 30mg daily as tolerated. fluticasone propionate [Flonase Allergy Relief] 50 mcg/actuation spray,suspension 2 spray intranasal DAILY PRN (Reason: nasal congestion) Qty: 16 11RF Rx Instructions: administer into each nostril clindamycin HCl 300 mg capsule PO isosorbide mononitrate 30 mg tablet extended release 24 hr 15 mg PO DAILY acetaminophen [Tylenol] 325 mg capsule 650 mg PO QID PRN (Reason: pain) Qty: 60 0RF cholecalciferol (vitamin D3) [Vitamin D3] 1,000 unit Capsule 1,000 unit PO DAILY carvedilol 12.5 mg tablet 12.5 mg PO BID losartan 25 mg tablet 50 mg PO BID Referrals: Aguilar Story DO [Primary Care Provider] - Stand Alone Forms: Patient Portal/API/Survey
[2024-11-05 15:09] VITALS: BP 174/77; PULSE 70; RESP 18; O2SAT 95
== END 2024-11-05 15:10 | disposition home or self-care (01) ==
PROVIDERS: Emergency Provider Emergency Medicine; Family Provider Family Medicine; PCP Family Medicine
DX: H53.8 Other visual disturbances (principal); I10 Essential (primary) hypertension; Z79.01 Long term (current) use of anticoagulants; I27.20 Pulmonary hypertension, unspecified; R06.09 Other forms of dyspnea; I48.19 Other persistent atrial fibrillation; Z87.891 Personal history of nicotine dependence
CPT/HCPCS: 36415; 80053; 83735; 83880; 85025; 99282; 99283

== ENCOUNTER 2024-12-27 12:21 | Emergency (ER) | payer MEDICARE, BC, SELFPAY ==
[2024-07-14 10:30] VITALS: BMI 22.6
[2024-12-27] VITALS (20 sets, daily range): BP systolic 146–201; BP diastolic 75–134; PULSE 69–72; RESP 16–56; TEMP 36.1; O2SAT 94–97; BMI 24.3
--- NOTE | 2024-12-27 12:29 | DI.RAD.S_ITS ---
PROCEDURE: XR CHEST 1V INDICATIONS: chest pain TECHNIQUE: One view of the chest was acquired. COMPARISON: [facility], CR, XR CHEST 2V, 03/31/2024, 14:08. [facility], CR, XR CHEST 1V, 05/03/2022, 13:17. FINDINGS: Surgical changes and devices: Left pacemaker with the leads terminating in the projection of the right ventricle and coronary sinus Lungs and pleura: Lungs are clear. No pleural effusions or pneumothorax. Mediastinum: Mediastinal contours appear normal. Cardiomegaly with splaying of the jessica, suggestive of left atrial enlargement. Bones and chest wall: No suspicious bony lesions. Status post right distal clavicular resection. Overlying soft tissues appear unremarkable. IMPRESSION: Cardiomegaly with left atrial enlargement. Dictated by: Mike Mendez M.D. on 12/27/2024 at 12:35 Approved by: Mike Mendez M.D. on 12/27/2024 at 12:36
[2024-12-27] MEDS: ONDANSETRON 4 MG/2 ML INJ IV (12:36)
--- NOTE | 2024-12-27 12:40 | EKG_ITS ---
[facility] [address] [place] [address] Test Date: 2024-12-27 Pat Name: Silvano Merrill Department: [facility] Room: Gender: Female Care Process Manager: MELBA : 1940 Requested By: Order Number: [id number] Reading MD: Primitivo Kumar MD Measurements Intervals Star Rate: 70 P: OR: QRS: -47 QRSD: 172 T: 114 QT: 482 QTc: 520 Interpretive Statements Ventricular-paced rhythm Biventricular pacemaker detected Electronically Signed On 12-27-2024 15:04:36 PDT by Primitivo Kumar MD
[2024-12-27 12:42] LABS: Add Manual Diff / Slide Review NO; Basophils Absolute Auto 100 /uL (0-100); Eosinophils Absolute Auto 100 /uL (0-450); Eosinophils Percent Auto 1.8 % (2-4); Hematocrit 39.2 % (36-46); Hemoglobin 12.9 g/dL (12.0-16.0); Lymphocytes Absolute Auto 1100 /uL (1100-4500); Mean Corpuscular HGB Conc 32.8 % (30-36); Mean Corpuscular Hemoglobin 29.3 PG (26-34); Mean Corpuscular Volume 89.3 fL (80-100); Monocytes Absolute Auto 600 /uL (0-900); Monocytes Percent Auto 8.2 % (3-14); Neutrophils Absolute Auto 5600 /uL (1500-7000); Platelet Count 221 X10^3/uL (150-400); Red Blood Cell Count 4.39 X10^6/uL (4.0-5.2); Red Cell Distribution Width 13.9 % (11.6-14.8); White Blood Cell Count 7.6 X10^3/uL (4.5-11.0)
[2024-12-27 12:43] LABS: INR 2.1 (0.9-1.3); Prothrombin Time 23.9 SECONDS (9.4-12.5)
[2024-12-27 12:46] LABS: PTT Partial Thromboplastin Tim 42 SECONDS (25.1-36.5)
[2024-12-27 12:51] LABS: Alanine Aminotransferase 22 IU/L (<35); Albumin 4.4 g/dL (3.5-5.0); Albumin Globulin Ratio 1.7 (1.0-2.8); Alkaline Phosphatase 83 U/L (38-126); Aspartate Aminotransferase 33 IU/L (14-36); BUN Creatinine Ratio 25.3 (6-22); Bilirubin Total 1.9 mg/dL (0.2-1.3); Blood Urea Nitrogen 21 mg/dL (7-17); Calcium 9.2 mg/dL (8.4-10.2); Carbon Dioxide 30 mmol/L (22-32); Chloride 101 mmol/L (98-107); Creatine Kinase 48 U/L (30-135); Estimated Glomerular Filt Rate > 60 mL/min (>60); Globulin 2.6 g/dL (1.7-4.1); Glucose 105 mg/dL (80-110); HEMOLYSIS < 15 (0-50); Lipase 107 U/L (23-300); Magnesium 2.1 mg/dL (1.6-2.3); Potassium 4.7 mmol/L (3.4-5.1); Sodium 138 mmol/L (137-145)
[2024-12-27 13:03] LABS: NT-proBNP (BNP-Adult 18+) 2610 pg/mL (<450); Troponin I < 0.012 ng/mL (0.01-0.034)
[2024-12-27 16:27] LABS: Troponin I < 0.012 ng/mL (0.01-0.034)
--- NOTE | 2024-12-27 16:37 | ED_ITS ---
HPI - General Adult General Chief complaint: Syncope Stated complaint: orthostatic BP Time Seen by Provider: 12/27/24 12:30 History of Present Illness HPI narrative: 84-year-old female with history of atrial fibrillation, chronic warfarin anticoagulation, was sitting at [facility] earlier today, then felt she had left upper chest shoulder area discomfort, felt like she was too weak and was not able to get up. No seizure or shaking activity. No palpitation symptoms. No diaphoresis. No nausea or vomiting. No focal weakness to face arm or leg. No focal numbness to face arm or leg. Related Data Home Medications Medication Instructions Recorded Confirmed cholecalciferol (vitamin D3) 25 1,000 unit PO DAILY 07/10/19 11/05/24 mcg (1,000 unit) capsule (Vitamin D3) bumetanide 0.5 mg tablet 0.25 mg PO DAILY 09/03/23 11/05/24 carvedilol 12.5 mg tablet 12.5 mg PO BID 09/03/23 11/05/24 losartan 25 mg tablet 50 mg PO BID 10/18/23 11/05/24 clindamycin HCl 300 mg capsule mg PO 03/31/24 11/05/24 isosorbide mononitrate 30 mg 15 mg PO DAILY 03/31/24 11/05/24 tablet,extended release 24 hr Previous Rx's Medication Instructions Recorded acetaminophen 325 mg capsule 650 mg (2 x 325 mg) PO QID PRN 04/11/20 (Tylenol) pain #60 caps fluticasone propionate 50 2 spray intranasal DAILY PRN nasal 07/23/23 mcg/actuation nasal congestion #16 grams spray,suspension (Flonase Allergy Relief) Parking Permit... #1 ea 06/26/24 oxybutynin chloride 5 mg tablet 5 mg PO DAILY #90 tabs 09/24/24 warfarin 5 mg tablet 5 mg PO DAILY #90 tabs 10/08/24 Allergies Allergy/AdvReac Type Severity Reaction Status Date / Time erythromycin base Allergy Severe SWELLING Verified 12/27/24 12:42 [ERYTHROMYCIN BASE] Penicillins [PENICILLINS] Allergy Severe SWELLING Verified 12/27/24 12:42 Sulfa (Sulfonamide Allergy Severe SWELLING Verified 12/27/24 12:42 Antibiotics) [SULFA (SULFONAMIDE ANTIBIOTICS)] tetracycline [TETRACYCLINE] Allergy Severe SWELLING Verified 12/27/24 12:42 Tetanus Vaccines and Toxoid Allergy Unknown SWELLING Verified 12/27/24 12:42 [TETANUS VACCINES & TOXOID] zoledronic acid Allergy Unknown Verified 12/27/24 12:42 tadalafil AdvReac Severe extreme Verified 12/27/24 12:42 pain, stomach problems Patient History Medical History Blurry vision, left eye Urinary urgency Abdominal bloating Cranial somatic dysfunction Orthostatic lightheadedness Complete small bowel obstruction Dry eyes Viral URI with cough Insomnia disorder with non-sleep disorder mental comorbidity Constipation Abdominal pain in female Anxiety about health Urinary tract infection Atypical mole of neck Post-traumatic headache, not intractable Intermittent lightheadedness Scalp pruritus Intermittent diarrhea Presence of artificial right eye Right sided facial pain Swelling of knee joint, left Toe pain, left Change in stool Left temporomandibular joint disorder, unspecified Screening for malignant neoplasm of colon Abdominal pain Chronic generalized abdominal pain Varicose 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 Vision disorder Osteoporosis (~2004) Rheumatic fever (~1939) Chicken pox (~1944) Hearing loss Partial blindness (~1982) Diverticular disease (~2007) Atrial fibrillation (~2005) Pacemaker (~2005) Hypertension (~2003) Surgical History Status post small bowel resection S/P small bowel resection Anesthesia History of back surgery (~2015) History of pacemaker History of eye surgery (~1982) H/O: hysterectomy (~1997) History of appendectomy (~1950) Family History Father Hypertension Stroke Mother History of heart disease Grandmother Stroke Social History household members: none and other Smoking Status: Former smoker Smoking Status: Former smoker alcohol intake frequency: 0-2 drinks per day Alcohol type: wine Exam Narrative Exam Narrative: GENERAL: Well-developed patient, in mild distress. HEAD: Atraumatic. Normocephalic. EYES: Pupils equal round and reactive. Extraocular motions intact. No scleral icterus. No injection or drainage. ENT: Nose without bleeding, purulent drainage. Throat without erythema, tonsillar hypertrophy or exudate. Airway patent. NECK: Trachea midline. Non tender CARDIOVASCULAR: Regular rate and rhythm without murmurs, gallops, or rubs. RESPIRATORY: Clear to auscultation. Breath sounds equal bilaterally. No wheezes, rales, or rhonchi. Left upper chest pacer site, no fluctuance or redness. GASTROINTESTINAL: Abdomen soft, non-tender, nondistended. EXTREMITIES: No edema or joint tenderness. BACK: Nontender without deformity or crepitance. No flank tenderness. NEURO: AOx3. Motor functions grossly nonfocal SKIN: No rash or erythema of visible areas Initial Vital Signs Initial Vital Signs: Vital Signs Temperature 97 F L 12/27/24 12:25 Pulse Rate 69 12/27/24 12:25 Respiratory Rate 16 12/27/24 12:25 Blood Pressure 146/75 H 12/27/24 12:25 Pulse Oximetry 97 12/27/24 12:25 Oxygen Delivery Method Room Air 12/27/24 12:25 Course Orders Ordered: ED Orders 12/27/24 12:29 XR chest 1V Stat EKG-12 Lead Stat 12/27/24 15:56 Trop I [Troponin I] Stat Discontinued Medications Ondansetron HCl (Ondansetron 4 Mg/2 Ml Inj) 4 mg IV NOW ONE Stop: 12/27/24 12:31 Last Admin: 12/27/24 12:36 Dose: 4 mg Documented By: FLO Vital Signs Vital signs: Vital Signs - 8 hr 12/27/24 13:30 12/27/24 13:30 12/27/24 14:00 Pulse Rate 69 Pulse Rate [Orthostatic Lying] Pulse Rate [Orthostatic Sitting] Pulse Rate [Orthostatic Standing] Respiratory Rate 18 Blood Pressure 165/82 H 157/82 H Blood Pressure [Orthostatic Lying] Blood Pressure [Orthostatic Sitting] Blood Pressure [Orthostatic Standing] Pulse Oximetry 95 Oxygen Delivery Method 12/27/24 14:00 12/27/24 14:29 12/27/24 14:29 Pulse Rate 69 69 Pulse Rate [Orthostatic Lying] Pulse Rate [Orthostatic Sitting] Pulse Rate [Orthostatic Standing] Respiratory Rate 18 20 Blood Pressure 171/89 H Blood Pressure [Orthostatic Lying] Blood Pressure [Orthostatic Sitting] Blood Pressure [Orthostatic Standing] Pulse Oximetry 95 96 Oxygen Delivery Method Room Air 12/27/24 14:31 12/27/24 14:31 12/27/24 14:33 Pulse Rate 70 Pulse Rate [Orthostatic Lying] Pulse Rate [Orthostatic Sitting] Pulse Rate [Orthostatic Standing] Respiratory Rate 23 Blood Pressure 182/88 H 183/88 H Blood Pressure [Orthostatic Lying] Blood Pressure [Orthostatic Sitting] Blood Pressure [Orthostatic Standing] Pulse Oximetry 96 Oxygen Delivery Method 12/27/24 14:33 12/27/24 14:36 12/27/24 15:00 Pulse Rate 69 69 Pulse Rate [Orthostatic Lying] 69 Pulse Rate [Orthostatic Sitting] 69 Pulse Rate [Orthostatic Standing] 69 Respiratory Rate 20 Blood Pressure Blood Pressure [Orthostatic Lying] 172/89 H Blood Pressure [Orthostatic Sitting] 182/88 H Blood Pressure [Orthostatic Standing] 183/88 H Pulse Oximetry 95 95 Oxygen Delivery Method Room Air 12/27/24 15:03 12/27/24 15:03 12/27/24 15:30 Pulse Rate 69 Pulse Rate [Orthostatic Lying] Pulse Rate [Orthostatic Sitting] Pulse Rate [Orthostatic Standing] Respiratory Rate 19 Blood Pressure 179/86 H 178/86 H Blood Pressure [Orthostatic Lying] Blood Pressure [Orthostatic Sitting] Blood Pressure [Orthostatic Standing] Pulse Oximetry 94 Oxygen Delivery Method 12/27/24 15:30 12/27/24 16:00 12/27/24 16:00 Pulse Rate 69 69 Pulse Rate [Orthostatic Lying] Pulse Rate [Orthostatic Sitting] Pulse Rate [Orthostatic Standing] Respiratory Rate 23 26 H Blood Pressure 180/134 H Blood Pressure [Orthostatic Lying] Blood Pressure [Orthostatic Sitting] Blood Pressure [Orthostatic Standing] Pulse Oximetry 95 95 Oxygen Delivery Method 12/27/24 16:30 12/27/24 16:30 12/27/24 16:39 Pulse Rate 69 Pulse Rate [Orthostatic Lying] Pulse Rate [Orthostatic Sitting] Pulse Rate [Orthostatic Standing] Respiratory Rate 56 H Blood Pressure 201/96 H 183/84 H Blood Pressure [Orthostatic Lying] Blood Pressure [Orthostatic Sitting] Blood Pressure [Orthostatic Standing] Pulse Oximetry 95 Oxygen Delivery Method 12/27/24 16:39 12/27/24 17:00 12/27/24 17:00 Pulse Rate 69 69 Pulse Rate [Orthostatic Lying] Pulse Rate [Orthostatic Sitting] Pulse Rate [Orthostatic Standing] Respiratory Rate 23 22 Blood Pressure 179/86 H Blood Pressure [Orthostatic Lying] Blood Pressure [Orthostatic Sitting] Blood Pressure [Orthostatic Standing] Pulse Oximetry 96 96 Oxygen Delivery Method 12/27/24 17:16 12/27/24 17:16 Pulse Rate 70 Pulse Rate [Orthostatic Lying] Pulse Rate [Orthostatic Sitting] Pulse Rate [Orthostatic Standing] Respiratory Rate 16 Blood Pressure Blood Pressure [Orthostatic Lying] Blood Pressure [Orthostatic Sitting] Blood Pressure [Orthostatic Standing] Pulse Oximetry 95 Oxygen Delivery Method Medical Decision Making Lab Data Lab results reviewed: Yes I reviewed the patient's lab results. Lab results narrative: White blood cell count 7600, hemoglobin 12.9, 221,000. Sodium 138, potassium 4.7. Chloride 101, serum CO2 30. BUN 21 with creatinine 0.83. Glucose 105. Total bilirubin slight elevation, other liver functions normal. BNP 2600. Troponin negative/unmeasurable x2 sets. PT INR 2.1, patient takes warfarin. 12/27/24 12:24 12/27/24 12:24 Labs: Lab Results 12/27/24 12/27/24 Range/Units 12:24 15:56 WBC 7.6 (4.5-11.0) X10^3/uL RBC 4.39 (4.0-5.2) X10^6/uL Hgb 12.9 (12.0-16.0) g/dL Hct 39.2 (36-46) % MCV 89.3 (80-100) fL MCH 29.3 (26-34) PG MCHC 32.8 (30-36) % RDW 13.9 (11.6-14.8) % Plt Count 221 (150-400) X10^3/uL Neut % (Auto) 74.0 (50-75) % Lymph % (Auto) 15.0 L (25-40) % [place] % (Auto) 8.2 (3-14) % Eos % (Auto) 1.8 L (2-4) % Baso % (Auto) 1.0 (0-2) % Neut # (Auto) 5600 (0794-3117) /uL Lymph # (Auto) 1100 (5955-3254) /uL [place] # (Auto) 600 (0-900) /uL Eos # (Auto) 100 (0-450) /uL Baso # (Auto) 100 (0-100) /uL PT 23.9 H (9.4-12.5) SECONDS INR 2.1 H (0.9-1.3) APTT 42 H (25.1-36.5) SECONDS Sodium 138 (137-145) mmol/L Potassium 4.7 (3.4-5.1) mmol/L Chloride 101 (98-107) mmol/L Carbon Dioxide 30 (22-32) mmol/L BUN 21 H (7-17) mg/dL Creatinine 0.83 (0.52-1.04) mg/dL Estimated GFR > 60 (>60) mL/min BUN/Creatinine Ratio 25.3 H (6-22) Glucose 105 (80-110) mg/dL Calcium 9.2 (8.4-10.2) mg/dL Magnesium 2.1 (1.6-2.3) mg/dL Total Bilirubin 1.9 H (0.2-1.3) mg/dL AST 33 (14-36) IU/L ALT 22 (<35) IU/L Alkaline Phosphatase 83 (38-126) U/L Total Creatine Kinase 48 (30-135) U/L Troponin I < 0.012 < 0.012 (0.01-0.034) ng/mL NT-Pro-B Natriuret Pep 2610 H (<450) pg/mL Total Protein 7.0 (6.3-8.2) g/dL Albumin 4.4 (3.5-5.0) g/dL Globulin 2.6 (1.7-4.1) g/dL Albumin/Globulin Ratio 1.7 (1.0-2.8) Lipase 107 (23-300) U/L Imaging Data Chest x-ray: Radiologist's Impression: [address] [address] XRay Report Signed Patient: Silvano Merrill MR#: [id number] : 1940 Acct:[id number] Age/Sex: 84 / F Date of Service: 12/27/24 Loc: ED Accession Number: [id number] Procedure: XR chest 1V Ordering Provider: Amado Vargas MD PROCEDURE: XR CHEST 1V INDICATIONS: chest pain TECHNIQUE: One view of the chest was acquired. COMPARISON: [facility], CR, XR CHEST 2V, 03/31/2024, 14:08. [facility], CR, XR CHEST 1V, 05/03/2022, 13:17. FINDINGS: Surgical changes and devices: Left pacemaker with the leads terminating in the projection of the right ventricle and coronary sinus Lungs and pleura: Lungs are clear. No pleural effusions or pneumothorax. Mediastinum: Mediastinal contours appear normal. Cardiomegaly with splaying of the jessica, suggestive of left atrial enlargement. Bones and chest wall: No suspicious bony lesions. Status post right distal clavicular resection. Overlying soft tissues appear unremarkable. IMPRESSION: Cardiomegaly with left atrial enlargement. Dictated by: Mike Mendez M.D. on 12/27/2024 at 12:35 Approved by: Mike Mendez M.D. on 12/27/2024 at 12:36 ECG Data Interpretation: Ventricular paced rhythm with rate 70. QRS 172, QRS 520. MDM Narrative Medical decision making narrative: [facility]opal episode at [facility] with left shoulder pain. History of atrial fibrillation, takes warfarin chronic anticoagulation, INR 2.1 noted. ECG paced rhythm. CXR negative. Troponin negative. Phone call from [facility], pacer function biventricular, battery 5 year duration left, no abnormalities from interrogation study. Repeat troponin also negative/unmeasurable. Wants to go home, tolerated ambulation trial. Home with family per request. Return precautions discussed. Discharge Plan Departure Patient Disposition: Home Clinical Impression: Syncope, History of pacemaker, Left shoulder pain Activity Restrictions/Additional Instructions: History of prior pacemaker, some left upper shoulder chest discomfort while at [facility] today, feeling too weak to get up, then apparently you have passed out. Here in the emergency department you seemed to be feeling better. Unclear cause of your symptoms. EKG showed paced rhythm. Blood tests did not show any evidence for any electrolyte disturbance, you glucose was normal, hemoglobin was normal, kidney function unremarkable, serial blood tests did not show evidence of heart attack at this time. You are taking warfarin blood thinner medication with INR 2.1. Chest x-ray unremarkable. We did interrogation of your pacemaker, which seemed to be functioning normally, no concerns on the interrogation interpretation study. We did discuss CT angiogram of the chest to look for blood clots or any other problems, declined. You felt better and you wanted to go home. Follow up with your regular doctor early this week. Return to this/nearest emergency department for any change worsening symptoms or any concerns prior. Prescriptions: No Action warfarin 5 mg tablet 5 mg PO DAILY Qty: 90 3RF Protocol: Dose Management Condition: Saturday Dose/Route: 5 mg Instruction: 1 x 5 mg tablet Condition: Saturday Dose/Route: 5 mg Instruction: 1 x 5 mg tablet Condition: Saturday Dose/Route: 5 mg Instruction: 1 x 5 mg tablet Condition: Saturday Dose/Route: 5 mg Instruction: 1 x 5 mg tablet Condition: Dose/Route: 5 mg Instruction: 1 x 5 mg tablet Condition: Saturday Dose/Route: 5 mg Instruction: 1 x 5 mg tablet Condition: Saturday Dose/Route: 5 mg Instruction: 1 x 5 mg tablet Protocol Text: Adjustment Start Date: Saturday12/16/24 INR Value: 2.6 INR Date: 12/15/24 Recheck Date: 12/30/24 bumetanide 0.5 mg tablet 0.25 mg PO DAILY (DME) Parking Permit... See Rx Instructions .Route .MEDSUPPLY Qty: 1 0RF Rx Instructions: I find this patient to medically qualify for handicap placard. Valid for 5 years. oxybutynin chloride 5 mg tablet 5 mg PO DAILY Qty: 90 1RF Rx Instructions: add another 5mg daily every week up to max of 30mg daily as tolerated. fluticasone propionate [Flonase Allergy Relief] 50 mcg/actuation spray,suspension 2 spray intranasal DAILY PRN (Reason: nasal congestion) Qty: 16 11RF Rx Instructions: administer into each nostril clindamycin HCl 300 mg capsule PO isosorbide mononitrate 30 mg tablet extended release 24 hr 15 mg PO DAILY acetaminophen [Tylenol] 325 mg capsule 650 mg PO QID PRN (Reason: pain) Qty: 60 0RF cholecalciferol (vitamin D3) [Vitamin D3] 1,000 unit Capsule 1,000 unit PO DAILY carvedilol 12.5 mg tablet 12.5 mg PO BID losartan 25 mg tablet 50 mg PO BID Referrals: Aguilar Story DO [Primary Care Provider] - Stand Alone Forms: Patient Portal/API/Survey
== END 2024-12-27 17:30 | disposition home or self-care (01) ==
PROVIDERS: Emergency Provider Emergency Medicine; Family Provider Family Medicine; PCP Family Medicine
DX: R55 Syncope and collapse (principal); M25.512 Pain in left shoulder; R07.9 Chest pain, unspecified; Z95.0 Presence of cardiac pacemaker; I48.91 Unspecified atrial fibrillation; Z79.01 Long term (current) use of anticoagulants
CPT/HCPCS: 71045; 80053; 82550; 83690; 83735; 83880; 84484; 85025; 85610; 85730; 93005; 93010; 96374; 99284; J2405

== ENCOUNTER → 2025-01-19 07:51 | Outpatient (CLI) | payer MEDICARE, BC, SELFPAY ==
[2024-07-14 10:30] VITALS: BMI 22.6
[2025-01-19 08:36] LABS: Add Manual Diff / Slide Review NO; Basophils Absolute Auto 0 /uL (0-100); Basophils Percent Auto 0.9 % (0-2); Eosinophils Absolute Auto 200 /uL (0-450); Eosinophils Percent Auto 4.4 % (2-4); Hematocrit 39.9 % (36-46); Hemoglobin 13.1 g/dL (12.0-16.0); Lymphocytes Absolute Auto 1100 /uL (1100-4500); Lymphocytes Percent Auto 22.9 % (25-40); Mean Corpuscular HGB Conc 32.8 % (30-36); Mean Corpuscular Hemoglobin 29.5 PG (26-34); Mean Corpuscular Volume 89.8 fL (80-100); Monocytes Absolute Auto 400 /uL (0-900); Monocytes Percent Auto 9.1 % (3-14); Neutrophils Absolute Auto 3100 /uL (1500-7000); Neutrophils Percent Auto 62.7 % (50-75); Platelet Count 206 X10^3/uL (150-400); Red Blood Cell Count 4.44 X10^6/uL (4.0-5.2); White Blood Cell Count 4.9 X10^3/uL (4.5-11.0)
[2025-01-19 09:01] LABS: Alanine Aminotransferase 20 IU/L (<35); Albumin 4.3 g/dL (3.5-5.0); Albumin Globulin Ratio 1.8 (1.0-2.8); Alkaline Phosphatase 88 U/L (38-126); Aspartate Aminotransferase 30 IU/L (14-36); BUN Creatinine Ratio 17.1 (6-22); Bilirubin Total 1.7 mg/dL (0.2-1.3); Blood Urea Nitrogen 13 mg/dL (7-17); Calcium 9.5 mg/dL (8.4-10.2); Carbon Dioxide 32 mmol/L (22-32); Chloride 101 mmol/L (98-107); Cholesterol 211 mg/dL (140-199); Estimated Glomerular Filt Rate > 60 mL/min (>60); Globulin 2.4 g/dL (1.7-4.1); Glucose 99 mg/dL (80-110); HDL Cholesterol 65 mg/dL (40-60); HEMOLYSIS < 15 (0-50); LDL Cholesterol Calculated 128 mg/dL (<100); Potassium 4.8 mmol/L (3.4-5.1); Sodium 139 mmol/L (137-145); Total Protein 6.7 g/dL (6.3-8.2); Triglycerides 89 mg/dL (35-150)
[2025-01-19 09:12] LABS: Free T3, Triiodothyronine Free 3.98 pg/mL (2.77-5.27); Free T4, Direct Thyroxine 1.12 ng/dL (0.78-2.19)
[2025-01-19 09:26] LABS: Thyroid Stimulating Hormone 3.31 uIU/mL (0.47-4.68)
== END ==
PROVIDERS: Family Provider Family Medicine; PCP Family Medicine; Referring Provider Family Medicine; Visit Provider Family Medicine
DX: R55 Syncope and collapse (principal); I10 Essential (primary) hypertension
CPT/HCPCS: 36415; 80053; 80061; 84439; 84443; 84481; 85025

== ENCOUNTER → 2025-05-06 11:47 | Outpatient (CLI) | payer MEDICARE, BC, SELFPAY ==
[2024-07-14 10:30] VITALS: BMI 22.6
[2025-05-06 13:23] LABS: NT-proBNP (BNP-Adult 18+) 2220 pg/mL (<450)
== END ==
PROVIDERS: Family Provider Family Medicine; PCP Family Medicine; Referring Provider Specialist; Visit Provider Specialist
DX: R06.09 Other forms of dyspnea (principal); I27.20 Pulmonary hypertension, unspecified; I34.0 Nonrheumatic mitral (valve) insufficiency
CPT/HCPCS: 36415; 83880

== ENCOUNTER → 2025-05-13 09:27 | Outpatient (CLI) | payer MEDICARE, BC, SELFPAY ==
[2024-07-14 10:30] VITALS: BMI 22.6
[2025-05-13 09:57] LABS: Hematocrit 39.6 % (36-46); Hemoglobin 13.1 g/dL (12.0-16.0); Mean Corpuscular HGB Conc 33.1 % (30-36); Mean Corpuscular Hemoglobin 29.8 PG (26-34); Mean Corpuscular Volume 90.0 fL (80-100); Platelet Count 230 X10^3/uL (150-400)
[2025-05-13 10:40] LABS: Alanine Aminotransferase 16 IU/L (<35); Albumin 4.2 g/dL (3.5-5.0); Albumin Globulin Ratio 1.6 (1.0-2.8); Alkaline Phosphatase 82 U/L (38-126); Blood Urea Nitrogen 16 mg/dL (7-17); Calcium 9.5 mg/dL (8.4-10.2); Carbon Dioxide 32 mmol/L (22-32); Chloride 101 mmol/L (98-107); Estimated Glomerular Filt Rate > 60 mL/min (>60); Globulin 2.6 g/dL (1.7-4.1); Glucose 93 mg/dL (70-99); HEMOLYSIS < 15 (0-50); Magnesium 2.0 mg/dL (1.6-2.3); Potassium 4.6 mmol/L (3.4-5.1); Sodium 140 mmol/L (137-145); Total Protein 6.8 g/dL (6.3-8.2)
== END ==
PROVIDERS: Family Provider Family Medicine; PCP Family Medicine; Referring Provider Specialist; Visit Provider Specialist
DX: I48.19 Other persistent atrial fibrillation (principal); I27.20 Pulmonary hypertension, unspecified
CPT/HCPCS: 36415; 80053; 83735; 85027

== ENCOUNTER → 2025-08-25 08:11 | Outpatient (CLI) | payer MEDICARE, BC, SELFPAY ==
[2024-07-14 10:30] VITALS: BMI 22.6
[2025-08-25 09:03] LABS: Alanine Aminotransferase 20 IU/L (<35); Albumin 4.4 g/dL (3.5-5.0); Albumin Globulin Ratio 1.7 (1.0-2.8); Alkaline Phosphatase 88 U/L (38-126); Blood Urea Nitrogen 14 mg/dL (7-17); Calcium 9.3 mg/dL (8.4-10.2); Carbon Dioxide 32 mmol/L (22-32); Chloride 102 mmol/L (98-107); Estimated Glomerular Filt Rate > 60 mL/min (>60); Globulin 2.6 g/dL (1.7-4.1); Glucose 99 mg/dL (70-99); HEMOLYSIS < 15 (0-50); Magnesium 1.9 mg/dL (1.6-2.3); Potassium 4.1 mmol/L (3.4-5.1); Sodium 140 mmol/L (137-145); Total Protein 7.0 g/dL (6.3-8.2)
[2025-08-25 09:11] LABS: NT-proBNP (BNP-Adult 18+) 2120 pg/mL (<450)
== END ==
PROVIDERS: Family Provider Family Medicine; PCP Family Medicine; Referring Provider Specialist; Visit Provider Specialist
DX: I42.0 Dilated cardiomyopathy (principal); I48.19 Other persistent atrial fibrillation; R06.09 Other forms of dyspnea
CPT/HCPCS: 36415; 80053; 83735; 83880